=== PATIENT | female | born 1960 | race Caucasian/White ===

== ENCOUNTER → 2019-09-17 17:00 | Outpatient (CLI) | payer MEDICAID, SELFPAY ==
[2019-09-17 17:26] LABS: Basophils % 0.3 % (0.1-2.0); Eosinophils # 0.2 K/mm3 (0.0-0.4); Eosinophils % 1.5 % (0.1-12.0); Hematocrit 43.2 % (37.0-47.0); Lymphocytes # 2.9 K/mm3 (0.7-4.5); Lymphocytes % 27.5 % (10-50); Mean Corpuscular HGB Conc 32.5 g/dL (31.8-35.4); Mean Corpuscular Hemoglobin 29.2 pg (27.0-31.2); Mean Corpuscular Volume 89.9 fl (81-99); Mean Platelet Volume 8.4 fl (7.4-10.4); Monocytes # 0.5 K/mm3 (0.1-1.0); Monocytes % 5.1 % (1.7-9.3); Neutrophils # 6.9 K/mm3 (1.8-7.8); Neutrophils % 65.6 % (37.0-80.0); Platelet Count 310 K/mm3 (142-424); Red Blood Count 4.81 M/mm3 (4.20-5.40); Red Cell Distribution Width 14.9 % (11.5-17.5); White Blood Count 10.5 K/mm3 (4.8-10.8)
[2019-09-17 17:30] LABS: Chloride 104 mmol/L (98-107); Potassium 4.1 mmoL/L (3.5-5.1); Sodium 138 mmol/L (136-145)
[2019-09-17 17:33] LABS: Alanine Aminotransferase 20 U/L (12-78); Albumin Level 3.9 g/dl (3.5-5.0); Albumin/Globulin Ratio 1.6 (1.1-1.8); Alkaline Phosphatase 81 U/L (38-126); Anion Gap 8.1 mEq/L (5-15); Aspartate Amino Transferase 29 U/L (14-36); Bilirubin,Total 0.4 mg/dl (0.2-1.3); Blood Urea Nitrogen 15 mg/dl (7-17); Calcium 9.3 mg/dl (8.4-10.2); Carbon Dioxide 30 mmol/L (22.0-30.0); Estimated Glomerular Filt Rate 102 ml/min (>60); GFR (African American) 124 ML/MIN (>60); Globulin 2.5 g/dL (1.3-3.2); Glucose 109 mg/dl (74-100); Total Protein,Serum 6.4 g/dl (6.3-8.2)
[2019-09-17 17:51] LABS: T4 (Thyroxine) 8.9 ug/dl (5.53-11.0)
[2019-09-17 18:04] LABS: Thyroid Stimulating Hormone 1.07 uIU/mL (0.465-4.68)
== END ==
PROVIDERS: Visit Provider Family Medicine
DX: R53.83 Other fatigue (principal); E66.9 Obesity, unspecified
CPT/HCPCS: 80053; 84436; 84443; 85025

== ENCOUNTER 2023-05-30 21:14 | Outpatient (CLI) | payer MEDICAID, SELFPAY ==
[2023-05-30 19:25] LABS: Thyroid Stimulating Hormone 0.37 uIU/mL (0.465-4.68)
== END 2023-05-30 23:59 ==
LOC: LAB.DROPOF 21:14
PROVIDERS: PCP Family Medicine; Visit Provider Family Medicine
DX: E66.9 Obesity, unspecified (principal); H92.01 Otalgia, right ear; Z79.899 Other long term (current) drug therapy; Z68.41 Body mass index [BMI] 40.0-44.9, adult
CPT/HCPCS: 83036; 84443

== ENCOUNTER 2023-08-26 18:51 | Outpatient (CLI) | payer MEDICAID, SELFPAY ==
[2023-08-26 19:52] LABS: Basophils % 0.5 % (0.1-2.0); Eosinophils # 0.2 K/mm3 (0.0-0.4); Hematocrit 40.7 % (37.0-47.0); Hemoglobin 12.5 g/dL (12.2-16.2); Lymphocytes # 2.6 K/mm3 (0.7-4.5); Mean Corpuscular HGB Conc 30.7 g/dL (31.8-35.4); Mean Corpuscular Hemoglobin 28.8 pg (27.0-31.2); Mean Platelet Volume 9.6 fl (7.4-10.4); Monocytes # 0.6 K/mm3 (0.1-1.0); Neutrophils # 5.8 K/mm3 (1.8-7.8); Neutrophils % 63.5 % (37.0-80.0); Platelet Count 342 K/mm3 (142-424); Red Blood Count 4.33 M/mm3 (4.20-5.40); Red Cell Distribution Width 15.8 % (11.5-17.5); White Blood Count 9.2 K/mm3 (4.8-10.8)
[2023-08-26 20:14] LABS: Chloride 104 mmol/L (98-107); Potassium 4.1 mmoL/L (3.5-5.1); Sodium 138 mmol/L (136-145)
[2023-08-26 20:17] LABS: Alanine Aminotransferase 14 U/L (12-78); Albumin Level 3.5 g/dl (3.5-5.0); Alkaline Phosphatase 90 U/L (38-126); Anion Gap 10.1 mEq/L (5-15); Aspartate Amino Transferase 21 U/L (14-36); Bilirubin,Total 0.2 mg/dl (0.2-1.3); Blood Urea Nitrogen 17 mg/dl (7-17); Calcium 9.1 mg/dl (8.4-10.2); Carbon Dioxide 28 mmol/L (22.0-30.0); Estimated Glomerular Filt Rate 72 ml/min (>60); GFR (African American) 88 ML/MIN (>60); Glucose 100 mg/dl (74-100)
[2023-08-26 20:18] LABS: Albumin/Globulin Ratio 1.5 (1.1-1.8); Globulin 2.4 g/dL (1.3-3.2); Total Protein,Serum 5.9 g/dl (6.3-8.2)
[2023-08-26 20:49] LABS: Thyroid Stimulating Hormone 1.52 uIU/mL (0.465-4.68)
== END 2023-08-26 23:59 | disposition home or self-care (01) ==
LOC: LAB.DROPOF 18:54
PROVIDERS: PCP Family Medicine; Visit Provider Family Medicine
DX: E07.9 Disorder of thyroid, unspecified (principal); I10 Essential (primary) hypertension; F17.210 Nicotine dependence, cigarettes, uncomplicated
CPT/HCPCS: 80050; 80053; 84443; 85025

== ENCOUNTER 2023-10-16 11:36 | Outpatient (CLI) | payer MEDICAID, SELFPAY ==
[2023-10-16 12:33] LABS: Basophils # 0.1 K/mm3 (0-0.2); Basophils % 1.1 % (0.1-2.0); Eosinophils % 0.5 % (0.1-12.0); Hematocrit 42.7 % (37.0-47.0); Hemoglobin 13.4 g/dL (12.2-16.2); Lymphocytes # 3.8 K/mm3 (0.7-4.5); Lymphocytes % 47.5 % (10-50); Mean Corpuscular HGB Conc 31.3 g/dL (31.8-35.4); Mean Corpuscular Hemoglobin 29.1 pg (27.0-31.2); Mean Corpuscular Volume 92.9 fl (81-99); Mean Platelet Volume 8.4 fl (7.4-10.4); Monocytes # 0.5 K/mm3 (0.1-1.0); Monocytes % 6.3 % (1.7-9.3); Neutrophils # 3.6 K/mm3 (1.8-7.8); Neutrophils % 44.6 % (37.0-80.0); Platelet Count 305 K/mm3 (142-424); Red Cell Distribution Width 15.8 % (11.5-17.5); White Blood Count 8.1 K/mm3 (4.8-10.8)
[2023-10-16 13:15] LABS: Alanine Aminotransferase 18 U/L (12-78); Albumin Level 3.5 g/dl (3.5-5.0); Alkaline Phosphatase 93 U/L (38-126); Anion Gap 9.2 mEq/L (5-15); Aspartate Amino Transferase 21 U/L (14-36); Bilirubin,Indirect 0.3 mg/dL (0.0-0.9); Bilirubin,Total 0.3 mg/dl (0.2-1.3); Bilirubin,Unconjugated 0.4 mg/dL (0.0-1.1); Blood Urea Nitrogen 20 mg/dl (7-17); Carbon Dioxide 27 mmol/L (22.0-30.0); Chloride 107 mmol/L (98-107); Chol/HDL Ratio 3.5 (1-3.5); Cholesterol 164 mg/dl (140-200); Estimated Glomerular Filt Rate 63 ml/min (>60); GFR (African American) 77 ML/MIN (>60); Glucose 106 mg/dl (74-100); HDL Cholesterol 47 mg/dl (40-60); Potassium 4.2 mmoL/L (3.5-5.1); Sodium 139 mmol/L (136-145); Triglycerides 331 mg/dl (30-150); VLDL Cholesterol 66 mg/dL (0-40)
[2023-10-16 13:25] LABS: NT Pro Brain Natriuretic Pep. 516 pg/mL (0-125)
[2023-10-16 13:26] LABS: Direct LDL Cholesterol 57.83 mg/dL (100-129)
[2023-10-16 13:32] LABS: Free T4 (Free Thyroxine) 0.98 ng/dl (0.78-2.19)
[2023-10-16 13:46] LABS: Thyroid Stimulating Hormone 1.86 uIU/mL (0.465-4.68)
== END 2023-10-16 23:59 | disposition home or self-care (01) ==
LOC: LAB 11:38
PROVIDERS: PCP Family Medicine; Visit Provider Nurse Practitioner Family
DX: R07.89 Other chest pain (principal); R06.02 Shortness of breath; I48.0 Paroxysmal atrial fibrillation; R00.2 Palpitations
CPT/HCPCS: 36415; 80048; 80061; 80076; 83880; 84439; 84443; 85025

== ENCOUNTER 2023-11-21 10:17 | Outpatient (CLI) | payer MEDICAID, SELFPAY ==
[2023-11-21 12:01] LABS: Anion Gap 8.3 mEq/L (5-15); Blood Urea Nitrogen 12 mg/dl (7-17); Calcium 9.5 mg/dl (8.4-10.2); Carbon Dioxide 28 mmol/L (22.0-30.0); Chloride 110 mmol/L (98-107); Estimated Glomerular Filt Rate 85 ml/min (>60); GFR (African American) 102 ML/MIN (>60); Glucose 109 mg/dl (74-100); Potassium 4.3 mmoL/L (3.5-5.1); Sodium 142 mmol/L (136-145)
[2023-11-21 12:07] LABS: NT Pro Brain Natriuretic Pep. 557 pg/mL (0-125)
== END 2023-11-21 23:59 | disposition home or self-care (01) ==
PROVIDERS: PCP Family Medicine; Visit Provider Nurse Practitioner Family
DX: Z82.49 Family history of ischemic heart disease and other diseases of the circulatory system (principal); F17.200 Nicotine dependence, unspecified, uncomplicated; R00.2 Palpitations; R06.01 Orthopnea; R60.9 Edema, unspecified; R06.02 Shortness of breath; I48.0 Paroxysmal atrial fibrillation
CPT/HCPCS: 36415; 80048; 83880

== ENCOUNTER 2023-11-28 15:49 | Outpatient (CLI) | payer MEDICAID, SELFPAY | END 2023-11-28 23:59 | disposition home or self-care (01) | LOC: LAB.DROPOF 11-29 13:37 | PROVIDERS: PCP Obstetrics & Gynecology; Visit Provider Nurse Practitioner Family | DX: L72.9 Follicular cyst of the skin and subcutaneous tissue, unspecified (principal) | CPT/HCPCS: 87070; 87077; 87186; 87205 ==

== ENCOUNTER 2023-12-11 07:49 | Outpatient (CLI) | payer MEDICAID, SELFPAY ==
--- NOTE | 2023-12-11 | CA_ITS ---
APPROVED REPORT Exam: Pharmacologic Technologist: Kiki Gonzales Ht: 5 ft 8 in Wt: 302 lbs BSA: 2.44 m2 HR: 71 bpm BP: 135/70 mmHg Rhythm: NSR Indications: Shortness of Breath Medical History Medications: Lisinopril,,,,, Atorvastatin,,,,, Nitroglycerin,,,,, Trazodone,,,,, TorSEMIDE,,,,, Apixaban,,,,, Potassium,,,,, Hydrocodone-Acetaminophen,,,,, DilTiazem HCI ER,,,,, BuPROPION HCI XL,,,,, Stress Test Details Test: LEXISCAN HR Resting HR: 76 bpm Max Heart Rate (APMHR): 157 bpm Max HR Achieved: 97 bpm Target HR (85% APMHR): 133 bpm % of APMHR: 62 Recovery HR: 80 bpm BP Resting BP: 135.0/70.0 mmHg Max BP: 139.0/74.0 mmHg Recovery BP: 122.0/64.0 mmHg ECG Resting ECG: Normal sinus rhythm, low voltage QRS Stress ECG: No significant ST changes Arrhythmia: PACs Clinical Exercise duration: 04:00 min Highest Stage Achieved: Stress ECG Conclusion Symptoms: Shortness of air, mild head discomfort. No chest pain. Arrhythmias/Ectopy: Occasional PAC ST-T Changes: No significant ST changes. Conclusion: Unremarkable Lexiscan stress. Myoview images reported separately. Test Summary REST . . . . . . . Resting REST 03:23 . . 76 . 135/ 70 . . Stage 1 . . . . . . . Myoview Injected Stage 1 01:00 . . 84 . . . . Stage 2 01:00 . . 91 . . . . Stage 3 01:00 . . 85 . 135/ 71 . . Stage 4 01:00 . . 84 . 139/ 74 . Stop exercise at 04:00 RECOVERY 01:00 . . 90 . 134/ 70 . . RECOVERY 02:00 . . 78 . 134/ 70 . . RECOVERY 03:00 . . 79 . 122/ 64 . . RECOVERY 03:14 . . 76 . 122/ 64 . . Electronically signed by : Megan Bullock MD 12/11/2023 12:15:50
--- NOTE | 2023-12-11 08:25 | CA_ITS ---
APPROVED REPORT EXAM: Comprehensive 2D, Doppler, and color-flow Echocardiogram Silk Snapper: Chelsea Devries RVT Ht: 5 ft 8 in Wt: 306lbs BSA: 2.45 BP: 134/74 mmHg Indications: EDEMA,SMOKER,SOA 2D Dimensions IVSd 0.94 cm F: 0.6-1.0 LVEF (Visual) 63.10 % PWd 0.81 cm F: 0.6 - 1.0 LA Volume 78.00 mL LVDd 5.82 cm F: 3.9 - 5.3 LA Volume Index 31.84 mL/m2 (M/F) 16-34 LVDs 3.80 cm F: 2.2 - 3.5 M-Mode Dimensions LA Diam 5.37 cm (1.9-4.0) LV Diastology E Decel Time 177 (160-240 msec) E/A Ratio 1.4 Aortic Valve ANDREW Index 1.69 cm2/m2 AoV Peak Carlos. 148.0 (50-130 cm/s) AO Peak GR. 8.80 mmHg AO Mean GR. 4.60 (<5 mmHg) AO VTI 28.5 (18-25 cm) ANDREW (VTI) 4.24 (2.5-4.5 cm2) Mitral Valve MV E Max Carlos. 95.0 (40-130 cm/s) MV A Velocity 70.0 (40-130 cm/s) E/A Ratio 1.36 MV PHT 52.0 ms Pulmonary Valve PV Peak Velocity 87.0 (50-150 cm/s) Tricuspid Valve TR P. Velocity 192.00 cm/s RAP Estimate 10.00 mmHg RVSP 24.80 mmHg Left Ventricle The left ventricle is normal size. The left ventricular systolic function is normal. The left ventricular ejection fraction is within the normal range. There is normal left ventricular wall thickness. There is normal LV segmental wall motion. The left ventricular diastolic function is normal. LVEF is 65%. Right Ventricle The right ventricle is not very well-visualized, but grossly appears normal in size and function. Atria The left atrium size is normal. The right atrium size is normal. There is no Doppler evidence of interatrial shunt. Aortic Valve Aortic valve opens well. There is no aortic valvular stenosis. No aortic regurgitation is present. Mitral Valve The mitral valve is normal in structure. No evidence of mitral valve stenosis. Trace mitral regurgitation. Tricuspid Valve Tricuspid valve is grossly normal in structure and function. Trace tricuspid regurgitation. There is insufficient TR jet to estimate RVSP. Pulmonic Valve The pulmonary valve is normal in structure. Trace pulmonic regurgitation. Great Vessels The aortic root is normal in size. The ascending aorta is not well-visualized. IVC is normal in size and collapses >50% with inspiration. Pericardium There is no pericardial effusion. An epicardial fat pad is noted. Other Information Study Quality: Technically Difficult Conclusion Technically difficult study due to poor acoustic windows. Normal biventricular systolic function. No significant valvular stenosis or regurgitation. Electronically signed by : Megan Bullock MD 12/11/2023 12:01:21
--- NOTE | 2023-12-11 08:25 | NM_ITS ---
APPROVED REPORT Exam: Nuclear Stress Test Indication: Chest pain, SOB, Palpitations, Fatigue, HTN, Tobacco use, Family history Patient Location: Outpatient Stress Tech: Kiki Gonzales [place] Tech:Romi Mensah, ARRT, RT (R)(N) Ht: 5 ft 8 in Wt: 301 lbs Bra Size: 42DD HR: 76 bpm BP: 135/70 mmHg BSA: 2.43 m2 TID: 1.23 BMI: 45.7 History: Chest pain, SOB, Palpitations, Fatigue, HTN, Tobacco use, Family history Procedure: Patient received 0.4 mg of intravenous Lexiscan, resting heart rate 76 bpm, resting blood pressure 135/70 mmHg, with Lexiscan maximum heart rate achieved was 97 bpm which is % of the maximum predicted heart rate and blood pressure was 139/74 mmHg. With Lexiscan, patient denied any complaint of chest pain. Cardiac Stress and Resting SPECT Images: Cardiac Stress and Resting SPECT images were obtained using technetium 99m Myoview 32.2 mCi stress and 10.27 mCi at rest. Resting and stress imaging in supine and prone positions demonstrate no evidence of fixed or reversible perfusion defects. There is increase in transit ischemic dilatation (TID 1.23), suggestive of possible multivessel disease or balanced ischemia. Gated imaging demonstrates normal global and regional LV systolic function. LVEF is calculated at 61%. Conclusion: No evidence of fixed or reversible perfusion defects. There is increase in transit ischemic dilatation (TID 1.23), suggestive of possible multivessel disease or balanced ischemia. Gated imaging demonstrates normal global and regional LV systolic function. LVEF is calculated at 61%. In the setting of normal LV systolic function and presence of TID, further evaluation noninvasively with CCTA may be suggested prior to proceeding with invasive coronary angiography, if clinically feasible. Electronically signed by : Megan Bullock MD 12/11/2023 12:17:49
[2023-12-11] MEDS: REGADENOSON 0.4MG/5ML SYRINGE 0.4 MG IV (09:24)
[2023-12-11] MEDS: ISOTOPE MYOVIEW (PER STUDY) 1 DOSE IV (09:25)
[2023-12-11] MEDS: SODIUM CHLORIDE 0.9% 10ML SYR (RAD ONLY) 10 ML IV ×2 (09:25)
== END 2023-12-11 23:59 | disposition home or self-care (01) ==
LOC: RAD 07:50
PROVIDERS: PCP Family Medicine; Visit Provider Nurse Practitioner Family
DX: R07.89 Other chest pain (principal); R06.02 Shortness of breath; I48.0 Paroxysmal atrial fibrillation; R60.9 Edema, unspecified; R06.01 Orthopnea; R00.2 Palpitations; Z82.49 Family history of ischemic heart disease and other diseases of the circulatory system
CPT/HCPCS: 78452; 93017; 93018; 93306; A9502; J2785

== ENCOUNTER 2024-01-13 11:34 | Outpatient (CLI) | payer MEDICAID, SELFPAY ==
[2024-01-13] VITALS (7 sets, daily range): BP systolic 98–142; BP diastolic 40–79; PULSE 60–70; RESP 16–92; O2SAT 92–97; BMI 47.2
--- NOTE | 2024-01-13 11:34 | CT_ITS ---
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 A noncontrast coronary calcium scan was performed. A CT attenuation threshold of 130 Hounsfield units (HU) was used for the detection of calcium in contiguous voxels of 1 sq mm in area to be counted as individual lesions. Bolus tracking in the ascending aorta with a threshold of 180 HU was performed. Immediately afterwards, ECG synchronized cardiac CT was then performed from the cardiac base to apex using retrospective gating with ECG tube current modulation. A total of 85 mL of Isovue 370 mg/mL contrast medium was administered at 5 mL/sec followed by a saline flush using a biphasic injection protocol. A tube voltage of 120 KVp was used. The patient received the following medications prior to the cardiac CT. 15 mg of oral ivabradine 0.8 mg of sublingual nitroglycerin The average heart rate at the time of acquisition was 60 bpm and regular. Image Reconstruction Transaxial images were reconstructed at 0.67 mm slide thickness. Data was reviewed interactively on an advanced workstation capable of 2 and 3-dimensional displays in all conventional reconstruction formats, including multiplanar reformations, maximum intensity projections, curved multiplanar reformations, and volume rendered reconstructions. When applicable, selected routine images describing the relevant coronary anatomy and pathology were saved and sent to PACS. Complications None Technical Quality Overall image quality was suboptimal. Coronary artery opacification was suboptimal due to early image acquisition after IV contrast administration (low coronary vessel attenuation). Total DLP (Dose-Length Product) is 4606.8 mGy-cm. The reported value represents the total of one or more individual components during the CT acquisition of this date and at this time, and as such, the same value may appear in more than one CT report depending on the interpreting/reporting physicians. COMPARISON None FINDINGS CT Coronary Calcium Scoring LMA (Left Main Artery) = 176 LAD (Left Anterior Descending) = 161 LCX (Left Coronary Circumflex) = 268 RCA (Right Coronary Artery) = 272 Total Calcium Score = 877 using the AJ-130 method. The observed calcium score of 877 is at 99th percentile for subjects of the same age, sex, and race/ethnicity. The interpretation of the calcium heart score is based on the following continuum*: 0 = no calcified plaque detected (risk of coronary artery disease is very low ??? less than 5%) 1-10 = calcium detected in extremely minimal levels (risk of coronary diseases is still low ??? less than 10%) 11-100 = mild levels of plaque detected with certainty (mild or minimal narrowing of heart arteries is likely) 101-400 = definite,at least moderate levels of plaque detected (relatively high risk of a heart attack within 3-5 years) >401-999 = extensive levels of plaque detected (high risk of heart attack, high levels of vascular disease are present, high likelihood of at least one significant coronary narrowing) *The calcium heart score quantifies the burden of coronary calcification/plaque in the coronary arteries. The calcium heart score is not able to evaluate the presence or burden of non-calcified (i.e. soft) plaque. There is also calcification in the aortic valve present. Coronary CT Angiography The coronary arterial system is right dominant. Quantitative Stenosis Grading: Left Main (LM): The left main originates normally from the left sinus of Valsalva. The LM bifurcates into the left anterior descending artery and left circumflex artery. There is mixed calcified/non-calcified plaque in the ostial and proximal LM segments, with up to 30-50% luminal stenosis. Left Anterior Descending (LAD) and Diagonal Branches: The LAD gives off 2 diagonal branch(es). There is mixed calcified/non-calcified plaque in the proximal and mid LAD segments, with up to 30-50% luminal stenosis. There is no evidence of LAD-myocardial bridge. Left Circumflex (LCX) and Obtuse Marginals (OM): The LCX gives off 1 Obtuse Marginal (OM) branch(es). There is mixed calcified/non-calcified plaque in the proximal and mid LCX segment, with up to 30-50% luminal stenosis. Right Coronary Artery (RCA): The RCA originates normally from the right sinus of Valsalva. The RCA gives off a posterior descending artery (PDA) and posterolateral (PL) branches. There is mixed calcified/non-calcified plaque along the proximal and mid-RCA segments, with up to 30-50% luminal stenosis. Non-Coronary Cardiac Findings: Analysis of the left ventricular (LV) structure and function was performed after 3-D reconstruction of the LV from axial images, with user-corrected automatic contouring for assessment of LV volumes and user-defined reconstruction from oblique planes for measurement of 3-D cardiac structure and function. -The left ventricle systolic function is normal. -There is no left atrial appendage filling defect. Two right pulmonary veins and two left pulmonary veins drain normally into the left atrium. -No pericardial thickening or calcification. -Central and branch pulmonary arteries in the [id number] are unremarkable. -Thoracic aorta within the visualized thoracic aortic-branches in the [id number] is unremarkable. Extracardiac Structures No significant extra-cardiac findings. Note, however, that this study is focused on the cardiac findings. IMPRESSION -This is a suboptimal CCTA due to early image acquisition after IV contrast administration (low coronary vessel attenuation). -Presence of coronary calcification with an Agatston score = 877 using the AJ-130 method. -The observed calcium score of 877 is at 99th percentile for subjects of the same age, sex, and race/ethnicity. -Multivessel mild non-obstructive coronary atherosclerosis present, with no obvious evidence of significant flow-limiting atherosclerosis of the coronary arteries. Note, however, the severity of atherosclerosis may be underestimated in the setting of suboptimal study. -CAD-RADS 2. Management recommendations per ACC/AHA guidelines*, as clinically appropriate. In the setting of difficult study with suboptimal IV contrast opacification of the coronary arteries, further evaluation may be suggested, if clinically indicated and feasible. *Recommendations: CAD RADS 0: Reassurance. Consider non-atherosclerotic causes of chest pain. CAD RADS 1: Consider non-atherosclerotic causes of chest pain. Consider preventive therapy and risk factor modification. CAD RADS 2: Consider non-atherosclerotic causes of chest pain. Consider preventive therapy and risk factor modification, particularly for patients with nonobstructive plaque in multiple segments. CAD RADS 3: Consider further functional testing. Consider symptom-guided anti-ischemic and preventive pharmacotherapy as well as risk factor modification per published guideline statements. CAD RADS 4A: Consider further functional testing or invasive coronary angiography with revascularization per published guideline statements. Consider symptom-guided anti-ischemic and preventive pharmacotherapy as well as risk factor modification per published guideline statements. CAD RADS 4B: Invasive coronary angiography recommended with revascularization per published guideline statements. Consider symptom-guided anti-ischemic and preventive pharmacotherapy as well as risk factor modification per published guideline statements. CAD RADS 5: Consider invasive angiography and/or viability assessment with revascularization per published guideline statements. Consider symptom-guided anti-ischemic and preventive pharmacotherapy as well as risk factor modification per published guideline statements. CRITICAL RESULT None COMMUNICATION Per this written report The coronary and cardiac findings of this CCTA were reviewed, reported, and signed by Jesus Manuel Bullock MD (Reuse Technician) Conclusion Electronically signed by : Megan Bullock MD 01/14/2024 12:53:15
[2024-01-13] MEDS: IVABRADINE HCL 7.5MG TABLET PO (11:59)
[2024-01-13 12:20] LABS: Chloride 111 mmol/L (98-107); Potassium 3.8 mmoL/L (3.5-5.1); Sodium 143 mmol/L (136-145)
[2024-01-13 12:23] LABS: Anion Gap 10.8 mEq/L (5-15); Blood Urea Nitrogen 12 mg/dl (7-17); Calcium 8.3 mg/dl (8.4-10.2); Carbon Dioxide 25 mmol/L (22.0-30.0); Creatinine Clearance Estimated 58 mL/min (50-200); Estimated Glomerular Filt Rate 72 ml/min (>60); GFR (African American) 88 ML/MIN (>60); Glucose 149 mg/dl (74-100)
[2024-01-13] MEDS: NITROGLYCERIN 0.4MG SL TABLET SL (12:49)
[2024-01-13] MEDS: 0.9 % SODIUM CHLORIDE 50 ML VIAL IV (13:21)
[2024-01-13] MEDS: SODIUM CHLORIDE 0.9% 10ML SYR (RAD ONLY) 10 ML IV (13:22)
[2024-01-13] MEDS: IOPAMIDOL-370 (76%);100ML BOTTLE 85 ML IV ×2 (13:22)
== END 2024-01-13 13:15 | disposition home or self-care (01) ==
PROVIDERS: PCP Family Medicine; Visit Provider Physician Assistant
DX: R07.89 Other chest pain (principal); R94.39 Abnormal result of other cardiovascular function study; I48.0 Paroxysmal atrial fibrillation; E78.00 Pure hypercholesterolemia, unspecified
CPT/HCPCS: 75574; 80048; Q9967

== ENCOUNTER 2024-02-03 08:50 | Day surgery (SDC) | payer MEDICAID, SELFPAY ==
[2024-02-03] VITALS (9 sets, daily range): BP systolic 121–163; BP diastolic 61–82; PULSE 56–69; RESP 17–20; O2SAT 93–96; BMI 47.9
--- NOTE | 2024-02-03 07:04 | IR_ITS ---
APPROVED REPORT Patient Location: Outpatient PROCEDURES Selective coronary angiogram INDICATION Abnormal CCTA, Angina pectoris Informed consent was obtained prior to the procedure. COMPLICATIONS NONE Estimated Blood Loss: LESS THAN 10 ML TECHNIQUE One percent lidocaine used to anesthetize the right anterior aspect of the wrist. The right radial artery was accessed via the Seldinger technique. A 6 Serbian sheath was placed in the right radial artery. 2.5 mg of Verapamil, 800 mcg of nitroglycerin, 1mg Lidocaine and 5000 U Heparin were given through the arterial sheath. The 6 Serbian JL 3 guide catheter was used to perform selective coronary angiogram. At the end of the procedure the sheath was removed good hemostasis was achieved using Traclet band, patient was transferred to the postop holding area in stable condition. ANGIOGRAPHIC RESULTS The left main artery Has a smooth ostial 20% stenosis The left anterior descending artery Has proximal tendon 20% stenosis with a mid vessel concentric 30% stenosis there are diffuse distal 10% luminal regularities The circumflex artery Large and dominant and proximally normal. A medium sized first obtuse marginal artery has an ostial 40% stenosis the distal circumflex artery between the second and third obtuse marginal artery has a concentric 30% stenosis The right coronary artery Nondominant with proximal and mid vessel 20 to 30% stenosis The HANDLEY ventriculogram reveals Not performed The left ventricular end-diastolic pressure Not measured IMPRESSION Moderate coronary disease as described above Significant hypertension is appreciated during cardiac catheterization PLAN 1. Medical management for coronary artery disease 2. I suspect a lot of patient's angina pectoris stems from poorly controlled blood pressure. Will increase lisinopril from 20 mg daily to 40 mg daily 3. Consider up titration of beta-blockers 4. Aggressive risk factor modification Electronically signed by : Maninder Iqbal MD 02/03/2024 12:23:50
[2024-02-03 09:55] LABS: Basophils % 0.5 % (0.1-2.0); Eosinophils # 0.1 K/mm3 (0.0-0.4); Eosinophils % 1.1 % (0.1-12.0); Hematocrit 39.7 % (37.0-47.0); Hemoglobin 12.3 g/dL (12.2-16.2); Lymphocytes # 1.6 K/mm3 (0.7-4.5); Lymphocytes % 22.2 % (10-50); Mean Corpuscular Hemoglobin 26.6 pg (27.0-31.2); Mean Corpuscular Volume 85.7 fl (81-99); Mean Platelet Volume 8.7 fl (7.4-10.4); Monocytes # 0.3 K/mm3 (0.1-1.0); Monocytes % 4.7 % (1.7-9.3); Neutrophils # 5.1 K/mm3 (1.8-7.8); Neutrophils % 71.6 % (37.0-80.0); Platelet Count 261 K/mm3 (142-424); Red Blood Count 4.63 M/mm3 (4.20-5.40); Red Cell Distribution Width 16.6 % (11.5-17.5); White Blood Count 7.2 K/mm3 (4.8-10.8)
[2024-02-03 09:57] LABS: Chloride 108 mmol/L (98-107); Potassium 4.2 mmoL/L (3.5-5.1); Sodium 143 mmol/L (136-145)
[2024-02-03 10:00] LABS: Blood Urea Nitrogen 12 mg/dl (7-17); Creatinine Clearance Estimated 57 mL/min (50-200); Estimated Glomerular Filt Rate 84 ml/min (>60); GFR (African American) 102 ML/MIN (>60)
[2024-02-03 10:01] LABS: Anion Gap 10.2 mEq/L (5-15); Carbon Dioxide 29 mmol/L (22.0-30.0); Glucose 117 mg/dl (74-100)
[2024-02-03] MEDS: VERAPAMIL 2.5MG/ML 2ML VIAL 2.5 MG IV (11:49)
[2024-02-03] MEDS: diphenhydrAMINE 50MG/ML VIAL 50 MG IV (11:49)
[2024-02-03] MEDS: HEPARIN 1,000 UNITS/ML 10ML VIAL (CATH LAB) 10000 UNIT IV (11:50)
[2024-02-03] MEDS: 0.9 % SODIUM CHLORIDE 500 ML 25 ML IV (11:50)
[2024-02-03] MEDS: LIDOCAINE 1% 10ML MDV 20 ML IJ (11:50)
[2024-02-03] MEDS: FENTANYL 100MCG/2ML VIAL 50 MCG IV (11:50)
[2024-02-03] MEDS: MIDAZOLAM HCL 1MG/ML 5ML VIAL 1 MG IV (11:50)
[2024-02-03] MEDS: HEPARIN 1,000 UNITS/500ML NS (CATH LAB) 3000 UNIT IV (11:51)
[2024-02-03] MEDS: NITROGLYCERIN 800MCG/8ML SYR (CATH LAB) 800 MCG IA (11:51)
[2024-02-03] MEDS: IOPAMIDOL-370 (76%);100ML BOTTLE 80 ML IV (13:36)
== END 2024-02-03 14:39 | disposition home or self-care (01) ==
PROVIDERS: PCP Family Medicine; Visit Provider Internal Medicine
DX: I25.118 Atherosclerotic heart disease of native coronary artery with other forms of angina pectoris (principal); R94.39 Abnormal result of other cardiovascular function study; R93.1 Abnormal findings on diagnostic imaging of heart and coronary circulation; I10 Essential (primary) hypertension; I48.0 Paroxysmal atrial fibrillation; Z79.899 Other long term (current) drug therapy; F17.210 Nicotine dependence, cigarettes, uncomplicated; Z79.01 Long term (current) use of anticoagulants
CPT/HCPCS: 80048; 85025; 93458; 99152; C1725; C1769; J1200; J1644; J2250; J3010; Q9967

== ENCOUNTER → 2024-06-19 06:30 | Outpatient (CLI) | payer OTHER, SELFPAY | LOC: SL 06:30 | PROVIDERS: PCP Family Medicine; Visit Provider Family Medicine | DX: G47.33 Obstructive sleep apnea (adult) (pediatric) (principal); G47.36 Sleep related hypoventilation in conditions classified elsewhere | CPT/HCPCS: G0399 ==

== ENCOUNTER 2024-06-30 10:42 | Outpatient (CLI) | payer OTHER, SELFPAY ==
--- NOTE | 2024-06-30 11:00 | CT_ITS ---
FINAL REPORT TECHNIQUE: Thin section axial images were obtained through the lungs using a low-dose technique per lung cancer screening protocol. Reconstruction images were obtained using the axial data. This study was performed with techniques to keep radiation doses as low as reasonably achievable, (ALARA). Individualized dose reduction techniques using automated exposure control or adjustment of mA and/or kV according to the patient's size were employed. CLINICAL HISTORY: Lung cancer screening 2ppd x 50 years COMPARISON: None FINDINGS: CTDLvol: 2.90 DLP: 101.60 Lungs: There is emphysema and evidence of prior granulomatous disease. The lungs are otherwise clear. Lymph nodes: No thoracic lymphadenopathy. Mediastinum: There are prominent coronary artery calcifications. Pleura/pericardium: No pleural or pericardial effusion. Other: No acute abnormality in the upper abdomen. IMPRESSION: No suspicious pulmonary nodule or mass. Lung RADS: 1S Modifier S: Coronary artery calcifications Recommendation: 12-month follow-up LDCT. Reviewed, Interpreted and Dictated by Cecilia Stevens MD Transcribed by Tere Cool Authenticated and [facility]
== END 2024-06-30 23:59 | disposition home or self-care (01) ==
LOC: RAD 10:43
PROVIDERS: PCP Family Medicine; Visit Provider Family Medicine
DX: F17.210 Nicotine dependence, cigarettes, uncomplicated (principal)
CPT/HCPCS: 71271

== ENCOUNTER 2024-08-05 10:22 | Emergency (ER) | payer OTHER, SELFPAY ==
[2024-08-05] VITALS (11 sets, daily range): BP systolic 106–126; BP diastolic 61–79; PULSE 55–160; RESP 13–20; TEMP 36.5–36.8; O2SAT 91–99; BMI 47.0
--- NOTE | 2024-08-05 10:29 | ECG_ITS ---
APPROVED REPORT Exam: Resting ECG HR:161 bpm ECG Measurements Heart Rate 161 AXES QRSd 82 QRS 91 QT 218 T -45 QTc 307 Conclusion A-fib with RVR Rate related ST changes without reciprocal elevation Electronically signed by : STEFANI MENDIOLA, 08/06/2024 18:34:08
--- NOTE | 2024-08-05 10:35 | XR_ITS ---
FINAL REPORT CLINICAL HISTORY: Shortness of breath, A-fib COMPARISON: None FINDINGS: A single view of the chest was obtained. There is moderate cardiomegaly. The mediastinum is unremarkable. The lungs are clear. There is no pleural effusion. IMPRESSION: Cardiomegaly without pulmonary edema. Reviewed, Interpreted and Dictated by Danay López MD Transcribed by Tere Cool Authenticated and [facility]
--- NOTE | 2024-08-05 10:38 | HMH.EDGENADL ---
Discharge Plan Disposition Patient Disposition: Home, Self-Care Condition: Good Prescriptions Prescriptions: No Action oxycodone-acetaminophen [Percocet] 7.5-325 mg tablet 1 tab PO Q8H PRN (Reason: pain) Qty: 90 0RF furosemide 40 mg tablet 40 mg PO ONCE metoprolol succinate 50 mg tablet extended release 24 hr 50 mg PO BID Eliquis 5 mg tablet 5 mg PO BID Qty: 60 10RF atorvastatin [Lipitor] 40 mg tablet 40 mg PO DAILY Qty: 90 3RF diltiazem HCl 120 mg capsule,extended release 12 hr 120 mg PO BID Qty: 180 3RF nicotine 21 mg/24 hr patch 24 hour 1 patch transdermal DAILY Qty: 28 5RF cyclobenzaprine 10 mg tablet 10 mg PO HS PRN diclofenac sodium 3 % gel 1 applic topical BID lisinopril 10 mg tablet 10 mg PO DAILY clobetasol 0.05 % solution 1 applic topical BID lubiprostone 24 mcg capsule 24 mcg PO BID calcium carb,glucon-vitamin D2 500 mg-5 mcg (200 unit) tablet PO linaclotide 290 mcg capsule 290 mcg PO DAILY tiotropium bromide [Spiriva with HandiHaler] 18 mcg capsule, w/inhalation device 1 cap inhalation DAILY Rx Instructions: puncture 1 cap using device; one dose = 2 inhalations Referrals Follow up/Referrals: Yusuf Mack MD [Primary Care Provider] - See instructions Activity Restrictions/Add. Instructions Additional Instructions/Restrictions: Please increase your diltiazem (Cardizem), to 3 times daily, please follow-up in the cardiology office in the upcoming days. Please return to the emergency department any worsening signs or symptoms, continue take all your other medication as prescribed. Clinical Impressions Clinical Impression: Atrial fibrillation with RVR Instructions Patient Instructions: DI for Atrial Fibrillation Print Language Print Language: Slovenian Discharge ED Provider: Bill Mensah General Adult HPI <ROSANA Rodriguez - Last Filed: 08/05/24 15:11> General Chief complaint: Arrhythmia/Palpitations Stated complaint: Sent over by Dr. Zuleta for afib Time Seen by Provider: 08/05/24 10:29 Mode of Arrival: Ambulatory Source of Information: Patient Description of Symptoms (Recalled from ER Triage Doc. by RN): pt presents to ED from cardiology office for afib rvr. per report pt states she was discharged from [facility] on for Afib. pt states she has been taking her home medications which include Cardizem 120 mg q12 and Metoprolol 50 mg BID. History of Present Illness HPI narrative: 64-year-old female presents to the emergency department from her [employer] office this morning found to be in A-fib with RVR at the [employer] office, per patient and patient's family at the bedside, patient symptomatology started on Saturday, when she began feeling not feeling right , she describes it as being in a tunnel , endorses heart palpitations, shortness of breath, cough, denies any chest pain, denies any fever, chills, admits to chronic cough, productive in nature, patient does have history of COPD, denies any abdominal pain, admits to constipation, denies any diarrhea, denies urinary type symptomatology, denies any dizziness, does admit to lightheadedness at times, of note patient was recently seen in outside facility ([facility]) last for atrial fibrillation, she was placed on metoprolol 50 mg twice daily, as well as Cardizem 120 mg every 12, for uncontrolled atrial fibrillation with RVR, patient is on anticoagulation therapy with Eliquis, been taking all medication as prescribed. Other past medical history consistent with current everyday smoker, coronary artery disease, LISA, chronic pain syndrome, osteoarthritis, obesity, hyperlipidemia, hypertension. She denies any alcohol use, denies any drug use, initial triage vitals noted for tachycardia at 160 bpm, blood pressure within normal limits, no hypoxia no tachypnea afebrile. Related Data Home Medications ?Medication ?Instructions ?Recorded ?Confirmed calcium 500 mg (as tab PO 08/05/24 08/05/24 carbonate,gluconate)-vit D2 5 mcg (200 unit) tablet clobetasol 0.05 % scalp solution 1 applic topical BID 08/05/24 08/05/24 cyclobenzaprine 10 mg tablet 10 mg PO HS PRN 08/05/24 08/05/24 diclofenac sodium 3 % topical gel 1 applic topical BID 08/05/24 08/05/24 furosemide 40 mg tablet 40 mg PO ONCE 08/05/24 08/05/24 linaclotide 290 mcg capsule 290 mcg PO DAILY 08/05/24 08/05/24 lisinopril 10 mg tablet 10 mg PO DAILY 08/05/24 08/05/24 lubiprostone 24 mcg capsule 24 mcg PO BID 08/05/24 08/05/24 metoprolol succinate 50 mg 50 mg PO BID 08/05/24 08/05/24 tablet,extended release 24 hr tiotropium bromide 18 mcg capsule 1 cap inhalation DAILY 08/05/24 08/05/24 with inhalation device (Spiriva with HandiHaler) Previous Rx's ?Medication ?Instructions ?Recorded apixaban 5 mg tablet (Eliquis) 5 mg PO BID #60 tabs 04/20/24 atorvastatin 40 mg tablet (Lipitor) 40 mg PO DAILY #90 tabs 04/20/24 diltiazem HCl 120 mg 120 mg PO BID #180 caps 04/20/24 capsule,extended release 12 hr nicotine 21 mg/24 hr daily 1 patch transdermal DAILY #28 ea 06/15/24 transdermal patch oxycodone-acetaminophen 7.5 mg-325 1 tab PO Q8H PRN pain #90 tabs 07/15/24 mg tablet (Percocet) Allergies Allergy/AdvReac Type Severity Reaction Status Date / Time codeine AdvReac Severe Stomach Verified 08/05/24 09:42 Pain sulfamethoxazole (From AdvReac Unknown Vomiting Verified 08/05/24 09:42 Bactrim) trimethoprim (From Bactrim) AdvReac Unknown Vomiting Verified 08/05/24 09:42 PFS <ROSANA Rodriguez - Last Filed: 08/05/24 15:11> [facility] Disclaimer: The information contained in this section may have been updated after the patient was seen, as this information can be updated by other users. Medical History (Updated 08/05/24 @ 15:06 by ROSANA Rodriguez) Atrial fibrillation with RVR Edema of both lower extremities Coronary artery disease Family history of early CAD Smoker Palpitations Orthopnea Edema SOB (shortness of breath) on exertion Chest pain Paroxysmal atrial fibrillation Tobacco abuse Right cataract Hypercholesteremia Hypertension Chronic pain Erosive osteoarthritis of multiple sites Surgical History S/P cardiac cath Hx of appendectomy Hx of shoulder surgery Hx of hysterectomy Hx of cholecystectomy Family History Mother Cancer Breast cancer Heart attack Social History Smoking Status: Current every day smoker alcohol intake: never current occupational status: employed Travel in the last 8 weeks?: None Have you lived/traveled outside US in past 30 days?: No Contact w/someone who lives/traveled outside US past 30 days?: No Exposure to someone with infectious disease in past 14 days?: No Do you have a fever (greater than 100.4 F or 38 C)?: No Have you tested positive for COVID-19?: No Exposed to someone with COVID-19 in past 14 days?: No Do you have a sore throat?: No Do you have a cough?: No Do you have any weakness?: No Do you have any diarrhea?: No Are you experiencing any unusual bleeding?: No Do you have any muscle aches/pain?: No Do you have any abdominal pain?: No Are you experiencing loss of taste or smell?: No Other Medical History Have you received the Flu Vaccine for this season: No Have you received the Pneumonia Vaccine: Yes <ROSANA Rodriguez - Last Filed: 08/05/24 15:11> ROS Obtained: Yes All systems reviewed & no additional complaints except as documented Physical Exam <ROSANA Rodriguez - Last Filed: 08/05/24 15:11> General General appearance: alert and in no apparent distress Head Head exam: atraumatic and normocephalic Eye Eye exam: Present PERRL and EOMI ENT ENT exam: Present mucous membranes moist Neck Neck exam: Present normal inspection Chest Chest inspection: Present normal inspection and symmetric chest wall rise Respiratory Respiratory exam: Present wheezes and other (Mild wheezes throughout bilateral lung poretr); Absent normal lung sounds bilaterally or respiratory distress Cardiovascular Cardiovascular exam: Present tachycardia and irregular rhythm Abdominal Exam Abdominal exam: Present soft; Absent tenderness, guarding, rebound or rigidity Extremities Exam Extremities exam: Present normal inspection and other (There is 1+ pitting edema of the bilateral lower extremities, no erythema, otherwise neurovascular intact) Neurological Exam Neurological exam: Present alert and oriented X3 Psychiatric Psychiatric exam: Present normal affect Skin Skin exam: Present warm and dry Medical Decision Making <ROSANA Rodriguez - Last Filed: 08/05/24 15:11> Medical Records Medical records reviewed: Yes I reviewed the patient's medical records. Screening: Per USPSTF and CDC recommendations, given the prevalence of disease in our region, it is our hospital?s policy to screen for HIV and viral Hepatitis for all patients aged 18 and over and those with ongoing risk factors. Jose Inquiry Pt receiving controlled substance: No Jose was queried for this patient: No Vital Signs: 08/05/24 10:30 08/05/24 11:01 08/05/24 11:31 Temperature 97.7 F Temperature Source Oral Pulse Rate 83 57 L Pulse Rate [Right Radial] 160 H Respiratory Rate 20 18 15 Blood Pressure 113/61 115/63 Blood Pressure [Right Arm] 122/79 Blood Pressure Mean [Right Arm] 93 Blood Pressure Position [Right Arm] Supine 02 Sat by Pulse Oximetry 96 95 94 L Oxygen Delivery Method Room Air Room Air Room Air 08/05/24 12:01 08/05/24 13:01 08/05/24 13:30 Temperature Temperature Source Pulse Rate 80 91 H 68 Pulse Rate [Right Radial] Respiratory Rate 16 16 14 Blood Pressure 124/79 116/67 126/70 Blood Pressure [Right Arm] Blood Pressure Mean [Right Arm] Blood Pressure Position [Right Arm] 02 Sat by Pulse Oximetry 97 95 96 Oxygen Delivery Method Room Air Room Air Room Air 08/05/24 14:01 08/05/24 14:31 08/05/24 15:00 Temperature Temperature Source Pulse Rate 81 74 68 Pulse Rate [Right Radial] Respiratory Rate 14 16 Blood Pressure 110/68 106/70 L 116/66 Blood Pressure [Right Arm] Blood Pressure Mean [Right Arm] Blood Pressure Position [Right Arm] 02 Sat by Pulse Oximetry 93 L 95 91 L Oxygen Delivery Method Room Air Room Air Nasal Cannula Lab Data Lab results reviewed: Yes I reviewed the patient's lab results. Lab Results 08/05/24 10:35: WBC 13.1 H, RBC 4.53, Hgb 12.0 L, Hct 39.5, MCV 87.2, MCH 26.5 L, MCHC 30.4 L, RDW 19.2 H, Plt Count 257, MPV 11.1 H, Neut % (Auto) 65.5, Lymph % (Auto) 23.3, Parker % (Auto) 10.3 H, Eos % (Auto) 0.4, Baso % (Auto) 0.1, Neut # (Auto) 8.6 H, Lymph # (Auto) 3.0, Parker # (Auto) 1.4 H, Eos # (Auto) 0.1, Baso # (Auto) 0.0, PT 11.2, INR 1.01, Sodium 142, Potassium 3.8, Chloride 108 H, Carbon Dioxide 31 H, Anion Gap 6.8, BUN 20 H, Creatinine 0.70, Estimated Creat Clear 57, Estimated GFR 84, Est GFR ( Amer) 102, Glucose 130 H, Calcium 8.4, Magnesium 1.9, Total Bilirubin 0.6, AST 27, ALT 34, Alkaline Phosphatase 78, Troponin I < 0.01, NT-Pro-B Natriuret Pep 2430 H, Total Protein 5.9 L, Albumin 3.5, Globulin 2.4, Albumin/Globulin Ratio 1.5, TSH 0.73, Thyroxine (T4) 10.1, HCV Ab MEEK w/Rflx PCR Qn Negative, HIV Ag/Ab Combo Qual Negative 08/05/24 13:44: Troponin I < 0.01 08/05/24 : Urine Color Yellow, Urine Appearance Clear, Urine pH 6.0, Ur Specific [place] >= 1.030, Urine Protein 2+ A, Urine Glucose (UA) Negative, Urine Ketones Negative, Urine Blood Negative, Urine Nitrate Negative, Urine Bilirubin 1+ A, Urine Urobilinogen 4.0, Ur Leukocyte Esterase Negative, Urine RBC 5-10, Urine WBC 3-5, Ur Squamous Epith Cells 5-10, Urine Bacteria 1+, Urine Mucus 1+ 08/05/24 10:35 08/05/24 10:35 Orders (Tests/Meds): ED MEDICATIONS Discontinued Medications Generic Name Dose Route Start Last Admin Trade Name Torri PRN Reason Stop Dose Admin Acetaminophen 1,000 mg 08/05/24 11:51 08/05/24 12:04 Acetaminophen 500mg Tab PO 08/05/24 11:52 1,000 mg ONCE ONE Administration Diltiazem HCl 10 mg 08/05/24 10:41 08/05/24 10:49 Diltiazem 25mg/5ml Vial IV 08/05/24 10:42 10 mg ONCE ONE Administration ORDERS Category Date Time Status Consult to Cardiology [CONS] Routine Cons 08/05/24 13:13 Active XR chest portable Stat Exams 08/05/24 10:35 Completed Complete Blood Count Auto Diff Stat Lab 08/05/24 10:35 Completed Comprehensive Metabolic Panel Stat Lab 08/05/24 10:35 Completed HIV Combo Stat Lab 08/05/24 10:35 Completed Hepatitis C Ab Qual. W/ RFX Stat Lab 08/05/24 10:35 Completed Magnesium Stat Lab 08/05/24 10:35 Completed NT Pro Brain Natriuretic Pep. Stat Lab 08/05/24 10:35 Completed PT INR [Prothrombin Time INR] Stat Lab 08/05/24 10:35 Completed T4 (Thyroxine) Stat Lab 08/05/24 10:35 Completed TSH [Thyroid Stimulating Hormone] Stat Lab 08/05/24 10:35 Completed Troponin I Q3H Lab 08/05/24 13:44 Completed Troponin I Q3H Lab 08/05/24 16:45 Ordered Troponin I Stat Lab 08/05/24 10:35 Completed Urinalysis and Microscopic Stat Lab 08/05/24 Completed Medical Decision Narrative: 64-year-old female presents emergency department with heart palpitations, shortness of air, lightheadedness, and active A-fib with RVR, differential diagnosis, not limited to, cardiac arrhythmia, electrolyte disturbance, medication noncompliance, ACS, thyrotoxicosis, COPD exacerbation, new onset CHF, pleural effusions, among others. I discussed his case with temperature Dr. Mensah Will obtain basic laboratory studies, magnesium level proBNP PT/INR, T4, TSH troponin urinalysis, chest x-ray and EKG, will give 10 mg IV Cardizem for atrial fibrillation with RVR. I reviewed the patient's initial EKG, at 10:29 AM, patient is in atrial fibrillation with RVR at 161 bpm, QT intervals 218/307, there is no STEMI. CBC is notable for leukocytosis at 13.1, otherwise unremarkable CMP is notable for elevated BUN at 20, otherwise unremarkable. Coags negative After 10 mg IV diltiazem, patient's heart responded to around 90 to 100 bpm. Troponin is less than 0.01, proBNP is minimally elevated at 2430. T4 is within normal limits I reviewed the patient's chest x-ray along the corresponding radiologic report, cardiomegaly without pulmonary edema TSH within normal limits, will give 1000 g p.o. Tylenol for headache. I discussed patient case with attending hospitalist Dr. Blue at approximately 1:08 PM, he recommends consulting [employer] to see if patient can follow-up outpatient versus admission, as patient was seen today by [employer] office. Will call [employer] on-call, for potential consult here in the emergency department. Urinalysis is notable for 2+ proteinuria, negative nitrites, negative leukocyte esterase, 1+ bilirubin is noted. Of note I was notified by nursing staff at approximately 1:56 PM that cardiology was consulted, and anesthesia will be consulted, for sedation, and cardioversion in the emergency department via cardiology. Cardiology and anesthesia at the bedside, 1 shock/cardioversion was adequate for the patient to return to normal sinus rhythm, discussed case with [employer] midlevel at the bedside and cardiology attending will increase patient's diltiazem to 3 times daily, and patient will follow-up in the [employer] clinic. Discussed this with the patient and family at the bedside, patient is agreement with current discharge plan/treatment plan, she is GCS 15 awake alert oriented, mentating appropriately after procedure. Patient was given strict ED return precautions, will follow-up with PCP and cardiology in the upcoming days for atrial fibrillation, she will remain on all of her medications, increase her diltiazem to 3 times daily per [employer] recommendations. Patient voiced understanding and in agreement with current discharge plan/treatment plan.. <Bill Mensah MD - Last Filed: 08/05/24 15:14> Vital Signs: 08/05/24 10:30 08/05/24 11:01 08/05/24 11:31 Temperature 97.7 F Temperature Source Oral Pulse Rate 83 57 L Pulse Rate [Right Radial] 160 H Respiratory Rate 20 18 15 Blood Pressure 113/61 115/63 Blood Pressure [Right Arm] 122/79 Blood Pressure Mean [Right Arm] 93 Blood Pressure Position [Right Arm] Supine 02 Sat by Pulse Oximetry 96 95 94 L Oxygen Delivery Method Room Air Room Air Room Air 08/05/24 12:01 08/05/24 13:01 08/05/24 13:30 Temperature Temperature Source Pulse Rate 80 91 H 68 Pulse Rate [Right Radial] Respiratory Rate 16 16 14 Blood Pressure 124/79 116/67 126/70 Blood Pressure [Right Arm] Blood Pressure Mean [Right Arm] Blood Pressure Position [Right Arm] 02 Sat by Pulse Oximetry 97 95 96 Oxygen Delivery Method Room Air Room Air Room Air 08/05/24 14:01 08/05/24 14:31 08/05/24 15:00 Temperature Temperature Source Pulse Rate 81 74 68 Pulse Rate [Right Radial] Respiratory Rate 14 16 Blood Pressure 110/68 106/70 L 116/66 Blood Pressure [Right Arm] Blood Pressure Mean [Right Arm] Blood Pressure Position [Right Arm] 02 Sat by Pulse Oximetry 93 L 95 91 L Oxygen Delivery Method Room Air Room Air Nasal Cannula Lab Data Lab Results 08/05/24 10:35: WBC 13.1 H, RBC 4.53, Hgb 12.0 L, Hct 39.5, MCV 87.2, MCH 26.5 L, MCHC 30.4 L, RDW 19.2 H, Plt Count 257, MPV 11.1 H, Neut % (Auto) 65.5, Lymph % (Auto) 23.3, Parker % (Auto) 10.3 H, Eos % (Auto) 0.4, Baso % (Auto) 0.1, Neut # (Auto) 8.6 H, Lymph # (Auto) 3.0, Parker # (Auto) 1.4 H, Eos # (Auto) 0.1, Baso # (Auto) 0.0, PT 11.2, INR 1.01, Sodium 142, Potassium 3.8, Chloride 108 H, Carbon Dioxide 31 H, Anion Gap 6.8, BUN 20 H, Creatinine 0.70, Estimated Creat Clear 57, Estimated GFR 84, Est GFR ( Amer) 102, Glucose 130 H, Calcium 8.4, Magnesium 1.9, Total Bilirubin 0.6, AST 27, ALT 34, Alkaline Phosphatase 78, Troponin I < 0.01, NT-Pro-B Natriuret Pep 2430 H, Total Protein 5.9 L, Albumin 3.5, Globulin 2.4, Albumin/Globulin Ratio 1.5, TSH 0.73, Thyroxine (T4) 10.1, HCV Ab MEEK w/Rflx PCR Qn Negative, HIV Ag/Ab Combo Qual Negative 08/05/24 13:44: Troponin I < 0.01 08/05/24 : Urine Color Yellow, Urine Appearance Clear, Urine pH 6.0, Ur Specific [place] >= 1.030, Urine Protein 2+ A, Urine Glucose (UA) Negative, Urine Ketones Negative, Urine Blood Negative, Urine Nitrate Negative, Urine Bilirubin 1+ A, Urine Urobilinogen 4.0, Ur Leukocyte Esterase Negative, Urine RBC 5-10, Urine WBC 3-5, Ur Squamous Epith Cells 5-10, Urine Bacteria 1+, Urine Mucus 1+ Orders (Tests/Meds): ED MEDICATIONS Discontinued Medications Generic Name Dose Route Start Last Admin Trade Name Randyq PRN Reason Stop Dose Admin Acetaminophen 1,000 mg 08/05/24 11:51 08/05/24 12:04 Acetaminophen 500mg Tab PO 08/05/24 11:52 1,000 mg ONCE ONE Administration Diltiazem HCl 10 mg 08/05/24 10:41 08/05/24 10:49 Diltiazem 25mg/5ml Vial IV 08/05/24 10:42 10 mg ONCE ONE Administration ORDERS Category Date Time Status Consult to Cardiology [CONS] Routine Cons 08/05/24 13:13 Active XR chest portable Stat Exams 08/05/24 10:35 Completed Complete Blood Count Auto Diff Stat Lab 08/05/24 10:35 Completed Comprehensive Metabolic Panel Stat Lab 08/05/24 10:35 Completed HIV Combo Stat Lab 08/05/24 10:35 Completed Hepatitis C Ab Qual. W/ RFX Stat Lab 08/05/24 10:35 Completed Magnesium Stat Lab 08/05/24 10:35 Completed NT Pro Brain Natriuretic Pep. Stat Lab 08/05/24 10:35 Completed PT INR [Prothrombin Time INR] Stat Lab 08/05/24 10:35 Completed T4 (Thyroxine) Stat Lab 08/05/24 10:35 Completed TSH [Thyroid Stimulating Hormone] Stat Lab 08/05/24 10:35 Completed Troponin I Q3H Lab 08/05/24 13:44 Completed Troponin I Q3H Lab 08/05/24 16:45 Ordered Troponin I Stat Lab 08/05/24 10:35 Completed Urinalysis and Microscopic Stat Lab 08/05/24 Completed ECG Data Tracing #1: I reviewed this ECG and interpreted as documented below: (A-fib with RVR 161 bpm with QRS 82, QTc 307. ST depressions and T wave inversions with no reciprocal elevations, likely rate related change.) Tracing #2: I reviewed this ECG and interpreted as documented below: (Stay was post cardioversion 1504: Ventricular rate 66 bpm sinus rhythm MT interval 116, QRS 108, QTc 465 right axis deviation and no acute ischemic changes) Medical Decision Narrative: 64-year-old female presents emergency department with heart palpitations, shortness of air, lightheadedness, and active A-fib with RVR, differential diagnosis, not limited to, cardiac arrhythmia, electrolyte disturbance, medication noncompliance, ACS, thyrotoxicosis, COPD exacerbation, new onset CHF, pleural effusions, among others. I discussed his case with temperature Dr. Mensah Will obtain basic laboratory studies, magnesium level proBNP PT/INR, T4, TSH troponin urinalysis, chest x-ray and EKG, will give 10 mg IV Cardizem for atrial fibrillation with RVR. I reviewed the patient's initial EKG, at 10:29 AM, patient is in atrial fibrillation with RVR at 161 bpm, QT intervals 218/307, there is no STEMI. CBC is notable for leukocytosis at 13.1, otherwise unremarkable CMP is notable for elevated BUN at 20, otherwise unremarkable. Coags negative After 10 mg IV diltiazem, patient's heart responded to around 90 to 100 bpm. Troponin is less than 0.01, proBNP is minimally elevated at 2430. T4 is within normal limits I reviewed the patient's chest x-ray along the corresponding radiologic report, cardiomegaly without pulmonary edema TSH within normal limits, will give 1000 g p.o. Tylenol for headache. I discussed patient case with attending hospitalist Dr. Blue at approximately 1:08 PM, he recommends consulting [employer] to see if patient can follow-up outpatient versus admission, as patient was seen today by [employer] office. Will call [employer] on-call, for potential consult here in the emergency department. Urinalysis is notable for 2+ proteinuria, negative nitrites, negative leukocyte esterase, 1+ bilirubin is noted. Of note I was notified by nursing staff at approximately 1:56 PM that cardiology was consulted, and anesthesia will be consulted, for sedation, and cardioversion in the emergency department via cardiology. Cardiology and anesthesia at the bedside, 1 shock/cardioversion was adequate for the patient to return to normal sinus rhythm, discussed case with [employer] midlevel at the bedside and cardiology attending will increase patient's diltiazem to 3 times daily, and patient will follow-up in the [employer] clinic. Discussed this with the patient and family at the bedside, patient is agreement with current discharge plan/treatment plan, she is GCS 15 awake alert oriented, mentating appropriately after procedure. Patient was given strict ED return precautions, will follow-up with PCP and cardiology in the upcoming days for atrial fibrillation, she will remain on all of her medications, increase her diltiazem to 3 times daily per [employer] recommendations. Patient voiced understanding and in agreement with current discharge plan/treatment plan.. I was consulted by the GUSTAVO, and we discussed the complexity of the problems being addressed. I approved the treatment and management plan for this patient's care in the Emergency Department, thus performing a substantive portion of the medical decision making. Bill Mensah MD Critical Care <ROSANA Rodriguez - Last Filed: 08/05/24 15:11> Critical Care Time Critical Care Time: No
[2024-08-05 10:43] LABS: Basophils % 0.1 % (0.1-2.0); Eosinophils # 0.1 Kmm3 (0.0-0.4); Eosinophils % 0.4 % (0.1-12.0); Hematocrit 39.5 % (37.0-47.0); Immature Granulocytes # 0.05 10^3uL; Immature Granulocytes % 0.4 %; Lymphocytes % 23.3 % (10-50); Mean Corpuscular HGB Conc 30.4 g/dL (31.8-35.4); Mean Corpuscular Hemoglobin 26.5 pg (27.0-31.2); Mean Corpuscular Volume 87.2 fl (81-99); Mean Platelet Volume 11.1 fl (7.4-10.4); Monocytes # 1.4 K/mm3 (0.1-1.0); Monocytes % 10.3 % (1.7-9.3); Neutrophils # 8.6 K/mm3 (1.8-7.8); Neutrophils % 65.5 % (37.0-80.0); Nucleated Red Blood Cells # 0 10^3/uL; Nucleated Red Blood Cells % 0 %; Platelet Count 257 K/mm3 (142-424); Red Blood Count 4.53 M/mm3 (4.20-5.40); Red Cell Distribution Width 19.2 % (11.5-17.5); Red Cell Distribution Width-SD 58.4 fL; White Blood Count 13.1 K/mm3 (4.8-10.8)
--- NOTE | 2024-08-05 10:47 | PC.NURSE ---
XR AT BEDSIDE
[2024-08-05] MEDS: dilTIAZem 25MG/5ML VIAL 10 MG IV (10:49)
[2024-08-05 10:57] LABS: Alanine Aminotransferase 34 U/L (12-78); Albumin Level 3.5 g/dl (3.5-5.0); Albumin/Globulin Ratio 1.5 (1.1-1.8); Alkaline Phosphatase 78 U/L (38-126); Anion Gap 6.8 mEq/L (5-15); Aspartate Amino Transferase 27 U/L (14-36); Bilirubin,Total 0.6 mg/dl (0.2-1.3); Blood Urea Nitrogen 20 mg/dl (7-17); Calcium 8.4 mg/dl (8.4-10.2); Carbon Dioxide 31 mmol/L (22.0-30.0); Chloride 108 mmol/L (98-107); Creatinine Clearance Estimated 57 mL/min (50-200); Estimated Glomerular Filt Rate 84 ml/min (>60); GFR (African American) 102 ML/MIN (>60); Globulin 2.4 g/dL (1.3-3.2); Glucose 130 mg/dl (74-100); INR 1.01 (0.9-1.1); Magnesium 1.9 mg/dl (1.6-2.3); Potassium 3.8 mmoL/L (3.5-5.1); Prothrombin Time 11.2 seconds (10.1-12.5); Sodium 142 mmol/L (136-145); Total Protein,Serum 5.9 g/dl (6.3-8.2)
[2024-08-05 11:09] LABS: NT Pro Brain Natriuretic Pep. 2430 pg/mL (0-125)
[2024-08-05 11:10] LABS: Troponin I < 0.01 ng/ml (0.00-0.034)
[2024-08-05 11:14] LABS: T4 (Thyroxine) 10.1 ug/dl (5.53-11.0)
[2024-08-05 11:28] LABS: Thyroid Stimulating Hormone 0.73 uIU/mL (0.465-4.68)
[2024-08-05 11:55] LABS: HIV Combo NEGATIVE (Negative)
[2024-08-05 12:03] LABS: Hepatitis C Ab Qual. W/ RFX NEGATIVE (Negative)
[2024-08-05] MEDS: ACETAMINOPHEN 500MG TAB 1000 MG PO (12:04)
--- NOTE | 2024-08-05 12:19 | PC.NURSE ---
Dietary brought this room a food tray
[2024-08-05 13:00] LABS: Microscopic, Urine URINE MICROSCOPIC (MICROSCOPIC)
[2024-08-05 13:13] LABS: Appearance,Urine CLEAR (Clear); Blood, Urine Negative (Negative); Color,Urine YELLOW (Yellow); Glucose,Urine (UA) Negative (Negative); Ketones,Urine Negative (Negative); Leukocyte Esterase,Urine Negative (Negative); Nitrate,Urine Negative (Negative); Protein,Urine 2+ (Negative)
--- NOTE | 2024-08-05 13:17 | PC.NURSE ---
SPOKE WITH VONNIE MORALES PA-C WITH CARDIOLOGY, NOTIFIED OF CONSULT
[2024-08-05 13:25] LABS: Bilirubin,Urine 1+ (Negative)
[2024-08-05 13:27] LABS: Specific Gravity, Urine >= 1.030 (1.005-1.030)
[2024-08-05 13:40] LABS: Bacteria,Urine 1+ /lpf; Mucus,Urine 1+ /lpf
--- NOTE | 2024-08-05 13:57 | PC.NURSE ---
spoke with ROSANA Carvajal who states to call anesthesia and have them come sedate patient for cardioversion. Gilberto notified.
--- NOTE | 2024-08-05 13:59 | PC.NURSE ---
Galo Mock [employer]SEKEEPING RO[employer] INSPECTOR paged at this time and is on his way in for bedside cardioversion
[2024-08-05 14:30] LABS: Troponin I < 0.01 ng/ml (0.00-0.034)
--- NOTE | 2024-08-05 14:53 | PC.NURSE ---
ROSANA Carvajal at bedside.
--- NOTE | 2024-08-05 15:04 | ECG_ITS ---
APPROVED REPORT Exam: Resting ECG HR:66 bpm ECG Measurements Heart Rate 66 AXES MD 116 P 35 QRSd 108 QRS 97 QT 452 T 92 QTc 465 Conclusion Sinus rhythm Right axis deviation Electronically signed by : STEFANI MENDIOLA, 08/06/2024 18:45:21
--- NOTE | 2024-08-05 15:28 | P.PCN_ITS ---
[facility] Cardioversion Cardioversion Date: 08/05/24 Provider:: ROSANA Adams Procedure Performed:: Synchronized electrical cardioversion Diagnosis:: Recurrent atrial fibrillation, symptomatic Procedure Summary:: While in the ER, informed consent was obtained. Anesthesia provided sedation during which time a single synchronized 200 J shock was delivered converting the patient from atrial fibrillation to sinus rhythm. Patient tolerated the procedure without complications. Complications:: None Conculsion:: Successful electrical cardioversion to normal sinus rhythm
== END 2024-08-05 16:07 | disposition home or self-care (01) ==
PROVIDERS: Physician Assistant; Emergency Provider Emergency Medicine; PCP Family Medicine
DX: I48.91 Unspecified atrial fibrillation (principal); R06.2 Wheezing; F17.210 Nicotine dependence, cigarettes, uncomplicated; I10 Essential (primary) hypertension; Z11.59 Encounter for screening for other viral diseases; Z11.4 Encounter for screening for human immunodeficiency virus [HIV]
CPT/HCPCS: 71045; 80053; 81001; 83735; 83880; 84436; 84443; 84484; 85025; 85610; 86803; 87389; 93005; 96374; 99285

== ENCOUNTER 2024-10-28 11:19 | Outpatient (CLI) | payer OTHER, SELFPAY ==
--- OUTSIDE RECORDS SUMMARY | 2015-01-14 10:00 | XMS_ITS | Continuity of Care Document ---
Author Organization [facility] Address [address] [place] [address] Phone Care Team Providers Care Intake Nurse Name Role Phone Ti Rice DO Unavailable [...] MG - Active Procedures Procedure Date OFFICE VISIT/[facility] LEVEL III Advance Directives Directive Yes / No Effective Date File Name No Information Encounters Encounter Description Practice Location Reason(s) For Visit Diagnoses Date Provider Providers Copied on Encounter OFFICE VISIT/NEW LEVEL III [facility], [address], [place], [place], [id number], [place] tel:[phone] [facility] Est Care (chief complaint) Breast pain (chief complaint) musculoske letal pain (chief complaint) SmokerObesity (BMI 30-39.9)Musculosk eletal painCostochondrit is 0-201 5 Krystal Jack. [address] [place], [place], [id number] , [place]. tel:[phone] Family History Family Member Type Diagnosis Age At Onset Mother Problem (finding) diabetes mellitus type 2 Mother Problem (finding) Cardiovascular disease Payers Payer name Insurance type Covered constitution party ID Authoriza tion(s) HSO 75 Discount SFS [...] Lab Order Comp. Me tabolic Panel (14) ([id number]), Scheduled for: Ordered Future Order: Lab Order Lipid Pa florentino ([id number]), Scheduled for: Ordered Future Order: Lab Order TSH ([id number]), Merline eduled for: Ordered History Of Present Illness Encounter Date Complaint History Of Prese nt Illness Est Care pt is here to es t care has not seen someone in years..ce Patient is currently taking care of who is a vegetable . Breast pain (comments) Patient s tates when squeezes them she sees nothing but stars. Patient states as long as breasts are in bra she is fine. musculoskeletal pain (comments) Patient has been taking ibuprofen every 6 hours for a year. musculoskeletal pain Onset: 1 ye ar ago. [...] states ibuprofen and aspirin do not work. Breast pain There is no radi ation. [...] hang she feels like something is throbbing. Functional Status Date Functional Assessmen t No Information Instructions Date Instruction Additional Infor mation Patient started on n icotine 21mg/24hr patch once daily. Related to Smoker Patient will get lab s next week and will get called back in 3-5 days after blood draw. Related to Obesity (BMI 30-39.9) Patient started on g abapentin 100mg TID. Patient advised on rest and stretches daily. Patient will follow up in 1 month. Related to Musculoskeletal pain See above. Related to Costo chondritis Assessments Type Assessment Date assessment Smoker assessment Obesity (BMI 30-39.9) 5 assessment Musculoskeletal pain assessment Costochondritis Mental Status Date Cognitive Assessment Orientation - [place] ed to time, place, person, situation. Patient Care Teams Name Effective Dates (start - stop) Status Members No Information
--- OUTSIDE RECORDS SUMMARY | 2024-10-07 14:30 | XMS_ITS | Encounter Summary ---
Author Organization [place] [address] Care Team Providers Care Certified Nutritionist Name Role Phone MarsMargarito monacoika BELKYS Primary Care Provider [phone] Reason for Referral * Holter Monitor (Routine) - Authorized Specialty Diagnoses / Procedures Referred By Contac t Referred To Contact Radiology Diagnoses Atrial fibrillation, unspecified type (HCC) Procedures HM HOLTER MONITOR RECORDING AND ANALYSIS Shady Cole MD [address] [place] [address] [place] [address] Phone: tel: fax: Referral ID Status Reason Start Date Expiration Date V isits Requested Visits Authorized [id number] Authorized 10/07/2024 10/07/2026 1 1 Reason for Visit * Reason Comments New Patient Yard Clerk refered by Dr. Xiomara Bullock for AFMeds per pt report * Consultation (Routine) - Authorization Not Needed Specialty Diagnoses / Procedures Referred By Contact Referred To Contact Internal Medicine - Clinical Cardiac Electrophysiology / Electrophysiology Diagnoses Afib (HCC) Yard Clerk refered by Dr. Jesus Manuel Bullock for AF (records on 's desk) Procedures NEW PATIENT Darshana Crews APRN [place] [address] Phone: tel:[phone] fax:[phone] Shady Cole MD [address] [place] [address] [place] [address] Phone: tel:[phone] fax: Referral ID Status Reason Start Date Expiration Date Visits Requested Visits Authorized [id number] Authorization Not Needed 10/07/2024 10/07/2025 99 99 Encounter Details Date Type Department Care Team (Late st Contact Info) Description 10/07/2024 2:30 PM EDT Office Visit [facility]tr Edg [address] [facility] [place] [address] Shady Cole MD [address] [facility] [place] [address] Atrial fibrillation, unspecified type (HCC) (Primary Dx) Social History Tobacco Use Types Packs/Day Years Used Date Smoking Tobacco: Every Day Cigarettes 1 39.9 Started: 03/18/1979; Last attempted to quit: 02/11/2019 Smokeless Tobacco: Never Alcohol Use Standard Drinks/Week Comments No 0 (1 standard drink = 0.6 oz pur e alcohol) [facility] Utilities Answer Date Recorded In the past 12 months has [employer] electric, gas, oil, or water [employer] threatened to shut off services in your home? No 07/27/2024 Overall Financial Resource Strain (CARDIA) Answe r Date Recorded How hard is it for you to pa y for the very basics like food, housing, medical care, and heating? Somewhat hard 07/27/2024 PHQ-2 Answer Date Recorded PHQ-2 Total Score 0 07/27/2024 [facility] [place] of Occupat ional Health - Occupational Stress [...] things needed for daily living? No 04/26/2020 [facility] IP Transportation Answer D ate Recorded [...] Chief Complaint Patient presents with New Patient Yard Clerk refered by Dr. Jesus Manuel Bullock for AF Meds per pt report Symptomatic tachycardia Compliant with medications Know to have AF Rate controlled Establish Care Chronicity: Yard Clerk refered by Dr. Jesus Manuel Bullock for [...] taking: Reported on 10/07/2024) 180 Capsule 1 [facility] Device Pulse ox to check oxygen. [...] nerves are grossly intact. Speech is normal. [id number] Stroke Risk Points: 2 Values used to [...] documented as of this encounter Care Teams Certified Nutritionist Relationship Specialty Start Date End Date Darshana Crews APRN [address] [place], [place] [address] PCP - General Nurse Practitioner-Family 02/13/18 documented as of this encounter
--- OUTSIDE RECORDS SUMMARY | 2024-10-30 11:21 | XMS_ITS | Encounter Summary ---
Author Organization [place] [address] Care Team Providers Care Book Binder Name Role Phone Darshana Crews APRN Primary Care Provider [phone] Paula Ram RN Unavailable Unavaila Ketty Gutiérrez [employer] FI[employer] COACH Unavailable Unavail able Parul Arora RN Unavailable UnaMarianne Pereira Unavailable Unavailable Zunilda Morrell RN Unavailable Unavailable Reason for Visit * Reason Onset Date Comments Bone Health Program 02/05/2019 Encounter Details Date Type Department Care Team (Late st Contact Info) Description 02/05/2019 Patient Outreach [facility] [address] [place] [id number] Darshana Crews APRN [address] [place] [id number] Bone Health Program Social History Tobacco Use Types Packs/Day Years Used Date Smoking Tobacco: Every Day Cigarettes 1 45.6 Started: 03/18/1979 Smokeless Tobacco: Never Alcohol Use Standard Drinks/Week Comments No 0 (1 standard drink = 0.6 oz pur e alcohol) Overall Financial Resource Strain (CARDIA) Answe r Date Recorded Difficulty of Paying Living Expenses Somewhat garces rd 02/05/2019 PHQ-2 Answer Date Recorded PHQ-2 Score 0 08/06/2018 Hunger Vital Sign Answer Date Recorded Worried About Running Out of Food in the Last Ye ar Never true 02/05/2019 Ran Out of Food in the Last Year Never true 02/05/2019 PRAPARE - Transportation Answer Date Re corded Lack of Transportation (Medical) No 02/05/2019 Lack of Transportation (Non-Medical) No 02/05/2019 Sexually Active Control Partners Comments Yes Surgical Male Comments No Sex and Gender Information Value Date Recorded Sex Assigned at Not on file Legal Sex Female 11:31 PM EDT Gender Identity Not on file Sexual Orientation Not on file documented as of this encounter Functional Status * Is the person deaf or does he/she have serious difficulty hearing? Answer Date of Assessment Author No 05/14/2018 9:28 AM Terrie Bobo CCMA * Is the person blind or does he/she have serious difficulty seeing even when wearing glasses? Answer Date of Assessment Author No 05/14/2018 9:28 AM Terrie Bobo CCMA * Does this person have serious difficulty walking or climbing stairs? Answer Date of Assessment Author No 05/14/2018 9:28 AM Terrie Bobo CCMA * Does this person have difficulty dressing or bathing? Answer Date of Assessment Author No 05/14/2018 9:28 AM Terrie Bobo CCMA * Because of a physical, mental or emotional condition, does this person have difficulty doing errands alone such as visiting a doctor's office or shopping? Answer Date of Assessment Author No 05/14/2018 9:28 AM Terrie Bobo CCMA documented as of this encounter Mental Status * Because of a physical, mental or emotional condition, does this person have serious difficulty concentrating, remembering or making decisions? Answer Entry Date Author No 05/14/2018 9:28 AM Terrie Bobo CCMA documented in this encounter Miscellaneous Notes * Telephone Encounter - Christiane Jiang, Clerical Staff - 02/05/2019 12:53 PM EST We were unable to contact patient about scheduling a bone density study. documented in this encounter Plan of Treatment Not on file documented as of this encounter Goals Goal Patient Goal Type Associated Problems Recent Progress Patient-Stated? 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 02/17/2019 04/22/2020 7:34 AM EST R/O Influenza 02/17/2019 02/17/2019 02/17/2019 12: 32 PM EST R/O Influenza 02/17/2019 02/17/2019 02/17/2019 5:5 9 AM EST COVID-19 03/17/2021 03/17/2021 04/06/2021 10:1 3 PM EST R/O COVID-19 07/26/2024 07/26/2024 07/26/2024 8:41 PM EDT documented as of this encounter Care Teams Book Binder Relationship Specialty Start Date End Date Darshana Crews APRN [address] [place] [address] PCP - General Nurse Practitioner-Family 02/13/18 Paula Ram, RN [facility] Registered Nurse 02/23/19 03/24/19 Ketty Estes LCSW Combine Operator 10/29/19 07/28/20 Parul Arora, RN [facility] Registered Nurse 04/26/20 06/07/20 Marianne Jorge Respiratory Therapist Respiratory Therapist, Registered 07/28/24 08/02/24 Zunilda Morrell RN [facility] 07/31/24 08/02/24 documented as of this encounter
--- OUTSIDE RECORDS SUMMARY | 2024-10-30 11:22 | XMS_ITS | Clinical Summary ---
Author Organization [facility] Address [facility] [place] [address] Phone Care Team Providers Care Rocket Engine Tester Name Role Phone Elfego OWENS, [facility] [phone] Conditions or Problems No information available. Medications No information available. Medications Administered No information available. Allergies, Adverse Reactions, Alerts No information available. Results No information available. Plan of Care No information available. Procedures No information available. Vital Signs No information available. Immunizations No information available. Advance Directives No information available.
--- OUTSIDE RECORDS SUMMARY | 2024-10-30 11:22 | XMS_ITS | Encounter Summary ---
Author Organization [facility] [place] [address] Care Team Providers Care Cord Splicer Name Role Phone Darshana Crews APRN Primary Care Provider Reason for Visit * Reason Onset Date Comments Central Order Completion Outreach 09/24/2024 mammo Encounter Details Date Type Department Care Team (Late st Contact Info) Description 09/24/2024 Patient Outreach [facility] [address] [place] [address] Darshana Crews APRN [address] [place] [id number] Central Order Completion Outreach (mammo) Social History Tobacco Use Types Packs/Day Years Used Date Smoking Tobacco: Every Day Cigarettes 1 39.9 Started: 03/18/1979; Last attempted to quit: 02/11/2019 Smokeless Tobacco: Never Alcohol Use Standard Drinks/Week Comments No 0 (1 standard drink = 0.6 oz pur e alcohol) [facility] Utilities Answer Date Recorded In the past 12 months has e electric, gas, oil, or water company threatened to shut off services in your home? No 07/27/2024 Overall Financial Resource Strain (CARDIA) Answe r Date Recorded How hard is it for you to pa y for the very basics like food, housing, medical care, and heating? Somewhat hard 07/27/2024 PHQ-2 Answer Date Recorded PHQ-2 Total Score 0 07/27/2024 [facility] [place] [facility] - Occupational Stress [...] things needed for daily living? No 04/26/2020 [facility] IP Transportation Answer D ate Recorded [...] 07/04/2022 8:08 AM Peyton Roblero CCMA * Is the person blind or does he/she have serious difficulty seeing even when wearing glasses? Answer Date of Assessment Author No 07/04/2022 8:08 AM Peyton Roblero CCMA * Does this person have serious difficulty walking or climbing stairs? Answer Date of Assessment Author No 07/04/2022 8:08 AM Peyton Roblero, STEFANY * Does this person have difficulty dressing or bathing? Answer Date of Assessment Author No 07/04/2022 8:08 AM EDT Peyton Serrano STEFANY * Because of a physical, mental or emotional condition, does this person have difficulty doing errands alone such as visiting a doctor's office or shopping? Answer Date of Assessment Author No 07/04/2022 8:08 AM EDT Peyton Serrano STEFANY documented as of this encounter Mental Status * Because of a physical, mental or emotional condition, does this person have serious difficulty concentrating, remembering or making decisions? Answer Entry Date Author No 07/04/2022 8:08 AM EDT Peyton Serrano Lavern STEFANY documented in this encounter Progress Notes * Mary Gandhi RN - 09/30/2024 3:43 PM EDT SEP Order Completion Outcome Tracking Contact Attempt:: Final Mammogram Outcome:: Left Voicemail to Return Call at [phone] * Ericka Nance RN - 09/24/2024 3:26 PM EDT SEP Order Completion Outcome Tracking Contact Attempt:: First Mammogram Outcome:: Left Voicemail to Return Call at [phone], MyChart Message documented in this encounter Plan of Treatment [...] Diagnoses Not on filedocumented in this encounter Care Teams Cord Splicer Relationship Specialty Start Date End Date Darshana Crews APRN [address] [place] [address] PCP - General Nurse Practitioner-Family 02/13/18 documented as of this encounter
--- OUTSIDE RECORDS SUMMARY | 2024-10-30 11:22 | XMS_ITS | Clinical Summary ---
Author Organization [facility] Address [address] [place] [address] Phone Care Team Providers Care Bellperson Name Role Phone Darshana Crews APRN Primary Care Provider [phone] Allergies Active Allergy Reactions Criticality Noted Date Comments Codeine Hives,Itching 06/26/2012 Other reaction(s): GI Upset Abdominal pain Medications * This document contains information received from the source organization and may not represent a complete record from that organization. calcium carbonate-vitamin D (CALCIUM-VITAMIN D) 500 mg(1,250mg) -200 unit Oral TabletIndications :Screening for osteoporosis,S/P hysterectomy Take 1 Tab by mouth 2 times daily. 180 Tab 3 Active clobetasoL (TEMOVATE) 0.05 % sclp SolutionIndicatio ns:Seborrheic dermatitis of scalp Apply topically 2 times daily. 50 mL 2 021 Active Additional Information Patient not taking.Reported on 10/07/2024 [facility] DeviceIndications :COVID-19 virus infection Pulse ox to check oxygen. If stays below 93%, go to ER 1 Each 021 Active Additional Information Patient not taking.Reported on 10/07/2024 ergocalciferol (VITAMIN D) 1,250 mcg (50,000 unit) Oral CapsuleIndication s:Vitamin D deficiency Take 1 Capsule by mouth two times a week. 24 Capsule 2 022 Active linaCLOtide (LINZESS) 290 mcg Oral CapsuleIndication s:Constipation, chronic Take 1 Capsule by mouth daily. 30 Capsule 2 022 Active tiotropium (SPIRIVA WITH HANDIHALER) 18 mcg Inhl Capsule, w/Inhalation Device INHALE THE ENTIRE CONTENTS OF 1 CAPSULE ONCE A DAY USING HANDIHALER DEVICE 30 Capsule 1 022 Active lubiprostone (AMITIZA) 24 mcg Oral Capsule TAKE 1 CAPSULE BY MOUTH 2 TIMES DAILY (WITH MEALS). 180 Capsule 1 023 Active Additional Information Patient not taking.Reported on 10/07/2024 diclofenac (SOLARAZE) 3 % Top Gel Apply topically 2 times daily. 100 g 5 023 Active Additional Information Patient not taking.Reported on 10/07/2024 dilTIAZem (CARDIZEM SR) 120 mg Oral Capsule, Sust. Release 12 hrIndications:Par oxysmal atrial fibrillation (HCC) Take 1 Capsule by mouth every 12 hours. 180 Capsule 3 023 Active cyclobenzaprine (FLEXERIL) 10 mg Oral TabletIndications :Injury of neck, initial encounter,Tendini tis of right shoulder Take 1 Tablet by mouth daily as needed for Muscle spasms (Take 1 tablet before bed.). 30 Tablet 1 023 Active Additional Information Patient not taking.Reported on 10/07/2024 atorvastatin (LIPITOR) 40 mg Oral TabletIndications :Paroxysmal atrial fibrillation (HCC) Take 1 Tablet by mouth nightly. 90 Tablet 3 023 Active oxyCODONE (ROXICODONE) 5 mg Oral TabletIndications :Sacroiliitis,Sci atica of right side,Strain of lumbar region, initial encounter,Protrus ion of lumbar intervertebral disc Take 1 Tablet by mouth every 6 hours as needed for Chronic Pain (G89.29). 120 Tablet 023 Active traZODone (DESYREL) 50 mg Oral TabletIndications :Insomnia, unspecified type TAKE ONE TABLET BY MOUTH ONCE NIGHTLY 90 Tablet 3 023 Active lisinopriL (PRINIVIL;ZESTRIL ) 10 mg Oral TabletIndications :Essential hypertension TAKE 1 TABLET BY MOUTH DAILY 90 Tablet 1 024 Active ELIQUIS 5 mg Oral TabletIndications :Paroxysmal atrial fibrillation (HCC) TAKE 1 TABLET BY MOUTH TWICE DAILY 180 Tablet 2 024 Active fUROsemide (LASIX) 40 mg Oral Tablet Take 1 Tablet by mouth daily. 90 Tablet 3 025 Active nystatin (MYCOSTATIN) Top Cream APPLY TO THE AFFECTED AREA(S) 2 TIMES A DAY 30 g 2 025 Active metoprolol succinate (TOPROL-XL) 100 mg Oral Tablet Sustained Release 24 hr Take 1 Tablet by mouth 2 times daily. 025 Active nystatin (MYCOSTATIN) Top Cream Apply topically 2 times daily. 30 g 2 025 2024 Discontinued Active Problems Patient Care Coordination No te Formatting of this note migh t be different from the original. [facility] - Davide Fang MD Controlled Substance Protocol Completed: A. Informed Consent Statement signed (Yearly) ( 01/23/23 ) B. Controlled Substance Agreement signed (Yearly) ( 01/23/2023 ) C. Comprehensive Urine Drug Screen was performed (Minimum YEARLY ) ( 01/23/2023 ) D. Jose report completed (EVERY 3 MONTHS) ( 03/22/23 ) E. Screening tool for addiction (SOAPP) completed (YEARLY) F. Need for controlled substance is documented (EVERY VISIT) G. Pain Scale and or Functional capacity documented (EVERY VISIT) Pharmacy: [facility] [id number] [place] [address] - [address] [facility] - [phone] [facility] [place] additional info (Transportation, WC, Compound, No Show, PPW) Problem Noted Date Diagnosed Date Atrial fibrillation with RVR 07/28/2024 COPD exacerbation 07/27/2024 Assessment & Plan (07/27/2024 3:38 PM EDT): DuoNeb treatments QID and prn respiratory distress. IV Solu-Medrol 60 mg q 6hrs followed by p.o. prednisone upon discharge. Continue on doxycycline. Supplemental oxygen as needed to maintain oxygen saturations 88% to 92. Wean oxygen as tolerated. I-S and flutter valve. COPD coordinator consulted. Hypervolemia 07/27/2024 Atrial fibrillation with rapid ventricular respo nse 07/26/2024 Assessment & Plan (07/27/2024 3:38 PM EDT): EKG personally reviewed demonstrating atrial fibrillation with RVR. Optimize electrolytes. Continue on Cardizem drip. TTE pending. Monitor on telemetry continue CARDIOPULMONARY TECHNOLOGIST CHIEF Eliquis. Discussed with cardiology and appreciate their assistance. Atherosclerosis of abdominal aorta 08/05/2020 Overview (07/04/2022): On statin Adrenal hyperplasia 08/05/2020 Peripheral edema 07/13/2020 Overview (10/03/2022): Continue hctz with prn use of lasix Limit salt Wear compression stocking Stop smoking and get vascular studies completed. Assessment & Plan (07/13/2020 3:54 PM EDT): Dependent On eliquis for hx of afib Start hctz, limit salt, extremity elevation, compression stocking. Arthritis of right hip 07/13/2020 Overview (07/13/2020): Results for orders placed during the hospital encounter of 07/22/18 XR HIP RIGHT AP LATERAL W AP PELVIS Narrative XR HIP RIGHT AP LATERAL W AP PELVIS, 07/22/2018 3:00 PM CLINICAL HISTORY: N90-Aiaw, [id number]-CM T14.90XA-Injury, unspecified, initial [id number] COMPARISON: 10/22/2016. PROCEDURE COMMENTS: AP view of the pelvis with AP and frog-leg views of the hip. FINDINGS: There is joint space narrowing and osteophyte formation along the right femoral acetabular joint. There is normal alignment of the right hip. There is no acute fracture. The pelvic ring is intact. Sacroiliac joints are normal. Impression There is osteoarthritis of the right hip. - - Given steroid IM for acute inflammation Recommend follow-up with ortho for long-term management. Not candidate for NSAIDS d/t eliquis. Avoid opioids due to hx of dependency Paroxysmal atrial fibrillation 04/21/2020 Overview (05/05/2021): Rate control on metoprolol and cardizem On Eliquis Followed by cardiology Assessment & Plan (07/27/2024 3:38 PM EDT): EKG personally reviewed demonstrating atrial fibrillation with RVR. Optimize electrolytes. Continue on Cardizem drip. TTE pending. Monitor on telemetry continue CARDIOPULMONARY TECHNOLOGIST CHIEF Eliquis. Discussed with cardiology and appreciate their assistance. Assessment & Plan (07/04/2022 10:06 AM EDT): Cardizem refilled and referred back to cardiology for surveillance. Assessment & Plan (04/28/2020 1:38 PM EST): EKG in office sinusbrady rate 59 Opioid use disorder, severe, dependence 10/08/19 Overview (11/05/2019): 10/29/19 Substance use Hx: (type, quant, route): Opioid pills. DOC: Percocet/Vicodin, 5-10 mg tablets, max daily dose is 150 mg daily. Typically gets them illicitly but occasionally gets an rx. 1st use was age 21. Started recreationally. Frequency: daily How long: since age 21. Longest sobriety: 2 days. Last exposure: today (type, quant, route): Suboxone. Used illicitly a few months ago. 8/2 mg daily worked for her. Frequency: intermittently. How long: Longest sobriety: Progression: Last exposure: 10/26/19 (type, quant, route): Xanax Prescribed for a month for sleep. Did not like them. Last exposure: 2 years. Smokes 2 PPD. Has not drank alcohol in over 30 years. Denies other illicit drug use. History of substance use related seizures: no (Tolerance: A state of adaptation in which exposure to a drug induces changes that result in diminution of one or more of the drug's effects over time.) Evidence of tolerance to any substance: yes Substances: Opioids - pills (percocet and vicodin) (Dependence: A state of adaptation that is manifested by a drug class specific withdrawal syndrome that can be produced by abrupt cessation, rapid dose reduction, decreasing blood level of the drug, and / or administration of an antagonist.) Evidence of dependence to any substance: yes Substances: Opioids - pills (percocet and vicodin) (Substance abuse: A maladaptive pattern of substance use leading to clinically significant impairment or distress, as manifested by one or more of the following, occuring with in a 12-month period: 1. Recurrent substance use resulting in a failure to fulfill major role obligations at work, school, or home. 2. Recurrent substance use in situations in which it is physically hazardous. 3. Recurrent substance-related legal problems. 4. Continued substance use despite having persistent or recurrent social or interpersonal problems caused or exacerbated by the effects of the substance. Evidence of substance abuse: yes Substances: opiate pain medicine. Evidence of opioid use disorder: yes DSMV Opioid Use Disorder diagnostic criteria Opioid Use Disorder requires at least 2 criteria be met within a 12 month period 1. Opioids are often taken in larger amounts or over a longer period of time than intended. yes 2. There is a persistent desire or unsuccessful efforts to cut down or control opioid use. yes 3. A great deal of time is spent in activities necessary to obtain the opioid, use the opiod, or recover from its effects. yes 4. Craving, or a strong desire to use opioids. yes 5. Recurrent opioid use resulting in failure to fulfill major role obligations at work, school, or home. yes 6. Continued opioid use despite having persistent or recurrent social or interpersonal problems caused or exacerbated by the effects of opioids. yes 7. Important social, occupational or recreational activities are given up or reduced because of opioid use. yes 8. Recurrent opioid use in situations in which it is physically hazardous. yes 9. Continued use despite knowledge of having a persistent or recurrent physical or psychological problem that is likely to have been caused or exacerbated by opioids. yes 10. * Tolerance as defined by either of the following: A. A need for markedly increased amounts of opiods to achieve intoxication or desired effect. yes B. Markedly diminished effect with continued use of the same amount of an opioid. yes 11. * Withdrawal, as manifested by either of the following: A. The characteristic opioid withdrawal syndrome. yes B. The same (or a closely related) substance are taken to relieve or avoid withdrawal symptoms. yes * This criterion is not considered to be met for those individuals taking opioids solely under appropriate medical supervision. Severity: Mild: 2-3 symptoms, Moderate: 4-5 symptoms, Severe: 6 or more symptoms History of opioid withdrawal: yes DSM-5 Criteria for Opioid Withdrawal A. Either of the following 1. Cessation of (or reduction in) opioid use that has been heavy and prolonged (several weeks or longer). yes 2. Administration of an opioid antagonist after a period of opioid use. no B. Three (or more) of the following, developing within minutes to several days after Criterion A: 1. Dysphoric mood. yes 2. Nausea or vomiting. yes 3. Muscle aches. yes 4. Lacrimation or rhinorrhea. yes 5. Pupillary dilation, piloerection, or sweating. yes 6. Diarrhea. yes 7. Yawning. yes 8. Fever. no 9. Insomnia. yes C. The signs or symptoms in Criterion B cause clinically significant distress or impairment in social, occupational, or other improtant areas of functioning. D. The signs or symptoms are not due to another medical condition and are not better accounted for by another mental disorder, including intoxication or withdrawal from another substance. History of overdose: no Treatment history: (inpatient / outpatient, MAT, 12 steps, location, dates) None Consequences of drug use: Financial, family/social How is pt feeling? motivated Currently intoxicated? (if yes list symptomology): no Insight, motivation, readiness to change? yes Stage of change (precontemplative, contemplative, preparative, action, maintenance, relapse): contemplative Past psychiatric history: (Dx, duration, course, treatment): dx'd with depression in past. Not currently treated. Previous psych hospital admissions: no Physical abuse hx: no Sexual history: Sexually active: occasionally Length of time with current partner: 3 years Number of partners in lifetime: 2 Practices safe sex: yes High risk sexual behavior? no STD hx: no Any current STD symptoms: no Sexual abuse hx: no Social recovery environment: Living situation: Lives with boyfriend Family / social support: Support from sig other Relationships: (Single / / / ): Children: 2, son is 36, daughter 32 Problems at school or work? Occasionally at work Relational problems with spouse or children? Yes, relationship problems with daughter Involvement in violence? no Legal charges for public intox, altercations, possession or DUI? no Financial problems? yes Partner with substance use disorder? no School hx: High school Work hx: Currently employed at a [employer], [employer]. Assessment & Plan (10/08/2019 11:28 AM EDT): Just disclosed this today. Reports taking 10-15 tablets of percocet or vicodin daily. Onset of use was 27 years ago. Interested in MAT. Not interested in vivitrol. Has not been through detox. Given MAT intake packet. She will schedule followup with Dr. Mcginnis. To establish in counseling, 12 steps, NA/AA. Smokers' cough 10/08/2019 Overview (10/08/2019): Stop smoking Get updated lung ct Start incruse ellipta Hilar lymphadenopathy 10/08/2019 Overview (10/08/2019): Lung ct 02/2019 with bilateral pneumonia and lymphadenopathy. Continue to smoke. Will get follow-up imaging. Acute hypoxemic respiratory failure 02/17/2019 Assessment & Plan (07/27/2024 3:38 PM EDT): Requiring 2.5 L via nasal cannula. Room air at baseline secondary to COPD exacerbation. Wean oxygen as tolerated. Lumbar spondylosis 12/10/2018 Pain of right hip joint 12/10/2018 Prediabetes 05/18/2018 Overview (07/04/2022): Lab Results Component Value Date HGBA1C 5.5 05/05/2021 HGBA1C 6.0 (H) 04/22/2020 HGBA1C 6.0 (H) 10/08/2019 Diet control Restless legs syndrome (RLS) 02/26/2018 Overview (02/26/2018): Check labs. If okay, start requip S/P hysterectomy 02/26/2018 Overview (04/28/2020): ca/vitamin d Vaginal lesion 02/26/2018 Overview (02/26/2018): Very small, flush colored. Recommend close observation. Family history of cardiovascular disease 018 Overview (05/14/2018): Mom late 50's with bypass Insurance declined stress/echo. Has order for CT angio. Mood disorder 02/13/2018 Overview (10/08/2019): Stable off meds. Cigarette nicotine dependence without complicati on 02/13/2018 Overview (10/08/2019): 1ppd. Encouraged cessation Assessment & Plan (07/27/2024 3:38 PM EDT): Nicotine replacement therapy Assessment & Plan (05/05/2021 1:52 PM EST): Due for lung ct, ordered Obesity, Class III, BMI 40-49.9 (morbid obesity) 02/13/2018 Overview (07/04/2022): Diet/exercise. Need for calorie deficit. Assessment & Plan (07/27/2024 3:38 PM EDT): Counseled. Complicates management Seborrheic dermatitis of scalp 02/13/2018 Overview (04/28/2020): clobetasol Lumbar back pain with radicu lopathy affecting right lower extremity 12/23/2017 Overview (05/14/2018): Failed UDS at [facility]. Will not be getting Controlled substances with our office d/t risk. Recommend pain management. In the interm, recommend tylenol, NSAIDS, heat/ice. Given Elavil for radiculopathy symptoms. Still needs to get MRI Vitamin D deficiency 07/03/2017 Overview (04/28/2020): On replacement. Sciatica of right side 05/07/2017 DDD (degenerative disc disease), lumbosacral Overview (10/08/2019): Start nsaids Has underlying opioid dependency. Will be getting MAT Essential hypertension 12/21/2015 Overview (07/04/2022): BP Readings from Last 3 Encounters: 07/04/22 130/80 01/25/22 (!) 144/84 07/31/21 134/80 Out of cardizem - med refilled. Denies chest pain and SOB, dizziness or orthostatics. On Toprol, cardizem, hctz Stop smoking Weight loss. Assessment & Plan (07/27/2024 2:34 PM EDT): Will hold CARDIOPULMONARY TECHNOLOGIST CHIEF oral Cardizem and lisinopril as we diurese. Assessment & Plan (07/04/2022 10:05 AM EDT): Encouraged cardiology followup. Assessment & Plan (05/13/2020 11:02 AM EST): Manage stress Stop smoking Weight loss To start lisinopril Continue hctz/cardizem/metoprolol Keep cardiology appointment for next week. Resolved Problems Problem Noted Date Diagnosed Date Resolved Date Screening for colon cancer 08/09/2020 0 07/04/2022 Overview (08/09/2020): Added automatically from request for surgery [id number] Abnormal MRI of abdomen 08/09/202006/16 Overview (08/09/2020): Added automatically from request for surgery [id number] Swelling of left lower extremity 01/14/2020 07/13/2020 Overview (05/12/2020): Compression stocking Avoid salt HCTZ Multifocal pneumonia 02/17/2019 020 Overview (02/26/2019): Results for orders placed during the hospital encounter of 02/16/19 XR CHEST AP PORTABLE Narrative XR CHEST AP PORTABLE, 02/16/2019 3:33 PM CLINICAL HISTORY: -SHORTNESS OF BREATH COMPARISON: 09/15/2006. PROCEDURE COMMENTS: AP portable technique. FINDINGS: Heart size normal. There are multifocal patchy mixed alveolar/interstitial infiltrates present in both lungs, focally more prominent in peripheral left lower lung. Small left pleural effusion likely. Impression Multifocal bilateral lung infiltrates, focally more prominent in peripheral left lower lung, where a small left pleural effusion is suspected. Findings may be due to pneumonia or CHF. Course of vancomycin, levaquin and bactrim. Will get follow-up CXR in two weeks. Sepsis 02/17/2019 02/26/2019 Abnormal drug screen 02/13/2018 020 Overview (02/13/2018): nonprescribed medications present. Prescribed medications not present. Denies recreational use. Reports a one time use because she did not have prescribed medications with her. Aware that she will no longer be able to get controlled substance from family practice office d/t risk of misuse and abuse given history. History of hysterectomy for benign disease 12/21/2015 04/05/2017 Closed fracture of sacrum an d coccyx with routine healing 11/10/2015 04/05/2017 Encounters Date Type Department Care Team Description 10/07/2024 2:30 PM EDT Office Visit [facility] [address] [place] [address] Sahdy Cole MD Atrial fibrillation, unspecified type (HCC) (Primary Dx) 10/01/2024 Refill [facility] [address] [place] [address] Darshana Crews APRN Medication Refill 09/24/2024 Patient Outreach [facility] [address] [place] [address] Darshana Crews IMPOSER Central Order Completion Outreach (mammo) 09/16/2024 Telephone [facility] [address] [place] [address] Shady Cole MD Appointment Needed ([facility] appt ref by Dr. Jesus Manuel Bullock ) 08/03/2024 Patient Outreach [facility] [address] [place] [address] Marianne Jorge CM- Telephonic Outreach 07/31/2024 Patient Outreach [facility] [address] [place] [address] Tram Messer Referral 07/31/2024 Patient Outreach [facility] [address] [place] [address] Zunilda Morrell, RN Hospital Follow Up; CM - Medication Reconciliation; Care Transition; CM- Consultation 07/26/2024 7:44 PM EDT - 07/30/2024 1:37 PM EDT Hospital Encounter [facility] [address] [place] [address] Jorden Martínez MD Banks, David, MD Atrial fibrillation with rapid ventricular response (HCC) (Primary Dx); Acute exacerbation of chronic obstructive pulmonary disease (COPD) (HCC); Peripheral edema Discharge Disposition: Home or Self Care from Last 3 Months Immunizations Immunization Administration Dates Next Due Influenza Vaccine Quadrivalent PF 12/21/2015 Influenza Virus Vaccine Quadrivalant, Flublok Sherrill SARS-CoV-2 Vaccine 07/20/2020 Moderna SARS-CoV-2 Booster V accine 18+ Yrs (Light Blue Border) 05/05/2021 Pneumococcal Polysaccharide 23 Valent 02/17/2019 Tdap 12/25/2016,06/19/2013 Zoster Recombinant 03/17/2020 Surgical History Surgery Date Site/Laterality Comments CHOLECYSTECTOMY 03/18/1998 - 03/17/1999 HYSTERECTOMY, TOTAL 03/18/1997 - 03/17/1998 Menorrhagia APPENDECTOMY 1960 - 03/17/1961 SHOULDER SURGERY Left rotator cuff repair WRIST FRACTURE SURGERY 02/11/2019 Wrist/Left LEFT DISTAL THIRD RADIAL SHAFT OPEN REDUCTION INTERNAL FIXATION, LEFT CARPAL TUNNEL RELEASE; Surgeon: Davide Hall MD; Location: [facility]; Service: Orthopedics Medical devices from this surgery are in the Medical Devices section. CARPAL TUNNEL RELEASE 02/11/2019 Surgeon: Davide Hall MD; Location: [facility]; Service: Orthopedics Medical devices from this surgery are in the Medical Devices section. EYE SURGERY 03/08/2020 CATARACT EXTRACTION EXTRACAPSULAR W/ INTRAOCULAR LENS IMPLANTATION 09/05/[address] Peyton Raphael ERCP 05/25/2021 N/A Endoscopic Retrograde Cholangiopancreatography with sphincterotomy and stent placement and balloon sweep without removal of debri/calculi; Surgeon: Stanley Kirkpatrick MD; Location: [facility]; Service: Endoscopy Medical devices from this surgery are in the Medical Devices section. IR ARTHROCENTESIS ASPIRATION LARGE JOINT 02/19/2023 IR ARTHROCENTESIS ASPIRATION LARGE JOINT 02/19/2023 Davide Fang MD [facility] CATARACT EXTRACTION EXTRACAPSULAR W/ INTRAOCULAR LENS IMPLANTATION 08/27/[address] Shameka Bunch Medical History Medical History Date Comments Fracture, sacrum/coccyx (HCC) Chronic back pain Tobacco abuse Hypertension Patient off meds as of 01/03; says doc said BP is OK now Family History Medical History Relation Name Comments Heart Disease Brother 1 Philipi Hypertension Brother 1 Philipi Unknown Father Breast Cancer Mother Coronary Art Dis Mother Diabetes Mother Heart Surgery Mother Hypertension Mother hepatitis Sister 1 Hypertension Son Relation Name Status Comments Brother 1 Philipi Alive Brother 2 Alive Brother 3 Alive Father Maternal Grandfather Maternal Grandmother Mother Paternal Grandfather Paternal Grandmother Sister 1 Sister 2 Alive Son Social History Tobacco Use Types Packs/Day Years Used Date Smoking Tobacco: Every Day Cigarettes 1 39.9 Started: 03/18/1979; Last attempted to quit: 02/11/2019 Smokeless Tobacco: Never Alcohol Use Standard Drinks/Week Comments No 0 (1 standard drink = 0.6 oz pur e alcohol) [facility] Utilities Answer Date Recorded In the past [...] Date Recorded PHQ-2 Total Score 0 07/27/2024 [facility] [place] of Occupat ional Health - Occupational Stress [...] things needed for daily living? No 04/26/[address] [facility] IP Transportation Answer D ate Recorded In [...] on file Sexual Orientation Not on file Obstetrics History Para Term AB IAB SAB Ectopic Multiple Livin g Live Births 2 2 2 2 2 Date Outcome GA Total Labor Labor/2nd/3rd Weight Sex Type Anes PTL Huong A1 A5 Name Clin Term Vag-S pont Living Term Vag-S pont Living Last Filed Vital Signs Vital Sign Reading Time Taken Comments Blood Pressure 128/86 10/07/2024 2:29 PM EDT Pulse 100 10/07/2024 2:29 PM EDT Temperature 36.4 C (97.6 F) 07/30/2024 9:57 AM EDT Respiratory Rate 18 07/30/2024 9:57 AM EDT Oxygen Saturation 94% 10/07/2024 2:29 PM EDT Inhaled Oxygen Concentration - - Weight 145.2 kg (320 lb) 10/07/2024 2:29 PM EDT Height 172.7 cm (5' 8 ) 10/07/2024 2:29 PM EDT Body Mass Index 48.66 10/07/2024 2:29 PM EDT Plan of Treatment Health Maintenance Due Date Last Done Comments Diabetic Eye Exam 01/30/1978 Kidney Health: uACR 01/30/1978 Cologuard 01/30/2005 Colon Cancer Screening 01/30/2005 Colonoscopy 01/30/2005 FIT 01/30/2005 Sigmoidoscopy 01/30/2005 Virtual Colonography 01/30/2005 RSV or 60+ (1 - Risk 60-74 years 1-dose series) 2020 Pneumococcal Vaccine 50+ (2 of 2 - PCV) 02/18/2020 02/17/2019 Zoster (2 of 2) 05/12/2020 03/17/2020 Breast Cancer Screening 05/12/2022 05/12/2020, 07/31 Annual Wellness Exam 07/05/2023 07/04/2022 Lipids 07/05/2023 07/04/2022, 06/16, 05/05/2021, Additional history exists COVID-19 Vaccine (2 - season) 2023 05/05/2021 Influenza Vaccine (#1) 2024 , 02/20/2019, 02/06/2017, Additional history exists Hemoglobin A1c 01/29/2025 07/29/2024, 08/16, 08/29/2022, Additional history exists Low Dose Lung Cancer Screening 07/27/2025 07/27/2024, 02/16/2019 Kidney Health: eGFR 07/30/2025 07/30/2024, 07/29/2024, 07/27/2024, Additional history exists DTaP/TDaP/Td (3 - Td or Tdap) 12/25/2026 12/25/2016, 06/19/2013 Hepatitis C Screening Completed 07/02/2017 Hepatitis B Vaccine Aged Out No longe r eligible based on patient's age to complete this topic Meningococcal B Vaccine Aged Out No l onger eligible based on patient's age to complete this topic Goals Goal Patient Goal Type Associated Problems Recent Progress Patient-Stated? Author Blood Pressure < 140/90 Blood Pressure 128/86(2024 2:29 PM EDT) No Estella Kelly Maintain a healthy diet, exercise regularly and maintain an ideal body weight General No Amee Bailey MA Stay Tobacco Free Lifestyle No Amee Bailey MA Medical Devices Implanted Type Area Can Feeder Device Identifier Shelf Expiration Date Model / Serial / Lot Stent Panc [id number] Geenen 170/320cm Sprl Sh Tapr 0.018in Gw - [id number] Implanted:Qty: 1 on 05/25/2021 by Stanley Kirkpatrick MD at [facility] Stent COOK:ENDOSCOPY 07/23/2023 [id number] / / [id number] Peg Smooth Locking Radius 2.0mm X 19mm - [id number] Implanted:Qty: 2 on 02/11/2019 by Davide Hall MD at [facility] Left: Radius [employer] [id number] -TS / / Peg Smooth Locking Radius 2.0mm X 20mm - [id number] Implanted:Qty: 3 on 02/11/2019 by Davide Hall MD at [facility] Left: Radius [employer] [id number] -[id number] / / Peg Locking High Compression 2.7mm X 20mm - [id number] Implanted:Qty: 1 on 02/11/2019 by Davide Hall MD at [facility] Left: Radius SLEEPMATE [id number] -TS / / Screw Cortical Locking 3.5mm X 13mm - [id number] Implanted:Qty: 2 on 02/11/2019 by Davide Hall MD at [facility] Left: Radius [employer] [id number] -TS / / Screw Cortical Non-Locking 3.5mm X 13mm - [id number] Implanted:Qty: 2 on 02/11/2019 by Davide Hall MD at [facility] Left: Radius [employer] [id number] -TS / / Screw Cortical Non-Locking 3.5mm X 18mm - [id number] Implanted:Qty: 1 on 02/11/2019 by Davide Hall MD at [facility] Left: Radius [employer] [id number] -TS / / Plate Robin Ti 120mm Geminus Bn Rds Lt Volr Dist Ns - [id number] Implanted:Qty: 1 on 02/11/2019 by Davide Hall MD at [facility] Left: Radius [employer] [id number] / / Procedures Procedure Name Priority Date/Time Associated Diagnosis Comments POCT EKG Routine 10/07/2024 3:07 PM EDT Atrial fibrillation, unspecified type (HCC) ECG AND WAVEFORMS - TELEMETRY Routine 07/30/2024 7:00 AM EDT BASIC METABOLIC PANEL Early AM 07/30/2024 6:50 AM EDT CBC Early AM 07/30/2024 6:50 AM EDT HEMOGLOBIN A1C Routine 07/29/2024 6:[address] CHEST WO CONTRAST HANNAH 07/27/2024 3:50 PM EDT LIPID PANEL REFLEX Routine 07/04/2022 8: 30 AM EDT Atherosclerosis of abdominal aorta MM MAMMO DIGITAL LEIGH SCREEN BILAT Routine 05/12/2020 10:52 AM EST Encounter for screening mammogram for breast cancer HCV ANTIBODY SCREEN W/ REFLEX Routine 07/02/2017 3:03 PM EDT Preventative health care from Last 3 Months or Most Recently Relevant to Health Maintenance Results * POCT EKG (10/07/2024 3:07 PM EDT) 10/07/2024 3:07 PM EDT Impressions SEP OFFICE - 10/07/2024 3:07 PM EDT AF RVR 111 us Shady Cole MD POINT OF CARE CARDIOLOGY Final Result SEP OFFICE * (ABNORMAL) CBC (07/30/2024 6:50 AM EDT) WBC 10.9(H) 3.7 - 10.3 x10(3)/mcL 07/30/2024 7:22 AM EDT [facility] RBC 4.53 3.90 - 5.20 x10(6)/mcL 07/30/2024 7:22 AM EDT [facility] Hgb 11.7 11.2 - 15.7 g/dL 07/30/2024 7:22 AM EDT [facility] Hct 39.5 34.0 - 45.0 % 07/30/2024 7:22 AM EDT [facility] MCV 87.2 80.0 - 100.0 fL 07/30/2024 7:22 AM EDT [facility] MCH 25.8(L) 26.0 - 34.0 pg 07/30/2024 7:22 AM EDT [facility] MCHC 29.6(L) 30.7 - 35.5 g/dL 07/30/2024 7:22 AM EDT [facility] RDW 17.9(H) <=14.9 % 07/30/2024 7:22 AM EDT [facility] Platelet 303 155 - 369 x10(3)/[facility] 07/30/2024 7:22 AM EDT [facility] MPV 10.8 8.8 - 12.5 fL 07/30/2024 7:22 AM EDT [facility] NRBC Auto % 0.2(H) <=0.0 % 07/30/2024 7:22 AM EDT [facility] NRBC# 0.0 x10(3)/[facility] 07/30/2024 7:22 AM EDT [facility] Blood VENOUS BLOOD / Unknown Venipuncture / Unknown 07/30/2024 6:50 AM EDT 07/30/2024 7:16 AM EDT us S Isabela DO HEMATOLOGY ORDERABLES Final R esult [facility] [address] [place] [address] * (ABNORMAL) BASIC METABOLIC PANEL (07/30/2024 6:50 AM EDT) Sodium 138 136 - 145 mmol/L 07/30/2024 7:39 AM EDT [facility] Potassium 4.6 3.5 - 5.0 mmol/L 07/30/2024 7:39 AM EDT [facility] Chloride 104 98 - 107 mmol/L 07/30/2024 7:39 AM EDT [facility] Total CO2 25 22 - 29 mmol/L 07/30/2024 7:39 AM EDT [facility] Anion Gap 9 7 - 16 mmol/L 07/30/2024 7:39 AM EDT [facility] Calcium 8.6(L) 8.8 - 10.4 mg/dL 07/30/2024 7:39 AM EDT [facility] Glucose Lvl 228(H) 70 - 99 mg/dL 07/30/2024 7:39 AM EDT [facility] BUN 45(H) 8 - 23 mg/dL 07/30/2024 7:39 AM EDT [facility] Creatinine 0.85 0.51 - 1.30 mg/dL 07/30/2024 7:39 AM EDT [facility] eGFR (CKD-EPIcr 2020) 76 >=60 mL/min/1.7 3 m2 07/30/2024 7:39 AM EDT [facility] Comment:Estimated GFR was ca lculated using the CKD-EPIcr (2020) equation refit without race. The equation is recommended by the National Kidney Foundation - [place] [employer] of Nephrology Task Force. Blood VENOUS BLOOD / Unknown Venipuncture / Unknown 07/30/2024 6:50 AM EDT 07/30/2024 7:16 AM EDT us Adarsh Mar DO CHEMISTRY ORDERABLES Final Re sult [facility] [address] [place] [address] * (ABNORMAL) HEMOGLOBIN A1C (07/29/2024 6:51 AM EDT) Hgb A1C 6.7(H) 4.2 - 5.6 % 07/29/2024 7:11 PM EDT [facility] [employer] [facility] Avg Glucose 146 mg/dL 07/29/2024 7:11 PM EDT [facility] [employer] Blood VENOUS BLOOD / Unknown Venipuncture / Unknown 07/29/2024 6:51 AM EDT 07/29/2024 7:14 AM EDT Narrative [facility] [employer] [facility] - 07/29/2024 7:11 PM EDT REFERENCE RANGE: Normal: 4.0-5.6% Pre-diabetes: 5.7-6.4% Provisional diagnosis of diabetes: >6.4% Hgb F>10% and anything which shortens red cell survival, such as hemolytic anemia, or unstable hemoglobin variants such as HbSS, HbSC, or HbCC, will lower the HbA1c value associated with a given level of glycemic control. Brigid Win IMPOSER CHEMISTRY ORDERABLES Fi nal Result [facility] [employer] [facility] [address] , [place] [address] * CT CHEST WO CONTRAST (07/27/2024 3:50 PM EDT) Anatomical Region Laterality Modality Chest Computed Tomogra phy 07/27/2024 3:50 PM EDT Impressions 07/27/2024 5:20 PM EDT Mild patchy groundglass opacities and central pulmonary vascular prominence raises suspicion of mild CHF. Clearing of the previous consolidative opacities on the 2019 scan Emphysema and chronic bronchitis Moderate ruby coronary artery calcification Borderline mediastinal adenopathy likely reactive but not completely specific. - Note: Radiology results need to be interpreted within a comprehensive clinical context. If you have questions about the radiology report, please contact the office of the ordering clinician. Narrative 07/27/2024 5:[address] CHEST WITHOUT CONTRAST, 07/27/2024 3:50 PM CLINICAL HISTORY: -hypoxia. COMPARISON: 02/16/[address] Chest x-ray yesterday PROCEDURE COMMENTS: Multi-detector CT of the chest with multiplanar reconstructions per protocol. No contrast given. Dose 1 : CT DLP Total : 670.85 mGycm DLP Spiral Max : 667.3 mGycm Maximum CTDI Vol : 19.65 mGy FINDINGS: There is upper lobe predominant emphysema. There are some scattered patchy areas of groundglass opacity throughout both lungs and some mild linear and nodular opacity in the medial LEFT lower lobe. There are mildly prominent central pulmonary vessels. The groundglass opacities could be edema or pneumonia The previously seen extensive confluent areas of consolidation on the 2019 scan have largely cleared There is lower lobe predominant bronchial wall thickening likely chronic bronchitis. There are borderline sized mediastinal lymph nodes with a RIGHT paratracheal node with short axis measuring 14 mm and several approximately 1 cm nodes in the precarinal and prevascular space Borderline cardiac enlargement. No pleural or pericardial effusion Evidence of prior cholecystectomy. Coronary artery calcification: Moderate. Procedure Note Colton Kirby MD - 07/27/2024 CT CHEST WITHOUT CONTRAST, 07/27/2024 3:50 PM CLINICAL HISTORY: -hypoxia. COMPARISON: 02/16/[address] Chest x-ray yesterday PROCEDURE COMMENTS: Multi-detector CT of the chest with multiplanar reconstructions per protocol. No contrast given. Dose 1 : CT DLP Total : 670.85 mGycm DLP Spiral Max : 667.3 mGycm Maximum CTDI Vol : 19.65 mGy FINDINGS: There is upper lobe predominant emphysema. There are somescattered patchy areas of groundglass opacity throughout both lungs and some mildlinear and nodular opacity in the medial LEFT lower lobe. There are mildlyprominent central pulmonary vessels. The groundglass opacities could be edema orpneumonia The previously seen extensive confluent areas of consolidation on the 2019scan have largely cleared There is lower lobe predominant bronchial wall thickening likely chronic bronchitis. There are borderline sized mediastinal lymph nodes with a RIGHTparatracheal node with short axis measuring 14 mm and several approximately 1 cm nodesin the precarinal and prevascular space Borderline cardiac enlargement. No pleural or pericardial effusion Evidence of prior cholecystectomy. Coronary artery calcification: Moderate. IMPRESSION: Mild patchy groundglass opacities and central pulmonary vascular prominence raises suspicion of mild CHF. Clearing of the previousconsolidative opacities on the 2019 scan Emphysema and chronic bronchitis Moderate ruby coronary artery calcification Borderline mediastinal adenopathy likely reactive but not completelyspecific. - Note: Radiology results need to be interpreted within a comprehensiveclinical context. If you have questions about the radiology report, please contactthe office of the ordering clinician. Bryan Rodriguez MD IMG CT ORDERABLES Final Result * (ABNORMAL) LIPID PANEL REFLEX (07/04/2022 8:30 AM EDT) Cholesterol 203(H) <200 mg/dL 07/04/2022 6:21 PM EDT [facility] [employer] Comment: < 200 Desirable 200 - 239 Borderline High >= 240 High Triglyceride 200(H) <150 mg/dL 07/04/2022 6:21 PM EDT [employer] [employer] Comment: < 150 Normal 150 - 199 Borderline High 200 - 499 High >= 500 Very High HDL 61 >=40 mg/dL 07/04/2022 6:21 PM EDT [employer] [employer] Comment: > 60 Optimal 40 - 60 Acceptable < 40 Low LDL Calculated 108(H) <100 mg/dL 07/04/2022 6:21 PM EDT PREFERRED [employer], [employer] Non-HDL-C Calculated 142(H) <=129 mg/dL 07/04/2022 6:21 PM EDT [employer] [employer] Comment: <130 Desirable 130-159 Above Desirable 160-189 Borderline High 190-219 High >= 220 Very High Fasting Specimen? No None 023 6:21 PM EDT [facility] Blood VENOUS BLOOD / Unknown Venipuncture / Unknown 07/04/2022 8:30 AM EDT 07/04/2022 8:30 AM EDT Darshana Crews APRN CHEMISTRY ORDERABLES Final Result [facility] [address] , [place] [address] [facility] [address] [place] [address] * MM MAMMO DIGITAL LEIGH SCREEN BILAT (05/12/2020 10:52 AM EST) Anatomical Region Laterality Modality Breast Bilateral Mammography 05/13/2020 9:41 AM EST Impressions 05/13/2020 9:41 AM EST Negative ([id number]-3) ~ RECOMMENDATION: Routine screening mammogram in 1 year. ~ DISCLAIMER * Any patient with a palpable abnormality, unexplained by breast imaging, should be managed on clinical basis by the attending physician. * Breast imaging has a false negative rate of 15%. * The patient was notified by mail of the results of this examination. *The patient's information was entered into a reminder system with a target due date for the next mammogram, in accordance with the [place] [employer] and the Society of Breast Imaging recommendations. Narrative 05/13/2020 9:41 AM EST Procedure:MM MAMMO DIGITAL LEIGH SCREEN BILAT ~ Reason for exam: screening, asymptomatic. Z12.31-Encounter for screening mammogram for malignant neoplasm of [id number] ~ MM MAMMO DIGITAL LEIGH SCREEN BILAT Bilateral CC and MLO view(s) were taken. There are scattered fibroglandular densities. Prior study comparison: Outside films from [facility] dated 05/18/2015. No mammographic evidence of malignancy. ~ Procedure Note Lorri Tovar MD - 05/13/2020 Procedure:MM MAMMO DIGITAL LEIGH SCREEN BILAT ~ Reason for exam: screening, asymptomatic. Z12.31-Encounter for screening mammogram for malignant neoplasm of [id number] ~ MM MAMMO DIGITAL LEIGH SCREEN BILAT Bilateral CC and MLO view(s) were taken. There are scattered fibroglandular densities. Prior study comparison: Outside films from [facility] dated 05/18/2015. No mammographic evidence of malignancy. ~ IMPRESSION: Negative ([id number]-Febrryul-6) ~ RECOMMENDATION: Routine screening mammogram in 1 year. ~ DISCLAIMER * Any patient with a palpable abnormality, unexplained by breast imaging, should be managed on clinical basis by the attending physician. * Breast imaging has a false negative rate of 15%. * The patient was notified by mail of the results of this examination. *The patient's information was entered into a reminder system with atarget due date for the next mammogram, in accordance with the [place] [employer] and the Society of Breast Imaging recommendations. Darshana Crews [employer] IMG MAMMOGRAPHY ORDERABLES Final Result * HEPATITIS C ANTIBODY - SCREENING (07/02/2017 3:03 PM EDT) Hep C Ab Negative Negative 07/03/2017 9:30 AM EDT [facility] Blood VENOUS BLOOD / Unknown Venipuncture / Unknown 07/02/2017 3:03 PM EDT 07/02/2017 3:03 PM EDT Michael Moon MD HEMATOLOGY ORDERABLES Final Re sult [facility] [address] [place] [id number] from Last 3 Months or Most Recently Relevant to Health Maintenance Insurance [facility] [employer] [facility] [employer] [facility] Advance Directives For more information, please contact: [phone] * Full Code (Latest Code Status on File) Date Activated Date Inactivated Comments 07/26/2024 11:10 PM 07/30/2024 5:42 PM * Full Code Date Activated Date Inactivated Comments 04/21/2020 9:49 PM 04/25/2020 6:03 PM * Full Code Date Activated Date Inactivated Comments 02/17/2019 12:15 AM 02/22/2019 7:32 PM Care Teams Bellperson Relationship Specialty Start Date End Date Darshana Crews APRN [address] [place] [address] PCP - General Nurse Practitioner-Family 02/13/18
--- OUTSIDE RECORDS SUMMARY | 2024-10-30 11:22 | XMS_ITS | Encounter Summary ---
Author Organization [place] [address] Care Team Providers Care Night Baker Name Role Phone Darshana Crews APRN Primary Care Provider Reason for Visit * Reason Comments Medication Refill Encounter Details Date Type Department Care Team (Late st Contact Info) Description 10/01/2024 Refill SEP Care Managment [facility] Mary Miguel Jian. [address] [place] [address] Darshana Crews APRN [address] [place] [address] Medication Refill Social History Tobacco Use Types Packs/Day Years Used Date Smoking Tobacco: Every Day Cigarettes 1 39.9 Started: 03/18/1979; Last attempted to quit: 02/11/2019 Smokeless Tobacco: Never Alcohol Use Standard Drinks/Week Comments No 0 (1 standard drink = 0.6 oz pur e alcohol) [facility] Utilities Answer Date Recorded In the [...] Date Recorded PHQ-2 Total Score 0 07/27/2024 [facility] [place] of Occupat ional Health - Occupational Stress [...] things needed for daily living? No 04/26/2020 [facility] IP Transportation Answer D ate Recorded In [...] Roblero CCMA * Does this person have difficulty dressing or bathing? Answer Date of Assessment Author No 07/04/2022 8:08 AM EDT Peyton Serrano CCMA * Because of a physical, mental or emotional condition, does this person have difficulty doing errands alone such as visiting a doctor's office or shopping? Answer Date of Assessment Author No 07/04/2022 8:08 AM EDT Peyton Serrano CCMA documented as of this encounter Mental Status * Because of a physical, mental or emotional condition, does this person have serious difficulty concentrating, remembering or making decisions? Answer Entry Date Author No 07/04/2022 8:08 AM EDT Peyton Serrano CCMA documented in this encounter Ordered Prescriptions Prescription Sig Dispense Quantity Refills Last Filled Start Date End Date nystatin (MYCOSTATIN) Top Cream APPLY TO THE AFFECTED AREA(S) 2 TIMES A DAY 30 g 2 10/01/2024 documented in this encounter Plan of Treatment [...] Diagnoses Not on filedocumented in this encounter Discontinued Medications Medication Sig Discontinue Reason Start Date End Da te nystatin (MYCOSTATIN) Top Cream Apply topically 2 times daily. 07/31/2024 10/01/2024 documented as of this encounter Care Teams Night Baker Relationship Specialty Start Date End Date Darshana Crews APRN [address] [place], [place] [address] PCP - General Nurse Practitioner-Family 02/13/18 documented as of this encounter
--- OUTSIDE RECORDS SUMMARY | 2024-10-30 11:22 | XMS_ITS | Encounter Summary ---
Author Organization [place] [address] Care Team Providers Care Rn Pain Management Name Role Phone Darshana Crews APRN Primary Care Provider [phone] Reason for Visit * Reason Onset Date Comments Appointment Needed 09/16/2024 [facility] ASSISTANT appt ref b y Dr. Jesus Manuel Bullock Encounter Details Date Type Department Care Team (Late st Contact Info) Description 09/16/2024 Telephone SEP [facility] [address] [place] [address] Shady Cole MD [address] [place] [address] Appointment Needed (SURVEYOR'S ASSISTANT appt ref by Dr. Jesus Manuel Bullock ) Social History Tobacco Use Types Packs/Day Years Used Date Smoking Tobacco: Every Day Cigarettes 1 39.9 Started: 03/18/1979; Last attempted to quit: 02/11/2019 Smokeless Tobacco: Never Alcohol Use Standard Drinks/Week Comments No 0 (1 standard drink = 0.6 oz pur e alcohol) [facility] Utilities Answer Date Recorded In the past [...] Date Recorded PHQ-2 Total Score 0 07/27/2024 [facility] - Occupational Stress Questionnaire Answer Date Recorded [...] things needed for daily living? No 04/26/2020 [facility] IP Transportation Answer D ate Recorded [...] of Assessment Author No 07/04/2022 8:08 AM Dolores Roblero CCMA * Is the person blind or does he/she have serious difficulty seeing even when wearing glasses? Answer Date of Assessment Author No 07/04/2022 8:08 AM Dolores Roblero CCMA * Does this person have serious difficulty walking or climbing stairs? Answer Date of Assessment Author No 07/04/2022 8:08 AM EDT ZachDoloresdolores Puckett CCMDolores * Does this person have difficulty dressing or bathing? Answer Date of Assessment Author No 07/04/2022 8:08 AM EDT Dolores Serranodolores Puckett STEFANY * Because of a physical, mental or emotional condition, does this person have difficulty doing errands alone such as visiting a doctor's office or shopping? Answer Date of Assessment Author No 07/04/2022 8:08 AM EDT Dolores Serranodolores Puckett STEFANY documented as of this encounter Mental Status * Because of a physical, mental or emotional condition, does this person have serious difficulty concentrating, remembering or making decisions? Answer Entry Date Author No 07/04/2022 8:08 AM EDT Zach Dolores kalani Puckett CCMDolores documented in this encounter Miscellaneous Notes * Telephone Encounter - Nelida Ramírez MA - 09/17/2024 2:07 PM EDT Called placed to Pt, contact was made and appointment was scheduled * Telephone Encounter - Shae Curry, Clerical Staff - 09/17/2024 9:24 AM EDT Tried to call patient to make an appointment Her cell is not taking calls at this time Will try again later * Telephone Encounter - Viviana Beckman, Carlosrical Staff - 09/16/2024 10:23 AM EDT Patient is being referred to Dr. Cole by Dr. Jesus Manuel Bullock at [facility] for AF. MR/REF scanned into media. Please contact patient at [phone] Thank you documented in this encounter Plan of Treatment Not on file documented as of this encounter Goals Goal Patient Goal Type Associated Problems Recent Progress Patient-Stated? Author Blood Pressure < 140/90 Blood Pressure 128/86(2024 2:29 PM EDT) Estella Ames Maintain a healthy diet, exercise regularly and maintain an ideal body weight General No Amee Bailey MA Stay Tobacco Free Lifestyle No Amee Bailey MA documented as of this encounter Visit Diagnoses Not on filedocumented in this encounter Care Teams Rn Pain Management Relationship Specialty Start Date End Date Darshana Crews APRN [address] [place], [place] [address] PCP - General Nurse Practitioner-Family 02/13/18 documented as of this encounter
== END 2024-10-28 23:59 | disposition home or self-care (01) ==
LOC: LAB.DROPOF 10-30 11:20
PROVIDERS: PCP Family Medicine; Visit Provider Family Medicine
DX: R60.0 Localized edema (principal)
CPT/HCPCS: 87070; 87077; 87186; 87205

== ENCOUNTER 2024-11-02 11:20 | Outpatient (CLI) | payer OTHER, SELFPAY ==
--- OUTSIDE RECORDS SUMMARY | 2015-01-14 10:00 | XMS_ITS | Continuity of Care Document ---
Author Organization [facility] Address [address] [place] [address] Phone Care Team Providers Care Maternity Nurse Name Role Phone Ti Rice DO [...] MG - Active Procedures Procedure Date OFFICE VISIT/[facility] LEVEL III Advance Directives Directive Yes / No Effective Date File Name No Information Encounters Encounter Description Practice Location Reason(s) For Visit Diagnoses Date Provider Providers Copied on Encounter OFFICE VISIT/NEW LEVEL III [facility], [address], [place], [place], [id number], [place] tel:[phone] [facility] Est Care (chief complaint) Breast pain (chief complaint) musculoske letal pain (chief complaint) SmokerObesity (BMI 30-39.9)Musculosk eletal painCostochondrit is 0-201 5 Krystal Jack. [address] [place], [place], [id number] , [place]. tel:[phone] Family History Family Member Type Diagnosis Age At Onset Mother Problem (finding) Cardiovascular disease Mother Problem (finding) diabetes mellitus type 2 Payers Payer name Insurance type Covered constitution [...] Lab Order Comp. Me tabolic Panel (14) ([id number]), Scheduled for: Ordered Future Order: Lab Order Lipid Pa florentino ([id number]), Scheduled for: Ordered Future Order: Lab Order TSH ([id number]), Merline eduled for: Ordered History Of Present [...] Mental Status Date Cognitive Assessment Orientation - [place] ed to time, place, person, situation. Patient Care Teams Name Effective Dates (start - stop) Status Members No Information
--- OUTSIDE RECORDS SUMMARY | 2024-10-07 14:30 | XMS_ITS | Encounter Summary ---
Author Organization [place] [address] Care Team Providers Care Anesthesiologist Assistant Name Role Phone Mars, Darshana BELKYS Primary Care Provider [phone] Reason for Referral * Holter Monitor (Routine) - Authorized Specialty Diagnoses / Procedures Referred By Contac t Referred To Contact Radiology Diagnoses Atrial fibrillation, unspecified type (HCC) Procedures HM HOLTER MONITOR RECORDING AND ANALYSIS Shady Cole MD [address] [place] [address] [place] [address] Phone: tel: fax: Referral ID Status Reason Start Date Expiration Date V isits Requested Visits Authorized [id number] Authorized 10/07/2024 10/07/2026 1 1 Reason for Visit * Reason Comments New Patient Inspector Aluminum Boat refered by Dr. Xiomara Bullock for AFMeds per pt report * Consultation (Routine) - Authorization Not Needed Specialty Diagnoses / Procedures Referred By Contact Referred To Contact Internal Medicine - Clinical Cardiac Electrophysiology / Electrophysiology Diagnoses Afib (HCC) Inspector Aluminum Boat refered by Dr. Jesus Manuel Bullock for AF (records on 's desk) Procedures NEW PATIENT Darshana Crews APRN [place] [address] Phone: tel:[phone] fax:[phone] Shady Cole MD [address] [place] [address] [place] [address] Phone: tel:[phone] fax:[phone] Referral ID Status Reason Start Date Expiration Date Visits Requested Visits Authorized [id number] Authorization Not Needed 10/07/2024 10/07/2025 99 99 Encounter Details Date Type Department Care Team (Late st Contact Info) Description 10/07/2024 2:30 PM EDT Office Visit [facility] [address] [facility] [place] [address] Shady Cole MD [address] [facility] [place] [address] Atrial fibrillation, unspecified type (HCC) (Primary Dx) Social History Tobacco Use Types Packs/Day Years Used Date Smoking Tobacco: Every Day Cigarettes 1 39.9 Started: 03/18/1979; Last attempted to quit: 02/11/2019 Smokeless Tobacco: Never Alcohol Use Standard Drinks/Week Comments No 0 (1 standard drink = 0.6 oz pur e alcohol) [facility] Utilities Answer Date Recorded In the past 12 months has [employer] electric, gas, oil, or water [employer] threatened to shut off services in your home? No 07/27/2024 Overall Financial Resource Strain (CARDIA) Answe r Date Recorded How hard is it for you to pa y for the very basics like food, housing, medical care, and heating? Somewhat hard 07/27/2024 PHQ-2 Answer Date Recorded PHQ-2 Total Score 0 07/27/2024 [facility] [place] of Occupat ional Health - Occupational Stress Questionnaire Answer Date Recorded Do you feel stress - tense, restless, nervous, or anxious, or unable to sleep at night because your mind is troubled all the time - these days? To some extent 07/27/2024 Exercise Vital Sign Answer Date Recorde d On average, how many days pe r week do you engage in moderate to strenuous exercise (like a brisk walk)? 0 days 07/27/2024 On average, how many minutes do you engage in exercise at this level? 0 min 07/27/2024 Hunger Vital Sign Answer Date Recorded Within the past 12 months, y ou worried that your food would run out before you got the money to buy more. Never true 07/28/19 25 Within the past 12 months, t he food you bought just didn't last and you didn't have money to get more. Never true 07/27/2024 PRAPARE - Transportation Answer Date Re corded In the past 12 months, has l ack of transportation kept you from medical appointments or from getting medications? No 11/2020 In the past 12 months, has l ack of transportation kept you from meetings, work, or from getting things needed for daily living? No 04/26/2020 [facility] IP Transportation Answer D ate Recorded In the past 12 months, has l ack of reliable transportation kept you from medical appointments, meetings, work or from getting things needed for daily living? No 07/27/2024 Sexually Active Control Partners Comments Not Currently Surgical Male spouse d Comments No Sex and Gender Information Value Date Recorded Sex Assigned at Not on file Legal Sex Female 11:31 PM EDT Gender Identity Not on file Sexual Orientation Not on file documented as of this encounter Last Filed Vital Signs Vital Sign Reading Time Taken Comments Blood Pressure 128/86 10/07/2024 2:29 PM EDT Pulse 100 10/07/2024 2:29 PM EDT Temperature - - Respiratory Rate - - Oxygen Saturation 94% 10/07/2024 2:29 PM EDT Inhaled Oxygen Concentration - - Weight 145.2 kg (320 lb) 10/07/2024 2:29 PM EDT Height 172.7 cm (5' 8 ) 10/07/2024 2:29 PM EDT Body Mass Index 48.66 10/07/2024 2:29 PM EDT documented in this encounter Functional Status * Is the person deaf or does he/she have serious difficulty hearing? Answer Date of Assessment Author No 07/04/2022 8:08 AM EDT Peyton Serrano CCMA * Is the person blind or does he/she have serious difficulty seeing even when wearing glasses? Answer Date of Assessment Author No 07/04/2022 8:08 AM EDT Peyton Serrano CCMA * Does this person have serious difficulty walking or climbing stairs? Answer Date of Assessment Author No 07/04/2022 8:08 AM EDT Peyton Serrano CCMA * Does this person have difficulty dressing or bathing? Answer Date of Assessment Author No 07/04/2022 8:08 AM Peyton Roblero CCMA * Because of a physical, mental or emotional condition, does this person have difficulty doing errands alone such as visiting a doctor's office or shopping? Answer Date of Assessment Author No 07/04/2022 8:08 AM Peyton Roblero CCMA documented as of this encounter Mental Status * Because of a physical, mental or emotional condition, does this person have serious difficulty concentrating, remembering or making decisions? Answer Entry Date Author No 07/04/2022 8:08 AM Peyton Roblero CCMA documented in this encounter Ordered Prescriptions Prescription Sig Dispense Quantity Refills Last Filled Start Date End Date metoprolol succinate (TOPROL-XL) 100 mg Oral Tablet Sustained Release 24 hr Take 1 Tablet by mouth 2 times daily. 10/07/2024 documented in this encounter Progress Notes * Shady Cole MD - 10/07/2024 2:30 PM EDT Cardiac Electrophysiology Progress Note Patient ID: Kaylee Fuller is a 64 y.o. female. Chief Complaint Patient presents with New Patient Inspector Aluminum Boat refered by Dr. Jesus Manuel Bullock for AF Meds per pt report Symptomatic tachycardia Compliant with medications Know to have AF Rate controlled Establish Care Chronicity: Inspector Aluminum Boat refered by Dr. Jesus Manuel Bullock for AF. The current episode started more than 1 month ago. Associated symptoms include fatigue. Pertinent negatives include no arthralgias, coughing, diaphoresis, headaches, myalgias, rash, urinary symptoms, vertigo or weakness. Their chronic cardiac conditions are: Problem List Cardiology Problems Essential hypertension Family history of cardiovascular disease Paroxysmal atrial fibrillation (HCC) Atherosclerosis of abdominal aorta Atrial fibrillation with rapid ventricular response (HCC) Atrial fibrillation with RVR (HCC) Social History Tobacco Use Smoking Status Every Day Current packs/day: 0.00 Average packs/day: 1 pack/day for 39.9 years (39.9 ttl pk-yrs) Types: Cigarettes Start date: 03/18/1979 Last attempt to quit: 02/11/2019 Years since quittin.6 Smokeless Tobacco Never Current Outpatient Medications Medication Sig Dispense Refill atorvastatin (LIPITOR) 40 mg Oral Tablet Take 1 Tablet by mouth nightly. 90 Tablet 3 calcium carbonate-vitamin D (CALCIUM-VITAMIN D) 500 mg(1,250mg) -200 unit Oral Tablet Take 1 Tab bymouth 2 times daily. 180 Tab 3 dilTIAZem (CARDIZEM SR) 120 mg Oral Capsule, Sust. Release 12 hr Take 1 Capsule by mouth every 12 hours. 180 Capsule 3 ELIQUIS 5 mg Oral Tablet TAKE 1 TABLET BY MOUTH TWICE DAILY 180 Tablet 2 ergocalciferol (VITAMIN D) 1,250 mcg (50,000 unit) Oral Capsule Take 1 Capsule by mouth two times aweek. 24 Capsule 2 fUROsemide (LASIX) 40 mg Oral Tablet Take 1 Tablet by mouth daily. 90 Tablet 3 linaCLOtide (LINZESS) 290 mcg Oral Capsule Take 1 Capsule by mouth daily. 30 Capsule 2 lisinopriL (PRINIVIL;ZESTRIL) 10 mg Oral Tablet TAKE 1 TABLET BY MOUTH DAILY 90 Tablet 1 metoprolol succinate (TOPROL-XL) 50 mg Oral Tablet Sustained Release 24 hr Take 1 Tablet by mouth 2times daily. 40 Tablet 0 nystatin (MYCOSTATIN) Top Cream APPLY TO THE AFFECTED AREA(S) 2 TIMES A DAY 30 g 2 oxyCODONE (ROXICODONE) 5 mg Oral Tablet Take 1 Tablet by mouth every 6 hours as needed for Chronic Pain (G89.29). 120 Tablet 0 tiotropium (SPIRIVA WITH HANDIHALER) 18 mcg Inhl Capsule, w/Inhalation Device INHALE THE ENTIRE CONTENTS OF 1 CAPSULE ONCE A DAY USING HANDIHALER DEVICE 30 Capsule 1 traZODone (DESYREL) 50 mg Oral Tablet TAKE ONE TABLET BY MOUTH ONCE NIGHTLY 90 Tablet 3 clobetasoL (TEMOVATE) 0.05 % sclp Solution Apply topically 2 times daily. (Patient not taking: Reported on 10/07/2024) 50 mL 2 cyclobenzaprine (FLEXERIL) 10 mg Oral Tablet Take 1 Tablet by mouth daily as needed for Muscle spasms (Take 1 tablet before bed.). (Patient not taking: Reported on 10/07/2024) 30 Tablet 1 diclofenac (SOLARAZE) 3 % Top Gel Apply topically 2 times daily. (Patient not taking: Reported on 10/07/2024) 100 g 5 lubiprostone (AMITIZA) 24 mcg Oral Capsule TAKE 1 CAPSULE BY MOUTH 2 TIMES DAILY (WITH MEALS). (Patient not taking: Reported on 10/07/2024) 180 Capsule 1 [facility] Device Pulse ox to check oxygen. If stays below 93%, go to ER (Patient not taking: Reported on 10/07/2024) 1 Each 0 No current facility-administered medications for this visit. Patients past medical, family and social histories were reviewed and updated. There were no changesexcept as noted Review of Systems Constitutional: Positive for fatigue. Negative for diaphoresis, malaise/fatigue, weight gain and weight loss. HENT: Negative for nosebleeds. Cardiovascular: Positive for dyspnea on exertion. Negative for leg swelling, palpitations and syncope. Feels Fluttering in chest Respiratory: Positive for shortness of breath. Negative for cough. Skin: Negative for flushing and rash. Musculoskeletal: Negative for arthralgias, falls and myalgias. Gastrointestinal: Negative for heartburn and melena. Neurological: Positive for dizziness and light-headedness. Negative for headaches, vertigo and weakness. Psychiatric/Behavioral: Negative for depression. The patient does not have insomnia. Allergic/Immunologic: Negative for hives and persistent infections. Objective: Patient Vitals for the past 24 hrs: Pulse BP 10/07/24 1429 100 128/86 Body mass index is 48.66 kg/m??. General: No apparent distress. Alert and oriented. Neck:Trachea is midline. Neck veins are flat. Respiratory: Clear to auscultation bilaterally Cardiovascular: Rhythm is regular. S1 and S2 normal. Abdomen: Abdomen is soft and non tender. Extremeties: No Edema. Clubbing is absent. Cyanosis is absent. Skin: Warm and dry. Neurological: Cranial nerves are grossly intact. Speech is normal. [id number] Stroke Risk Points: 2 Values used to calculate this score: Points Metrics 0 Has Congestive Heart Failure: No 1 Has Hypertension: Yes 0 Age: 64 0 Has Diabetes: No 0 Had Stroke: No Had TIA: No Had Thromboembolism: No 0 Has Vascular Disease: No 1 Clinically Relevant Sex: Female Assessment and Plan: Longstanding AF Rate control Escalate Increase to 100mg BID 48 hour HM to assess for control Continue anticoagulation documented in this encounter Miscellaneous Notes * Patient Instructions - Katia Salgado MA - 10/07/2024 2:30 PM EDT You may be contacted by mail or e-mail to participate in a patient satisfaction survey regarding your office visit today. We value your opinion and depend on your feedback to make improvements and provide you with the best possible experience while receiving high quality medical treatment. Your time in completing this survey is greatly appreciated. documented in this encounter Plan of Treatment Scheduled Orders Name Type Priority Associated Diagnoses Orde r Schedule HM HOLTER MONITOR RECORDING AND ANALYSIS Imaging Cardiology Routine Atrial fibrillation, unspecified type (HCC) 1 Occurrences starting 10/07/2024 until 10/07/2026 documented as of this encounter Goals Goal Patient Goal Type Associated Problems Recent Progress Patient-Stated? Author Blood Pressure < 140/90 Blood Pressure 128/86(2024 2:29 PM EDT) No Estella Kelly Maintain a healthy diet, exercise regularly and maintain an ideal body weight General No Amee Bailey MA Stay Tobacco Free Lifestyle No Amee Bailey MA documented as of this encounter Procedures Procedure Name Priority Date/Time Associated Diagnosis Comments POCT EKG Routine 10/07/2024 3:07 PM EDT Atrial fibrillation, unspecified type (HCC) documented in this encounter Results * POCT EKG (10/07/2024 3:07 PM EDT) 10/07/2024 3:07 PM EDT Impressions [facility] OFFICE - 10/07/2024 3:07 PM EDT AF RVR 111 us Shady Cole MD POINT OF CARE CARDIOLOGY Final Result [facility] OFFICE documented in this encounter Visit Diagnoses Diagnosis Atrial fibrillation, unspecified type (HCC)- Primary documented in this encounter Discontinued Medications Medication Sig Discontinue Reason Start Date End Da te metoprolol succinate (TOPROL-XL) 50 mg Oral Tablet Sustained Release 24 hr Take 1 Tablet by mouth 2 times daily. Reorder 07/30/2024 10/07/2024 documented as of this encounter Care Teams Anesthesiologist Assistant Relationship Specialty Start Date End Date Darshana Crews APRN [address] [place], [place] [address] PCP - General Nurse Practitioner-Family 02/13/18 documented as of this encounter
[2024-11-02 15:37] LABS: Hematocrit 41.1 % (37.0-47.0); Hemoglobin 12.3 g/dL (12.2-16.2); Immature Granulocytes % 0.4 %; Mean Corpuscular HGB Conc 29.9 g/dL (31.8-35.4); Mean Corpuscular Hemoglobin 24.3 pg (27.0-31.2); Mean Corpuscular Volume 81.1 fl (81-99); Nucleated Red Blood Cells % 0 %; Platelet Count 373 K/mm3 (142-424); Red Blood Count 5.07 M/mm3 (4.20-5.40); Red Cell Distribution Width-SD 54.6 fL; White Blood Count 10.7 K/mm3 (4.8-10.8)
[2024-11-02 16:02] LABS: Hemoglobin A1C 6.2 % (4.0-6.0)
[2024-11-02 16:48] LABS: Albumin Level 3.8 g/dl (3.5-5.0); Chloride 101 mmol/L (98-107); Potassium 4.1 mmoL/L (3.5-5.1)
[2024-11-02 16:50] LABS: Alanine Aminotransferase 16 U/L (12-78); Alkaline Phosphatase 149 U/L (38-126); Aspartate Amino Transferase 24 U/L (14-36); Bilirubin,Total 0.8 mg/dl (0.2-1.3); Blood Urea Nitrogen 11 mg/dl (7-17); Carbon Dioxide 29 mmol/L (22.0-30.0); Creatinine,Serum 0.70 mg/dl (0.52-1.04); Estimated Glomerular Filt Rate 84 ml/min (>60); GFR (African American) 102 ML/MIN (>60); Total Protein,Serum 6.4 g/dl (6.3-8.2)
[2024-11-02 16:51] LABS: Albumin/Globulin Ratio 1.5 (1.1-1.8); Calcium 9.0 mg/dl (8.4-10.2); Globulin 2.6 g/dL (1.3-3.2); Glucose 122 mg/dl (74-100)
[2024-11-02 17:03] LABS: Anion Gap 11.1 mEq/L (5-15); Sodium 137 mmol/L (136-145)
--- OUTSIDE RECORDS SUMMARY | 2024-11-04 10:46 | XMS_ITS | Encounter Summary ---
Author Organization [facility] [address] Care Team Providers Care Coordinator Skill Training Program Name Role Phone Darshana Crews APRN Primary Care Provider Reason for Visit * Reason Comments Medication Refill Encounter Details Date Type Department Care Team (Late st Contact Info) Description 10/01/2024 Refill SEP Care Managment [facility] Mary Miguel [address]. [address] [place] [address] Darshana Crews APRN [address] [place] [id number] Medication Refill Social History Tobacco Use Types Packs/Day Years Used Date Smoking Tobacco: Every Day Cigarettes 1 39.9 Started: 03/18/1979; Last attempted to quit: 02/11/2019 Smokeless Tobacco: Never Alcohol Use Standard Drinks/Week Comments No 0 (1 standard drink = 0.6 oz pur e alcohol) [facility] Utilities Answer Date Recorded In the past [...] Date Recorded PHQ-2 Total Score 0 07/27/2024 [facility] Occup[facility] - Occupational Stress [...] things needed for daily living? No 04/26/2020 [facility] IP Transportation Answer D ate Recorded In [...] documented as of this encounter Care Teams Coordinator Skill Training Program Relationship Specialty Start Date End Date Darshana Crews APRN [address] [place] [place] [address] PCP - General Nurse Practitioner-Family 02/13/18 documented as of this encounter
--- OUTSIDE RECORDS SUMMARY | 2024-11-04 10:46 | XMS_ITS | Encounter Summary ---
Author Organization [place] [address] Care Team Providers Care Intermediate Card Tender Name Role Phone Darshana Crews APRN Primary Care Provider [phone] Paula Ram RN Unavailable Unavaila Ketty Gutiérrez ULTRASOUND APPLICATIONS SPECIALIST Unavailable Unavail able Parul Arora RN Unavailable UnaMarianne Pereira Unavailable Unavailable Zunilda Morrell RN Unavailable Unavailable Reason for Visit * Reason Onset Date Comments Bone Health Program 02/05/2019 Encounter Details Date Type Department Care Team (Late st Contact Info) Description 02/05/2019 Patient Outreach [facility] [address] [place] [id number] Darshana Crews APRN [address] [place] [id number] [facility] Program Social History Tobacco Use [...] documented as of this encounter Care Teams Intermediate Card Tender Relationship Specialty Start Date End Date Darshana Crews APRN [address] [place] [address] PCP - General Nurse Practitioner-Family 02/13/18 Paula Ram, RN Repairer Finished Metal Registered Nurse 02/23/19 03/24/19 Ketty Estes LCSW Project Management It Specialist 10/29/19 07/28/20 Parul Arora, RN Repairer Finished [employer] Registered Nurse 04/26/20 06/07/20 Marianne Jorge Respiratory Therapist Respiratory Therapist, Registered 07/28/24 08/02/24 Zunilda Morrell RN Repairer Finished Metal 07/31/24 08/02/24 documented as of this encounter
--- OUTSIDE RECORDS SUMMARY | 2024-11-04 10:46 | XMS_ITS | Encounter Summary ---
Author Organization [facility] [place] [address] Care Team Providers Care Kettle Loader Name Role Phone Darshana Crews APRN Primary Care Provider Reason for Visit * Reason Onset Date Comments Appointment Needed 09/16/2024 PIPE INSTALLER appt ref b y Dr. Jesus Manuel Bullock Encounter Details Date Type Department Care Team (Late st Contact Info) Description 09/16/2024 Telephone [facility] [address] [facility] [address] [place] [address] Shady Cole MD [address] [place] [address] Appointment Needed (PIPE INSTALLER appt ref by Dr. Jesus Manuel Bullock ) Social History Tobacco Use Types Packs/Day Years Used Date Smoking Tobacco: Every Day Cigarettes 1 39.9 Started: 03/18/1979; Last attempted to quit: 02/11/2019 Smokeless Tobacco: Never Alcohol Use Standard Drinks/Week Comments No 0 (1 standard drink = 0.6 oz pur e alcohol) [facility] Utilities Answer Date Recorded In the [...] Date Recorded PHQ-2 Total Score 0 07/27/2024 [facility] - Occupational Stress Questionnaire Answer Date Recorded [...] things needed for daily living? No [facility]/26/2020 [facility] IP Transportation Answer D ate Recorded In [...] Cole by Dr. Jesus Manuel Bullock at [facility] for AF. MR/REF scanned into media. Please contact patient at [phone] Thank you documented in this encounter Plan [...] on filedocumented in this encounter Care Teams Kettle Loader Relationship Specialty Start Date End Date Darshana Crews APRN [address] [place] [address] PCP - General Nurse Practitioner-Family 02/13/18 documented as of this encounter
--- OUTSIDE RECORDS SUMMARY | 2024-11-04 10:46 | XMS_ITS | Clinical Summary ---
Author Organization [facility] Address [facility] [place] [address] Phone Care Team Providers Care Jetting Machine Operator Name Role Phone Elfego OWENS, [place] [facility] [phone] Conditions or Problems No information available. Medications No information available. Medications Administered No information available. Allergies, Adverse Reactions, Alerts No information available. Results No information available. Plan of Care No information available. Procedures No information available. Vital Signs No information available. Immunizations No information available. Advance Directives No information available.
--- OUTSIDE RECORDS SUMMARY | 2024-11-04 10:46 | XMS_ITS | Clinical Summary ---
Author Organization [facility] Address [address] [place] [address] Phone Care Team Providers Care Electrical Engineering Manager Name Role Phone Darshana Crews APRN Primary Care Provider [phone]- [phone] Allergies Active Allergy Reactions Criticality Noted Date [...] Additional Information Patient not taking.Reported on 10/07/2024 [facility] DeviceIndications: COVID-19 virus infection Pulse ox to [...] migh t be different from the original. [facility] - Davide Fang MD Controlled Substance Protocol [...] or Functional capacity documented (EVERY VISIT) Pharmacy: [facility] [id number] [place] [address] [address] [facility] [phone] [facility] additional info (Transportation, WC, Compound, No Show, [...] drip. TTE pending. Monitor on telemetry continue EXCHANGE TELLER Eliquis. Discussed with cardiology and appreciate their [...] AP PELVIS, 07/22/2018 3:00 PM CLINICAL HISTORY: [id number], eozcyartwkp-RSQ-20-CM T14.90XA-Injury, unspecified, initial jewymdstv-FFH-13-CM COMPARISON: 10/22/2016. PROCEDURE COMMENTS: AP view of [...] drip. TTE pending. Monitor on telemetry continue EXCHANGE TELLER Eliquis. Discussed with cardiology and appreciate their [...] school Work hx: Currently employed at a [employer]. Assessment & Plan (10/08/2019 11:28 AM EDT): [...] 12/23/2017 Overview (05/14/2018): Failed UDS at [facility] [place]. Will not be getting Controlled substances with [...] Plan (07/27/2024 2:34 PM EDT): Will hold EXCHANGE TELLER oral Cardizem and lisinopril as we diurese. [...] (08/09/2020): Added automatically from request for surgery [id number] Abnormal MRI of abdomen 08/09/202006/16 Overview (08/09/2020): Added automatically from request for surgery [id number] Swelling of left lower extremity 01/14/2020 07/13/2020 [...] Office Visit [facility] [address] [place] [address] Shady Cole MD Atrial fibrillation, unspecified type (HCC) (Primary Dx) 10/01/2024 Refill [facility] [address] [place] [address] Darshana Crews APRN Medication Refill 09/24/2024 Patient Outreach [facility] [address] [place] [address] Darshana Crews APRN Central Order Completion Outreach (mammo) 09/16/2024 Telephone [facility] [address] [place] [address] Shady Cole MD Appointment Needed ([employer] INST[employer]ER appt ref by Dr. Jesus Manuel Bullock ) from Last 3 Months Immunizations Immunization Administration [...] TUNNEL RELEASE; Surgeon: Davide Hall MD; Location: [facility] MAIN OR; Service: Orthopedics Medical devices from this surgery are in the Medical Devices section. CARPAL TUNNEL RELEASE 02/11/2019 Surgeon: Davide Hall MD; Location: [facility] MAIN OR; Service: Orthopedics Medical devices from this surgery are in the Medical Devices section. EYE SURGERY 03/08/2020 CATARACT EXTRACTION EXTRACAPSULAR W/ INTRAOCULAR LENS IMPLANTATION 09/05/[address] Peyton Raphael ERCP 05/25/2021 N/A Endoscopic Retrograde Cholangiopancreatography with sphincterotomy and stent placement and balloon sweep without removal of debri/calculi; Surgeon: Stanley Kirkpatrick MD; Location: [facility] ENDOSCOPY; Service: Endoscopy Medical devices from this [...] drink = 0.6 oz pur e alcohol) [facility] Utilities Answer Date Recorded In the [...] Date Recorded PHQ-2 Total Score 0 07/27/2024 [facility] - Occupational Stress Questionnaire Answer [...] things needed for daily living? No 04/26/2020 [facility] IP Transportation Answer D ate Recorded [...] Bailey MA Medical Devices Implanted Type Area Electronic Device Monitor Device Identifier Shelf Expiration Date Model / Serial / Lot Stent Panc [id number] Geenen 170/320cm Sprl Sh Tapr 0.018in Gw - [id number] Implanted:Qty: 1 on 05/25/2021 by Stanley Kirkpatrick MD at [facility] Stent COOK:ENDOSCOPY 07/23/2023 [id number] / / [id number] Peg Smooth Locking Radius 2.0mm X 19mm - [id number] Implanted:Qty: 2 on 02/11/2019 by Davide Hall MD at [facility] Left: Radius SKELETAL DYNAMICS SPLS- -TS / / Peg Smooth Locking Radius 2.0mm X 20mm - [id number] Implanted:Qty: 3 on 02/11/2019 by Davide Hall MD at [facility] Left: Radius SKELETAL DYNAMICS SPLS- -TS / / Peg Locking High Compression 2.7mm X 20mm - [id number] Implanted:Qty: 1 on 02/11/2019 by Davide Hall MD at [facility] Left: Radius SLEEPMATE [id number] -TS / / Screw Cortical Locking 3.5mm X 13mm - [id number] Implanted:Qty: 2 on 02/11/2019 by Davide Hall MD at [facility] Left: Radius SKELETAL DYNAMICS [id number] -TS / / Screw Cortical Non-Locking 3.5mm X 13mm - [id number] Implanted:Qty: 2 on 02/11/2019 by Davide Hall MD at [facility] Left: Radius SKELETAL DYNAMICS PANL-[id number] -TS / / Screw Cortical Non-Locking 3.5mm X 18mm - [id number] Implanted:Qty: 1 on 02/11/2019 by Davide Hall MD at [facility] Left: Radius SKELETAL DYNAMICS PANL-[id number] -TS / / Plate Robin Ti 120mm Geminus Bn Rds Lt Volr Dist Ns - [id number] Implanted:Qty: 1 on 02/11/2019 by Davide Hall [...] 10/07/2024 3:07 PM EDT AF RVR 111 Shady Cole MD POINT OF CARE CARDIOLOGY Final Result [facility] OFFICE * (ABNORMAL) BASIC METABOLIC PANEL (07/30/2024 6:50 AM EDT) Sodium 138 136 - 145 mmol/L 07/30/2024 7:39 AM EDT [facility] Potassium 4.6 3.5 - 5.0 mmol/L 07/30/2024 7:39 AM EDT [facility] Chloride 104 98 - 107 mmol/L 07/30/2024 7:39 AM EDT [facility] Total CO2 25 22 - 29 mmol/L 07/30/2024 7:39 AM EDT [facility] Anion Gap 9 7 - 16 mmol/L 07/30/2024 7:39 AM EDT [facility] Calcium 8.6(L) 8.8 - 10.4 mg/dL 07/30/2024 7:39 AM EDT [facility] Glucose Lvl 228(H) 70 - 99 mg/dL 07/30/2024 7:39 AM EDT [facility] BUN 45(H) 8 - 23 mg/dL 07/30/2024 7:39 AM EDT [facility] Creatinine 0.85 0.51 - 1.30 mg/dL 07/30/2024 7:39 AM EDT [facility] eGFR (CKD-EPIcr 2020) 76 >=60 mL/min/1.7 3 m2 07/30/2024 7:39 AM EDT [facility] Comment:Estimated GFR was ca lculated using the CKD-EPIcr (2020) equation refit without race. The equation is recommended by the National Kidney Foundation - [place] [employer] of Nephrology Task Force. Blood VENOUS BLOOD / Unknown Venipuncture / Unknown 07/30/2024 6:50 AM EDT 07/30/2024 7:16 AM EDT Zi Mar DO CHEMISTRY ORDERABLES Final Re sult Performing Organization Address City/[facility]/ZIP Co de Phone Number [facility] [address] [place] [address] * (ABNORMAL) HEMOGLOBIN A1C (07/29/2024 6:51 AM EDT) Hgb A1C 6.7(H) 4.2 - 5.6 % 07/29/2024 7:11 PM EDT [facility] Est. Avg Glucose 146 mg/dL 07/29/2024 7:11 PM EDT [facility] Blood VENOUS BLOOD / Unknown Venipuncture / Unknown 07/29/2024 6:51 AM EDT 07/29/2024 7:14 AM EDT Narrative PREFERRED [facility] - 07/29/2024 7:11 PM EDT REFERENCE RANGE: Normal: 4.0-5.6% Pre-diabetes: 5.7-6.4% Provisional diagnosis of diabetes: >6.4% Hgb F>10% and anything which shortens red cell survival, such as hemolytic anemia, or unstable hemoglobin variants such as HbSS, HbSC, or HbCC, will lower the HbA1c value associated with a given level of glycemic control. Brigid Win APRN CHEMISTRY ORDERABLES Fi nal Result Performing Organization Address City/[facility]/ZIP Co de Phone Number [facility] [address] [facility] , [place] [address] * CT CHEST WO CONTRAST (07/27/2024 3:50 PM EDT) Anatomical Region Laterality Modality Chest Computed Tomogra phy 07/27/2024 3:50 PM EDT Impressions 07/27/2024 5:20 PM EDT Mild patchy groundglass opacities and central pulmonary vascular prominence raises suspicion of mild CHF. Clearing of the previous consolidative opacities on the 2019 scan Emphysema and chronic bronchitis Moderate [place] coronary artery calcification Borderline mediastinal adenopathy likely [...] 2019 scan Emphysema and chronic bronchitis Moderate [place] coronary artery calcification Borderline mediastinal adenopathy likely reactive but not completelyspecific. - Note: Radiology results need to be interpreted within a comprehensiveclinical context. If you have questions about the radiology report, please contactthe office of the ordering clinician. us Bryan Rodriguez MD IM CT ORDERABLES Final Result * (ABNORMAL) LIPID PANEL REFLEX (07/04/2022 8:30 AM EDT) Cholesterol 203(H) <200 mg/dL 07/04/2022 6:21 PM EDT PREFERRED [facility] [place] Comment: < 200 Desirable 200 - 239 Borderline High >= 240 High Triglyceride 200(H) <150 mg/dL 07/04/2022 6:21 PM EDT [facility] [place] Comment: < 150 Normal 150 - 199 Borderline High 200 - 499 High >= 500 Very High HDL 61 >=40 mg/dL 07/04/2022 6:21 PM EDT [facility] [place] Comment: > 60 Optimal 40 - 60 Acceptable < 40 Low LDL Calculated 108(H) <100 mg/dL 07/04/2022 6:21 PM EDT [facility] [place] Non-HDL-C Calculated 142(H) <=129 mg/dL 07/04/2022 6:21 PM EDT [facility] [place] Comment: <130 Desirable 130-159 Above Desirable 160-189 Borderline High 190-219 High >= 220 Very High Fasting Specimen? No None 023 6:[address] [facility] Blood VENOUS BLOOD / Unknown Venipuncture / Unknown 07/04/2022 8:30 AM EDT 07/04/2022 8:30 AM EDT Darshana Crews THEATRICAL AGENT CHEMISTRY ORDERABLES Final Result PREFERRED [facility] [address] [facility], [place] [address] [facility] [address] [place] [address] [place] [address] * MM MAMMO DIGITAL LEIGH SCREEN BILAT (05/12/2020 10:52 AM EST) Anatomical Region Laterality Modality Breast Bilateral Mammography 05/13/2020 9:41 AM EST Impressions 05/13/2020 9:41 AM EST Negative ([id number]-Nnlkfjbh-6) ~ RECOMMENDATION: Routine screening mammogram in 1 [...] the next mammogram, in accordance with the [place] [employer] and the Society of Breast Imaging recommendations. Narrative 05/13/2020 9:41 AM EST Procedure:MM MAMMO DIGITAL LEIGH SCREEN BILAT ~ Reason for exam: screening, asymptomatic. Z12.31-Encounter for screening mammogram for malignant neoplasm of mexlio-HQR-17-CM ~ MM MAMMO DIGITAL LIEGH SCREEN BILAT Bilateral CC and MLO view(s) were taken. There are scattered fibroglandular densities. Prior study comparison: Outside films from [facility] dated 05/18/2015. No mammographic evidence of malignancy. ~ Procedure Note Lorri Tovar MD - 05/13/2020 Procedure:MM MAMMO DIGITAL LEIGH SCREEN BILAT ~ Reason for exam: screening, asymptomatic. Z12.31-Encounter for screening mammogram for malignant neoplasm of vksksf-JHR-87-CM ~ MM MAMMO DIGITAL LEIGH SCREEN BILAT Bilateral CC and MLO view(s) were taken. There are scattered fibroglandular densities. Prior study comparison: Outside films from [facility] dated 05/18/2015. No mammographic evidence of malignancy. ~ IMPRESSION: Negative (WVC-Epzhhehv-2) ~ RECOMMENDATION: Routine screening mammogram in 1 [...] the next mammogram, in accordance with the [place] [employer] and the Society of Breast Imaging recommendations. Darshana Crews APRN IMG MAMMOGRAPHY ORDERABLES Final Result * HEPATITIS C ANTIBODY - SCREENING (07/02/2017 3:03 PM EDT) Hep C Ab Negative Negative 07/03/2017 9:30 AM EDT [facility] Blood VENOUS BLOOD / Unknown Venipuncture / Unknown 07/02/2017 3:03 PM EDT 07/02/2017 3:03 PM EDT Michael Moon MD HEMATOLOGY ORDERABLES Final Re sult [facility] [address] [place] [phone] from Last 3 Months or Most Recently Relevant to Health Maintenance Insurance [facility] Advance Directives For more information, please contact: [phone] * Full Code (Latest Code Status on File) Date Activated Date Inactivated Comments 07/26/2024 11:10 PM 07/30/2024 5:42 PM * Full Code Date Activated Date Inactivated Comments 04/21/2020 9:49 PM 04/25/2020 6:03 PM * Full Code Date Activated Date Inactivated Comments 02/17/2019 12:15 AM 02/22/2019 7:32 PM Care Teams Electrical Engineering Manager Relationship Specialty Start Date End Date Darshana Crews APRN [address] [place] [id number] PCP - General Nurse Practitioner-Family 02/13/18
--- OUTSIDE RECORDS SUMMARY | 2024-11-04 10:46 | XMS_ITS | Encounter Summary ---
Author Organization [place] [address] Care Team Providers Care Vulcanizer Operator Name Role Phone Darshana Crews APRN Primary Care Provider Reason for Visit * Reason Onset Date Comments Central Order Completion Outreach 09/24/2024 mammo Encounter Details Date Type Department Care Team (Late st Contact Info) Description 09/24/2024 Patient Outreach [facility] [address] [place] [address] Darshana Crews APRN [address] [place] [address] Central Order Completion Outreach (mammo) Social History Tobacco Use Types Packs/Day Years Used Date Smoking Tobacco: Every Day Cigarettes 1 39.9 Started: 03/18/1979; Last attempted to quit: 02/11/2019 Smokeless Tobacco: Never Alcohol Use Standard Drinks/Week Comments No 0 (1 standard drink = 0.6 oz pur e alcohol) [facility] Utilities Answer Date Recorded In [...] Date Recorded PHQ-2 Total Score 0 07/27/2024 [facility] [place] of Occupat ional Health - Occupational [...] things needed for daily living? No 04/26/2020 [facility] IP Transportation Answer [...] Outcome:: Left Voicemail to Return Call at [phone] * Ericka Nance RN - 09/24/2024 3:26 PM EDT [facility] Order Completion Outcome Tracking Contact Attempt:: First Mammogram Outcome:: Left Voicemail to Return Call at [phone], MyChart Message documented in this encounter Plan of Treatment Not on file documented as of this encounter Goals Goal Patient Goal Type Associated Problems Recent Progress Patient-Stated? Author Blood Pressure < 140/90 Blood Pressure 128/86(2024 2:29 PM EDT) No Estella Kelly Maintain a healthy diet, exercise regularly and maintain an ideal body weight General No Amee Bailey MA Stay Tobacco Free Lifestyle No mAee Bailey MA documented as of this encounter Visit Diagnoses Not on filedocumented in this encounter Care Teams Vulcanizer Operator Relationship Specialty Start Date End Date Darshana Crews APRN [address] [place] [address] PCP - General Nurse Practitioner-Family 02/13/18 documented as of this encounter
== END 2024-11-02 23:59 | disposition home or self-care (01) ==
LOC: LAB.DROPOF 11-04 10:27
PROVIDERS: PCP Nurse Practitioner; Visit Provider Nurse Practitioner
DX: L03.90 Cellulitis, unspecified (principal); R73.01 Impaired fasting glucose
CPT/HCPCS: 80053; 83036; 85025

== ENCOUNTER 2024-11-02 14:53 | Emergency (ER) | payer OTHER, SELFPAY ==
--- OUTSIDE RECORDS SUMMARY | 2015-01-14 10:00 | XMS_ITS | Continuity of Care Document ---
Author Organization [facility] Address [address] [place] [address] Phone Care Team Providers Care Laborer Shipyard Name Role Phone Ti Rice DO Unavailable [...] MG - Active Procedures Procedure Date OFFICE VISIT/[facility] LEVEL III Advance Directives Directive Yes / No Effective Date File Name No Information Encounters Encounter Description Practice Location Reason(s) For Visit Diagnoses Date Provider Providers Copied on Encounter OFFICE VISIT/NEW LEVEL III [facility], [address], [place], [place], [id number], [place] tel:[phone] [facility] Est Care (chief complaint) Breast pain (chief complaint) musculoske letal pain (chief complaint) SmokerObesity (BMI 30-39.9)Musculosk eletal painCostochondrit is 0-201 5 Krystal Jack. [address] [place], [place], [id number] , [place]. tel:[phone] Family History Family Member Type Diagnosis Age At Onset Mother Problem (finding) diabetes mellitus type 2 Mother Problem (finding) Cardiovascular disease Payers Payer name Insurance type Covered democrat ID Authoriza tion(s) HSO 75 Discount SFS [...] Lab Order Comp. Me tabolic Panel (14) ([id number]), Scheduled for: Ordered Future Order: Lab Order Lipid Pa florentino ([id number]), Scheduled for: Ordered Future Order: Lab Order TSH ([id number]), Merline eduled for: Ordered History Of Present [...] Mental Status Date Cognitive Assessment Orientation - [place] ed to time, place, person, situation. Patient Care Teams Name Effective Dates (start - stop) Status Members No Information
--- OUTSIDE RECORDS SUMMARY | 2024-10-07 14:30 | XMS_ITS | Encounter Summary ---
Author Organization [place] [address] Care Team Providers Care Manufactured Buildings Repairer Name Role Phone MarsMargarito monacoika BELKYS Primary Care Provider [phone] Reason for Referral * Holter Monitor (Routine) - Authorized Specialty Diagnoses / Procedures Referred By Contac t Referred To Contact Radiology Diagnoses Atrial fibrillation, unspecified type (HCC) Procedures HM HOLTER MONITOR RECORDING AND ANALYSIS Shady Cole MD [address] [place] [address] [place] [address] Phone: tel: fax: Referral ID Status Reason Start Date Expiration Date V isits Requested Visits Authorized [id number] Authorized 10/07/2024 10/07/2026 1 1 Reason for Visit * Reason Comments New Patient Wedding Consultant refered by Dr. Xiomara Bullock for AFMeds per pt report * Consultation (Routine) - Authorization Not Needed Specialty Diagnoses / Procedures Referred By Contact Referred To Contact Internal Medicine - Clinical Cardiac Electrophysiology / Electrophysiology Diagnoses Afib (HCC) Wedding Consultant refered by Dr. Jesus Manuel Bullock for AF (records on 's desk) Procedures NEW PATIENT Darshana Crews APRN [facility] [address] Phone: tel:[phone] fax:[phone] Shady Cole MD [address] [place] [address] [place] [address] Phone: tel:[phone] fax:[phone] Referral ID Status Reason Start Date Expiration Date Visits Requested Visits Authorized [id number] Authorization Not Needed 10/07/2024 10/07/2025 99 99 Encounter Details Date Type Department Care Team (Late st Contact Info) Description 10/07/2024 2:30 PM EDT Office Visit [facility]g [address] [place] [address] Shady Cole MD [address] [facility] [place] [address] Atrial fibrillation, unspecified type (HCC) (Primary Dx) Social History Tobacco Use Types Packs/Day Years Used Date Smoking Tobacco: Every Day Cigarettes 1 39.9 Started: 03/18/1979; Last attempted to quit: 02/11/2019 Smokeless Tobacco: Never Alcohol Use Standard Drinks/Week Comments No 0 (1 standard drink = 0.6 oz pur e alcohol) [facility] Utilities Answer Date Recorded In the past 12 months has [employer] electric, gas, oil, or water [employer] threatened to shut off services in your home? No 07/27/2024 Overall Financial Resource Strain (CARDIA) Answe r Date Recorded How hard is it for you to pa y for the very basics like food, housing, medical care, and heating? Somewhat hard 07/27/2024 PHQ-2 Answer Date Recorded PHQ-2 Total Score 0 07/27/2024 [facility] [place] of Occupat ional Health - Occupational Stress [...] things needed for daily living? No 04/26/2020 [facility] IP Transportation Answer D ate Recorded [...] Chief Complaint Patient presents with New Patient Wedding Consultant refered by Dr. Jesus Manuel Bullock for AF Meds per pt report Symptomatic tachycardia Compliant with medications Know to have AF Rate controlled Establish Care Chronicity: Wedding Consultant refered by Dr. Jesus Manuel Bullock for [...] taking: Reported on 10/07/2024) 180 Capsule 1 [facility] Device Pulse ox to check oxygen. [...] nerves are grossly intact. Speech is normal. [id number] Stroke Risk Points: 2 Values used to [...] documented as of this encounter Care Teams Manufactured Buildings Repairer Relationship Specialty Start Date End Date Darshana Crews APRN [address] [place], [place] [address] PCP - General Nurse Practitioner-Family 02/13/18 documented as of this encounter
--- OUTSIDE RECORDS SUMMARY | 2024-11-02 16:27 | XMS_ITS | Clinical Summary ---
Author Organization [facility] Address [facility] [place] [address] Phone Care Team Providers Care Wood Cabinetmaker Name Role Phone Elfego OWENS, [facility] [phone] Conditions or Problems No information available. Medications No information available. Medications Administered No information available. Allergies, Adverse Reactions, Alerts No information available. Results No information available. Plan of Care No information available. Procedures No information available. Vital Signs No information available. Immunizations No information available. Advance Directives No information available.
--- OUTSIDE RECORDS SUMMARY | 2024-11-02 16:27 | XMS_ITS | Encounter Summary ---
Author Organization [facility] [address] Care Team Providers Care Manager Marketing Sales Name Role Phone Darshana Crews APRN Primary Care Provider Reason for Visit * Reason Comments Medication Refill Encounter Details Date Type Department Care Team (Late st Contact Info) Description 10/01/2024 Refill [facility] [address] [place] [address] Darshana Crews APRN [address] [place] [address] Medication Refill Social History Tobacco Use Types Packs/Day Years Used Date Smoking Tobacco: Every Day Cigarettes 1 39.9 Started: 03/18/1979; Last attempted to quit: 02/11/2019 Smokeless Tobacco: Never Alcohol Use Standard Drinks/Week Comments No 0 (1 standard drink = 0.6 oz pur e alcohol) [facility] Utilities Answer Date Recorded In the [...] Date Recorded PHQ-2 Total Score 0 07/27/2024 [facility] [place] of Occupat ional Health - Occupational Stress [...] things needed for daily living? No 04/26/2020 [facility] IP Transportation Answer D ate Recorded [...] documented as of this encounter Care Teams Manager Marketing Sales Relationship Specialty Start Date End Date Darshana Crews APRN [address] [place], [place] [address] PCP - General Nurse Practitioner-Family 02/13/18 documented as of this encounter
--- OUTSIDE RECORDS SUMMARY | 2024-11-02 16:27 | XMS_ITS | Encounter Summary ---
Author Organization [place] [address] Care Team Providers Care Excelsior Machine Feeder Name Role Phone Darshana Cerws APRN Primary Care Provider [phone]- [phone] Paula Ram RN Unavailable Unavaila Ketty Gutiérrez BAG SHAKER Unavailable Unavail able Parul Arora RN Unavailable UnaMarianne Pereira Unavailable Unavailable Zunilda Morrell RN Unavailable Unavailable Reason for Visit * Reason Onset Date Comments Bone Health Program 02/05/2019 Encounter Details Date Type Department Care Team (Late st Contact Info) Description 02/05/2019 Patient Outreach [facility] [address] [place] [id number] Darshana Crews APRN [address] [place] [id number] Bone Health Program Social History Tobacco Use [...] documented as of this encounter Care Teams Excelsior Machine Feeder Relationship Specialty Start Date End Date Darshana Crews APRN [address] [place], [place] [address] PCP - General Nurse Practitioner-Family 02/13/18 Paula Ram, RN Rig Site Engineer Registered Nurse 02/23/19 03/24/19 Ketty Estes LCSW Television Installer 10/29/19 07/28/20 Parul Arora, RN Rig Site Engineer Registered Nurse 04/26/20 06/07/20 Marianne Jorge Respiratory Therapist Respiratory Therapist, Registered 07/28/24 08/02/24 Zunilda Morrell RN Rig Site Engineer 07/31/24 08/02/24 documented as of this encounter
--- OUTSIDE RECORDS SUMMARY | 2024-11-02 16:27 | XMS_ITS | Encounter Summary ---
Author Organization [place] [address] Care Team Providers Care Film Developing Machine Operator Name Role Phone Darshana Crews APRN Primary Care Provider Reason for Visit * Reason Onset Date Comments Appointment Needed 09/16/2024 AD SETTER appt ref b y Dr. Jesus Manuel Bullock Encounter Details Date Type Department Care Team (Late st Contact Info) Description 09/16/2024 Telephone [facility] [address] [facility] [address] [place] [address] Shady Cole MD [address] [place] [address] Appointment Needed (AD SETTER appt ref by Dr. Jesus Manuel Bullock ) Social History Tobacco Use Types Packs/Day Years Used Date Smoking Tobacco: Every Day Cigarettes 1 39.9 Started: 03/18/1979; Last attempted to quit: 02/11/2019 Smokeless Tobacco: Never Alcohol Use Standard Drinks/Week Comments No 0 (1 standard drink = 0.6 oz pur e alcohol) [facility] Utilities Answer Date Recorded In the past [...] Date Recorded PHQ-2 Total Score 0 07/27/2024 [facility] - Occupational Stress Questionnaire Answer Date Recorded [...] things needed for daily living? No 04/26/2020 [facility] IP Transportation Answer D ate Recorded [...] Cole by Dr. Jesus Manuel Bullock at [facility] for AF. MR/REF scanned into media. Please contact patient at [phone] Thank you documented in this encounter Plan [...] on filedocumented in this encounter Care Teams Film Developing Machine Operator Relationship Specialty Start Date End Date Darshana Crews APRN [address] [place], [place] [address] PCP - General Nurse Practitioner-Family 02/13/18 documented as of this encounter
--- OUTSIDE RECORDS SUMMARY | 2024-11-02 16:27 | XMS_ITS | Encounter Summary ---
Author Organization [place] [address] Care Team Providers Care Collet Making Machine Operator Name Role Phone Darshana Crews APRN Primary Care Provider Reason for Visit * Reason Onset Date Comments Central Order Completion Outreach 09/24/2024 mammo Encounter Details Date Type Department Care Team (Late st Contact Info) Description 09/24/2024 Patient Outreach [facility] [address] [place] [address] Darshana Crews APRN [address] [place] [address] Central Order Completion Outreach (mammo) Social History Tobacco Use Types Packs/Day Years Used Date Smoking Tobacco: Every Day Cigarettes 1 39.9 Started: 03/18/1979; Last attempted to quit: 02/11/2019 Smokeless Tobacco: Never Alcohol Use Standard Drinks/Week Comments No 0 (1 standard drink = 0.6 oz pur e alcohol) [facility] Utilities Answer Date Recorded In the past [...] Date Recorded PHQ-2 Total Score 0 07/27/2024 [facility] of Occupat ional Health - Occupational Stress [...] things needed for daily living? No 04/26/2020 [facility] IP Transportation Answer D ate Recorded In [...] Outcome:: Left Voicemail to Return Call at [phone] * Ericka Nance RN - 09/24/2024 3:26 PM EDT SEP Order Completion Outcome Tracking Contact Attempt:: First Mammogram Outcome:: Left Voicemail to Return Call at [phone], MyChart Message documented in this encounter Plan [...] on filedocumented in this encounter Care Teams Collet Making Machine Operator Relationship Specialty Start Date End Date Darshana Crews APRN [address] [place] [address] PCP - General Nurse Practitioner-Family 02/13/18 documented as of this encounter
--- OUTSIDE RECORDS SUMMARY | 2024-11-02 16:27 | XMS_ITS | Clinical Summary ---
Author Organization [facility] Address One [facility] [place] [address] Phone Care Team Providers Care Rn Surgery Name Role Phone Darshana Crews APRN Primary Care Provider [phone]- [phone] Allergies Active Allergy Reactions Criticality Noted Date Comments Codeine Hives,Itching 06/26/2012 Other reaction(s): GI Upset Abdominal pain Medications * This document contains information received from the source organization and may not represent a complete record from that organization. calcium carbonate-vitamin D (CALCIUM-VITAMIN D) 500 mg(1,250mg) -200 unit Oral TabletIndications: Screening for osteoporosis,S/P hysterectomy Take 1 Tab by mouth 2 times daily. 180 Tab 3 04/28/19 21 Active clobetasoL (TEMOVATE) 0.05 % sclp SolutionIndication s:Seborrheic dermatitis of scalp Apply topically 2 times daily. 50 mL 2 01/17/20 21 Active Additional Information Patient not taking.Reported on 10/07/2024 [facility] DeviceIndications: COVID-19 virus infection Pulse ox to check oxygen. If stays below 93%, go to ER 1 Each 03/17/20 21 Active Additional Information Patient not taking.Reported on 10/07/2024 ergocalciferol (VITAMIN D) 1,250 mcg (50,000 unit) Oral CapsuleIndications :Vitamin D deficiency Take 1 Capsule by mouth two times a week. 24 Capsule 2 05/08/19 22 Active linaCLOtide (LINZESS) 290 mcg Oral CapsuleIndications :Constipation, chronic Take 1 Capsule by mouth daily. 30 Capsule 2 08/19/19 22 Active tiotropium (SPIRIVA WITH HANDIHALER) 18 mcg Inhl Capsule, w/Inhalation Device INHALE THE ENTIRE CONTENTS OF 1 CAPSULE ONCE A DAY USING HANDIHALER DEVICE 30 Capsule 1 08/19/19 22 Active lubiprostone (AMITIZA) 24 mcg Oral Capsule TAKE 1 CAPSULE BY MOUTH 2 TIMES DAILY (WITH MEALS). 180 Capsule 1 05/14/19 23 Active Additional Information Patient not taking.Reported on 10/07/2024 diclofenac (SOLARAZE) 3 % Top Gel Apply topically 2 times daily. 100 g 5 07/03/19 23 Active Additional Information Patient not taking.Reported on 10/07/2024 dilTIAZem (CARDIZEM SR) 120 mg Oral Capsule, Sust. Release 12 hrIndications:Paro xysmal atrial fibrillation (HCC) Take 1 Capsule by mouth every 12 hours. 180 Capsule 3 07/05/19 23 Active cyclobenzaprine (FLEXERIL) 10 mg Oral TabletIndications: Injury of neck, initial encounter,Tendinit is of right shoulder Take 1 Tablet by mouth daily as needed for Muscle spasms (Take 1 tablet before bed.). 30 Tablet 1 07/12/19 23 Active Additional Information Patient not taking.Reported on 10/07/2024 atorvastatin (LIPITOR) 40 mg Oral TabletIndications: Paroxysmal atrial fibrillation (HCC) Take 1 Tablet by mouth nightly. 90 Tablet 3 08/08/19 23 Active oxyCODONE (ROXICODONE) 5 mg Oral TabletIndications: Sacroiliitis,Sciat ica of right side,Strain of lumbar region, initial encounter,Protrusi on of lumbar intervertebral disc Take 1 Tablet by mouth every 6 hours as needed for Chronic Pain (G89.29). 120 Tablet 10/06/19 23 Active traZODone (DESYREL) 50 mg Oral TabletIndications: Insomnia, unspecified type TAKE ONE TABLET BY MOUTH ONCE NIGHTLY 90 Tablet 3 11/13/19 23 Active lisinopriL (PRINIVIL;ZESTRIL) 10 mg Oral TabletIndications: Essential hypertension TAKE 1 TABLET BY MOUTH DAILY 90 Tablet 1 09/06/19 24 Active ELIQUIS 5 mg Oral TabletIndications: Paroxysmal atrial fibrillation (HCC) TAKE 1 TABLET BY MOUTH TWICE DAILY 180 Tablet 2 09/18/19 24 Active fUROsemide (LASIX) 40 mg Oral Tablet Take 1 Tablet by mouth daily. 90 Tablet 3 07/31/19 25 Active nystatin (MYCOSTATIN) Top Cream APPLY TO THE AFFECTED AREA(S) 2 TIMES A DAY 30 g 2 10/02/19 25 Active metoprolol succinate (TOPROL-XL) 100 mg Oral Tablet Sustained Release 24 hr Take 1 Tablet by mouth 2 times daily. 10/08/19 25 Active Active Problems Patient Care Coordination No te Formatting of this note migh t be different from the original. [facility] - Davide Fang MD Controlled Substance [...] or Functional capacity documented (EVERY VISIT) Pharmacy: [facility] [id number] [place] [address] [address] [facility] [phone] [facility] additional info (Transportation, WC, Compound, No Show, [...] drip. TTE pending. Monitor on telemetry continue YARD PERSON Eliquis. Discussed with cardiology and appreciate their [...] AP PELVIS, 07/22/2018 3:00 PM CLINICAL HISTORY: R06-Mutn, [id number]-68-CM T14.90XA-Injury, unspecified, initial [id number]-55-CM COMPARISON: 10/22/2016. PROCEDURE COMMENTS: AP view of [...] drip. TTE pending. Monitor on telemetry continue YARD PERSON Eliquis. Discussed with cardiology and appreciate their [...] school Work hx: Currently employed at a [employer]. Assessment & Plan (10/08/2019 11:28 AM EDT): [...] extremity 12/23/2017 Overview (05/14/2018): Failed UDS at [facility] [place]. Will not be getting Controlled substances with [...] Plan (07/27/2024 2:34 PM EDT): Will hold YARD PERSON oral Cardizem and lisinopril as we diurese. [...] (08/09/2020): Added automatically from request for surgery [id number] Abnormal MRI of abdomen 08/09/202006/16 Overview (08/09/2020): Added automatically from request for surgery [id number] Swelling of left lower extremity 01/14/2020 07/13/2020 [...] Office Visit [facility] [address] [facility] [address] [facility] [address] [place] [address] Gregg Cole MD Atrial fibrillation, unspecified type (HCC) (Primary Dx) 10/01/2024 Refill [facility] [address] Appoint[address] Location [address] [place], [place] [id number] Darshana Crews APRN Medication Refill 09/24/2024 Patient Outreach [facility] [address] [place], [place] [id number] Darshana Crews APRN Central Order Completion Outreach (mammo) 09/16/2024 Telephone [facility] [address] [facility] [address] [facility] [address] [place] [address] Gregg Cole MD Appointment Needed (FOOD SERVICE EMPLOYEE appt ref by Dr. Jesus Manuel Bullock ) 08/03/2024 Patient Outreach [facility] [address] [place] [address] Marianne Jorge CM- Telephonic Outreach from Last 3 Months Immunizations Immunization Administration [...] TUNNEL RELEASE; Surgeon: Davide Hall MD; Location: [facility] MAIN OR; Service: Orthopedics Medical devices from this surgery are in the Medical Devices section. CARPAL TUNNEL RELEASE 02/11/2019 Surgeon: Davide Hall MD; Location: [facility] MAIN OR; Service: Orthopedics Medical devices from this surgery are in the Medical Devices section. EYE SURGERY 03/08/2020 CATARACT EXTRACTION EXTRACAPSULAR W/ INTRAOCULAR LENS IMPLANTATION 09/05/[address] Peyton Raphael ERCP 05/25/2021 N/A Endoscopic Retrograde Cholangiopancreatography with sphincterotomy and stent placement and balloon sweep without removal of debri/calculi; Surgeon: Stanley Kirkpatrick MD; Location: [facility] ENDOSCOPY; Service: Endoscopy Medical devices from this [...] drink = 0.6 oz pur e alcohol) [facility] Utilities Answer Date Recorded In the past 12 months has th e electric, gas, oil, or water company threatened to shut off services in your home? No 07/27/2024 Overall Financial Resource Strain (CARDIA) Answe r Date Recorded How hard is it for you to pa y for the very basics like food, housing, medical care, and heating? Somewhat hard 07/27/2024 PHQ-2 Answer Date Recorded PHQ-2 Total Score 0 07/27/2024 [facility] of Occupat ional Health - Occupational Stress [...] things needed for daily living? No 04/26/2020 [facility] IP Transportation Answer D ate Recorded [...] Bailey MA Medical Devices Implanted Type Area Process Environmental Technician Device Identifier Shelf Expiration Date Model / Serial / Lot Stent Panc [id number] Sylvie 170/320cm Sprl Sh Tapr 0.018in Gw - [id number] Implanted:Qty: 1 on 05/25/2021 by Stanley Kirkpatrick MD at [facility] Stent COOK:ENDOSCOPY 07/23/2023 [id number] / / [id number] Peg Smooth Locking Radius 2.0mm X 19mm - [id number] Implanted:Qty: 2 on 02/11/2019 by Davide Hall MD at [facility] Left: Radius SKELETAL DYNAMICS [id number] -TS / / Peg Smooth Locking Radius 2.0mm X 20mm - [id number] Implanted:Qty: 3 on 02/11/2019 by Davide Hall MD at [facility] Left: Radius SKELETAL DYNAMICS [id number]-[id number] -TS / / Peg Locking High Compression 2.7mm X 20mm - [id number] Implanted:Qty: 1 on 02/11/2019 by Davide Hall MD at [facility] Left: Radius SLEEPMATE [id number] -TS / / Screw Cortical Locking 3.5mm X 13mm - [id number] Implanted:Qty: 2 on 02/11/2019 by Davide Hall MD at [facility] Left: Radius SKELETAL DYNAMICS [id number] -TS / / Screw Cortical Non-Locking 3.5mm X 13mm - [id number] Implanted:Qty: 2 on 02/11/2019 by Davide Hall MD at [facility] Left: Radius SKELETAL DYNAMICS [id number] -TS / / Screw Cortical Non-Locking 3.5mm X 18mm - [id number] Implanted:Qty: 1 on 02/11/2019 by Davide Hall MD at [facility] Left: Radius SKELETAL DYNAMICS [id number] -TS / / Plate Robin Ti 120mm Geminus Bn Rds Lt Volr Dist Ns - [id number] Implanted:Qty: 1 on 02/11/2019 by Davide Hall MD at [facility] Left: Radius SKELETAL DYNAMICS [id number] / / Procedures Procedure Name Priority Date/Time Associated Diagnosis Comments POCT EKG Routine 10/07/2024 3:07 PM EDT Atrial fibrillation, unspecified type (HCC) BASIC METABOLIC PANEL Early AM 07/30/2024 6:50 AM EDT HEMOGLOBIN [...] 10/07/2024 3:07 PM EDT AF RVR 111 Gregg Cole MD POINT OF CARE CARDIOLOGY Final Result [facility] OFFICE * (ABNORMAL) BASIC METABOLIC PANEL (07/30/2024 6:50 AM EDT) Sodium 138 136 - 145 mmol/L 07/30/2024 7:39 AM EDT [facility] Potassium 4.6 3.5 - 5.0 mmol/L 07/30/2024 7:39 AM EDT [facility] Chloride 104 98 - 107 mmol/L 07/30/2024 7:39 AM EDT [facility] Total CO2 25 22 - 29 mmol/L 07/30/2024 7:39 AM EDT [facility] Anion Gap 9 7 - 16 mmol/L 07/30/2024 7:39 AM EDT [facility] Calcium 8.6(L) 8.8 - 10.4 mg/dL 07/30/2024 7:39 AM EDT [facility] Glucose Lvl 228(H) 70 - 99 mg/dL 07/30/2024 7:39 AM EDT [facility] BUN 45(H) 8 - 23 mg/dL 07/30/2024 7:39 AM EDT [facility] Creatinine 0.85 0.51 - 1.30 mg/dL 07/30/2024 7:39 AM EDT [facility] eGFR (CKD-EPIcr 2020) 76 >=60 mL/min/1.7 3 m2 07/30/2024 7:39 AM EDT [facility] Comment:Estimated GFR was ca lculated using the CKD-EPIcr (2020) equation refit without race. The equation is recommended by the National Kidney Foundation - [place] Society of Nephrology Task Force. Blood VENOUS BLOOD / Unknown Venipuncture / Unknown 07/30/2024 6:50 AM EDT 07/30/2024 7:16 AM EDT jwa DO CHEMISTRY ORDERABLES Final Re sult Performing Organization Address [facility] Co de Phone Number [facility] [address] [place] [address] * (ABNORMAL) HEMOGLOBIN A1C (07/29/2024 6:51 AM EDT) Hgb A1C 6.7(H) 4.2 - 5.6 % 07/29/2024 7:11 PM EDT [facility] Est. Avg Glucose 146 mg/dL 07/29/2024 7:11 PM EDT [facility] Blood VENOUS BLOOD / Unknown Venipuncture / Unknown 07/29/2024 6:51 AM EDT 07/29/2024 7:14 AM EDT Narrative [facility] - 07/29/2024 7:11 PM EDT REFERENCE RANGE: Normal: 4.0-5.6% Pre-diabetes: 5.7-6.4% Provisional diagnosis of diabetes: >6.4% Hgb F>10% and anything which shortens red cell survival, such as hemolytic anemia, or unstable hemoglobin variants such as HbSS, HbSC, or HbCC, will lower the HbA1c value associated with a given level of glycemic control. Brigid Win QUARTER SEAMER CHEMISTRY ORDERABLES Fi nal Result Performing Organization Address [facility] Co de Phone Number [facility] [address] [place] [address] , [place] [address] * CT CHEST WO CONTRAST (07/27/2024 3:50 PM EDT) Anatomical Region Laterality Modality Chest Computed Tomogra phy 07/27/2024 3:50 PM EDT Impressions 07/27/2024 5:20 PM EDT Mild patchy groundglass opacities and central pulmonary vascular prominence raises suspicion of mild CHF. Clearing of the previous consolidative opacities on the 2019 scan Emphysema and chronic bronchitis Moderate [place] coronary artery calcification Borderline mediastinal adenopathy likely [...] 2019 scan Emphysema and chronic bronchitis Moderate [place] coronary artery calcification Borderline mediastinal adenopathy likely reactive but not completelyspecific. - Note: Radiology results need to be interpreted within a comprehensiveclinical context. If you have questions about the radiology report, please contactthe office of the ordering clinician. Bryan Rodriguez MD IM CT ORDERABLES Final Result * (ABNORMAL) LIPID PANEL REFLEX (07/04/2022 8:30 AM EDT) Cholesterol 203(H) <200 mg/dL 07/04/2022 6:21 PM EDT [facility] [employer] [employer] Comment: < 200 Desirable 200 - 239 Borderline High >= 240 High Triglyceride 200(H) <150 mg/dL 07/04/2022 6:21 PM EDT [facility] [employer] Comment: < 150 Normal 150 - 199 Borderline High 200 - 499 High >= 500 Very High HDL 61 >=40 mg/dL 07/04/2022 6:21 PM EDT [facility] [employer] Comment: > 60 Optimal 40 - 60 Acceptable < 40 Low LDL Calculated 108(H) <100 mg/dL 07/04/2022 6:21 PM EDT [facility] [employer] Non-HDL-C Calculated 142(H) <=129 mg/dL 07/04/2022 6:21 PM EDT [facility] [employer] Comment: <130 Desirable 130-159 Above Desirable 160-189 Borderline High 190-219 High >= 220 Very High Fasting Specimen? No None 023 6:21 PM EDT [facility] Blood VENOUS BLOOD / Unknown Venipuncture / Unknown 07/04/2022 8:30 AM EDT 07/04/2022 8:30 AM EDT Darshana Crews QUARTER SEAMER CHEMISTRY ORDERABLES Final Result [facility] [address] [place] [address] [facility] [address] [place] [address] * MM MAMMO DIGITAL LEIGH SCREEN BILAT (05/12/2020 10:52 AM EST) Anatomical Region Laterality Modality Breast Bilateral Mammography 05/13/2020 9:41 AM EST Impressions 05/13/2020 9:41 AM EST Negative (LLE-[id number]-2) ~ RECOMMENDATION: Routine screening mammogram in 1 [...] the next mammogram, in accordance with the [place] [employer] and the Society of Breast Imaging recommendations. Narrative 05/13/2020 9:41 AM EST Procedure:MM MAMMO DIGITAL LEIGH SCREEN BILAT ~ Reason for exam: screening, asymptomatic. Z12.31-Encounter for screening mammogram for malignant neoplasm of jdaoob-ITH-12-CM ~ MM MAMMO DIGITAL LEIGH SCREEN BILAT Bilateral CC and MLO view(s) were taken. There are scattered fibroglandular densities. Prior study comparison: Outside films from [facility] dated 05/18/2015. No mammographic evidence of malignancy. ~ Procedure Note Lorri Tovar MD - 05/13/2020 Procedure:MM MAMMO DIGITAL LEIGH SCREEN BILAT ~ Reason for exam: screening, asymptomatic. Z12.31-Encounter for screening mammogram for malignant neoplasm of xmnail-CON-91-CM ~ MM MAMMO DIGITAL LEIGH SCREEN BILAT Bilateral CC and MLO view(s) were taken. There are scattered fibroglandular densities. Prior study comparison: Outside films from [facility] dated 05/18/2015. No mammographic evidence of malignancy. ~ IMPRESSION: Negative ([id number]-1) ~ RECOMMENDATION: Routine screening mammogram in 1 [...] the next mammogram, in accordance with the [place] [employer] and the Society of Breast Imaging recommendations. Darshana Crews APRN IMG MAMMOGRAPHY ORDERABLES Final Result * HEPATITIS C ANTIBODY - SCREENING (07/02/2017 3:03 PM EDT) Hep C Ab Negative Negative 07/03/2017 9:30 AM EDT [facility] Blood VENOUS BLOOD / Unknown Venipuncture / Unknown 07/02/2017 3:03 PM EDT 07/02/2017 3:03 PM EDT Michael Moon MD HEMATOLOGY ORDERABLES Final Re sult [facility] [address] [place] [address] from Last 3 Months or Most Recently Relevant to Health Maintenance Insurance [facility] Advance Directives For more information, please contact: [phone] * Full Code (Latest Code Status on File) Date Activated Date Inactivated Comments 07/26/2024 11:10 PM 07/30/2024 5:42 PM * Full Code Date Activated Date Inactivated Comments 04/21/2020 9:49 PM 04/25/2020 6:03 PM * Full Code Date Activated Date Inactivated Comments 02/17/2019 12:15 AM 02/22/2019 7:32 PM Care Teams Rn Surgery Relationship Specialty Start Date End Date Darshana Crews APRN [address] [place] [address] PCP - General Nurse Practitioner-Family 02/13/18
[2024-11-02 16:29] VITALS: BP 137/100; PULSE 117; RESP 20; TEMP 36.9; O2SAT 94; BMI 45.6
[2024-11-02 16:31] VITALS: BP 145/86; PULSE 127; O2SAT 94
--- NOTE | 2024-11-02 16:34 | ED_ITS ---
<Statement entered by Timmy Shane MD - 11/03/24 14:42> I was consulted by the GUSTAVO, and we discussed the complexity of the problems being addressed. I approve the treatment and management plan for this patient's care in the emergency department, thus performing a substantive portion of the medical decision making. Timmy Shane MD Discharge Plan Disposition Patient Disposition: Home, Self-Care Condition: Good Prescriptions Prescriptions: No Action cyclobenzaprine 10 mg tablet 10 mg PO HS PRN (Reason: muscle spasm) Qty: 30 5RF torsemide 20 mg tablet 20 mg PO DAILY Qty: 30 2RF linaclotide 290 mcg capsule 290 mcg PO DAILY Qty: 30 3RF lisinopril 10 mg tablet 10 mg PO DAILY Qty: 90 3RF Spiriva Respimat 2.5 mcg/actuation mist 2 puff inhalation DAILY Qty: 4 3RF cephalexin 500 mg capsule 500 mg PO QID 10 Days Qty: 40 0RF oxycodone-acetaminophen [Percocet] 7.5-325 mg tablet 1 tab PO Q8H PRN (Reason: pain) Qty: 90 0RF nystatin 100,000 unit/gram cream 1 applic topical QID Qty: 30 5RF Eliquis 5 mg tablet 5 mg PO BID Qty: 60 10RF atorvastatin [Lipitor] 40 mg tablet 40 mg PO DAILY Qty: 90 3RF nicotine 21 mg/24 hr patch 24 hour 1 patch transdermal DAILY Qty: 28 5RF tiotropium bromide [Spiriva with HandiHaler] 18 mcg capsule, w/inhalation device 1 cap inhalation DAILY Rx Instructions: puncture 1 cap using device; one dose = 2 inhalations metoprolol succinate 100 mg tablet extended release 24 hr 100 mg PO BID Qty: 180 3RF albuterol sulfate 90 mcg/actuation HFA aerosol inhaler 2 puff inhalation QID PRN (Reason: shortness of breath or wheezing) Qty: 8.5 12RF diltiazem HCl [Cardizem CD] 240 mg capsule,extended release 24hr 240 mg PO BID Qty: 60 3RF ciprofloxacin HCl [Cipro] 500 mg tablet 500 mg PO BID Qty: 20 0RF Referrals Follow up/Referrals: Yusuf Mack MD [Primary Care Provider, Family Practice] - See instructions Activity Restrictions/Add. Instructions Additional Instructions/Restrictions: Please monitor for any worsening pain swelling redness around your leg, any drainage that is yellow or green in color, please take all your medications as prescribed, please follow-up with your family physician and wound care doctor in the upcoming days. Clinical Impressions Clinical Impression: Cellulitis, Lymphedema Instructions Patient Instructions: DI for Cellulitis -- Adult, Lymphedema Print Language Print Language: Hebrew Discharge ED Provider: Timmy Shane General Adult HPI General Chief complaint: Extremity Injury, Lower Stated complaint: wound cultures, IV antibiotics Time Seen by Provider: 11/02/24 16:20 Mode of Arrival: Ambulatory Source of Information: Patient Limitations: No Limitations History of Present Illness HPI narrative: 64-year-old female presents the emergency department with left lower extremity pain and swelling, for the last week, she was seen by her family physician today as well as October 28, 2024, has been on a round of Cipro and Keflex, since Saturday, October 30, 2024, been taken the medication as prescribed, did have what appears to be a wound culture, from a ulceration/area of serous drainage on her posterior aspect of her left lower extremity, along with the redness and swelling, that yielded skin olegario Pathogens to include (serratia marcescens, Staphylococcus lentus, strep agalaciae), with culture susceptibility performed, patient admits to subjective chills, denies fever denies chest pain denies shortness of breath denies nausea vomiting constipation diarrhea no abdominal pain, no urinary type symptomatology, she is current everyday smoker, history of LISA, CAD, atrial fibrillation on Eliquis, hypertension, chronic pain syndrome, COPD, triage vitals noted for tachycardia otherwise unremarkable. Denies any illicit drug use, denies any alcohol use. Sent to the emergency department today at the request of her PCP, due to concern of worsening infection/failure of outpatient therapy. Please note that above description of symptoms, in this electronic medical record under categorization of recalled from ER triage doctor by RN are reflective of an initial nursing assessment, however, is not reflective of my full history and physical exam that was personally taken and clarified. Consequentially, this preceding description of symptoms, which may include the patient's categorized chief complaint in the EMR, do not reflect my personal clinical impression, and the ultimate description of history of present illness and patient stated complaints should be deferred to this section of the note. Unless stated otherwise or congruent with this section of the note, additional signs, symptoms, or incongruence should be interpreted as inaccurate with my clinical impression. Onset (ago): week(s) Related Data Home Medications ?Medication ?Instructions ?Recorded ?Confirmed tiotropium bromide 18 mcg capsule 1 cap inhalation BROOKE LY 08/05/24 11/02/24 with inhalation device (Spiriva with HandiHaler) Previous Rx's ?Medication ?Instructions ?Recorded apixaban 5 mg tablet (Eliquis) 5 mg PO BID #60 tabs atorvastatin 40 mg tablet (Lipitor) 40 mg PO DAILY #90 tabs 04/20/24 nicotine 21 mg/24 hr daily 1 patch transdermal DAILY # 28 ea 06/15/24 transdermal patch albuterol sulfate 90 mcg/actuation 2 puff inhalation Q ID PRN 09/14/24 aerosol inhaler shortness of breath or wheez ing #8.5 grams metoprolol succinate 100 mg 100 mg PO BID #180 tabs tablet,extended release 24 hr diltiazem HCl 240 mg 240 mg PO BID #60 caps 09/15 capsule,extended release 24 hr (Cardizem CD) cyclobenzaprine 10 mg tablet 10 mg PO HS PRN muscle sp asm #30 10/14/24 tabs linaclotide 290 mcg capsule 290 mcg PO DAILY #30 caps 10/14/24 lisinopril 10 mg tablet 10 mg PO DAILY #90 tabs 09/17 tiotropium bromide 2.5 2 puff inhalation DAILY #4 g anibal 10/14/24 mcg/actuation mist for inhalation (Spiriva Respimat) torsemide 20 mg tablet 20 mg PO DAILY #30 tabs 09/17 cephalexin 500 mg capsule 500 mg PO QID 10 days #40 ca ps 10/28/24 nystatin 100,000 unit/gram topical 1 applic topical QI D #30 grams 10/28/24 cream oxycodone-acetaminophen 7.5 mg-325 1 tab PO Q8H PRN pa in #90 tabs 10/28/24 mg tablet (Percocet) ciprofloxacin HCl 500 mg tablet 500 mg PO BID #20 tabs 10/30/24 (Cipro) Allergies Allergy/AdvReac Type Severity Reaction Status Date / Time codeine AdvReac Severe Stomach Verified 11/02/24 11:17 Pain sulfamethoxazole (From AdvReac Unknown Vomiting Verified 11/02/24 11:17 Bactrim) trimethoprim (From Bactrim) AdvReac Unknown Vomiting Verified 11/02/24 11:17 [facility] Disclaimer: The information contained in this section may have been updated after the patient was seen, as this information can be updated by other users. Medical History (Updated 11/02/24 @ 18:09 by ROSANA Rodriguez) Cellulitis of left lower extremity IFG (impaired fasting glucose) Atrial fibrillation with RVR Edema of both lower extremities Coronary artery disease Family history of early CAD Smoker Palpitations Orthopnea Edema SOB (shortness of breath) on exertion Chest pain Paroxysmal atrial fibrillation Tobacco abuse Right cataract Hypercholesteremia Hypertension Chronic pain Erosive osteoarthritis of multiple sites Surgical History S/P cardiac cath Hx of appendectomy Hx of shoulder surgery Hx of hysterectomy Hx of cholecystectomy Family History Mother Cancer Breast cancer Heart attack Social History Smoking Status: Current every day smoker alcohol intake: never current occupational status: employed Travel in the last 8 weeks?: None Have you lived/traveled outside US in past 30 days?: No Contact w/someone who lives/traveled outside US past 30 days?: No Exposure to someone with infectious disease in past 14 days?: No Do you have a fever (greater than 100.4 F or 38 C)?: No Have you tested positive for COVID-19?: No Exposed to someone with COVID-19 in past 14 days?: No Do you have a sore throat?: No Do you have a cough?: No Do you have any weakness?: No Do you have any diarrhea?: No Are you experiencing any unusual bleeding?: No Do you have any muscle aches/pain?: No Do you have any abdominal pain?: No Are you experiencing loss of taste or smell?: No Other Medical History Have you received the Flu Vaccine for this season: No Have you received the Pneumonia Vaccine: Yes ROS Obtained: Yes All systems reviewed & no additional complaints except as documented Physical Exam General General appearance: alert and in no apparent distress Head Head exam: atraumatic and normocephalic Eye Eye exam: Present PERRL and EOMI ENT ENT exam: Present mucous membranes moist Neck Neck exam: Present normal inspection Chest Chest inspection: Present normal inspection and symmetric chest wall rise Respiratory Respiratory exam: Present normal lung sounds bilaterally; Absent respiratory distress Cardiovascular Cardiovascular exam: Present regular rate, normal rhythm and tachycardia Abdominal Exam Abdominal exam: Present soft; Absent tenderness, guarding, rebound or rigidity Extremities Exam Extremities exam: Present normal inspection, edema and other Neurological Exam Neurological exam: Present alert and oriented X3 Psychiatric Psychiatric exam: Present normal affect Skin Skin exam: Present warm, dry, erythema and other (+4 pitting edema of the left lower extremity, with some serous drainage from a posterior wound, mild erythema that is noted around the pretibial region, otherwise neurovascular intact.) Medical Decision Making Medical Records Medical records reviewed: Yes I reviewed the patient's medical records. Screening: Per USPSTF and CDC recommendations, given the prevalence of disease in our region, it is our hospital?s policy to screen for HIV and viral Hepatitis for all patients aged 18 and over and those with ongoing risk factors. Jose Inquiry Pt receiving controlled substance: No Jose was queried for this patient: No Vital Signs: 11/02/24 16:29 11/02/24 16:31 11/02/24 16:37 Temperature 98.4 F Temperature Source Oral Pulse Rate 127 H 99 H Pulse Rate [Apical] 117 H Respiratory Rate 20 18 Blood Pressure 145/86 H 128/81 Blood Pressure [Right Arm] 137/100 H Blood Pressure Mean 102 Blood Pressure Mean [Right Arm] 112 Blood Pressure Source [Right Arm] Automatic Cuff Blood Pressure Position [Right Arm] Sitting 02 Sat by Pulse Oximetry 94 L 94 L 95 Oxygen Delivery Method Room Air Room Air 11/02/24 17:01 11/02/24 17:31 Temperature Temperature Source Pulse Rate 127 H 127 H Pulse Rate [Apical] Respiratory Rate Blood Pressure 128/81 135/74 Blood Pressure [Right Arm] Blood Pressure Mean 104 114 Blood Pressure Mean [Right Arm] Blood Pressure Source [Right Arm] Blood Pressure Position [Right Arm] 02 Sat by Pulse Oximetry 95 95 Oxygen Delivery Method Lab Data Lab results reviewed: Yes I reviewed the patient's lab results. Lab Results 11/02/24 16:40: WBC 10.6, RBC 5.08, Hgb 12.0 L, Hct 40.8, MCV 80.3 L, MCH 23.6 L , MCHC 29.4 L, RDW 19.0 H, Plt Count 351, MPV 11.0 H, Neut % (Auto) 66.9, Lymph % (Auto) 23.8, [place] % (Auto) 7.6, Eos % (Auto) 0.9, Baso % (Auto) 0.3, Neut # (Auto) 7.1, Lymph # (Auto) 2.5, [place] # (Auto) 0.8, Eos # (Auto) 0.1, Baso # (Auto) 0.0, ESR 22, Sodium 137, Potassium 4.0, Chloride 102, Carbon Dioxide 28, Anion Gap 11.0, BUN 11, Creatinine 0.70, Estimated Creat Clear 57, Estimated GFR 84, Est GFR ( Amer) 102, Glucose 94 D, Calcium 9.0, Total Bilirubin 1.1, AST 37 H D, ALT 19, Alkaline Phosphatase 135 H, C-Reactive Protein 59.0 H, N T-Pro-B Natriuret Pep 1020 H, Total Protein 7.3, Albumin 4.1, Globulin 3.2, Albumin/Globulin Ratio 1.3 11/02/24 16:55: Lactate 1.5 11/02/24 16:40 11/02/24 16:40 Orders (Tests/Meds): ORDERS Category Date Time Status CRP [C-Reactive Protein] Stat Lab 11/02/24 16:40 Completed Complete Blood Count Auto Diff Stat Lab 11/02/24 16:40 Completed Comprehensive Metabolic Panel Stat Lab 11/02/24 16:40 Completed ESR [Erythrocyte Sedimentation Rate] Stat Lab 11/02/24 16:40 Completed Lactic Acid Stat Lab 11/02/24 16:55 Completed NT Pro Brain Natriuretic Pep. Stat Lab 11/02/24 16:40 Completed Blood Culture Stat Micro 11/02/24 17:53 Received Medical Decision Narrative: 64-year-old female presents the emergency department with 1 week history of left lower extremity pain and swelling and redness, differential diagnose include but not limited to, peripheral artery disease, chronic venous insufficiency, cellulitis, acute/new onset CHF exacerbation, lymphedema, dependent edema, vascular ulcer among others. I discussed this patient's case with the attending physician saw and examined the patient as well Will obtain basic laboratory studies, ESR CRP lactic acid level proBNP, blood cultures. CBC is notable for MCV of 80.3, no leukocytosis CMP unremarkable CRP is mildly elevated at 59 proBNP is mildly elevated at 1020 ESR within normal limits. I discussed his results with the patient family the bedside, patient is not wanting to be admitted overnight in the hospital, would like to be discharged home to self-care, I think this is appropriate as patient is not currently flagging any sepsis criteria, normal white count, does have mildly elevated CRP, however this can be seen in the acute phase reactant., Patient is already on p.o. antibiotics to include Keflex and ciprofloxacin, she has only been on 3 to 4 days of this p.o. antibiotic therapy I advised her to take these medication as prescribed as well as all of her other medications, patient's wound culture performed in PCPs office, was shown to have susceptibility to ciprofloxacin, I do believe that she does not have an abscess, low concern for osteomyelitis his ESR is within normal limits, as well as no leukocytosis, tachycardia can be explained by patient's history of paroxysmal atrial fibrillation, not taken her rate control medication here today, is on Eliquis, would recommend follow-up with wound care as well as PCP. Patient was given very strict ED return precautions, patient voiced understanding and agreement with current treatment plan/discharge plan. Critical Care Critical Care Time Critical Care Time: No
[2024-11-02 16:37] VITALS: BP 128/81; PULSE 99; RESP 18; O2SAT 95
[2024-11-02 16:49] LABS: Hematocrit 40.8 % (37.0-47.0); Hemoglobin 12.0 g/dL (12.2-16.2); Immature Granulocytes % 0.5 %; Mean Corpuscular HGB Conc 29.4 g/dL (31.8-35.4); Mean Corpuscular Hemoglobin 23.6 pg (27.0-31.2); Mean Corpuscular Volume 80.3 fl (81-99); Nucleated Red Blood Cells % 0 %; Platelet Count 351 K/mm3 (142-424); Red Blood Count 5.08 M/mm3 (4.20-5.40); Red Cell Distribution Width-SD 54.5 fL; White Blood Count 10.6 K/mm3 (4.8-10.8)
[2024-11-02 17:01] VITALS: BP 128/81; PULSE 127; O2SAT 95
[2024-11-02 17:10] LABS: Albumin Level 4.1 g/dl (3.5-5.0); Chloride 102 mmol/L (98-107); Potassium 4.0 mmoL/L (3.5-5.1); Sodium 137 mmol/L (136-145)
[2024-11-02 17:13] LABS: Alanine Aminotransferase 19 U/L (12-78); Albumin/Globulin Ratio 1.3 (1.1-1.8); Alkaline Phosphatase 135 U/L (38-126); Anion Gap 11.0 mEq/L (5-15); Aspartate Amino Transferase 37 U/L (14-36); Bilirubin,Total 1.1 mg/dl (0.2-1.3); Blood Urea Nitrogen 11 mg/dl (7-17); Calcium 9.0 mg/dl (8.4-10.2); Carbon Dioxide 28 mmol/L (22.0-30.0); Creatinine Clearance Estimated 57 mL/min (50-200); Creatinine,Serum 0.70 mg/dl (0.52-1.04); Estimated Glomerular Filt Rate 84 ml/min (>60); GFR (African American) 102 ML/MIN (>60); Globulin 3.2 g/dL (1.3-3.2); Glucose 94 mg/dl (74-100); Total Protein,Serum 7.3 g/dl (6.3-8.2)
[2024-11-02 17:18] LABS: C-Reactive Protein 59.0 mg/L (0-4)
[2024-11-02 17:22] LABS: NT Pro Brain Natriuretic Pep. 1020 pg/mL (0-125)
[2024-11-02 17:31] VITALS: BP 135/74; PULSE 127; O2SAT 95
--- NOTE | 2024-11-02 17:52 | PC.NURSE ---
straight stuck patient at this time. unsuccessful x2.
[2024-11-02 18:14] VITALS: BP 148/79; PULSE 80; RESP 20; TEMP 37; O2SAT 98
== END 2024-11-02 18:16 | disposition home or self-care (01) ==
PROVIDERS: Physician Assistant; Emergency Provider Student in an Organized Health Care Education/Training Program; PCP Family Medicine
DX: L03.116 Cellulitis of left lower limb (principal); I89.0 Lymphedema, not elsewhere classified; R00.0 Tachycardia, unspecified; M79.662 Pain in left lower leg; F17.210 Nicotine dependence, cigarettes, uncomplicated; I48.0 Paroxysmal atrial fibrillation; I10 Essential (primary) hypertension; Z79.01 Long term (current) use of anticoagulants
CPT/HCPCS: 80053; 83605; 83880; 85025; 85651; 86140; 87040; 99283

== ENCOUNTER 2024-12-31 09:59 | Outpatient (RCR) | payer OTHER, SELFPAY ==
--- NOTE | 2024-12-31 11:47 | HMH.OPLYMPH ---
Rehab Lymphedema Evaluation Rehab Lymphedema Evaluation Start: 12/31/24 11:37 Freq: Status: Active Protocol: Document 12/31/24 11:37 PETER (Rec: 12/31/24 11:47 PHORAYALA [id number]) E-signed By Joselo Power, PT Subjective/History History History This is the initial PT lymphedema eval for Kaylee Fuller, 64 yowf who presents with c/o B LE increased edema x ~6 mos with insidious onset of symptoms. She reports increased drainage and open sores that appeared after the edema began as well. She reports pain is intermittent, but sharp and shooting in nature. She has PMH of new onset a-fib, obesity, COCO, CCY, Appy, CAD, current smoker. Subjective Subjective Pt reports pain currently is 2/10, at worst is 9/10 in B LE. 2+ pitting edema noted to B lower legs with MILD erythema and MILD hyperkeratosis. LLIS score: 77. TTP 2 /4 to B lower legs in the gaiter area. New diagnosis of No cancer in past 12 months? Lymphedema Eval Classification of Lymphedema Secondary Lymphedema Yes: likely CVI Stemmer's sign Stemmer's Sign yes Stage of Lymphedema Lymphedema stages Stage I (Pitting edema, reduces w/ elevation, no fibrosis) Skin Changes Dry Skin Yes Hyperkeratosis Yes Redness Yes Discoloration of Yes Skin Other Changes Yes Pain Scale Pain Scale (0-10) 9 Affected Extremities Areas Affected by Right Lower Extremity,Left Lower Extremity Lymphedema/Edema Lower Extremity Measurements Right MTP Measurement (cm) 26.3 Heel Measurement (cm 37.5 ) 10 cm Proximal to 27.2 Lateral Malleoli Measurement (cm) 20 cm Proximal to 40.2 Lateral Malleoli Measurement (cm) 30 cm Proximal to 44.4 Lateral Malleoli Measurement (cm) 40 cm Proximal to 0 Lateral Malleoli Measurement (cm) 50 cm Proximal to 0 Lateral Malleoli Measurement (cm) 60 cm Proximal to 0 Lateral Malleoli Measurement (cm) Lower Extremity 175.6 Measurement Total ( cm) Left MTP Measurement (cm) 26.6 Heel Measurement (cm 38.7 ) 10 cm Proximal to 29.5 Lateral Malleoli Measurement (cm) 20 cm Proximal to 42.3 Lateral Malleoli Measurement (cm) 30 cm Proximal to 47.7 Lateral Malleoli Measurement (cm) 40 cm Proximal to 0 Lateral Malleoli Measurement (cm) 50 cm Proximal to 0 Lateral Malleoli Measurement (cm) 60 cm Proximal to 0 Lateral Malleoli Measurement (cm) Lower Extremity 184.8 Measurement Total ( cm) Manual Lymphatic Drainage Treatment Area MLD Treatment Area Right Lower Extremity,Left Lower Extremity Wound Problems/Impairments Impairments Problems/ Palpation Tenderness,Impaired Endurance,Impaired Impairmments Walking,Impaired Standing,Impaired Sitting,Impaired Dressing,Impaired Household Care,Impaired Recreational Activities,Lymphedema Present,Wound Care Needs, Subjective C/O Pain,Impaired Self Care/Self Management Prognosis Rehab Potential Good Comment Skilled therapy is indicated to aid reduction of overall lymphedema in order to assist pt return to improved QOL. Clinical Impression Consistent with Yes Diagnosis Lymphedema Patient Goals Lymphedema Patient Goals Lymphedema Short In 2 wks pt will: Term Patient Goals 1) Decrease B LE total circumferential measurements by 5 cm ea. 2) Decrease pain in B LE to 7/10 at worst. 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 2) Decrease pain in B LE to 5/10 at worst. 3) Decrease TTP in B lower legs to 0/4 4) Decrease pitting edema to none in B lower legs 5) Be independent with donning/doffing of compression garments to maintain reduction of edema. Outpatient Therapy Plan of Care Treatment Plan May Include Therapeutic Exercise Yes Including Home Exercise Program Manual Therapy Yes Techniques Neuromuscular Re- Yes education Therapeutic Yes Activities to Return to Previous Functional/Work Level ADL/Self Care Yes Education Manual Lymphatic Yes Drainage Eval/Re-Eval Yes Frequency Times per week 2 Duration Number of Weeks 4 Addendums This patient is a No candidate for social or vocational rehab ? Patient/Guardian Yes verbally acknowledges understanding of treatment program and consents to further treatment? Patient/Guardian Yes verbally acknowledges understanding of diagnosis, prognosis and goals for treatment? Eval Complexity PT Charges 18593 - High Complexity PHYSICIAN CERTIFICATION: I certify the specified therapy services for Kaylee Hartness are required, authorized, and reviewed every 30 days.
== END 2024-12-31 23:59 | disposition home or self-care (01) ==
LOC: PT 09:59
PROVIDERS: PCP Family Medicine; Visit Provider Nurse Practitioner Family
DX: G20.A2 Parkinson's disease without dyskinesia, with fluctuations (principal)
CPT/HCPCS: 97163

== ENCOUNTER 2025-01-06 09:14 | Outpatient (CLI) | payer OTHER, SELFPAY ==
[2025-01-06 15:43] LABS: Chloride 102 mmol/L (98-107); Potassium 4.0 mmoL/L (3.5-5.1); Sodium 140 mmol/L (136-145)
[2025-01-06 15:46] LABS: Anion Gap 12.0 mEq/L (5-15); Blood Urea Nitrogen 20 mg/dl (7-17); Calcium 9.0 mg/dl (8.4-10.2); Carbon Dioxide 30 mmol/L (22.0-30.0); Creatinine,Serum 0.90 mg/dl (0.52-1.04); Estimated Glomerular Filt Rate 63 ml/min (>60); GFR (African American) 76 ML/MIN (>60); Glucose 117 mg/dl (74-100)
[2025-01-06 15:56] LABS: NT Pro Brain Natriuretic Pep. 1100 pg/mL (0-125)
--- OUTSIDE RECORDS SUMMARY | 2025-01-07 12:39 | XMS_ITS | Clinical Summary ---
Author Organization [facility] Address [facility] [place] [address] Phone Care Team Providers Care News Content Specialist Name Role Phone Sabine Telles MD [facility] [phone] Conditions or Problems No information available. Medications No information available. Medications Administered No information available. Allergies, Adverse Reactions, Alerts No information available. Results No information available. Plan of Care No information available. Procedures No information available. Vital Signs No information available. Immunizations No information available. Advance Directives No information available.
--- OUTSIDE RECORDS SUMMARY | 2025-01-07 12:39 | XMS_ITS | Encounter Summary ---
Author Organization [place] [address] Care Team Providers Care Program Project Analyst Name Role Phone Darshana Crews APRN Primary Care Provider [phone] Paula Ram RN Unavailable Unavaila Ketty Gutiérrez RN CHILD Unavailable Unavail able Parul Arora RN Unavailable UnaMarianne Pereira Unavailable Unavailable Zunilda Morrell RN Unavailable Unavailable Reason for Visit * Reason Onset Date Comments Bone Health Program 02/05/2019 Encounter Details Date Type Department Care Team (Late st Contact Info) Description 02/05/2019 Patient Outreach [facility] [address] [place] [id number] Darshana Crews APRN [address] [place] [id number] Bone Health Program Social History Tobacco Use Types Packs/Day Years Used Date Smoking Tobacco: Every Day Cigarettes 1 45.8 Started: 03/18/1979 Smokeless Tobacco: Never Alcohol Use [...] documented as of this encounter Care Teams Program Project Analyst Relationship Specialty Start Date End Date Darshana Crews APRN [address] [place], [place] [address] PCP - General Nurse Practitioner-Family 02/13/18 Paula Ram, RN Oil Program Compliance Specialist Registered Nurse 02/23/19 03/24/19 Ketty Estes LCSW Terminologist 10/29/19 07/28/20 Parul Arora, RN Oil Program Compliance Specialist Registered Nurse 04/26/20 06/07/20 Marianne Jorge Respiratory Therapist Respiratory Therapist, Registered 07/28/24 08/02/24 Zunilda Morrell RN Oil Program Compliance Specialist 07/31/24 08/02/24 documented as of this encounter
--- OUTSIDE RECORDS SUMMARY | 2025-01-07 12:39 | XMS_ITS | Clinical Summary ---
Author Organization [facility] Address [address] [place] [address] Phone Care Team Providers Care Signal Technician Name Role Phone Darshana Crews APRN Primary Care Provider [phone] Allergies Active Allergy Reactions Criticality Noted Date [...] Additional Information Patient not taking.Reported on 10/07/2024 [facility] DeviceIndications: COVID-19 virus infection Pulse ox to [...] migh t be different from the original. [facility] - Davide Fang MD Controlled Substance Protocol [...] capacity documented (EVERY VISIT) Pharmacy: [facility] [id number] [place] [address] [phone] [phone] [facility] [[email or web address] additional info (Transportation, WC, Compound, No Show, [...] drip. TTE pending. Monitor on telemetry continue E [employer] Eliquis. Discussed with cardiology and appreciate their [...] AP PELVIS, 07/22/2018 3:00 PM CLINICAL HISTORY: X15-Iaga, [id number]-78-CM T14.90XA-Injury, unspecified, initial [id number]-CM COMPARISON: 10/22/2016. PROCEDURE COMMENTS: AP view of [...] drip. TTE pending. Monitor on telemetry continue E [employer] Eliquis. Discussed with cardiology and appreciate their [...] school Work hx: Currently employed at a [employer]. Assessment & Plan (10/08/2019 11:28 AM EDT): [...] 12/23/2017 Overview (05/14/2018): Failed UDS at [facility] [place]. Will not be getting Controlled substances with [...] Plan (07/27/2024 2:34 PM EDT): Will hold E [employer] oral Cardizem and lisinopril as we diurese. [...] (08/09/2020): Added automatically from request for surgery [id number] Abnormal MRI of abdomen 08/09/202006/16 Overview (08/09/2020): Added automatically from request for surgery [id number] Swelling of left lower extremity 01/14/2020 07/13/2020 [...] Office Visit [facility] [address] [facility] [address] [place] [id number] Gregg Cole MD Atrial fibrillation, unspecified type (HCC) (Primary Dx) from Last 3 Months Immunizations Immunization Administration [...] TUNNEL RELEASE; Surgeon: Davide Hall MD; Location: [facility] MAIN OR; Service: Orthopedics Medical devices from this surgery are in the Medical Devices section. CARPAL TUNNEL RELEASE 02/11/2019 Surgeon: Davide Hall MD; Location: [facility] MAIN OR; Service: Orthopedics Medical devices from this surgery are in the Medical Devices section. EYE SURGERY 03/08/2020 CATARACT EXTRACTION EXTRACAPSULAR W/ INTRAOCULAR LENS IMPLANTATION 09/05/[address] Peyton Raphael ERCP 05/25/2021 N/A Endoscopic Retrograde Cholangiopancreatography with sphincterotomy and stent placement and balloon sweep without removal of debri/calculi; Surgeon: Stanley Kirkpatrick MD; Location: [facility] ENDOSCOPY; Service: Endoscopy Medical devices from [...] drink = 0.6 oz pur e alcohol) [facility] Utilities Answer Date Recorded In the past 12 months has e [employer], gas, oil, or water [employer] threatened to shut off services in your home? No 07/27/2024 Overall Financial Resource Strain (CARDIA) Answe r Date Recorded How hard is it for you to pa y for the very basics like food, housing, medical care, and heating? Somewhat hard 07/27/2024 PHQ-2 Answer Date Recorded PHQ-2 Total Score 0 07/27/2024 [facility] of Occupat ional Health - Occupational Stress [...] things needed for daily living? No 04/26/2020 [facility] IP Transportation Answer D ate Recorded In [...] Additional history exists COVID-19 Vaccine (2 - 2024- season) 2024 05/05/2021 Influenza Vaccine (#1) 2024 , 02/20/2019, [...] Author Blood Pressure < 140/90 Blood Pressure 128/86(07/23/ 2025 2:29 PM EDT) No Robin, Estella A. Maintain a healthy diet, exercise regularly and maintain an ideal body weight General No Amee Bailey MA Stay Tobacco Free Lifestyle No Amee Bailey MA Medical Devices Implanted Type Area French Polisher Device Identifier Shelf Expiration Date Model / Serial / Lot Stent Panc [id number] Geenen 170/320cm Sprl Sh Tapr 0.018in Gw - [id number] Implanted:Qty: 1 on 05/25/2021 by Stanley Kirkpatrick MD at [facility] Stent COOK:ENDOSCOPY 07/23/2023 [id number] / / [id number] Peg Smooth Locking Radius 2.0mm X 19mm - [id number] Implanted:Qty: 2 on 02/11/2019 by Davide Hall MD at [facility] Left: Radius [employer] [id number] -TS / / Peg Smooth Locking Radius 2.0mm X 20mm - [id number] Implanted:Qty: 3 on 02/11/2019 by Davide Hall MD at [facility] Left: Radius [employer] [id number]-[id number] -TS / / Peg Locking High Compression 2.7mm X 20mm - [id number] Implanted:Qty: 1 on 02/11/2019 by Davide Hall MD at [facility] Left: Radius SLEEPMATE [id number] -TS / / Screw Cortical Locking 3.5mm X 13mm - [id number] Implanted:Qty: 2 on 02/11/2019 by Davide Hall MD at [facility] Left: Radius [employer] [id number] -TS / / Screw Cortical Non-Locking 3.5mm X 13mm - [id number] Implanted:Qty: 2 on 02/11/2019 by Davide Hall MD at [facility] Left: Radius [employer] [id number]-[id number] -TS / / Screw Cortical Non-Locking 3.5mm X 18mm - [id number] Implanted:Qty: 1 on 02/11/2019 by Davide Hlal MD at [facility] Left: Radius [employer] [id number] -TS / / Plate Robin Ti 120mm Geminus Bn Rds Lt Volr Dist Ns - [id number] Implanted:Qty: 1 on 02/11/2019 by Davide Hall MD at [facility] Left: Radius [employer] [id number] / [...] 3:07 PM EDT AF RVR 111 us Gregg Cole MD POINT OF CARE CARDIOLOGY Final Result [facility] * (ABNORMAL) BASIC METABOLIC PANEL (07/30/2024 6:50 AM EDT) Sodium 138 136 - 145 mmol/L 07/30/2024 7:39 AM EDT [facility] Potassium 4.6 3.5 - 5.0 mmol/L 07/30/2024 7:39 AM EDT [facility] Chloride 104 98 - 107 mmol/L 07/30/2024 7:39 AM EDT [facility] Total CO2 25 22 - 29 mmol/L 07/30/2024 7:39 AM EDT [facility] Anion Gap 9 7 - 16 mmol/L 07/30/2024 7:39 AM EDT [facility] Calcium 8.6(L) 8.8 - 10.4 mg/dL 07/30/2024 7:39 AM EDT [facility] Glucose Lvl 228(H) 70 - 99 mg/dL 07/30/2024 7:39 AM EDT [facility] BUN 45(H) 8 - 23 mg/dL 07/30/2024 7:39 AM EDT [facility] Creatinine 0.85 0.51 - 1.30 mg/dL 07/30/2024 7:39 AM EDT [facility] eGFR (CKD-EPIcr 2020) 76 >=60 mL/min/1.7 3 m2 07/30/2024 7:39 AM EDT [facility] Comment:Estimated GFR was ca lculated using the CKD-EPIcr (2020) equation refit without race. The equation is recommended by the National Kidney Foundation - [place] [employer] of Nephrology Task Force. Blood VENOUS BLOOD / Unknown Venipuncture / Unknown 07/30/2024 6:50 AM EDT 07/30/2024 7:16 AM EDT Isabela DO CHEMISTRY ORDERABLES Final Re sult [facility] [address] [place] [address] * (ABNORMAL) HEMOGLOBIN A1C (07/29/2024 6:51 AM EDT) Hgb A1C 6.7(H) 4.2 - 5.6 % 07/29/2024 7:11 PM EDT [facility] Est. Avg Glucose 146 mg/dL 07/29/2024 7:11 PM EDT [facility] Blood VENOUS BLOOD / Unknown Venipuncture / Unknown 07/29/2024 6:51 AM EDT 07/29/2024 7:14 AM EDT Narrative [facility] - 07/29/2024 7:11 PM EDT REFERENCE RANGE: Normal: 4.0-5.6% Pre-diabetes: 5.7-6.4% Provisional diagnosis of diabetes: >6.4% Hgb F>10% and anything which shortens red cell survival, such as hemolytic anemia, or unstable hemoglobin variants such as HbSS, HbSC, or HbCC, will lower the HbA1c value associated with a given level of glycemic control. us Brigid Win CONSTRUCTION RIGGER CHEMISTRY ORDERABLES Fi nal Result [facility] [address] [facility] , [place] [address] * CT CHEST WO CONTRAST (07/27/2024 3:50 PM EDT) Anatomical Region Laterality Modality Chest Computed Tomogra phy 07/27/2024 3:50 PM EDT Impressions 07/27/2024 5:20 PM EDT Mild patchy groundglass opacities and central pulmonary vascular prominence raises suspicion of mild CHF. Clearing of the previous consolidative opacities on the 2019 scan Emphysema and chronic bronchitis Moderate elim ira coronary artery calcification Borderline mediastinal adenopathy likely [...] 2019 scan Emphysema and chronic bronchitis Moderate elim ira coronary artery calcification Borderline mediastinal adenopathy likely reactive but not completelyspecific. - Note: Radiology results need to be interpreted within a comprehensiveclinical context. If you have questions about the radiology report, please contactthe office of the ordering clinician. us Bryan Rodriguez MD IMG CT ORDERABLES Final Result * (ABNORMAL) LIPID PANEL REFLEX (07/04/2022 8:30 AM EDT) Cholesterol 203(H) <200 mg/dL 07/04/2022 6:21 PM EDT [facility] Comment: < 200 Desirable 200 - 239 Borderline High >= 240 High Triglyceride 200(H) <150 mg/dL 07/04/2022 6:21 PM EDT [facility] Comment: < 150 Normal 150 - 199 Borderline High 200 - 499 High >= 500 Very High HDL 61 >=40 mg/dL 07/04/2022 6:21 PM EDT [facility] Comment: > 60 Optimal 40 - 60 Acceptable < 40 Low LDL Calculated 108(H) <100 mg/dL 07/04/2022 6:21 PM EDT [facility] Non-HDL-C Calculated 142(H) <=129 mg/dL 07/04/2022 6:21 PM EDT [facility] Comment: <130 Desirable 130-159 Above Desirable 160-189 Borderline High 190-219 High >= 220 Very High Fasting Specimen? No None 023 6:21 PM EDT [facility] Blood VENOUS BLOOD / Unknown Venipuncture / Unknown 07/04/2022 8:30 AM EDT 07/04/2022 8:30 AM EDT Darshana Crews APRN CHEMISTRY ORDERABLES Final Result [facility] [employer] [address] [facility] , [address] [place] [address] [facility] [address] [place] [address] * MM MAMMO DIGITAL LEIGH SCREEN BILAT (05/12/2020 10:52 AM EST) Anatomical Region Laterality Modality Breast Bilateral Mammography 05/13/2020 9:41 AM EST Impressions 05/13/2020 9:41 AM EST Negative ([id number]) ~ RECOMMENDATION: Routine screening mammogram in 1 [...] the next mammogram, in accordance with the [place] [employer] and the Society of Breast Imaging recommendations. Narrative 05/13/2020 9:41 AM EST Procedure:MM MAMMO DIGITAL LEIGH SCREEN BILAT ~ Reason for exam: screening, asymptomatic. Z12.31-Encounter for screening mammogram for malignant neoplasm of [id number]-[id number]-CM ~ MM MAMMO DIGITAL LEIGH SCREEN BILAT Bilateral CC and MLO view(s) were taken. There are scattered fibroglandular densities. Prior study comparison: Outside films from [facility] dated 05/18/2015. No mammographic evidence of malignancy. ~ Procedure Note Lorri Tovar MD - 05/13/2020 Procedure:MM MAMMO DIGITAL LEIGH SCREEN BILAT ~ Reason for exam: screening, asymptomatic. Z12.31-Encounter for screening mammogram for malignant neoplasm of [id number]-[id number]-CM ~ MM MAMMO DIGITAL LEIGH SCREEN BILAT Bilateral CC and MLO view(s) were taken. There are scattered fibroglandular densities. Prior study comparison: Outside films from [facility] dated 05/18/2015. No mammographic evidence of malignancy. ~ IMPRESSION: Negative ([id number]) ~ RECOMMENDATION: Routine screening mammogram in 1 [...] the next mammogram, in accordance with the [place] [employer] and the Society of Breast Imaging recommendations. Darshana Crews APRN [facility] MAMMOGRAPHY ORDERABLES Final Result * HEPATITIS C ANTIBODY - SCREENING (07/02/2017 3:03 PM EDT) Hep C Ab Negative Negative 07/03/2017 9:30 AM EDT [facility] Blood VENOUS BLOOD / Unknown Venipuncture / Unknown 07/02/2017 3:03 PM EDT 07/02/2017 3:03 PM EDT us Michael Moon MD HEMATOLOGY ORDERABLES Final Re sult [facility] [address] [place] [phone] from Last 3 Months or Most Recently Relevant to Health Maintenance Insurance [facility] Advance Directives For more information, please contact: [phone] * Full Code (Latest Code Status on File) Date Activated Date Inactivated Comments 07/26/2024 11:10 PM 07/30/2024 5:42 PM * Full Code Date Activated Date Inactivated Comments 04/21/2020 9:49 PM 04/25/2020 6:03 PM * Full Code Date Activated Date Inactivated Comments 02/17/2019 12:15 AM 02/22/2019 7:32 PM Care Teams Signal Technician Relationship Specialty Start Date End Date Darshana Crews APRN [address] [place] [id number] PCP - General Nurse Practitioner-Family 02/13/18
== END 2025-01-06 23:59 | disposition home or self-care (01) ==
LOC: LAB.DROPOF 01-07 12:37
PROVIDERS: PCP Physician Assistant; Visit Provider Physician Assistant
DX: I48.0 Paroxysmal atrial fibrillation (principal); E87.70 Fluid overload, unspecified; Z79.899 Other long term (current) drug therapy; R06.02 Shortness of breath
CPT/HCPCS: 80048; 83880

== ENCOUNTER 2025-01-29 19:20 | Outpatient (CLI) | payer OTHER, SELFPAY ==
--- OUTSIDE RECORDS SUMMARY | 2025-01-29 19:24 | XMS_ITS | Data Portability ---
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 Negat giovani-U nexpe cted Not Available [facility] - [address], [address], 12/14/2018 21:23:23 12/12/1912/11/2018 6-Mon oacet ylmor phine (6-MA M), QN, urine creatinine 143.91 mg/L normal In Range Not Available [facility] - [address], [address], 12/14/2018 21:23:23 12/12/1912/11/2018 6-Mon oacet ylmor phine (6-MA M), QN, urine oxidant Out Of Range ug/mL abnormal Out Of Range Not Available [facility] - [address], [address], 12/14/2018 21:23:23 12/12/1912/11/2018 6-Mon oacet ylmor phine (6-MA M), QN, urine pH Out of Range none abnormal Out of Range Not Available [facility] - [address], [address], 12/14/2018 21:23:23 12/12/1912/11/2018 6-Mon oacet ylmor phine (6-MA M), QN, urine specific gravity 1.026 none normal In Range Not Available [facility] - [address], [address], 12/14/2018 21:23:23 12/12/19 19 12/11/2018 6-Mon oacet ylmor phine (6-MA M), QN, urine synthetic cannabinoids Negati ve NG/mL 20 normal Negat giovani-E xpect ed Not Available [facility] [address] [place], [address], 12/14/2018 21:23:23 12/12/19 19 12/11/2018 6-Mon oacet ylmor phine (6-MA M), QN, urine methamphetam ine Negati ve NG/mL 50 normal Negat giovani-E xpect ed Not Available [facility] [address], [address], 12/14/2018 21:23:23 12/12/19 19 12/11/2018 6-Mon oacet ylmor phine (6-MA M), QN, urine dextrorphan Negati ve NG/mL 5 normal Negat giovani-E xpect ed Not Available [facility] [address], [place], [address], 12/14/2018 21:23:23 12/12/19 19 12/11/2018 6-Mon oacet ylmor phine (6-MA M), QN, urine dextromethor ballard Negati ve NG/mL 5 normal Negat giovani-E xpect ed Not Available [facility] [address] [place], [address], 12/14/2018 21:23:23 12/12/1912/11/2018 6-Mon oacet ylmor phine (6-MA M), QN, urine acetylfentan yl Negati ve NG/mL 2 normal Negat giovani-E xpect ed Not Available [facility] [address], [address], 12/14/2018 21:23:23 12/12/19 19 12/11/2018 6-Mon oacet ylmor phine (6-MA M), QN, urine acetylnorfen tanyl Negati ve NG/mL 5 normal Negat giovani-E xpect ed Not Available [facility] [address], [address], 12/14/2018 21:23:23 12/12/19 19 12/11/2018 6-Mon oacet ylmor phine (6-MA M), QN, urine acrylfentany l Negati ve NG/mL 2 normal Negat giovani-E xpect ed Not Available [facility] [address], [address], 12/14/2018 21:23:23 12/12/19 19 12/11/2018 6-Mon oacet ylmor phine (6-MA M), QN, urine butyrylfenta nyl Negati ve NG/mL 10 normal Negat giovani-E xpect ed Not Available [facility] [address], [address], 12/14/2018 21:23:23 12/12/19 19 12/11/2018 6-Mon oacet ylmor phine (6-MA M), QN, urine butyrylnorfe ntanyl Negati ve NG/mL 10 normal Negat giovani-E xpect ed Not Available [facility] [address], [address], 12/14/2018 21:23:23 12/12/1912/11/2018 6-Mon oacet ylmor phine (6-MA M), QN, urine carboxyzolpi dem Negati ve NG/mL 10 normal Negat giovani-E xpect ed Not Available [facility] [address], [address], 12/14/2018 21:23:23 12/12/19 19 12/11/2018 6-Mon oacet ylmor phine (6-MA M), QN, urine carfentanil Negati ve NG/mL 5 normal Negat giovani-E xpect ed Not Available [facility] [address], [address], 12/14/2018 21:23:23 12/12/19 19 12/11/2018 6-Mon oacet ylmor phine (6-MA M), QN, urine zsn-8-qomgyf fentanyl Negati ve NG/mL 10 normal Negat giovani-E xpect ed Not Available [facility] [address], [address], 12/14/2018 21:23:23 12/12/19 19 12/11/2018 6-Mon oacet ylmor phine (6-MA M), QN, urine hxa-0-bdvxyy norfentanyl Negati ve NG/mL 10 normal Negat giovani-E xpect ed Not Available [address], [address], 12/14/2018 21:23:23 12/12/19 19 12/11/2018 6-Mon oacet ylmor phine (6-MA M), QN, urine diazepam Negati ve NG/mL 5 normal Negat giovani-E xpect ed Not Available [address], [address], 12/14/2018 21:23:23 12/12/1912/11/2018 6-Mon oacet ylmor phine (6-MA M), QN, urine furanylfenta nyl Negati ve NG/mL 2 normal Negat giovani-E xpect ed Not Available [facility] [address], [address], 12/14/2018 21:23:23 12/12/19 19 12/11/2018 6-Mon oacet ylmor phine (6-MA M), QN, urine N-desmethylc italopram Negati ve NG/mL 10 normal Negat giovani-E xpect ed Not Available [facility] [address], [address], 12/14/2018 21:23:23 12/12/19 19 12/11/2018 6-Mon oacet ylmor phine (6-MA M), QN, urine N-desmethyl- [id number] Negati ve NG/mL 5 normal Negat giovani-E xpect ed Not Available [facility] [address], [address], 12/14/2018 21:23:23 12/12/19 19 12/11/2018 6-Mon oacet ylmor phine (6-MA M), QN, urine norcarfentan il Negati ve NG/mL 5 normal Negat giovani-E xpect ed Not Available [facility] [address], [address], 12/14/2018 21:23:23 12/12/1912/11/2018 6-Mon oacet ylmor phine (6-MA M), QN, urine O-desmethylt ramadol Negati ve NG/mL 100 normal Negat giovani-E xpect ed Not Available [facility] [address], [address], 12/14/2018 21:23:23 12/12/1912/11/2018 6-Mon oacet ylmor phine (6-MA M), QN, urine [id number] Negati ve NG/mL 5 normal Negat giovani-E xpect ed Not Available [facility] [address], [address], 12/14/2018 21:23:23 04/02/19 20 04/02/2019 drug scree n, urine THC: negati ve Not Available [facility] [address], [place], [address], 04/02/2019 08:36:26 04/02/19 20 04/02/2019 drug scree n, urine Buprenorphin e: negati ve Not Available [facility] [address], [place], [address], 04/02/2019 08:36:26 04/02/19 20 04/02/2019 drug scree n, urine TCA: negati ve Not Available [facility] [address], [place], [address], 04/02/2019 08:36:26 04/02/19 20 04/02/2019 drug scree n, urine Barbiturates : negati ve Not Available [facility] [address], [place], [address], 04/02/2019 08:36:26 04/02/19 20 04/02/2019 drug scree n, urine Benzodiazepi mariia: negati ve Not Available [facility] [address], [place], [address], 04/02/2019 08:36:26 04/02/19 20 04/02/2019 drug scree n, urine Methadone: negati ve Not Available [facility] [address], [place], [address], 04/02/2019 08:36:26 04/02/19 20 04/02/2019 drug scree n, urine Amphetamines : negati ve Not Available [facility] [address], [place], [address], 04/02/2019 08:36:26 04/02/19 20 04/02/2019 drug scree n, urine Morphine/Opi ates: negati ve Not Available [place] [address], [place], [address], 04/02/2019 08:36:26 04/02/19 20 04/02/2019 drug scree n, urine Oxycodone: positi ve Not Available [facility] [address], [place], [address], 04/02/2019 08:36:26 04/02/19 20 04/02/2019 drug scree n, urine MDMA: negati ve Not Available [facility] [address], [place], [address], 04/02/2019 08:36:26 04/02/19 20 04/02/2019 drug scree n, urine Cocaine: negati ve Not Available [facility] [address], [place], [address], 04/02/2019 08:36:26 04/02/19 20 04/02/2019 drug scree n, urine Methamphetam ine: negati ve Not Available [facility] [address], [place], [address], 04/02/2019 08:36:26 12/02/19 19 07/22/2018 XR, hip + pelvi s, unila teral , 2 or 3 view No observ ation record ed. BARCODE Not Available 2018 07:52:45 12/02/1907/22/2018 XR, knee, 4 or more view No observ ation record ed. BARCODE Not Available 2018 07:56:02 Result Notes None recorded. Problems Name Problem SNOMED Code Status Onset Date Resolution Date Notes Provider Name and Address Organization Details Recorded Time Pain of right hip joint 5928413377839 02 [facility] 9 14:16:54 Long-term drug therapy Active 2018 Jorden Hill MD [address] [place], [address] , [facility] 9 17:12:26 Lumbar spondylosi s 369203359 Active 2018 Jorden Hill MD [address] [place], [address] , [facility] 9 17:12:35 Overweight 860197161 Active 2023 Arianne Barrera [facility] 4 07:55:59 Problem Notes None recorded. Procedures Surgical History Date Name Laterality Status Provider Name and Address Organization Details Recorded Time 9 Orthopedic Surgery completed Terrie Encarnacion [facility] 03/03/2019 08:51:30 9 Hip Joint Injection Fluoro completed Linda Aguilar [facility] 12/31/2018 10:33:11 Shoulder Surgery completed Terrie Encarnacion [facility] 03/03/2019 08:41:09 Imaging Results None recorded. Procedure Notes None recorded. Medical Equipment None Reported. Allergies Allergen ID Allergen Name Allergen Category Reaction Reaction Severity Criticality Documentation Date Start Date Code Code System Note Provider Name and Address Organization Details Recorded Time 491795 tramadol medicatio n rash Not available Not available 12/10/2018 38899 RxNorm Jina bourgeois [facility] 9 14:14:05 560040 codeine medicatio n itching rash Not available Not available Not available 12/10/2018 2670 RxNorm Jina bourgeois [facility] 9 14:14:05 816036 ibuprofen medicatio n other Not available Not available 12/10/2018 5640 RxNorm Jina bourgeois [facility] 9 14:14:05 116361 Non-stero idal anti-infl ammatory agent (substanc e) medicatio n other Not available Not available 12/10/2018 47569 5008 SNOMED Jina Alfredo bourgeois [facility] 9 14:14:05 Medications Name Sig Start Date Stop Date Status Note LastModified by Organization Details LastModified Time furosemide 40 mg tablet TAKE 1 TABLET BY MOUTH DAILY active Not Available Not Available No t Available atorvastati n 40 mg tablet TAKE 1 TABLET BY MOUTH DAILY active Not Available Not Available No t Available bupropion HCl SR 150 mg tablet,12 hr sustained-r elease 12/10 completed Not Available Not Available Not Available ketoconazol e 2 % shampoo 12/10 completed Not Available Not Available Not Available trazodone 50 mg tablet TAKE 1 TABLET BY MOUTH DAILY active Not Available Not Available No t Available fluconazole 150 mg tablet 12/10 completed Not Available Not Available Not Available meloxicam 15 mg tablet TAKE 1 TABLET BY MOUTH EVERY DAY active Not Available Not Available No t Available prednisone 20 mg tablet 12/10 completed Not Available Not Available Not Available metronidazo le 500 mg tablet 12/10 completed Not Available Not Available Not Available sulfamethox azole 800 mg-trimetho prim 160 mg tablet 12/10 completed Not Available Not Available Not Available hydrocodone 10 mg-acetamin ophen 325 mg tablet 12/10 completed Not Available Not Available Not Available alprazolam 0.5 mg tablet 12/10 completed Not Available Not Available Not Available amitriptyli ne 25 mg tablet 12/10 completed Not Available Not Available Not Available Betasept Surgical Scrub 4 % topical liquid 12/10 completed Not Available Not Available Not Available buspirone 30 mg tablet 12/10 completed Not Available Not Available Not Available nicotine 21 mg/24 hr daily transdermal patch 12/10 completed Not Available Not Available Not Available gabapentin 300 mg capsule 12/10 completed Not Available Not Available Not Available lisinopril 5 mg tablet TAKE 1 TABLET BY MOUTH DAILY active Not Available Not Available No t Available hydrochloro thiazide 25 mg tablet TAKE 1 TABLET BY MOUTH DAILY active Not Available Not Available No t Available Vitamin D2 1,250 mcg (50,000 unit) capsule 12/10 completed Not Available Not Available Not Available Percocet 5 mg-325 mg tablet Take 1 tablet twice a day by oral route as directed for 30 days. 2019 active Not Available Not Available Not Avai lable buspirone 15 mg tablet 12/10 completed Not Available Not Available Not Available escitalopra m 10 mg tablet 12/10 completed Not Available Not Available Not Available bupropion HCl XL 150 mg 24 hr tablet, extended release 12/10 completed Not Available Not Available Not Available amlodipine 10 mg-benazepr il 40 mg capsule active Not Available Not Available Not Available Eliquis 5 mg tablet active Not Available Not Available No t Available Flucelvax Quad 3815-1839 (PF) 60 mcg (15 mcg x 4)/0.5 mL IM syringe 12/10 completed Not Available Not Available Not Available Vitals Date Recorded Body height Body mass index (BMI) Body weight Pain severity - 0-10 verbal numeric rating [Score] - Reported Heart rate Oxygen saturation Oxygen saturation in Arterial blood by Pulse oximetry Systolic And Diastolic Provider Name and Address Organization Details Last Updated DateTime 0 172.72 cm 42.3 kg/m2 331515. 68 g 8 75 /min 94 % 94 % 150/90 mm[Hg] Miracle Marcum [facility] 0 08:41:10 Date Recorded Body height Body mass index (BMI) Body weight Pain severity - 0-10 verbal numeric rating [Score] - Reported Heart rate Oxygen saturation Oxygen saturation in Arterial blood by Pulse oximetry Systolic And Diastolic Provider Name and Address Organization Details Last Updated DateTime 0 172.72 cm 42.3 kg/m2 588231. 68 g 9 64 /min 98 % 98 % 140/82 mm[Hg] Miracle Marcum [facility] 0 11:45:49 Date Recorded Body height Body mass index (BMI) Body weight Heart rate Oxygen saturation Oxygen saturation in Arterial blood by Pulse oximetry Pain severity - 0-10 verbal numeric rating [Score] - Reported Systolic And Diastolic Provider Name and Address Organization Details Last Updated DateTime 9 172.72 cm 35 kg/m2 614215. 25 g 92 /min 98 % 98 % 8 138/78 mm[Hg] Jina Fuentes [facility] 9 15:04:48 Date Recorded Body height Body mass index (BMI) Body weight Pain severity - 0-10 verbal numeric rating [Score] - Reported Oxygen saturation Oxygen saturation in Arterial blood by Pulse oximetry Heart rate Systolic And Diastolic Provider Name and Address Organization Details Last Updated DateTime 9 172.72 cm 42.3 kg/m2 303419. 68 g 8 97 % 97 % 90 /min 134/76 mm[Hg] Terrie Encarnacion [facility] 9 08:39:54 Social History Question Answer Notes LastModified by Organizat ion Details LastModified Time Tobacco Smoking Status Current Every Day Smoker Jina bourgeois [facility] 12/10/2018 14:14:16 What Is Your Level Of Caffeine Consumption? Occasional Information not available 12/10/2018 Are You Deaf Or Do You Have Serious Difficulty Hearing? No Information not available 12/10/2018 Which Illicit Or Recreational Drugs Have You Used? Denies Information not available 12/10/2018 Education 11 Information n ot available 12/10/2018 Hard Of Hearing Or Deaf In One Or Both Ears? No Information not available 12/10/2018 Prescription Drug Abuse No Information not available 12/10/2018 Disability No Information n ot available 12/10/2018 History Of Sexual Abuse No Information not available 12/10/2018 Marital Status Informati on not available 12/10/2018 What Was The Date Of Your Most Recent Tobacco Screening? 05/27/2019 [email or web address] Information not available 05/27/2019 At What Age Did You Start Smoking Tobacco? 14 Information not available 12/10/2018 How Much Tobacco Do You Smoke? 0.5 PPD Information not available 12/10/2018 General Stress Level Medium Information not available 12/10/2018 On What Date Was Tobacco Cessation Counseling Provided? 05/27/2019 Information not available 05/27/2019 How Many Years Have You Smoked Tobacco? 48 Information not available 12/10/2018 Do You Have Difficulty Walking Or Climbing Stairs? Yes Information not available 12/10/2018 Sex: Unknown Functional Status Question Answer Note LastModified by Organizat ion Details LastModified Time What is your level of alcohol consumption? None Information not available 12/10/2018 Do you or have you ever used smokeless tobacco? Never used smokeless tobacco Information not available 12/10/2018 Do you have difficulty doing errands alone? No Information not available 12/10/2018 What is your occupation? [employer] Information not available 12/10/2018 Do you have difficulty dressing, bathing, grooming, or toileting? No Information not available 12/10/2018 Do you or have you ever used e-cigarettes or vape? Never used electronic cigarettes Information not available 12/10/2018 What is your exercise level? Occasional Information not available 12/10/2018 Mental Status Question Answer Note LastModified by Organization D etails LastModified Time Do you have difficulty concentrating, remembering or making decisions? No Information no t available 12/10/2018 Family History Nothing Reported. Medical History Condition Response Bipolar Disease N Coronary Artery Disease N Gout N Seizure Disorder N Thyroid Disease N Atrial Fibrillation N Hernia N Head Trauma/Injury N COPD N Depression N Anxiety Disorder N Acid Reflux (GERD) N Cancer N Skin Disorder N Stroke N High Cholesterol N Liver Disease N Rheumatoid Arthritis N Fibromyalgia N Headaches N Autoimmune Disease N Kidney Disease N Osteoarthritis Y Neurosurgery N DVT N Peptic Ulcer Disease N Anemia N Heart Attack ([place]) N Diabetes N Cardiomyopathy N Bleeding Disorder N CHF N AIDS/HIV N Inflammatory Bowel Disease N Dementia N Asthma N Substance Abuse N Sleep Apnea N Hepatitis N Heart Disease N Pulmonary Embolism N Chronic Low Back Pain Y Hypertension N Osteoporosis N Gynecological HistoryNo gynecological history recorded. Obstetrics History GPAL:G 0 P 0 0 0 0 Past Encounters Encounter ID Performer Location Encounter Start Date Encounter Closed Date Diagnosis/Indication Diagnosis SNOMED-CT Code Diagnosis ICD10 Code Diagnosis IMO Codes Diagnosis Note [id number] Jorden Hill MD [address] [place] [address] 12/10/2018 14:04:05 12/10/2018 14:30:04 Long-term drug therapy 455349401 Z79.899 Up to date Informed Consent and Opioid Agreement have been signed and incorporat ed into the chart. Patient has been provided written educationa l materials regarding potential adverse effects of watermaster opioid therapy MEDICAL INDICATION S: Pain has been refractory to repeated attempts at conservati ve management , is of a moderate to severe degree and an organic source is suspected. The medication prescribed will be used in conjuction with a comprehens gi[facility]ani pain program to meet the establishe d goals. Urine drug screening is regularly performed to monitor compliance during active treatment for medication misuse or diversion. CAROLEE/OAR S has been reviewed and documented to assure compliance with dosing scheduling , pain agreement MY OVERALL IMPRESSION IS THAT THIS PATIENT IS BENEFITING FROM OPIOID THERAPY. Pain of ri ght hip joint 3417558132 91024 M25.551 Lumbar spondylosis 35944 0009 M47.816 Medication monitoring 39 6967393 Z79.899 The urine sample is being sent for quantitati ve LCMS analysis of illicit drugs (Cocaine, Methamphet amine, Heroin, Fentanyl, THC, Synthetic Cannabinoi ds, Kratom, MDMA, PCP, and Synthetic Stimulants ), Opiates (Codeine, Hydrocodon e, Hydromorph one, and Morphine), Oxycodone, Oxymorphon e, Methadone, Synthetic Opioids (Fentanyl, Methadone, Tramadol, Tapentadol , and Buprenorph ine), Benzodiaze pines (Alprazola m, Clonazepam , Diazepam, Nordazepam , Oxazepam, and Temazepam) and Amphetamin e, as this patient is being prescribed opioid medication s for the first time at this practice. The purpose of this analysis is to confirm the patients stated medication usage and to establish baseline medication and metabolite quantities . [id number] MD Maria Elena Pickett [address] [place] [address] 12/31/2018 08:12:02 12/31/2018 08:41:16 Pain of right hip joint 1749200101 06672 M25.551 [id number] MD Maria Elena Pickett [address] [place] [address] 01/06/2019 14:38:24 01/06/2019 15:13:08 Long-term drug therapy 112134773 Z79.899 Up to date Informed Consent and Opioid Agreement have been signed and incorporat ed into the chart. Patient has been provided written educationa l materials regarding potential adverse effects of watermaster opioid therapy MEDICAL INDICATION S: Pain has been refractory to repeated attempts at conservati ve management , is of a moderate to severe degree and an organic source is suspected. The medication prescribed will be used in conjuction with a comprehens gi[facility]ani pain program to meet the establishe d goals. Urine drug screening is regularly performed to monitor compliance during active treatment for medication misuse or diversion. CAROLEE/OAR S has been reviewed and documented to assure compliance with dosing scheduling , pain agreement MY OVERALL IMPRESSION IS THAT THIS PATIENT IS BENEFITING FROM OPIOID THERAPY. Pain of ri ght hip joint [id number] 93774 M25.551 [id number] MD Maria Elena Pickett [place] [address] [place] [address] 03/03/2019 08:12:59 03/03/2019 08:52:28 Long-term drug therapy [id number] Z79.899 Up to date Informed Consent and Opioid Agreement have been signed and incorporat ed into the chart. Patient has been provided written educationa l materials regarding potential adverse effects of usp opioid therapy MEDICAL INDICATION S: Pain has been refractory to repeated attempts at conservati ve management , is of a moderate to severe degree and an organic source is suspected. The medication prescribed will be used in conjuction with a comprehens gi[facility]ani pain program to meet the establishe d goals. Urine drug screening is regularly performed to monitor compliance during active treatment for medication misuse or diversion. CAROLEE/OAR S has been reviewed and documented to assure compliance with dosing scheduling , pain agreement MY OVERALL IMPRESSION IS THAT THIS PATIENT IS BENEFITING FROM OPIOID THERAPY. Lumbar spondylosis 42609 0009 M47.816 Pain of ri ght hip joint [id number] M25.551 [id number] MD Maria Elena Pickett [address] [place] [address] 04/02/2019 08:33:26 04/02/2019 09:03:08 Long-term drug therapy [id number] Z79.899 Pain of ri ght hip joint [id number] 30085 M25.551 History and exam are consistent with pain from osteoarthr itis of the right hip. Symptoms have not responded to >3 months conservati ve therapy. Last injection in Oct offering >80% relief for about one month. Will submit for therapeuti c right hip injection. [id number] Jorden Hill MD [place] [address] [place] [address] 05/27/2019 10:47:16 05/27/2019 12:03:07 Long-term drug therapy [id number] Z79.899 The preliminar y [place] urine drug screen is appropriat e for the class of medication (s) that the patient is being prescribed and based on their risk stratifica tion I will not send this sample for further quantitati ve LCMS testing. Pain of ri ght hip joint [id number] 56322 M25.551 Health Concerns Section Related Observation LastModified by Organization Detai ls LastModified Time None Recorded Concern Status LastModified by Organization Details LastModified Time None Recorded Advance Directives Directive None Recorded Payers Insurance Date Sequence Insurance Name Policy Number Policy Gamez Covered Member ID Gamez Member ID Guarantor Name 04/17/2023 1 [place] BCBS OF [facility] MEDICAID (HMO) [id number] Kaylee L Hartness [id number] Kaylee Hartness 04/17/2023 1 [employer] [place] Kaylee Hartness [id number] Kaylee Hartness 04/19/2023 1 [email or web address] (MEDICAID REPLACEMENT - HMO) Kaylee L Hartness [id number] Kaylee Hartness 04/17/2023 1 [employer] [place] Kaylee Hartness [id number] Kaylee Hartness Notes Date Note Type Note Provider Name and Address Organization Details Recorded Time 12/31/2018 text/html Injection: Right hip Injection Jorden Hill MD [address] [place] [address], [phone], [facility] 12/31/2018 10:36:15 01/06/2019 text/html Follow-up (meds & injections)Reported by PatientHPIFor improvement, patient reportspain is the same as compared to last visit.. For pain scores, patient reportsaverage pain- 4/10,current pain- 8/10, andworst pain- 10/10. For recent injections, patient reportssi joint injection-andjoint injection: hip-(pt states she got about 85% relief for x 1 week). For current analgesics, patient reportsopioids- oxycodone,other adjunct medications- __, andreported pain relief- 50% for 4 hours(taking 1.5 instead of 1). For adverse reactions, patient reportsno nausea.,no vomiting.,no constipation.,no itching.,no sedation.,no respiratory depression., andno sexual dysfunction.. 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 For physical therapy, patient reportscompleted course in the pastandresponse to therapy- temporary pain improvement. HipReported by PatientHPIFor location, patient reportsright. For quality, patient reportsaching,throbbi ng,deep, andconstant. For severity, patient reportsmoderate,pain level 8/10, andworst pain 10/10. For duration, patient reports6 monthsand___ years. For timing, patient reportschronicanddayt katherine. For context, patient reportscannot identify. For alleviating factors, patient reportsnothing helps. For aggravating factors, patient reportsstanding,walki ng,lifting,carrying,t wisting,pushing/pulli ng,daytime, andnighttime. For associated symptoms, patient reportsno weakness,no numbness,no tingling,no swelling,no redness,no warmth,no ecchymosis,no catching/locking,no popping/clicking,no buckling,no grinding,no instability,no radiation down leg,no drainage,no fever, andno weight loss. For previous surgery, patient reportsnone. For prior imaging, patient reportsmri. For previous injections, patient reportsnone. For previous pt, patient reportsnone. For work related, patient reportsno. For working, patient reportsno. Jorden Hill MD [address] [place] [address], [phone], [facility] 01/06/2019 16:36:45 03/03/2019 text/html Follow-up (meds & injections)Reported by PatientHPIFor improvement, patient reportspain is the same as compared to last visit.. For pain scores, patient reportsaverage pain- 6/10,current pain- 8/10, andworst pain- 10/10. For recent injections, patient reportssi joint injection-andjoint injection: hip-(pt states she got about 85% relief for x 1 week). For current analgesics, patient reportsopioids- oxycodone,other adjunct medications- __, andreported pain relief- 50% for 3 hours(03/03/19: oxycodone last taken 5 hour ago). For adverse reactions, patient reportsno nausea.,no vomiting.,no constipation.,no itching.,no sedation.,no respiratory depression., andno sexual dysfunction.. 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 For physical therapy, patient reportscompleted course in the pastandresponse to therapy- temporary pain improvement. HipReported by PatientHPIFor associated symptoms, patient reportsswelling (bilateral ankles)but reportsno weakness,no numbness,no tingling,no redness,no warmth,no ecchymosis,no catching/locking,no popping/clicking,no buckling,no grinding,no instability,no radiation down leg,no drainage,no fever, andno weight loss. For location, patient reportsright. For quality, patient reportsaching,throbbi ng,deep, andconstant. For severity, patient reportsmoderate,pain level 8/10, andworst pain 10/10. For duration, patient reports6 monthsand___ years. For timing, patient reportschronicanddayt katherine. For context, patient reportscannot identify. For alleviating factors, patient reportspain medication. For aggravating factors, patient reportsstanding,walki ng,lifting,carrying,t wisting,pushing/pulli ng,daytime, andnighttime. For previous surgery, patient reportsnone. For prior imaging, patient reportsmri. For previous injections, patient reportsnone. For previous pt, patient reportsnone. For work related, patient reportsno. For working, patient reportsno. Jorden Hill MD [address] [place] [address], [phone], [facility] 03/03/2019 09:02:14 04/02/2019 text/html Follow-up (meds & injections)Reported by PatientHPIFor improvement, patient reportspain is the same as compared to last visit.. For pain scores, patient reportsaverage pain- 6/10,current pain- 8/10, andworst pain- 10/10. For recent injections, patient reportssi joint injection-andjoint injection: hip-(pt states she got about 85% relief for x 1 week). For current analgesics, patient reportsopioids- oxycodone,other adjunct medications- __, andreported pain relief- 50% for 3 hours(last taken this morning). For adverse reactions, patient reportsno nausea.,no vomiting.,no constipation.,no itching.,no sedation.,no respiratory depression., andno sexual dysfunction.. 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 For physical therapy, patient reportscompleted course in the pastandresponse to therapy- temporary pain improvement. HipReported by PatientHPIFor associated symptoms, patient reportsswelling (bilateral ankles)but reportsno weakness,no numbness,no tingling,no redness,no warmth,no ecchymosis,no catching/locking,no popping/clicking,no buckling,no grinding,no instability,no radiation down leg,no drainage,no fever, andno weight loss. For location, patient reportsright. For quality, patient reportsaching,throbbi ng,deep, andconstant. For severity, patient reportsmoderate,pain level 8/10, andworst pain 10/10. For duration, patient reports6 monthsand___ years. For timing, patient reportschronicanddayt katherine. For context, patient reportscannot identify. For alleviating factors, patient reportspain medication. For aggravating factors, patient reportsstanding,walki ng,lifting,carrying,t wisting,pushing/pulli ng,daytime, andnighttime. For previous surgery, patient reportsnone. For prior imaging, patient reportsmri. For previous injections, patient reportsnone. For previous pt, patient reportsnone. For work related, patient reportsno. For working, patient reportsno. DONAVON Otto - [facility] 04/02/2019 22:13:41 05/27/2019 text/html Follow-up (meds & injections)Reported by PatientHPIFor improvement, patient reportspain is the same as compared to last visit.. For pain scores, patient reportsaverage pain- 6/10,current pain- 9/10, andworst pain- 10/10. For recent injections, patient reportssi joint injection-andjoint injection: hip-(pt states she got about 85% relief for x 1 week). For current analgesics, patient reportsopioids- oxycodone,other adjunct medications- __, andreported pain relief- 50% for 3 hours(oxycodone taken yesterday). For adverse reactions, patient reportsno nausea.,no vomiting.,no constipation.,no itching.,no sedation.,no respiratory depression., andno sexual dysfunction.. 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 For physical therapy, patient reportscompleted course in the pastandresponse to therapy- temporary pain improvement. HipReported by PatientHPIFor associated symptoms, patient reportsswelling (bilateral ankles)but reportsno weakness,no numbness,no tingling,no redness,no warmth,no ecchymosis,no catching/locking,no popping/clicking,no buckling,no grinding,no instability,no radiation down leg,no drainage,no fever, andno weight loss. For location, patient reportsright. For quality, patient reportsaching,throbbi ng,deep, andconstant. For severity, patient reportsmoderate,pain level 9/10, andworst pain 10/10. For duration, patient reports6 monthsand___ years. For timing, patient reportschronicanddayt katherine. For context, patient reportscannot identify. For alleviating factors, patient reportspain medication. For aggravating factors, patient reportsstanding,walki ng,lifting,carrying,t wisting,pushing/pulli ng,daytime, andnighttime. For previous surgery, patient reportsnone. For prior imaging, patient reportsmri. For previous injections, patient reportsnone. For previous pt, patient reportsnone. For work related, patient reportsno. For working, patient reportsno. DONAVON Otto - [facility] 05/27/2019 18:08:19 OBGyn Episode No OBEpisode recorded.
[2025-01-29 20:32] LABS: Anion Gap 11.2 mEq/L (5-15); Blood Urea Nitrogen 27 mg/dl (7-17); Calcium 9.3 mg/dl (8.4-10.2); Carbon Dioxide 26 mmol/L (22.0-30.0); Chloride 104 mmol/L (98-107); Creatinine,Serum 1.20 mg/dl (0.52-1.04); Estimated Glomerular Filt Rate 45 ml/min (>60); GFR (African American) 55 ML/MIN (>60); Glucose 72 mg/dl (74-100); Potassium 3.2 mmoL/L (3.5-5.1); Sodium 138 mmol/L (136-145)
[2025-01-29 20:41] LABS: NT Pro Brain Natriuretic Pep. 2430 pg/mL (0-125)
== END 2025-01-29 23:59 | disposition home or self-care (01) ==
LOC: LAB 19:22
PROVIDERS: PCP Family Medicine; Visit Provider Physician Assistant
DX: I48.0 Paroxysmal atrial fibrillation (principal); E87.79 Other fluid overload; Z79.899 Other long term (current) drug therapy; R06.02 Shortness of breath
CPT/HCPCS: 80048; 83880

== ENCOUNTER 2025-02-24 11:13 | Observation (INO) | payer MEDICARE, SELFPAY ==
[2025-02-24] VITALS (8 sets, daily range): BP systolic 113–142; BP diastolic 66–89; PULSE 71–120; RESP 18–27; TEMP 36.5–36.8; O2SAT 90–99; BMI 44.5; BMI 42.5
--- NOTE | 2025-02-24 11:30 | CT_ITS ---
FINAL REPORT TECHNIQUE: Postcontrast axial images of the chest were performed in a CTA protocol. This study was performed with techniques to keep radiation doses as low as reasonably achievable, (ALARA). Individualized dose reduction technique using automated exposure control or adjustment of mA and/or kV according to the patient's size were employed. CLINICAL HISTORY: shortness of breath COMPARISON: 06/30/2024 FINDINGS: The heart is normal in size. There are a few, small scattered mediastinal lymph nodes, particularly in the prevascular and paratracheal regions. No pleural or pericardial effusion is identified. The thoracic aorta is normal in caliber with no focal aneurysm or dissection identified. There is no filling defect to suggest pulmonary embolism. No lung infiltrate or mass is identified. There are moderate changes of centrilobular emphysema. The images of the upper abdomen are unremarkable. IMPRESSION: No evidence for PE on this exam. Reviewed, Interpreted and Dictated by Tavares Abad MD Transcribed by Yaritza Milian Authenticated and [facility]
[2025-02-24 11:38] LABS: Hematocrit 41.9 % (37.0-47.0); Hemoglobin 13.2 g/dL (12.2-16.2); Immature Granulocytes % 0.5 %; Mean Corpuscular HGB Conc 31.5 g/dL (31.8-35.4); Mean Corpuscular Hemoglobin 27.3 pg (27.0-31.2); Mean Corpuscular Volume 86.7 fl (81-99); Nucleated Red Blood Cells % 0 %; Platelet Count 317 K/mm3 (142-424); Red Blood Count 4.83 M/mm3 (4.20-5.40); Red Cell Distribution Width-SD 59.7 fL; White Blood Count 8.4 K/mm3 (4.8-10.8)
[2025-02-24 11:38] LABS: Coronavirus 19, PCR Not Detected (NotDetected); Influenza A, PCR Not Detected (NotDetected); Influenza B, PCR Not Detected (NotDetected)
[2025-02-24 11:40] LABS: VBG HCO3 24.3 mmol/L (23-30); VBG PCO2 42.7 mmol/L (35-51); VBG PH 7.37 mmol/L (7.31-7.41); VBG PO2 40.8 mmol/L (28-40)
[2025-02-24 11:43] LABS: Lactate Venous 2.4 mmol/L (0.4-2.0)
--- NOTE | 2025-02-24 11:48 | ECG_ITS ---
APPROVED REPORT Exam: Resting ECG HR:93 bpm ECG Measurements Heart Rate 93 AXES QRSd 91 QRS 81 QT 368 T 2 QTc 419 Conclusion ATRIAL FIBRILLATION WITH ABERRANT CONDUCTION OR VENTRICULAR PREMATURE COMPLEXES LOW QRS VOLTAGE IN PRECORDIAL LEADS [QRS DEFLECTION < 1.0 mV IN CHEST LEADS] No STEMI Electronically signed by : MARCIE SHANKAR, 02/26/2025 06:55:04
[2025-02-24 11:50] LABS: Activated Partial Thrombo Time 30.2 seconds (22.8-30.6)
[2025-02-24] MEDS: IPRATROPIUM/ALBUTEROL 3 ML NEB 9 ML IH (11:50)
[2025-02-24] MEDS: DEXAMETHASONE 4MG/ML 1ML VIAL 10 MG IV (11:51)
[2025-02-24] MEDS: ASPIRIN 325MG TABLET 325 MG PO (11:51)
[2025-02-24] MEDS: MAGNESIUM SULFATE IN WATER 2 GM/50 ML PIGGYBACK IV (11:51)
[2025-02-24 11:56] LABS: Alanine Aminotransferase 23 U/L (12-78); Albumin Level 4.2 g/dl (3.5-5.0); Albumin/Globulin Ratio 1.3 (1.1-1.8); Alkaline Phosphatase 130 U/L (38-126); Anion Gap 13.2 mEq/L (5-15); Aspartate Amino Transferase 31 U/L (14-36); Bilirubin,Total 0.6 mg/dl (0.2-1.3); Blood Urea Nitrogen 14 mg/dl (7-17); Calcium 9.4 mg/dl (8.4-10.2); Carbon Dioxide 26 mmol/L (22.0-30.0); Chloride 105 mmol/L (98-107); Creatinine Clearance Estimated 57 mL/min (50-200); Creatinine,Serum 0.80 mg/dl (0.52-1.04); Estimated Glomerular Filt Rate 72 ml/min (>60); GFR (African American) 87 ML/MIN (>60); Globulin 3.2 g/dL (1.3-3.2); Glucose 141 mg/dl (74-100); Lipase 11 U/L (23-300); Magnesium 1.9 mg/dl (1.6-2.3); Potassium 3.2 mmoL/L (3.5-5.1); Sodium 141 mmol/L (136-145); Total Protein,Serum 7.4 g/dl (6.3-8.2)
[2025-02-24 11:57] LABS: INR 1.10 (0.9-1.1); Prothrombin Time 12.1 seconds (10.1-12.5)
--- NOTE | 2025-02-24 12:02 | ED_ITS ---
Discharge Plan Disposition Patient Disposition: Admitted Clinical Impressions Clinical Impression: Cardiac volume overload, Chest pain, A-fib Discharge ED Provider: Tommy Sinha HPI <Mei Weeks (ED), CLINICAL QUALITY MANAGER - Last Filed: 02/24/25 15:22> General Chief Complaint: Chest Pain Stated Complaint: Geronimo heart failure, soa Time Seen by Provider: 02/24/25 11:21 Mode of Arrival: Ambulatory Source of Information: Patient Description of Symptoms (Recalled from ER Triage Doc. by RN): patient states she has had shortness of breath substernal chest pain that began 30 mins ago. history of afib and chf. chest pain is stabbing and intermittent. 08/25 pain. has hx of BLE swelling History of Present Illness HPI narrative: 65-year-old female presents at her she visited Dr. Fulton's office and cardiology. He sent her over here ultimately to be admitted for diuresing. Patient does have visible shortness of breath. She started having chest pain about 30 minutes ago as well. She does have a history of A-fib and CHF. She has stabbing and intermittent chest pain as well as increasing bilateral extremity swelling. Related Data Home Medications ?Medication ?Instructions ?Recorded ?Confirmed tiotropium bromide 18 mcg capsule 1 cap inhalation BROOKE LY 08/05/24 02/24/25 with inhalation device (Spiriva with HandiHaler) albuterol sulfate 90 mcg/actuation 2 puff inhalation Q IDP PRN 02/24/25 02/24/25 aerosol inhaler shortness of breath or wheez ing cyclobenzaprine 10 mg tablet 10 mg PO HSP PRN muscle s pasm 02/24/25 02/24/25 oxycodone-acetaminophen 7.5 mg-325 1 tab PO Q8HP PRN M oderate Pain 02/24/25 02/24/25 mg tablet (Percocet) (Scale Score 5-6) Previous Rx's ?Medication ?Instructions ?Recorded metoprolol succinate 100 mg 100 mg PO BID #180 tabs tablet,extended release 24 hr diltiazem HCl 240 mg 240 mg PO BID #60 caps 09/15 capsule,extended release 24 hr (Cardizem CD) lisinopril 10 mg tablet 10 mg PO DAILY #90 tabs 09/17 apixaban 5 mg tablet (Eliquis) 5 mg PO BID #60 tabs linaclotide 290 mcg capsule 290 mcg PO DAILY #30 caps 12/07/24 furosemide 40 mg tablet (Lasix) 40 mg PO DAILY #60 tab s 02/02/25 spironolactone 25 mg tablet 25 mg PO DAILY #30 tabs tirzepatide (weight loss) 5 mg/0.5 5 mg (0.5 mL) SQ WE EKLY #2 mL 02/08/25 mL subcutaneous pen injector (Zepbound) Allergies Allergy/AdvReac Type Severity Reaction Status Date / Time codeine AdvReac Severe Stomach Verified 02/24/25 08:51 Pain sulfamethoxazole (From AdvReac Unknown Vomiting Verified 02/24/25 08:51 Bactrim) trimethoprim (From Bactrim) AdvReac Unknown Vomiting Verified 02/24/25 08:51 PFSH <Mei Weeks (ED), CLINICAL QUALITY MANAGER - Last Filed: 02/24/25 15:22> FORMERLY [facility] Disclaimer: The information contained in this section may have been updated after the patient was seen, as this information can be updated by other users. Medical History Atrial fibrillation with RVR Cellulitis of left lower extremity IFG (impaired fasting glucose) Atrial fibrillation with RVR Edema of both lower extremities Coronary artery disease Family history of early CAD Smoker Palpitations Orthopnea Edema SOB (shortness of breath) on exertion Chest pain Paroxysmal atrial fibrillation Tobacco abuse Right cataract Hypercholesteremia Hypertension Chronic pain Erosive osteoarthritis of multiple sites Surgical History S/P cardiac cath Hx of appendectomy Hx of shoulder surgery Hx of hysterectomy Hx of cholecystectomy Family History Mother Cancer Breast cancer Heart attack Social History (Updated 02/24/25 @ 15:33 by Raine Elias RN) Smoking Status: Current every day smoker alcohol intake: never current occupational status: employed Travel in the last 8 weeks?: None Have you lived/traveled outside US in past 30 days?: No Contact w/someone who lives/traveled outside US past 30 days?: No Exposure to someone with infectious disease in past 14 days?: No Do you have a fever (greater than 100.4 F or 38 C)?: No Have you tested positive for COVID-19?: No Exposed to someone with COVID-19 in past 14 days?: No Do you have a sore throat?: No Do you have a cough?: No Do you have any weakness?: No Are you experiencing any nausea/vomitting?: No Do you have any diarrhea?: No Are you experiencing any unusual bleeding?: No Do you have any muscle aches/pain?: No Do you have any abdominal pain?: No Are you experiencing loss of taste or smell?: No Other Medical History Have you received the Flu Vaccine for this season: No Have you received the Pneumonia Vaccine: Yes <Mei Weeks (ED), CLINICAL QUALITY MANAGER - Last Filed: 02/24/25 15:22> ROS Obtained: Yes Systems reviewed as appropriate & no additional complaints except as documented Constitutional Constitutional: Reports as per HPI Physical Exam <Mei Weeks (ED), CLINICAL QUALITY MANAGER - Last Filed: 02/24/25 15:22> General General appearance: alert and in distress Head Head exam: normocephalic Eye Eye exam: Present PERRL ENT ENT exam: Present mucous membranes moist Neck Neck exam: Present trachea midline Chest Chest inspection: Present symmetric chest wall rise Respiratory Respiratory exam: Present respiratory distress and wheezes Cardiovascular Cardiovascular exam: Present normal rhythm, tachycardia, normal heart sounds, +S1 and +S2 Abdominal Exam Abdominal exam: Present soft and normal bowel sounds Extremities Exam Extremities exam: Present normal inspection and full ROM Back Exam Back exam: Present normal inspection and full ROM Neurological Exam Neurological exam: Present alert and oriented X3 Psychiatric Psychiatric exam: Present normal mood Skin Skin exam: Present warm and dry HEART Score <Mei Weeks (ED), CLINICAL QUALITY MANAGER - Last Filed: 02/24/25 15:22> HEART Score HEART Score assessment performed?: Yes History (anamnesis): Moderately suspicious ECG: Non-specific disturbance Age: 45-65 years Risk factors: 3 or more risk factors Troponin: </= normal limit HEART Score: 5 <Tommy Sinha MD - Last Filed: 02/24/25 15:35> HEART Score HEART Score: 5 Critical Care <Mei Weeks (ED), CLINICAL QUALITY MANAGER - Last Filed: 02/24/25 15:22> Critical Care Time Critical Care Time: No Medical Decision Making <Mei Weeks (ED), CLINICAL QUALITY MANAGER - Last Filed: 02/24/25 15:22> Jose Inquiry Pt receiving controlled substance: No Jose was queried for this patient: No Vital Signs Vital Signs: 02/24/25 11:35 02/24/25 11:40 02/24/25 12:00 Temperature 97.7 F Temperature Source Oral Pulse Rate 84 89 Pulse Rate [Right Radial] 113 H Respiratory Rate 22 22 27 H Blood Pressure 127/89 124/83 Blood Pressure [Right Arm] 127/89 Blood Pressure Mean [Right Arm] 101 Blood Pressure Source [Right Arm] Automatic Cuff Blood Pressure Position [Right Arm] Sitting 02 Sat by Pulse Oximetry 94 L 95 99 Oxygen Delivery Method Room Air Room Air Room Air 02/24/25 12:21 02/24/25 15:25 Temperature 97.7 F Temperature Source Oral Pulse Rate 71 Pulse Rate [Right Radial] 115 H Respiratory Rate 22 18 Blood Pressure 114/72 Blood Pressure [Right Arm] 142/77 H Blood Pressure Mean [Right Arm] 98 Blood Pressure Source [Right Arm] Automatic Cuff Blood Pressure Position [Right Arm] Supine 02 Sat by Pulse Oximetry 96 95 Oxygen Delivery Method Room Air Lab Data Labs: Lab Results 02/24/25 11:31: WBC 8.4, RBC 4.83, Hgb 13.2, Hct 41.9, MCV 86.7, MCH 27.3, MCHC 31.5 L, RDW 19.1 H, Plt Count 317, MPV 10.8 H, Neut % (Auto) 75.0, Lymph % (Auto) 18.4, [place] % (Auto) 5.0, Eos % (Auto) 0.6, Baso % (Auto) 0.5, Neut # (Auto) 6.3, Lymph # (Auto) 1.6, [place] # (Auto) 0.4, Eos # (Auto) 0.1, Baso # (Auto) 0.0, ESR 20, PT 12.1, INR 1.10, APTT 30.2, VBG pH 7.37, VBG pCO2 42.7, V BG pO2 40.8 H, VBG HCO3 24.3, VBG Total CO2 25.6, VBG O2 Saturation 75.3 H, VBG Base Excess -0.9, VBG Lactic Acid 2.4 H, Sodium 141, Potassium 3.2 L, Chloride 105, Carbon Dioxide 26, Anion Gap 13.2, BUN 14, Creatinine 0.80, Estimated Creat Clear 57, Estimated GFR 72, Est GFR ( Amer) 87, Glucose 141 H, Calcium 9.4, Magnesium 1.9, Total Bilirubin 0.6, AST 31, ALT 23, Alkaline Phosphatase 130 H, Total Creatine Kinase 53, Troponin I < 0.01, C-Reactive Protein 19.4 H, N T-Pro-B Natriuret Pep 1360 H, Total Protein 7.4, Albumin 4.2, Globulin 3.2, Albumin/Globulin Ratio 1.3, Lipase 11 L 02/24/25 11:35: Chlamy pneumoniae PCR Not detected, Adenovirus (PCR) Not detected, B. pertussis DNA (PCR) Not detected, Coronavirus OC43 (PCR) Not detected, Coronavirus HKU1 (PCR) Not detected, Coronavirus 229E (PCR) Not detected, SARS-CoV-2 (PCR) Not detected 02/24/25 11:35: SARS-CoV-2 (PCR) Not detected, Coronavirus NL63 (PCR) Not detected, Human Metapneumovir PCR Not detected, Influenza A (H1) PCR Not detected, Influ A (H1N1/09) PCR Not detected, Influenza A (H3) PCR Not detected, Influenza Type A (PCR) Not detected, Influenza A Untype (PCR) Not detected, Influenza Type B (PCR) Not detected 02/24/25 11:35: Influenza Type B (PCR) Not detected, M. pneumoniae (PCR) Not detected, Parainfluenza 1 (PCR) Not detected, Parainfluenza 2 (PCR) Not detected, Parainfluenza 3 (PCR) Not detected, Parainfluenza 4 (PCR) Not detected, RSV (PCR) Not detected, Entero/Rhino (PCR) Not detected 02/24/25 12:31: Urine Color Yellow, Urine Appearance Clear, Urine pH 7.0, Ur Specific [place] 1.010, Urine Protein Negative, Urine Glucose (UA) Negative, Urine Ketones Negative, Urine Blood Trace-i, Urine Nitrate Negative, Urine Bilirubin Negative, Urine Urobilinogen 0.2, Ur Leukocyte Esterase Negative, Urine RBC None, Urine WBC Occasional, Ur Squamous Epith Cells Occasional, Urine Bacteria Trace 02/24/25 11:31 02/24/25 11:31 Response Orders (Tests/Meds): ED MEDICATIONS Generic Name Dose Route Start Last Admin Trade Name Freq PRN Reason Stop Dose Admin Acetaminophen 650 mg 02/24/25 14:09 Acetaminophen 325mg Tab PO 03/26/25 14:08 Q4HP PRN Fever or Mild Pain (1-3) Apixaban 5 mg 02/24/25 21:00 Apixaban 5mg Tablet PO 03/26/25 20:59 BID JUAN M Cyclobenzaprine HCl 10 mg 02/24/25 14:14 Cyclobenzaprine 10mg Tablet PO 03/26/25 14:13 HSP PRN Muscle Spasm Diltiazem HCl 240 mg 02/24/25 21:00 Diltiazem Er 240mg Capsule PO 03/26/25 20:59 BID JUAN M Lisinopril 10 mg 02/25/25 09:00 Lisinopril 10mg Tablet PO 03/27/25 08:59 DAILY JUAN M Metoprolol Succinate 100 mg 02/24/25 21:00 Metoprolol Succinate Xl 100mg Tablet PO 03/26/25 20:59 BID JUAN M Nicotine 21 mg 02/24/25 14:09 Nicotine 21mg/24hr Patch TD 03/26/25 14:08 DAILYP PRN Nicotine Cravings Non-Formulary Medication 290 mcg 02/25/25 09:00 Linaclotide PO 03/27/25 08:59 DAILY JUA NM Ondansetron HCl 4 mg 02/24/25 14:09 Ondansetron 4mg/2ml Vial IV 03/26/25 14:08 Q8HP PRN Nausea Oxycodone/Acetaminophen 1 each 02/24/25 14:14 Oxycodone 7.5mg W/Apap 325mg Tablet PO 03/26/25 14:13 Q8HP PRN Moderate Pain (Scale Score 5-6) Sodium Chloride 3 ml 02/24/25 11:58 Sodium Chloride 3% 15ml Neb IH 03/26/25 11:57 ONCE PRN INDUCE SPUTUM COLLECTION Spironolactone 25 mg 02/25/25 09:00 Spironolactone 25mg Tablet PO 03/27/25 08:59 DAILY JUAN M Tiotropium [place] 1 cap 02/25/25 09:00 Tiotropium 18mcg/Puff Inhaler IH 03/27/25 08:59 DAILY JUAN M Discontinued Medications Generic Name Dose Route Start Last Admin Trade Name Torri PRN Reason Stop Dose Admin Albuterol/Ipratropium 9 ml 02/24/25 11:30 02/24/25 11:50 Ipratropium/Albuterol 3 Ml Neb IH 02/24/25 11:31 9 ml ONCE ONE Administration Aspirin 325 mg 02/24/25 11:30 02/24/25 11:51 Aspirin 325mg Tablet PO 02/24/25 11:31 325 mg ONCE ONE Administration Dexamethasone Sodium Phosphate 10 mg 02/24/25 11:30 02/24/25 11:51 Dexamethasone 4mg/Ml 1ml Vial IV 02/24/25 11:31 10 mg ONCE ONE Administration Furosemide 100 mg 02/24/25 11:56 02/24/25 12:16 Furosemide 100mg/10ml Vial IV 02/24/25 11:57 100 mg ONCE ONE Administration Magnesium Sulfate 2 gm in 50 mls @ 50 mls/hr 02/24/25 11:30 02/24/25 13:20 Magnesium Sulfate 2gm/50ml Premix IV 02/24/25 12:29 Infused ONCE ONE Infusion Iopamidol 70 ml 02/24/25 12:43 02/24/25 12:44 Iopamidol-370 (76%);100ml Bottle IV 02/24/25 12:44 70 ml ONCE ONE Administration Oxycodone/Acetaminophen 1 each 02/24/25 12:04 02/24/25 12:18 Oxycodone 7.5mg W/Apap 325mg Tablet PO 02/24/25 12:05 1 each ONCE ONE Administration Potassium Chloride 60 meq 02/24/25 12:53 02/24/25 13:32 Potassium Chloride 20meq Tab PO 02/24/25 12:54 60 meq ONCE ONE Administration Sodium Chloride 50 ml 02/24/25 12:43 02/24/25 12:43 0.9 % Sodium Chloride 50 Ml Vial IV 02/24/25 12:44 50 ml ONCE ONE Administration Sodium Chloride 10 ml 02/24/25 12:43 02/24/25 12:43 Sodium Chloride 0.9% 10ml Syr (Rad Only) IV 02/24/25 12:44 10 ml ONCE ONE Administration ORDERS Category Date Time Status CTA Chest [CT angio chest PE protocol] Stat Cat Scan 02/24/25 11:30 Completed Cardiology Consult [Consult to Cardiology] [CONS] Cons 02/24/25 14:09 Active Routine BNP [NT Pro Brain Natriuretic Pep.] Stat Lab 02/24/25 11:31 Completed Basic Metabolic Panel AMLAB Lab 02/25/25 06:00 Ordered Basic Metabolic Panel AMLAB Lab 02/26/25 06:00 Ordered Basic Metabolic Panel AMLAB Lab 02/27/25 06:00 Ordered C-Reactive Protein Stat Lab 02/24/25 11:31 Completed CBC [Complete Blood Count Auto Diff] Stat Lab 02/24/25 11:31 Completed Complete Blood Count Auto Diff AMLAB Lab 02/25/25 06:00 Ordered Complete Blood Count Auto Diff AMLAB Lab 02/26/25 06:00 Ordered Complete Blood Count Auto Diff AMLAB Lab 02/27/25 06:00 Ordered Comprehensive Metabolic Panel Stat Lab 02/24/25 11:31 Completed Creatine Kinase Stat Lab 02/24/25 11:31 Completed Erythrocyte Sedimentation Rate Stat Lab 02/24/25 11:31 Completed Full Resp Panel w/COVID ([facility]) Routine Lab 02/24/25 11:35 Completed Hemoglobin A1C Routine Lab 02/24/25 11:31 Received Lactate Venous Stat Lab 02/24/25 11:30 Ordered Lipase Stat Lab 02/24/25 11:31 Completed Lipid Panel AMLAB Lab 02/25/25 06:00 Ordered Magnesium AMLAB Lab 02/25/25 06:00 Ordered Magnesium AMLAB Lab 02/26/25 06:00 Ordered Magnesium AMLAB Lab 02/27/25 06:00 Ordered Magnesium Stat Lab 02/24/25 11:31 Completed PT INR [Prothrombin Time INR] Stat Lab 02/24/25 11:31 Completed PTT [Activated Partial Thrombo Time] Stat Lab 02/24/25 11:31 Completed Rapid PCR Covid and Flu A/B Stat Lab 02/24/25 11:35 Completed TSH [Thyroid Stimulating Hormone] Routine Lab 02/24/25 11:31 Received Trop I [Troponin I] Stat Lab 02/24/25 11:31 Completed Troponin I Q3H Lab 02/24/25 14:42 Received Troponin I Q3H Lab 02/24/25 17:45 Ordered Urinalysis and Microscopic Stat Lab 02/24/25 12:31 Completed Blood Culture Stat Micro 02/24/25 12:14 Received Sputum Culture & Gram Stain Stat Micro 02/24/25 11:59 Ordered Urine Culture Stat Micro 02/24/25 12:36 Received Venous Blood Gas Stat RT 02/24/25 11:31 Completed CA echo doppler complete Routine Y 02/24/25 14:09 Completed MDM Narrative Medical Decision Narrative: patient is a 65-year-old female presenting to the emergency department for evaluation of shortness of breath, bilateral lower extremity edema. Patient is hemodynamically stable and nontoxic-appearing upon arrival, afebrile. Differential diagnosis includes CHF exacerbation, CAD, ACS, [place], etc. Workup will be conducted with hematologic labs, specific imaging, provocative tests. Initial inventions include crystalloid bolus, analgesics, antibiotics. Initial workup reviewed by vt hematologic labs are remarkable for patient is alert to person place and timeNormal white count at 8.4, lactic acid is 2.4, potassium is 3.2 which have replaced here in the ED, urine is normal. CTA showed no evidence of a PE. I discussed this patient with Jessica and Timmy Galicia. Patient will come in for diuresis and heart rate control. <Tommy Sinha MD - Last Filed: 02/24/25 15:35> Vital Signs Vital Signs: 02/24/25 11:35 02/24/25 11:40 02/24/25 12:00 Temperature 97.7 F Temperature Source Oral Pulse Rate 84 89 Pulse Rate [Right Radial] 113 H Respiratory Rate 22 22 27 H Blood Pressure 127/89 124/83 Blood Pressure [Right Arm] 127/89 Blood Pressure Mean [Right Arm] 101 Blood Pressure Source [Right Arm] Automatic Cuff Blood Pressure Position [Right Arm] Sitting 02 Sat by Pulse Oximetry 94 L 95 99 Oxygen Delivery Method Room Air Room Air Room Air 02/24/25 12:21 02/24/25 15:25 Temperature 97.7 F Temperature Source Oral Pulse Rate 71 Pulse Rate [Right Radial] 115 H Respiratory Rate 22 18 Blood Pressure 114/72 Blood Pressure [Right Arm] 142/77 H Blood Pressure Mean [Right Arm] 98 Blood Pressure Source [Right Arm] Automatic Cuff Blood Pressure Position [Right Arm] Supine 02 Sat by Pulse Oximetry 96 95 Oxygen Delivery Method Room Air Lab Data Labs: Lab Results 02/24/25 11:31: WBC 8.4, RBC 4.83, Hgb 13.2, Hct 41.9, MCV 86.7, MCH 27.3, MCHC 31.5 L, RDW 19.1 H, Plt Count 317, MPV 10.8 H, Neut % (Auto) 75.0, Lymph % (Auto) 18.4, [place] % (Auto) 5.0, Eos % (Auto) 0.6, Baso % (Auto) 0.5, Neut # (Auto) 6.3, Lymph # (Auto) 1.6, [place] # (Auto) 0.4, Eos # (Auto) 0.1, Baso # (Auto) 0.0, ESR 20, PT 12.1, INR 1.10, APTT 30.2, VBG pH 7.37, VBG pCO2 42.7, V BG pO2 40.8 H, VBG HCO3 24.3, VBG Total CO2 25.6, VBG O2 Saturation 75.3 H, VBG Base Excess -0.9, VBG Lactic Acid 2.4 H, Sodium 141, Potassium 3.2 L, Chloride 105, Carbon Dioxide 26, Anion Gap 13.2, BUN 14, Creatinine 0.80, Estimated Creat Clear 57, Estimated GFR 72, Est GFR ( Amer) 87, Glucose 141 H, Calcium 9.4, Magnesium 1.9, Total Bilirubin 0.6, AST 31, ALT 23, Alkaline Phosphatase 130 H, Total Creatine Kinase 53, Troponin I < 0.01, C-Reactive Protein 19.4 H, N T-Pro-B Natriuret Pep 1360 H, Total Protein 7.4, Albumin 4.2, Globulin 3.2, Albumin/Globulin Ratio 1.3, Lipase 11 L 02/24/25 11:35: Chlamy pneumoniae PCR Not detected, Adenovirus (PCR) Not detected, B. pertussis DNA (PCR) Not detected, Coronavirus OC43 (PCR) Not detected, Coronavirus HKU1 (PCR) Not detected, Coronavirus 229E (PCR) Not detected, SARS-CoV-2 (PCR) Not detected 02/24/25 11:35: SARS-CoV-2 (PCR) Not detected, Coronavirus NL63 (PCR) Not detected, Human Metapneumovir PCR Not detected, Influenza A (H1) PCR Not detected, Influ A (H1N1/09) PCR Not detected, Influenza A (H3) PCR Not detected, Influenza Type A (PCR) Not detected, Influenza A Untype (PCR) Not detected, Influenza Type B (PCR) Not detected 02/24/25 11:35: Influenza Type B (PCR) Not detected, M. pneumoniae (PCR) Not detected, Parainfluenza 1 (PCR) Not detected, Parainfluenza 2 (PCR) Not detected, Parainfluenza 3 (PCR) Not detected, Parainfluenza 4 (PCR) Not detected, RSV (PCR) Not detected, Entero/Rhino (PCR) Not detected 02/24/25 12:31: Urine Color Yellow, Urine Appearance Clear, Urine pH 7.0, Ur Specific [place] 1.010, Urine Protein Negative, Urine Glucose (UA) Negative, Urine Ketones Negative, Urine Blood Trace-i, Urine Nitrate Negative, Urine Bilirubin Negative, Urine Urobilinogen 0.2, Ur Leukocyte Esterase Negative, Urine RBC None, Urine WBC Occasional, Ur Squamous Epith Cells Occasional, Urine Bacteria Trace Response Orders (Tests/Meds): ED MEDICATIONS Generic Name Dose Route Start Last Admin Trade Name Freq PRN Reason Stop Dose Admin Acetaminophen 650 mg 02/24/25 14:09 Acetaminophen 325mg Tab PO 03/26/25 14:08 Q4HP PRN Fever or Mild Pain (1-3) Apixaban 5 mg 02/24/25 21:00 Apixaban 5mg Tablet PO 03/26/25 20:59 BID JUAN M Cyclobenzaprine HCl 10 mg 02/24/25 14:14 Cyclobenzaprine 10mg Tablet PO 03/26/25 14:13 HSP PRN Muscle Spasm Diltiazem HCl 240 mg 02/24/25 21:00 Diltiazem Er 240mg Capsule PO 03/26/25 20:59 BID JUAN M Lisinopril 10 mg 02/25/25 09:00 Lisinopril 10mg Tablet PO 03/27/25 08:59 DAILY JUAN M Metoprolol Succinate 100 mg 02/24/25 21:00 Metoprolol Succinate Xl 100mg Tablet PO 03/26/25 20:59 BID JUAN M Nicotine 21 mg 02/24/25 14:09 Nicotine 21mg/24hr Patch TD 03/26/25 14:08 DAILYP PRN Nicotine Cravings Non-Formulary Medication 290 mcg 02/25/25 09:00 Linaclotide PO 03/27/25 08:59 DAILY [facility] Ondansetron HCl 4 mg 02/24/25 14:09 Ondansetron 4mg/2ml Vial IV 03/26/25 14:08 Q8HP PRN Nausea Oxycodone/Acetaminophen 1 each 02/24/25 14:14 Oxycodone 7.5mg W/Apap 325mg Tablet PO 03/26/25 14:13 Q8HP PRN Moderate Pain (Scale Score 5-6) Sodium Chloride 3 ml 02/24/25 11:58 Sodium Chloride 3% 15ml [facility] 03/26/25 11:57 ONCE PRN INDUCE SPUTUM COLLECTION Spironolactone 25 mg 02/25/25 09:00 Spironolactone 25mg Tablet PO 03/27/25 08:59 DAILY [facility] Tiotropium [place] 1 cap 02/25/25 09:00 Tiotropium 18mcg/Puff Inhaler 03/27/25 08:59 DAILY [facility] Discontinued Medications Generic Name Dose Route Start Last Admin Trade Name Freq PRN Reason Stop Dose Admin Albuterol/Ipratropium 9 ml 02/24/25 11:30 02/24/25 11:50 Ipratropium/Albuterol 3 Ml [facility] 02/24/25 11:31 9 ml ONCE ONE Administration Aspirin 325 mg 02/24/25 11:30 02/24/25 11:51 Aspirin 325mg Tablet PO 02/24/25 11:31 325 mg ONCE ONE Administration Dexamethasone Sodium Phosphate 10 mg 02/24/25 11:30 02/24/25 11:51 Dexamethasone 4mg/Ml 1ml Vial IV 02/24/25 11:31 10 mg ONCE ONE Administration Furosemide 100 mg 02/24/25 11:56 02/24/25 12:16 Furosemide 100mg/10ml Vial IV 02/24/25 11:57 100 mg ONCE ONE Administration Magnesium Sulfate 2 gm in 50 mls @ 50 mls/hr 02/24/25 11:30 02/24/25 13:20 Magnesium Sulfate 2gm/50ml Premix IV 02/24/25 12:29 Infused ONCE ONE Infusion Iopamidol 70 ml 02/24/25 12:43 02/24/25 12:44 Iopamidol-370 (76%);100ml Bottle IV 02/24/25 12:44 70 ml ONCE ONE Administration Oxycodone/Acetaminophen 1 each 02/24/25 12:04 02/24/25 12:18 Oxycodone 7.5mg W/Apap 325mg Tablet PO 02/24/25 12:05 1 each ONCE ONE Administration Potassium Chloride 60 meq 02/24/25 12:53 02/24/25 13:32 Potassium Chloride 20meq Tab PO 02/24/25 12:54 60 meq ONCE ONE Administration Sodium Chloride 50 ml 02/24/25 12:43 02/24/25 12:43 0.9 % Sodium Chloride 50 Ml Vial IV 02/24/25 12:44 50 ml ONCE ONE Administration Sodium Chloride 10 ml 02/24/25 12:43 02/24/25 12:43 Sodium Chloride 0.9% 10ml Syr (Rad Only) IV 02/24/25 12:44 10 ml ONCE ONE Administration ORDERS Category Date Time Status CTA Chest [CT angio chest PE protocol] Stat Cat Scan 02/24/25 11:30 Completed Cardiology Consult [Consult to Cardiology] [CONS] Cons 02/24/25 14:09 Active Routine BNP [NT Pro Brain Natriuretic Pep.] Stat Lab 02/24/25 11:31 Completed Basic Metabolic Panel AMLAB Lab 02/25/25 06:00 Ordered Basic Metabolic Panel AMLAB Lab 02/26/25 06:00 Ordered Basic Metabolic Panel AMLAB Lab 02/27/25 06:00 Ordered C-Reactive Protein Stat Lab 02/24/25 11:31 Completed CBC [Complete Blood Count Auto Diff] Stat Lab 02/24/25 11:31 Completed Complete Blood Count Auto Diff AMLAB Lab 02/25/25 06:00 Ordered Complete Blood Count Auto Diff AMLAB Lab 02/26/25 06:00 Ordered Complete Blood Count Auto Diff AMLAB Lab 02/27/25 06:00 Ordered Comprehensive Metabolic Panel Stat Lab 02/24/25 11:31 Completed Creatine Kinase Stat Lab 02/24/25 11:31 Completed Erythrocyte Sedimentation Rate Stat Lab 02/24/25 11:31 Completed Full Resp Panel w/COVID ([facility]) Routine Lab 02/24/25 11:35 Completed Hemoglobin A1C Routine Lab 02/24/25 11:31 Received Lactate Venous Stat Lab 02/24/25 11:30 Ordered Lipase Stat Lab 02/24/25 11:31 Completed Lipid Panel AMLAB Lab 02/25/25 06:00 Ordered Magnesium AMLAB Lab 02/25/25 06:00 Ordered Magnesium AMLAB Lab 02/26/25 06:00 Ordered Magnesium AMLAB Lab 02/27/25 06:00 Ordered Magnesium Stat Lab 02/24/25 11:31 Completed PT INR [Prothrombin Time INR] Stat Lab 02/24/25 11:31 Completed PTT [Activated Partial Thrombo Time] Stat Lab 02/24/25 11:31 Completed Rapid PCR Covid and Flu A/B Stat Lab 02/24/25 11:35 Completed TSH [Thyroid Stimulating Hormone] Routine Lab 02/24/25 11:31 Received Trop I [Troponin I] Stat Lab 02/24/25 11:31 Completed Troponin I Q3H Lab 02/24/25 14:42 Received Troponin I Q3H Lab 02/24/25 17:45 Ordered Urinalysis and Microscopic Stat Lab 02/24/25 12:31 Completed Blood Culture Stat Micro 02/24/25 12:14 Received Sputum Culture & Gram Stain Stat Micro 02/24/25 11:59 Ordered Urine Culture Stat Micro 02/24/25 12:36 Received Venous Blood Gas Stat RT 02/24/25 11:31 Completed CA echo doppler complete Routine Y 02/24/25 14:09 Completed ECG Data Tracing #1: ECG Narrative: Independently interpreted by me rate is 91, rhythm is irregular, axis is normal, no ST elevation in anatomical contiguous leads, atrial fibrillation. QTc 409. MDM Narrative Medical Decision Narrative: patient is a 65-year-old female presenting to the emergency department for evaluation of shortness of breath, bilateral lower extremity edema. Patient is hemodynamically stable and nontoxic-appearing upon arrival, afebrile. Differential diagnosis includes CHF exacerbation, CAD, ACS, OK, etc. Workup will be conducted with hematologic labs, specific imaging, provocative tests. Initial inventions include crystalloid bolus, analgesics, antibiotics. Initial workup reviewed by me hematologic labs are remarkable for patient is alert to person place and timeNormal white count at 8.4, lactic acid is 2.4, potassium is 3.2 which have replaced here in the ED, urine is normal. CTA showed no evidence of a PE. I discussed this patient with Durga Galicia. Patient will come in for diuresis and heart rate control. Tommy Sinha MD: I was consulted by the GUSTAVO, and we discussed the complexity of the problems being addressed. I approved the treatment and management plan for this patient's care in the emergency department, thus performing a substantive portion of the medical decision making.
[2025-02-24 12:08] LABS: Adenovirus,PCR Not Detected (NotDetected); Chlamydophila Pneumoniae, PCR Not Detected (NotDetected); Coronavirus 19, PCR Not Detected (NotDetected); Coronovirus HKU1,PCR Not Detected (NotDetected); Influenza A, PCR Not Detected (NotDetected); Influenza AH1, 2009 Not Detected (NotDetected); Influenza AH1, PCR Not Detected (NotDetected); Influenza AH3,PCR Not Detected (NotDetected); Influenza B, PCR Not Detected (NotDetected); Mycoplasma Pneumoniae, PCR Not Detected (NotDetected); Parainfluenza 1, PCR Not Detected (NotDetected); Parainfluenza 2, PCR Not Detected (NotDetected); Parainfluenza 3, PCR Not Detected (NotDetected); Parainfluenza 4, PCR Not Detected (NotDetected)
[2025-02-24 12:11] LABS: Troponin I < 0.01 ng/ml (0.00-0.034)
[2025-02-24] MEDS: FUROSEMIDE 100MG/10ML VIAL 100 MG IV (12:16)
[2025-02-24] MEDS: OXYCODONE 7.5MG W/APAP 325MG TABLET 1 EACH PO ×2 (12:18→19:58)
[2025-02-24 12:29] LABS: Creatine Kinase 53 U/L (30-135)
--- NOTE | 2025-02-24 12:29 | HMH.PHAINT1 ---
Pharmacy Intervention Comments: MEDICATION RECONCILIATION COMPLETED ON PATIENT USING EXTERNAL FILL HSITORY FROM PHARMACY AND LIST FROM CARDIOLOGY OFFICE. -[place], [place]
[2025-02-24 12:38] LABS: Microscopic, Urine URINE MICROSCOPIC (MICROSCOPIC)
[2025-02-24 12:42] LABS: C-Reactive Protein 19.4 mg/L (0-4)
[2025-02-24] MEDS: SODIUM CHLORIDE 0.9% 10ML SYR (RAD ONLY) 10 ML IV (12:43)
[2025-02-24] MEDS: 0.9 % SODIUM CHLORIDE 50 ML VIAL IV (12:43)
[2025-02-24] MEDS: IOPAMIDOL-370 (76%);100ML BOTTLE 70 ML IV (12:44)
[2025-02-24 13:08] LABS: Bilirubin,Urine Negative (Negative); Color,Urine YELLOW (Yellow); Glucose,Urine (UA) Negative (Negative); Ketones,Urine Negative (Negative); Leukocyte Esterase,Urine Negative (Negative); PH,Urine 7.0 (5.0-8.5); Protein,Urine Negative (Negative); Specific Gravity, Urine 1.010 (1.005-1.030); Urobilinogen,Urine 0.2 EU/dl (0.2)
[2025-02-24] MEDS: POTASSIUM CHLORIDE 20MEQ TAB 60 MEQ PO (13:32)
--- NOTE | 2025-02-24 14:09 | CA_ITS ---
APPROVED REPORT EXAM: Comprehensive 2D, Doppler, and color-flow Echocardiogram Box Car Loader: MELECIO Thacker, RVS Ht: 5 ft 6 in Wt: 293lbs BSA: 2.35 HR: 117 bpm BP: 132/76 mmHg Rhythm: Atrial Fibrillation Indications: CHF, Smoker, Afib-RVR, Volume overload, SOB 2D Dimensions IVSd 0.98 cm F: 0.6-1.0 LVEF (Visual) 66.60 % PWd 0.98 cm F: 0.6 - 1.0 LA Volume 115.50 mL LVDd 4.75 cm F: 3.9 - 5.3 LA Volume Index [id number] mL/m2 (M/F) 16-34 LVDs 3.00 cm F: 2.2 - 3.5 Left Atrium 4.30 cm F: 2.7 - 3.8 M-Mode Dimensions RVDd 3.33 cm (0.9-2.6) LA Diam 5.58 cm (1.9-4.0) LVDd 4.98 cm (3.5-5.7) LVDs 3.90 cm (3.5-5.7) IVSd 1.17 cm (0.6-1.1) PWd 1.17 cm (0.6-1.1) EF (Teich) 43.70% EPSs 0.52 cm FS 21.70% EDV (Teich) 117.10 mL TAPSE 1.04 (<1.7) ESV (Teich) 65.90 mL LV Diastology E Decel Time 150 (160-240 msec) MED A' 13.40 cm/s LAT A' 13.20 cm/s Aortic Valve ANDREW Index 1.13 cm2/m2 AoV Peak Carlos. 110.0 (50-130 cm/s) AO Peak GR. 4.80 mmHg AO Mean GR. 2.40 (<5 mmHg) AO VTI 17.7 (18-25 cm) ANDREW (VTI) 2.72 (2.5-4.5 cm2) Mitral Valve MV E Max Carlos. 86.0 (40-130 cm/s) MV PHT 44.0 ms Pulmonary Valve PV Peak Velocity 70.0 (50-150 cm/s) Tricuspid Valve TR P. Velocity 253.00 cm/s RAP Estimate 10.00 mmHg RVSP 35.50 mmHg Left Ventricle The left ventricle is normal size. Left ventricular systolic function is normal. The left ventricular ejection fraction is within the normal range. There is increased left ventricular wall thickness. There is normal LV segmental wall motion. The left ventricular diastolic function is indeterminate. LVEF is 55% Right Ventricle The right ventricle is mildly dilated. The right ventricular systolic function is normal. Atria Left atrium is moderately dilated. Right atrium is moderately dilated. There is no color Doppler evidence of interatrial shunt. Aortic Valve The aortic valve is mildly thickened. There is no hemodynamically significant aortic valvular stenosis. Trace aortic regurgitation is present. Mitral Valve The mitral valve is mildly thickened. No evidence of mitral valve stenosis. Trace mitral regurgitation is present. Tricuspid Valve The tricuspid valve leaflets are thin and pliable. Mild tricuspid regurgitation. RVSP is 30-35 mmHg. Pulmonic Valve The pulmonary valve is grossly normal in structure. Trace pulmonic valve regurgitation is present. Great Vessels The aortic root is normal in size. IVC is normal in size and collapses >50% with inspiration. Pericardium There is no pericardial effusion. Other Information Study Quality: Technically Difficult Conclusion Normal biventricular systolic function. Mild RV dilation. Biatrial dilation. Mild TR. Electronically signed by : Megan Bullock MD 02/26/2025 16:41:05
--- NOTE | 2025-02-24 14:17 | P.HP_ITS ---
<Statement entered by Colton Samaniego MD - 02/24/25 17:27> Rounded on patient after nurse practitioner. Personally examined and interviewed patient. Agree with exam findings and care plan as documented. History of Present Illness *Admission Date: 02/24/25 *Reason for visit:: shortness of breath, leg swelling *History of present illness: Ms. Fuller is a 65-year-old female who was sent to the emergency department from her cardiology office for increased heart rate (A-fib RVR), dyspnea, and bilateral lower extremity edema. She has a primary medical history of atrial fibrillation, LISA, COPD, tobacco use disorder, CAD, HFpEF, HTN, HDL, morbid obesity. Per my review of cardiology's office note patient heart rate was elevated in the 120s, EKG obtained showed A-fib with RVR. Additionally patient was increasingly shortness of breath worse with exertion despite home diuretic use. Patient had echo 2023 which showed an EF of 65%. Patient complains of bilateral calf and ankle edema, 1?2+ pitting. She states she also has intermittent angina/chest pressure which she correlates with her A-fib. Patient currently is on a regimen of Lasix 40 mg daily and spironolactone 25 mg daily for her CHF. She states she is compliant with her diuretics. Additionally she takes metoprolol 100 mg twice daily, lisinopril 10 mg daily, diltiazem 240 mg twice daily, and Eliquis 5 mg twice daily for her persistent A- fib. Workup in the emergency department was significant for elevated BNP of 1360, potassium 3.2, serial troponins negative, no leukocytosis, no anemia. Per my review chest x-ray shows no evidence of consolidations or pneumonia. Chest CTA per PE protocol shows negative for filling defect or signs of PE. Patient continued to be dyspneic in the ER but stable on room air, intermittently tachycardic with A-fib, normotensive. [facility] Disclaimer: The information contained in this section may have been updated after the patient was seen, as this information can be updated by other users. Medical History (Updated 02/24/25 @ 16:19 by Miryam Galicia APRN) Atrial fibrillation with RVR Cellulitis of left lower extremity IFG (impaired fasting glucose) Atrial fibrillation with RVR Edema of both lower extremities Coronary artery disease Family history of early CAD Smoker Palpitations Orthopnea Edema SOB (shortness of breath) on exertion Chest pain Paroxysmal atrial fibrillation Tobacco abuse Right cataract Hypercholesteremia Hypertension Chronic pain Erosive osteoarthritis of multiple sites Surgical History S/P cardiac cath Hx of appendectomy Hx of shoulder surgery Hx of hysterectomy Hx of cholecystectomy Family History Mother Cancer Breast cancer Heart attack Social History Smoking Status: Current every day smoker alcohol intake: never current occupational status: employed Travel in the last 8 weeks?: None Other Medical History Have you received the Flu Vaccine for this season: No Have you received the Pneumonia Vaccine: Yes Review of Systems Constitutional Constitutional: Denies chills and Denies fever(s) Eyes Eyes: Denies blind spots and Denies blurry vision ENT Ears, Nose, Mouth, and Throat: Denies dizziness, Denies nasal congestion and Denies nasal discharge *Cardiovascular Cardiovascular: Reports chest pain, Reports dyspnea, Reports dyspnea on exertion, Reports leg edema, Denies lightheadedness, Reports orthopnea, Reports palpitations, Reports pedal edema and Reports rapid heart rate *Respiratory Respiratory: Reports cough, Reports dyspnea, Reports dyspnea on exertion, Denies stridor and Denies wheezing *Gastrointestinal Gastrointestinal: Denies abdominal pain, Denies diarrhea, Denies heartburn, Denies nausea and Denies vomiting *Genitourinary Genitourinary: Denies difficulty voiding and Denies dysuria *Musculoskeletal Musculoskeletal: Denies muscle weakness *Neurologic Neurologic: Denies dizziness and Denies localized weakness Endocrine Endocrine: Reports palpitations Allergic/Immunologic Allergic/Immunologic: Denies wheezing Meds Home Medications and Allergies Home Medications ?Medication ?Instructions ?Recorded ?Confirmed ?Type tiotropium bromide 18 mcg capsule 1 cap inhalation BROOKE LY 08/05/24 02/24/25 History with inhalation device (Spiriva with HandiHaler) metoprolol succinate 100 mg 100 mg PO BID #180 tabs 02/24/25 Rx tablet,extended release 24 hr diltiazem HCl 240 mg 240 mg PO BID #60 caps 09/1502/24/25 Rx capsule,extended release 24 hr (Cardizem CD) lisinopril 10 mg tablet 10 mg PO DAILY #90 tabs 07/3 02/24/25 Rx apixaban 5 mg tablet (Eliquis) 5 mg PO BID #60 tabs 02/24/25 Rx linaclotide 290 mcg capsule 290 mcg PO DAILY #30 caps 12/07/24 02/24/25 Rx furosemide 40 mg tablet (Lasix) 40 mg PO DAILY #60 tab s 02/02/25 02/24/25 Rx spironolactone 25 mg tablet 25 mg PO DAILY #30 tabs 02/24/25 Rx tirzepatide (weight loss) 5 mg/0.5 5 mg (0.5 mL) SQ WE EKLY #2 mL 02/08/25 02/24/25 Rx mL subcutaneous pen injector (Zepbound) albuterol sulfate 90 mcg/actuation 2 puff inhalation Q IDP PRN 02/24/25 02/24/25 History aerosol inhaler shortness of breath or wheez ing oxycodone-acetaminophen 7.5 mg-325 1 tab PO Q8HP PRN M oderate Pain 02/24/25 02/24/25 History mg tablet (Percocet) (Scale Score 5-6) New Prescriptions to Start Prescriptions: Allergies Allergy/AdvReac Type Severity Reaction Status Date / Time codeine AdvReac Severe Stomach Verified 02/24/25 08:51 Pain sulfamethoxazole (From AdvReac Unknown Vomiting Verified 02/24/25 08:51 Bactrim) trimethoprim (From Bactrim) AdvReac Unknown Vomiting Verified 02/24/25 08:51 Exam Data for Last 24 hours Vital signs and Labs for Last 24 Hours: Temp Pulse Resp BP Pulse Ox O2 Del Method 97.7 F 71 22 114/72 96 Room Air 02/24/25 11:35 02/24/25 12:21 02/24/25 12:21 02/24/25 12:21 02/24/25 12:21 02/24/25 12:00 Laboratory Results - last 24 hr 02/24/25 11:31: WBC 8.4, RBC 4.83, Hgb 13.2, Hct 41.9, MCV 86.7, MCH 27.3, MCHC 31.5 L, RDW 19.1 H, Plt Count 317, MPV 10.8 H, Neut % (Auto) 75.0, Lymph % (Auto) 18.4, [place] % (Auto) 5.0, Eos % (Auto) 0.6, Baso % (Auto) 0.5, Neut # (Auto) 6.3, Lymph # (Auto) 1.6, [place] # (Auto) 0.4, Eos # (Auto) 0.1, Baso # (Auto) 0.0, ESR 20, PT 12.1, INR 1.10, APTT 30.2, VBG pH 7.37, VBG pCO2 42.7, VBG pO2 40.8 H, VBG HCO3 24.3, VBG Total CO2 25.6, VBG O2 Saturation 75.3 H, VBG Base Excess -0.9, VBG Lactic Acid 2.4 H, Sodium 141, Potassium 3.2 L, Chloride 105, Carbon Dioxide 26, Anion Gap 13.2, BUN 14, Creatinine 0.80, Estimated Creat Clear 57, Estimated GFR 72, Est GFR ( Amer) 87, Glucose 141 H, Calcium 9.4, Magnesium 1.9, Total Bilirubin 0.6, AST 31, ALT 23, Alkaline Phosphatase 130 H, Total Creatine Kinase 53, Troponin I < 0.01, C-Reactive Protein 19.4 H, Total Protein 7.4, Albumin 4.2, Globulin 3.2, Albumin/Globulin Ratio 1.3, Lipase 11 L 02/24/25 11:35: Chlamy pneumoniae PCR Not detected, Adenovirus (PCR) Not detected, B. pertussis DNA (PCR) Not detected, Coronavirus OC43 (PCR) Not detected, Coronavirus HKU1 (PCR) Not detected, Coronavirus 229E (PCR) Not detected, SARS-CoV-2 (PCR) Not detected 02/24/25 11:35: SARS-CoV-2 (PCR) Not detected, Coronavirus NL63 (PCR) Not detected, Human Metapneumovir PCR Not detected, Influenza A (H1) PCR Not detected, Influ A (H1N1/09) PCR Not detected, Influenza A (H3) PCR Not detected, Influenza Type A (PCR) Not detected, Influenza A Untype (PCR) Not detected, Influenza Type B (PCR) Not detected 02/24/25 11:35: Influenza Type B (PCR) Not detected, M. pneumoniae (PCR) Not detected, Parainfluenza 1 (PCR) Not detected, Parainfluenza 2 (PCR) Not detected, Parainfluenza 3 (PCR) Not detected, Parainfluenza 4 (PCR) Not detected, RSV (PCR) Not detected, Entero/Rhino (PCR) Not detected 02/24/25 12:31: Urine Color Yellow, Urine Appearance Clear, Urine pH 7.0, Ur Specific [place] 1.010, Urine Protein Negative, Urine Glucose (UA) Negative, Urine Ketones Negative, Urine Blood Trace-i, Urine Nitrate Negative, Urine Bilirubin Negative, Urine Urobilinogen 0.2, Ur Leukocyte Esterase Negative I & O for Last 24 hours: Intake & Output 02/21/25 02/22/25 02/23/25 02/24/25 23:59 23:59 23:59 23:59 Intake Total 50 / 50 Balance 50 / 50 Weight 132.903 kg Constitutional Constitutional: no acute distress, morbidly obese, chronically ill appearing and cooperative *Routine HEENT Exam Head: Present normocephalic Eye: Present EOMI ENT: Present mucous membranes moist *Routine Neck Exam Neck: Present supple and full ROM; Absent lymphadenopathy *Routine Respiratory Exam Respiratory: Present CTA bilaterally and normal respiratory effort; Absent wheezes or crackles *Routine Cardiovascular Exam Cardiovascular: Present irregularly irregular; Absent murmur *Routine Abdominal Exam Abdominal: Present soft, normoactive bowel sounds and obese; Absent tenderness or distended *Routine Rectal Exam Rectal:: deferred *Routine Genitalia Exam Genitalia:: deferred *Routine Extremities Exam Extremities: Present edema (1-2+ bilateral lower extremity below-knee); Absent cyanosis, clubbing or calf tenderness *Routine Skin Exam Skin: Present intact, dry, warm and ecchymosis (Bilateral lower extremity); Absent rash *Routine Neurological Exam Neurological: Present alert, oriented X3, vision grossly intact, hearing grossly intact and normal speech Assessment and Plan *Assessment and plan (1) Atrial fibrillation with RVR: Status: Acute Category: Medical Code(s): I48.91 - Unspecified atrial fibrillation (2) (HFpEF) heart failure with preserved ejection fraction: Status: Acute Category: Medical Code(s): I50.30 - Unspecified diastolic (congestive) heart failure (3) Dyspnea: Status: Acute Category: Medical Code(s): R06.00 - Dyspnea, unspecified (4) Edema of both lower extremities: Status: Acute Category: Medical Code(s): R60.0 - Localized edema (5) Hypertension: Status: Chronic Qualifiers: Hypertension type: primary hypertension Qualified Code(s): I10 - Essential (primary) hypertension Category: Medical Code(s): I10 - Essential (primary) hypertension (6) COPD (chronic obstructive pulmonary disease): Status: Acute Category: Medical Code(s): J44.9 - Chronic obstructive pulmonary disease, unspecified (7) Tobacco use disorder: Status: Acute Category: Medical Code(s): F17.200 - Nicotine dependence, unspecified, uncomplicated (8) Obesity: Status: Chronic Qualifiers: Obesity type: due to excess calories Obesity classification: adult class 3 (BMI >= 40) Serious obesity comorbidity presence: with serious comorbidity Body mass index: BMI 45.0-49.9 Qualified Code(s): E66.813 - Obesity, class 3; E66.01 - Morbid (severe) obesity due to excess calories; Z68.42 - Body mass index [BMI] 45.0-49.9, adult Category: Medical Code(s): E66.9 - Obesity, unspecified (9) Chronic pain: Status: Acute Qualifiers: Chronic pain type: chronic pain syndrome Qualified Code(s): G89.4 - Chronic pain syndrome Category: Medical Code(s): G89.29 - Other chronic pain Plan Ms. Fuller is a 65-year-old female admitted to the medical surgical floor for A-fib RVR, dyspnea, HFpEF exacerbation. Hospital medicine was consulted for admission, I agreed to admit the patient. Plan of care as follows: #A-fib RVR #HFpEF exacerbation #Dyspnea ?Patient admitted to the medical surgical floor for continuous cardiac telemetry and pulse oximetry, cardiology consulted for further recommendations for patient's continued persistent atrial fibrillation with intermittent rapid ventricular rate. Possible plans for cardioversion tomorrow, n.p.o. after midnight. Patient endorses dyspnea intermittently. Stable on room air. ?Patient had echo 11/2023 which showed a EF of 65%, repeat echo pending. Patient had heart cath 01/2024 which recommended medical management for CAD. ?Patient given 100 mg Lasix IV in the ED, patient currently prescribed Lasix 40 mg daily and spironolactone 25 mg daily, states she adheres to medication regimen as prescribed. Will continue Lasix 40 mg twice daily along with spironolactone 25 mg orally daily. ?Patient currently in A-fib, rate below 100. Patient takes diltiazem 240 mg twice daily and metoprolol succinate 100 mg twice daily, will continue both for her A-fib rate control. Additionally will continue lisinopril 10 mg daily and Eliquis 5 mg twice daily for anticoagulation. ?BMP, CBC, magnesium, lipid panel ordered for the a.m. A1c pending. #COPD #Tobacco use disorder ? Patient states she has decreased her smoking from 4 PPD to half PPD. Nicotine patches ordered as needed, smoking cessation discussed. DuoNebs ordered every 6 hours as needed for shortness of breath, continue Spiriva daily. Lungs CTA on exam. #IBS: Patient endorses having IBS, takes Linzess daily. Continue Linzess 290 mcg daily. #Chronic pain: Patient states she has chronic hip pain, plans for hip replacement when her A-fib is better controlled. Percocet 1 tab every 8 hours as needed for moderate to severe pain. #Morbid obesity: Patient BMI 42, discussed left modifications. Complicates all aspects of care. Full code VTE?Eliquis 5 mg twice daily Cardiac diet Ambulate as tolerated
[2025-02-24 14:18] LABS: Bacteria,Urine Trace /lpf; Squamous Epithelial Cell,Urine Occasional #/hpf (0-5); WBC,Urine Occasional #/hpf (0-3)
--- NOTE | 2025-02-24 14:22 | PC.NURSE ---
house called for admission
[2025-02-24 14:57] LABS: NT Pro Brain Natriuretic Pep. 1360 pg/mL (0-125)
[2025-02-24 15:21] LABS: Thyroid Stimulating Hormone 0.38 uIU/mL (0.465-4.68)
[2025-02-24 15:42] LABS: Troponin I < 0.01 ng/ml (0.00-0.034)
[2025-02-24 15:43] LABS: Reflex Lactic Add Lactic Reflex
[2025-02-24 16:52] LABS: Lactic Acid Follow Up (RFLX 1) 1.6 mmol/L (0.7-2.1)
[2025-02-24 18:15] LABS: Hemoglobin A1C 5.9 % (4.0-6.0)
[2025-02-24 18:31] LABS: Troponin I < 0.01 ng/ml (0.00-0.034)
[2025-02-24] MEDS: APIXABAN 5MG TABLET 5 MG PO (19:59)
[2025-02-24] MEDS: dilTIAZem ER 240MG CAPSULE 240 MG PO (19:59)
[2025-02-24] MEDS: METOPROLOL SUCCINATE XL 100MG TABLET 100 MG PO (19:59)
[2025-02-24] MEDS: NICOTINE 21MG/24HR PATCH 21 MG TD (19:59)
[2025-02-24 23:39] LABS: Hepatitis C Ab Qual. W/ RFX NEGATIVE (Negative)
[2025-02-25] VITALS: BP 118/80; PULSE 73; PULSE 90; RESP 18; TEMP 36.7; O2SAT 93
[2025-02-25 03:41] VITALS: BP 136/72; PULSE 105; RESP 18; TEMP 36.7; O2SAT 94; BMI 42.3
[2025-02-25 04:00] VITALS: PULSE 83
[2025-02-25] MEDS: TIOTROPIUM 18MCG/PUFF INHALER 1 CAP IH (06:38)
[2025-02-25] MEDS: OXYCODONE 7.5MG W/APAP 325MG TABLET 1 EACH PO (06:40)
[2025-02-25 06:47] LABS: Hematocrit 39.9 % (37.0-47.0); Hemoglobin 12.5 g/dL (12.2-16.2); Immature Granulocytes % 0.7 %; Mean Corpuscular HGB Conc 31.3 g/dL (31.8-35.4); Mean Corpuscular Hemoglobin 26.7 pg (27.0-31.2); Mean Corpuscular Volume 85.1 fl (81-99); Nucleated Red Blood Cells % 0 %; Platelet Count 320 K/mm3 (142-424); Red Blood Count 4.69 M/mm3 (4.20-5.40); Red Cell Distribution Width-SD 57.9 fL; White Blood Count 10.1 K/mm3 (4.8-10.8)
[2025-02-25 07:06] LABS: Chloride 104 mmol/L (98-107); Sodium 141 mmol/L (136-145)
[2025-02-25 07:07] LABS: Potassium 3.9 mmoL/L (3.5-5.1)
[2025-02-25 07:09] LABS: Anion Gap 13.9 mEq/L (5-15); Blood Urea Nitrogen 14 mg/dl (7-17); Carbon Dioxide 27 mmol/L (22.0-30.0); Creatinine Clearance Estimated 57 mL/min (50-200); Creatinine,Serum 0.70 mg/dl (0.52-1.04); Estimated Glomerular Filt Rate 84 ml/min (>60); GFR (African American) 102 ML/MIN (>60)
[2025-02-25 07:10] LABS: Calcium 9.1 mg/dl (8.4-10.2); Cholesterol 156 mg/dl (140-200); Glucose 136 mg/dl (74-100); HDL Cholesterol 46 mg/dl (40-60); Magnesium 2.2 mg/dl (1.6-2.3); Triglycerides 88 mg/dl (30-150)
[2025-02-25 08:00] VITALS: BP 124/71; PULSE 100; PULSE 85; RESP 17; TEMP 36.8; O2SAT 100
[2025-02-25] MEDS: METOPROLOL SUCCINATE XL 100MG TABLET 100 MG PO (08:08)
[2025-02-25] MEDS: APIXABAN 5MG TABLET 5 MG PO (08:08)
[2025-02-25] MEDS: FUROSEMIDE 40MG/4ML VIAL 40 MG IV (08:08)
[2025-02-25] MEDS: dilTIAZem ER 240MG CAPSULE 240 MG PO (08:08)
[2025-02-25] MEDS: SPIRONOLACTONE 25MG TABLET 25 MG PO (08:08)
[2025-02-25] MEDS: LISINOPRIL 10MG TABLET 10 MG PO (08:08)
--- NOTE | 2025-02-25 09:04 | EXP.DC.SUM ---
General Admission date:: 02/24/25 Discharge date: 02/25/25 HPI HPI HPI: Ms. Fuller is a 65-year-old female who was sent to the emergency department from her cardiology office for increased heart rate (A-fib RVR), dyspnea, and bilateral lower extremity edema. She has a primary medical history of atrial fibrillation, LISA, COPD, tobacco use disorder, CAD, HFpEF, HTN, HDL, morbid obesity. Per my review of cardiology's office note patient heart rate was elevated in the 120s, EKG obtained showed A-fib with RVR. Additionally patient was increasingly shortness of breath worse with exertion despite home diuretic use. Patient had echo 2023 which showed an EF of 65%. Patient complains of bilateral calf and ankle edema, 1?2+ pitting. She states she also has intermittent angina/chest pressure which she correlates with her A-fib. Patient currently is on a regimen of Lasix 40 mg daily and spironolactone 25 mg daily for her CHF. She states she is compliant with her diuretics. Additionally she takes metoprolol 100 mg twice daily, lisinopril 10 mg daily, diltiazem 240 mg twice daily, and Eliquis 5 mg twice daily for her persistent A-fib. Workup in the emergency department was significant for elevated BNP of 1360, potassium 3.2, serial troponins negative, no leukocytosis, no anemia. Per my review chest x-ray shows no evidence of consolidations or pneumonia. Chest CTA per PE protocol shows negative for filling defect or signs of PE. Patient continued to be dyspneic in the ER but stable on room air, intermittently tachycardic with A-fib, normotensive. Hospital Course Hospital Course Hospital Course: Ms. Fuller is a 65-year-old female admitted to the medical surgical floor for A-fib RVR, dyspnea, HFpEF exacerbation. Hospital medicine was consulted for admission, I agreed to admit the patient. Respond well to diuresis. Reevaluated by cardiology. Deemed appropriate to discharge home to continue treatment for A-fib and HFpEF. Problems addressed as follows: #A-fib RVR #HFpEF exacerbation #Dyspnea ?Patient admitted to the medical surgical floor for continuous cardiac telemetry and pulse oximetry, cardiology consulted for further recommendations for patient's continued persistent atrial fibrillation with intermittent rapid ventricular rate. Initially plan for possible cardioversion. Stable on room air during admission. Reevaluated in the morning, rate better controlled with adjustments to rate controlling medication. No need for cardioversion during admission. Patient had echo 11/2023 which showed a EF of 65%, repeat echo pending. Patient had heart cath 01/2024 which recommended medical management for CAD. Patient given 100 mg Lasix IV in the ED, patient currently prescribed Lasix 40 mg daily and spironolactone 25 mg daily, states she adheres to medication regimen as prescribed. Continued Lasix 40 mg IV twice daily along with spironolactone 25 mg daily. Had good response. Feeling better by morning with improved swelling in legs. Remained in A-fib but rate below 100 Patient has done well overnight, responded to diuresis. Continue medications as follows: Eliquis 5 mg twice daily Diltiazem ER 240 mg twice daily Toprol XL 100 mg twice daily Spironolactone 50 mg daily Lasix 80 mg daily Atorvastatin 20 mg p.o. nightly Lisinopril 10 mg daily #COPD #Tobacco use disorder ? Patient states she has decreased her smoking from 4 PPD to half PPD. Nicotine patches ordered as needed, smoking cessation discussed. DuoNebs ordered every 6 hours as needed for shortness of breath, continue Spiriva daily. Lungs CTA on exam. #IBS: Patient endorses having IBS, takes Linzess daily. Continue Linzess 290 mcg daily. #Chronic pain: Patient states she has chronic hip pain, plans for hip replacement when her A-fib is better controlled. Percocet 1 tab every 8 hours as needed for moderate to severe pain. #Morbid obesity: Patient BMI 42, discussed left modifications. Complicates all aspects of care. Total time spent on discharge 32 minutes in counseling, documentation, chart review, and direct care with patient. Exam Data for Last 24 hours Vital signs and Labs for Last 24 Hours: Temp Pulse Resp BP Pulse Ox O2 Del Method 98.3 F 85 17 124/71 100 Room Air 02/25/25 08:00 02/25/25 08:00 02/25/25 08:00 02/25/25 08:00 02/25/25 08:00 02/25/25 08:23 Laboratory Results - last 24 hr 02/24/25 11:31: WBC 8.4, RBC 4.83, Hgb 13.2, Hct 41.9, MCV 86.7, MCH 27.3, MCHC 31.5 L, RDW 19.1 H, Plt Count 317, MPV 10.8 H, Neut % (Auto) 75.0, Lymph % (Auto) 18.4, [place] % (Auto) 5.0, Eos % (Auto) 0.6, Baso % (Auto) 0.5, Neut # (Auto) 6.3, Lymph # (Auto) 1.6, [place] # (Auto) 0.4, Eos # (Auto) 0.1, Baso # (Auto) 0.0, ESR 20, PT 12.1, INR 1.10, APTT 30.2, VBG pH 7.37, VBG pCO2 42.7, VBG pO2 40.8 H, VBG HCO3 24.3, VBG Total CO2 25.6, VBG O2 Saturation 75.3 H, VBG Base Excess -0.9, VBG Lactic Acid 2.4 H, Sodium 141, Potassium 3.2 L, Chloride 105, Carbon Dioxide 26, Anion Gap 13.2, BUN 14, Creatinine 0.80, Estimated Creat Clear 57, Estimated GFR 72, Est GFR ( Amer) 87, Glucose 141 H, Hemoglobin A1c 5.9, Calcium 9.4, Magnesium 1.9, Total Bilirubin 0.6, AST 31, ALT 23, Alkaline Phosphatase 130 H, Total Creatine Kinase 53, Troponin I < 0.01, C-Reactive Protein 19.4 H, NT-Pro-B Natriuret Pep 1360 H, Total Protein 7.4, Albumin 4.2, Globulin 3.2, Albumin/Globulin Ratio 1.3, Lipase 11 L, TSH 0.38 L, HCV Ab MEEK w/Rflx PCR Qn Negative, HIV Ag/Ab Combo Qual Negative 02/24/25 11:35: Chlamy pneumoniae PCR Not detected, Adenovirus (PCR) Not detected, B. pertussis DNA (PCR) Not detected, Coronavirus OC43 (PCR) Not detected, Coronavirus HKU1 (PCR) Not detected, Coronavirus 229E (PCR) Not detected, SARS-CoV-2 (PCR) Not detected 02/24/25 11:35: SARS-CoV-2 (PCR) Not detected, Coronavirus NL63 (PCR) Not detected, Human Metapneumovir PCR Not detected, Influenza A (H1) PCR Not detected, Influ A (H1N1/09) PCR Not detected, Influenza A (H3) PCR Not detected, Influenza Type A (PCR) Not detected, Influenza A Untype (PCR) Not detected, Influenza Type B (PCR) Not detected 02/24/25 11:35: Influenza Type B (PCR) Not detected, M. pneumoniae (PCR) Not detected, Parainfluenza 1 (PCR) Not detected, Parainfluenza 2 (PCR) Not detected, Parainfluenza 3 (PCR) Not detected, Parainfluenza 4 (PCR) Not detected, RSV (PCR) Not detected, Entero/Rhino (PCR) Not detected 02/24/25 12:31: Urine Color Yellow, Urine Appearance Clear, Urine pH 7.0, Ur Specific [place] 1.010, Urine Protein Negative, Urine Glucose (UA) Negative, Urine Ketones Negative, Urine Blood Trace-i, Urine Nitrate Negative, Urine Bilirubin Negative, Urine Urobilinogen 0.2, Ur Leukocyte Esterase Negative, Urine RBC None, Urine WBC Occasional, Ur Squamous Epith Cells Occasional, Urine Bacteria Trace 02/24/25 14:42: Troponin I < 0.01 02/24/25 16:23: Lactate 1.6 02/24/25 17:55: Troponin I < 0.01 02/25/25 05:56: WBC 10.1, RBC 4.69, Hgb 12.5, Hct 39.9, MCV 85.1, MCH 26.7 L, MCHC 31.3 L, RDW 19.2 H, Plt Count 320, MPV 11.3 H, Neut % (Auto) 82.2 H, Lymph % (Auto) 12.4, [place] % (Auto) 4.6, Eos % (Auto) 0.0 L, Baso % (Auto) 0.1, Neut # (Auto) 8.3 H, Lymph # (Auto) 1.3, [place] # (Auto) 0.5, Eos # (Auto) 0.0, Baso # (Auto) 0.0, Sodium 141, Potassium 3.9 D, Chloride 104, Carbon Dioxide 27, Anion Gap 13.9, BUN 14, Creatinine 0.70, Estimated Creat Clear 57, Estimated GFR 84, Est GFR ( Amer) 102, Glucose 136 H, Calcium 9.1, Magnesium 2.2 D, Triglycerides 88, Cholesterol 156, LDL Cholesterol Direct 94.69 L, VLDL Cholesterol 18, HDL Cholesterol 46, Cholesterol/HDL Ratio 3.4 I & O for Last 24 hours: Intake & Output 02/22/25 02/23/25 02/24/25 02/25/25 23:59 23:59 23:59 23:59 Intake Total 170 / 410 240 / 240 Output Total 0 / 0 300 / 300 Balance 170 / 410 -60 / -60 Weight 126.779 kg 126.643 kg Constitutional Constitutional: no acute distress, morbidly obese, chronically ill appearing and cooperative *Routine HEENT Exam Head: Present normocephalic Eye: Present EOMI and PERRL ENT: Present mucous membranes moist *Routine Neck Exam Neck: Present supple; Absent lymphadenopathy *Routine Respiratory Exam Respiratory: Present CTA bilaterally, rhonchi and wheezes; Absent crackles *Routine Cardiovascular Exam Cardiovascular: Present irregularly irregular *Routine Abdominal Exam Abdominal: Present soft and normoactive bowel sounds; Absent tenderness *Routine Rectal Exam Patient deferred: visual exam *Routine Exam Patient deferred: external exam *Routine Extremities Exam Extremities: Absent cyanosis, clubbing or edema *Routine Skin Exam Skin: Present intact and warm; Absent rash *Routine Neurological Exam Neurological: Present alert, oriented X3 and moving all extremities; Absent altered mental status Results Data Completed and Pending Labs on day of discharge: Labs from last 24 hours 02/25/25 02/24/25 02/24/25 05:56 17:55 16:23 WBC 10.1 RBC 4.69 Hgb 12.5 Hct 39.9 MCV 85.1 MCH 26.7 L MCHC 31.3 L RDW 19.2 H Plt Count 320 MPV 11.3 H Neut % (Auto) 82.2 H Lymph % (Auto) 12.4 [place] % (Auto) 4.6 Eos % (Auto) 0.0 L Baso % (Auto) 0.1 Neut # (Auto) 8.3 H Lymph # (Auto) 1.3 [place] # (Auto) 0.5 Eos # (Auto) 0.0 Baso # (Auto) 0.0 ESR PT INR APTT VBG pH VBG pCO2 VBG pO2 VBG HCO3 VBG Total CO2 VBG O2 Saturation VBG Base Excess VBG Lactic Acid Sodium 141 Potassium 3.9 D Chloride 104 Carbon Dioxide 27 Anion Gap 13.9 BUN 14 Creatinine 0.70 Estimated Creat Clear 57 Estimated GFR 84 Est GFR ( Amer) 102 Glucose 136 H Hemoglobin A1c Lactate 1.6 Calcium 9.1 Magnesium 2.2 D Total Bilirubin AST ALT Alkaline Phosphatase Total Creatine Kinase Troponin I < 0.01 C-Reactive Protein NT-Pro-B Natriuret Pep Total Protein Albumin Globulin Albumin/Globulin Ratio Triglycerides 88 Cholesterol 156 LDL Cholesterol Direct 94.69 L VLDL Cholesterol 18 HDL Cholesterol 46 Cholesterol/HDL Ratio 3.4 Lipase TSH Urine Color Urine Appearance Urine pH Ur Specific [place] Urine Protein Urine Glucose (UA) Urine Ketones Urine Blood Urine Nitrate Urine Bilirubin Urine Urobilinogen Ur Leukocyte Esterase Urine RBC Urine WBC Ur Squamous Epith Cells Urine Bacteria Chlamy pneumoniae PCR Adenovirus (PCR) B. pertussis DNA (PCR) Coronavirus OC43 (PCR) Coronavirus HKU1 (PCR) Coronavirus 229E (PCR) SARS-CoV-2 (PCR) Coronavirus NL63 (PCR) HCV Ab MEEK w/Rflx PCR Qn HIV Ag/Ab Combo Qual Human Metapneumovir PCR Influenza A (H1) PCR Influ A (H1N1/09) PCR Influenza A (H3) PCR Influenza Type A (PCR) Influenza A Untype (PCR) Influenza Type B (PCR) M. pneumoniae (PCR) Parainfluenza 1 (PCR) Parainfluenza 2 (PCR) Parainfluenza 3 (PCR) Parainfluenza 4 (PCR) RSV (PCR) Entero/Rhino (PCR) 02/24/25 02/24/25 02/24/25 14:42 12:31 11:35 WBC RBC Hgb Hct MCV MCH MCHC RDW Plt Count MPV Neut % (Auto) Lymph % (Auto) [place] % (Auto) Eos % (Auto) Baso % (Auto) Neut # (Auto) Lymph # (Auto) [place] # (Auto) Eos # (Auto) Baso # (Auto) ESR PT INR APTT VBG pH VBG pCO2 VBG pO2 VBG HCO3 VBG Total CO2 VBG O2 Saturation VBG Base Excess VBG Lactic Acid Sodium Potassium Chloride Carbon Dioxide Anion Gap BUN Creatinine Estimated Creat Clear Estimated GFR Est GFR ( Amer) Glucose Hemoglobin A1c Lactate Calcium Magnesium Total Bilirubin AST ALT Alkaline Phosphatase Total Creatine Kinase Troponin I < 0.01 C-Reactive Protein NT-Pro-B Natriuret Pep Total Protein Albumin Globulin Albumin/Globulin Ratio Triglycerides Cholesterol LDL Cholesterol Direct VLDL Cholesterol HDL Cholesterol Cholesterol/HDL Ratio Lipase TSH Urine Color Yellow Urine Appearance Clear Urine pH 7.0 Ur Specific [place] 1.010 Urine Protein Negative Urine Glucose (UA) Negative Urine Ketones Negative Urine Blood Trace-i Urine Nitrate Negative Urine Bilirubin Negative Urine Urobilinogen 0.2 Ur Leukocyte Esterase Negative Urine RBC None Urine WBC Occasional Ur Squamous Epith Cells Occasional Urine Bacteria Trace Chlamy pneumoniae PCR Adenovirus (PCR) B. pertussis DNA (PCR) Coronavirus OC43 (PCR) Coronavirus HKU1 (PCR) Coronavirus 229E (PCR) SARS-CoV-2 (PCR) Coronavirus NL63 (PCR) HCV Ab MEEK w/Rflx PCR Qn HIV Ag/Ab Combo Qual Human Metapneumovir PCR Influenza A (H1) PCR Influ A (H1N1) PCR Influenza A (H3) PCR Influenza Type A (PCR) Influenza A Untype (PCR) Influenza Type B (PCR) Not detected M. pneumoniae (PCR) Not detected Parainfluenza 1 (PCR) Not detected Parainfluenza 2 (PCR) Not detected Parainfluenza 3 (PCR) Not detected Parainfluenza 4 (PCR) Not detected RSV (PCR) Not detected Entero/Rhino (PCR) Not detected 02/24/25 02/24/25 02/24/25 11:35 11:35 11:31 WBC 8.4 RBC 4.83 Hgb 13.2 Hct 41.9 MCV 86.7 MCH 27.3 MCHC 31.5 L RDW 19.1 H Plt Count 317 MPV 10.8 H Neut % (Auto) 75.0 Lymph % (Auto) 18.4 [place] % (Auto) 5.0 Eos % (Auto) 0.6 Baso % (Auto) 0.5 Neut # (Auto) 6.3 Lymph # (Auto) 1.6 [place] # (Auto) 0.4 Eos # (Auto) 0.1 Baso # (Auto) 0.0 ESR 20 PT 12.1 INR 1.10 APTT 30.2 VBG pH 7.37 VBG pCO2 42.7 VBG pO2 40.8 H VBG HCO3 24.3 VBG Total CO2 25.6 VBG O2 Saturation 75.3 H VBG Base Excess -0.9 VBG Lactic Acid 2.4 H Sodium 141 Potassium 3.2 L Chloride 105 Carbon Dioxide 26 Anion Gap 13.2 BUN 14 Creatinine 0.80 Estimated Creat Clear 57 Estimated GFR 72 Est GFR ( Amer) 87 Glucose 141 H Hemoglobin A1c 5.9 Lactate Calcium 9.4 Magnesium 1.9 Total Bilirubin 0.6 AST 31 ALT 23 Alkaline Phosphatase 130 H Total Creatine Kinase 53 Troponin I < 0.01 C-Reactive Protein 19.4 H NT-Pro-B Natriuret Pep 1360 H Total Protein 7.4 Albumin 4.2 Globulin 3.2 Albumin/Globulin Ratio 1.3 Triglycerides Cholesterol LDL Cholesterol Direct VLDL Cholesterol HDL Cholesterol Cholesterol/HDL Ratio Lipase 11 L TSH 0.38 L Urine Color Urine Appearance Urine pH Ur Specific [place] Urine Protein Urine Glucose (UA) Urine Ketones Urine Blood Urine Nitrate Urine Bilirubin Urine Urobilinogen Ur Leukocyte Esterase Urine RBC Urine WBC Ur Squamous Epith Cells Urine Bacteria Chlamy pneumoniae PCR Not detected Adenovirus (PCR) Not detected B. pertussis DNA (PCR) Not detected Coronavirus OC43 (PCR) Not detected Coronavirus HKU1 (PCR) Not detected Coronavirus 229E (PCR) Not detected SARS-CoV-2 (PCR) Not detected Not detected Coronavirus NL63 (PCR) Not detected HCV Ab MEEK w/Rflx PCR Qn Negative HIV Ag/Ab Combo Qual Negative Human Metapneumovir PCR Not detected Influenza A (H1) PCR Not detected Influ A (H1N1/09) PCR Not detected Influenza A (H3) PCR Not detected Influenza Type A (PCR) Not detected Influenza A Untype (PCR) Not detected Influenza Type B (PCR) Not detected M. pneumoniae (PCR) Parainfluenza 1 (PCR) Parainfluenza 2 (PCR) Parainfluenza 3 (PCR) Parainfluenza 4 (PCR) RSV (PCR) Entero/Rhino (PCR) DS: Diagnosis Discharge Diagnosis (1) Atrial fibrillation with RVR: Status: Acute Code(s): I48.91 - Unspecified atrial fibrillation (2) (HFpEF) heart failure with preserved ejection fraction: Status: Acute Code(s): I50.30 - Unspecified diastolic (congestive) heart failure (3) Dyspnea: Status: Acute Code(s): R06.00 - Dyspnea, unspecified (4) Edema of both lower extremities: Status: Acute Code(s): R60.0 - Localized edema (5) Hypertension: Status: Chronic Code(s): I10 - Essential (primary) hypertension Qualifiers: Hypertension type: primary hypertension Qualified Code(s): I10 - Essential (primary) hypertension (6) COPD (chronic obstructive pulmonary disease): Status: Acute Code(s): J44.9 - Chronic obstructive pulmonary disease, unspecified (7) Tobacco use disorder: Status: Acute Code(s): F17.200 - Nicotine dependence, unspecified, uncomplicated (8) Obesity: Status: Chronic Code(s): E66.9 - Obesity, unspecified Qualifiers: Body mass index: BMI 45.0-49.9 Obesity classification: adult class 3 (BMI >= 40) Obesity type: due to excess calories Serious obesity comorbidity presence: with serious comorbidity Qualified Code(s): E66.813 - Obesity, class 3; E66.01 - Morbid (severe) obesity due to excess calories; Z68.42 - Body mass index [BMI] 45.0-49.9, adult (9) Chronic pain: Status: Acute Code(s): G89.29 - Other chronic pain Qualifiers: Chronic pain type: chronic pain syndrome Qualified Code(s): G89.4 - Chronic pain syndrome Meds Home Medications and Allergies Home Medications ?Medication ?Instructions ?Recorded ?Confirmed ?Type tiotropium bromide 18 mcg capsule 1 cap inhalation DAILY 08/05/24 02/24/25 History with inhalation device (Spiriva with HandiHaler) metoprolol succinate 100 mg 100 mg PO BID #180 tabs 09/14/24 02/24/25 Rx tablet,extended release 24 hr diltiazem HCl 240 mg 240 mg PO BID #60 caps 09/15/24 02/24/25 Rx capsule,extended release 24 hr (Cardizem CD) lisinopril 10 mg tablet 10 mg PO DAILY #90 tabs 10/14/24 02/24/25 Rx apixaban 5 mg tablet (Eliquis) 5 mg PO BID #60 tabs 12/07/24 02/24/25 Rx linaclotide 290 mcg capsule 290 mcg PO DAILY #30 caps 12/07/24 02/24/25 Rx spironolactone 25 mg tablet 25 mg PO DAILY #30 tabs 02/02/25 02/24/25 Rx tirzepatide (weight loss) 5 mg/0.5 5 mg (0.5 mL) SQ WEEKLY #2 mL 02/08/25 02/24/25 Rx mL subcutaneous pen injector (Zepbound) albuterol sulfate 90 mcg/actuation 2 puff inhalation QIDP PRN 02/24/25 02/24/25 History aerosol inhaler shortness of breath or wheezing oxycodone-acetaminophen 7.5 mg-325 1 tab PO Q8HP PRN Moderate Pain 02/24/25 02/24/25 History mg tablet (Percocet) (Scale Score 5-6) atorvastatin 20 mg tablet (Lipitor) 20 mg PO HS #30 tabs 02/25/25 Rx furosemide 80 mg tablet 80 mg PO DAILY 30 days #30 tabs 02/25/25 Rx New Prescriptions to Start Prescriptions: atorvastatin [Lipitor] Colton Samaniego furosemide Colton Samaniego Allergies Allergy/AdvReac Type Severity Reaction Status Date / Time codeine AdvReac Severe Stomach Verified 02/24/25 08:51 Pain sulfamethoxazole (From AdvReac Unknown Vomiting Verified 02/24/25 08:51 Bactrim) trimethoprim (From Bactrim) AdvReac Unknown Vomiting Verified 02/24/25 08:51 Discharge Plan Disposition Patient Disposition: Home, Self-Care Follow up Plan Follow up with: Timmy Galicia PA [Physician Offc Spec, Cardiology] - 03/17/25 10:45 am Yusuf Mack MD [Primary Care Provider, Family Practice] - 03/03/25 9:00 am Prescriptions/Medication Reconciliation: New furosemide 80 mg Tablet 80 mg PO DAILY 30 Days Qty: 30 0RF atorvastatin [Lipitor] 20 mg tablet 20 mg PO HS Qty: 30 0RF Continued lisinopril 10 mg tablet 10 mg PO DAILY Qty: 90 3RF Eliquis 5 mg tablet 5 mg PO BID Qty: 60 10RF linaclotide 290 mcg capsule 290 mcg PO DAILY Qty: 30 3RF tiotropium bromide [Spiriva with HandiHaler] 18 mcg capsule, w/inhalation device 1 cap inhalation DAILY Rx Instructions: puncture 1 cap using device; one dose = 2 inhalations metoprolol succinate 100 mg tablet extended release 24 hr 100 mg PO BID Qty: 180 3RF Zepbound 5 mg/0.5 mL pen injector 5 mg SQ WEEKLY Qty: 2 0RF diltiazem HCl [Cardizem CD] 240 mg capsule,extended release 24hr 240 mg PO BID Qty: 60 3RF spironolactone 25 mg tablet 25 mg PO DAILY Qty: 30 2RF oxycodone-acetaminophen [Percocet] 7.5-325 mg tablet 1 tab PO Q8HP PRN (Reason: Moderate Pain (Scale Score 5-6)) albuterol sulfate 90 mcg/actuation HFA aerosol inhaler 2 puff inhalation QIDP PRN (Reason: shortness of breath or wheezing) Discontinued furosemide [Lasix] 40 mg tablet 40 mg PO DAILY Qty: 60 2RF Problem Reconciliation Problems Reviewed?: Yes Patient Discharge Instructions ACTIVITY: Continue current activity DIET: continue same diet Patient Instructions: Heart Failure, DI for Atrial Fibrillation Print Language: Monegasque Providers Primary Care Provider: Yusuf Mack Admit Provider: Miryam Galicia Attending Provider: Colton Samaniego
--- NOTE | 2025-02-25 10:49 | P.CONCA_ITS ---
History of Present Illness History of Present Illness Consult date: 02/25/25 Requesting physician: Colton Samaniego Consult reason: shortness of breath Chief complaint: Shortness of breath and edema History of present illness: This is a 65-year-old white female who presented to the emergency department with complaints of shortness of breath, bilateral lower extremity edema and increased heart rate. She was seen in cardiology clinic yesterday and found to be in A-fib with RVR and having acute on chronic exacerbation of her HFpEF. The patient was directed to go to the emergency department for further evaluation. She was treated with IV Lasix and states she feels so much better today. When she got to the emergency department here she was still in A-fib but was rate controlled. She was just restarted on her medications for atrial fibrillation and has remained rate controlled. She states that she feels so much better since getting IV diuretics overnight. This morning she denies any chest pain or pressure. She states she is feeling much better and is ready to go home. [facility] Disclaimer: The information contained in this section may have been updated after the patient was seen, as this information can be updated by other users. Medical History (Updated 02/25/25 @ 10:55 by Ainsley Zuleta APRN) Acute on chronic heart failure with preserved ejection fraction (HFpEF) Atrial fibrillation with RVR Cellulitis of left lower extremity IFG (impaired fasting glucose) Atrial fibrillation with RVR Edema of both lower extremities Coronary artery disease Family history of early CAD Smoker Palpitations Orthopnea Edema SOB (shortness of breath) on exertion Chest pain Paroxysmal atrial fibrillation Tobacco abuse Right cataract Hypercholesteremia Hypertension Chronic pain Erosive osteoarthritis of multiple sites Surgical History S/P cardiac cath Hx of appendectomy Hx of shoulder surgery Hx of hysterectomy Hx of cholecystectomy Family History Mother Cancer Breast cancer Heart attack Social History (Updated 02/24/25 @ 15:33 by Raine Elias RN) Smoking Status: Current every day smoker alcohol intake: never current occupational status: employed Travel in the last 8 weeks?: None Have you lived/traveled outside US in past 30 days?: No Contact w/someone who lives/traveled outside US past 30 days?: No Exposure to someone with infectious disease in past 14 days?: No Do you have a fever (greater than 100.4 F or 38 C)?: No Have you tested positive for COVID-19?: No Exposed to someone with COVID-19 in past 14 days?: No Do you have a sore throat?: No Do you have a cough?: No Do you have any weakness?: No Are you experiencing any nausea/vomitting?: No Do you have any diarrhea?: No Are you experiencing any unusual bleeding?: No Do you have any muscle aches/pain?: No Do you have any abdominal pain?: No Are you experiencing loss of taste or smell?: No Review of Systems Review of Systems Review of systems:: pertinent systems reviewed and negative unless documented below Constitutional Constitutional: Reports system reviewed and no additional complaints, except as documented Eyes Eyes: Reports system reviewed and no additional complaints, except as documented ENT Ears, Nose, Mouth, and Throat: Denies dizziness *Cardiovascular Cardiovascular: Reports system reviewed and no additional complaints, except as documented, Reports dyspnea on exertion and Reports palpitations *Respiratory Respiratory: Reports system reviewed and no additional complaints, except as documented and Reports dyspnea on exertion *Gastrointestinal Gastrointestinal: Reports system reviewed and no additional complaints, except as documented *Genitourinary Genitourinary: Reports system reviewed and no additional complaints, except as documented *Musculoskeletal Musculoskeletal: Reports system reviewed and no additional complaints, except as documented Integumentary/Breasts Skin/Breast: Reports system reviewed and no additional complaints, except as documented *Neurologic Neurologic: Denies dizziness and Denies localized weakness Psychiatric Psychiatric: Reports system reviewed and no additional complaints, except as documented Endocrine Endocrine: Reports system reviewed and no additional complaints, except as documented and Reports palpitations Hematologic/Lymphatic Hematologic/Lymphatic: Reports system reviewed and no additional complaints, except as documented Allergic/Immunologic Allergic/Immunologic: Reports system reviewed and no additional complaints, except as documented Exam Data for Last 24 hours Vital signs and Labs for Last 24 Hours: Temp Pulse Resp BP Pulse Ox O2 Del Method 98.3 F 85 17 124/71 100 Room Air 02/25/25 08:00 02/25/25 08:00 02/25/25 08:00 02/25/25 08:00 02/25/25 08:00 02/25/25 09:53 Laboratory Results - last 24 hr 02/24/25 11:31: WBC 8.4, RBC 4.83, Hgb 13.2, Hct 41.9, MCV 86.7, MCH 27.3, MCHC 31.5 L, RDW 19.1 H, Plt Count 317, MPV 10.8 H, Neut % (Auto) 75.0, Lymph % (Aut o) 18.4, Falls % (Auto) 5.0, Eos % (Auto) 0.6, Baso % (Auto) 0.5, Neut # (Auto) 6.3, Lymph # (Auto) 1.6, Falls # (Auto) 0.4, Eos # (Auto) 0.1, Baso # (Auto) 0.0, ESR 20, PT 12.1, INR 1.10, APTT 30.2, VBG pH 7.37, VBG pCO2 42.7, VBG pO2 40.8 H , VBG HCO3 24.3, VBG Total CO2 25.6, VBG O2 Saturation 75.3 H, VBG Base Excess - 0.9, VBG Lactic Acid 2.4 H, Sodium 141, Potassium 3.2 L, Chloride 105, Carbon Dioxide 26, Anion Gap 13.2, BUN 14, Creatinine 0.80, Estimated Creat Clear 57, Estimated GFR 72, Est GFR ( Amer) 87, Glucose 141 H, Hemoglobin A1c 5.9, Calcium 9.4, Magnesium 1.9, Total Bilirubin 0.6, AST 31, ALT 23, Alkaline Phosphatase 130 H, Total Creatine Kinase 53, Troponin I < 0.01, C-Reactive Protein 19.4 H, NT-Pro-B Natriuret Pep 1360 H, Total Protein 7.4, Albumin 4.2, Globulin 3.2, Albumin/Globulin Ratio 1.3, Lipase 11 L, TSH 0.38 L, HCV Ab MEEK w/Rflx PCR Qn Negative, HIV Ag/Ab Combo Qual Negative 02/24/25 11:35: Chlamy pneumoniae PCR Not detected, Adenovirus (PCR) Not detected, B. pertussis DNA (PCR) Not detected, Coronavirus OC43 (PCR) Not detected, Coronavirus HKU1 (PCR) Not detected, Coronavirus 229E (PCR) Not detected, SARS-CoV-2 (PCR) Not detected 02/24/25 11:35: SARS-CoV-2 (PCR) Not detected, Coronavirus NL63 (PCR) Not detected, Human Metapneumovir PCR Not detected, Influenza A (H1) PCR Not detected, Influ A (H1N1/09) PCR Not detected, Influenza A (H3) PCR Not detected, Influenza Type A (PCR) Not detected, Influenza A Untype (PCR) Not detected, Influenza Type B (PCR) Not detected 02/24/25 11:35: Influenza Type B (PCR) Not detected, M. pneumoniae (PCR) Not detected, Parainfluenza 1 (PCR) Not detected, Parainfluenza 2 (PCR) Not detected, Parainfluenza 3 (PCR) Not detected, Parainfluenza 4 (PCR) Not detected, RSV (PCR) Not detected, Entero/Rhino (PCR) Not detected 02/24/25 12:31: Urine Color Yellow, Urine Appearance Clear, Urine pH 7.0, Ur Specific [place] 1.010, Urine Protein Negative, Urine Glucose (UA) Negative, Urine Ketones Negative, Urine Blood Trace-i, Urine Nitrate Negative, Urine Bilirubin Negative, Urine Urobilinogen 0.2, Ur Leukocyte Esterase Negative, Urine RBC None, Urine WBC Occasional, Ur Squamous Epith Cells Occasional, Urine Bacteria Trace 02/24/25 14:42: Troponin I < 0.01 02/24/25 16:23: Lactate 1.6 02/24/25 17:55: Troponin I < 0.01 02/25/25 05:56: WBC 10.1, RBC 4.69, Hgb 12.5, Hct 39.9, MCV 85.1, MCH 26.7 L, MCHC 31.3 L, RDW 19.2 H, Plt Count 320, MPV 11.3 H, Neut % (Auto) 82.2 H, Lymph % (Auto) 12.4, Falls % (Auto) 4.6, Eos % (Auto) 0.0 L, Baso % (Auto) 0.1, Neut # (Auto) 8.3 H, Lymph # (Auto) 1.3, Falls # (Auto) 0.5, Eos # (Auto) 0.0, Baso # (Auto) 0.0, Sodium 141, Potassium 3.9 D, Chloride 104, Carbon Dioxide 27, Anion Gap 13.9, BUN 14, Creatinine 0.70, Estimated Creat Clear 57, Estimated GFR 84, Est GFR ( Amer) 102, Glucose 136 H, Calcium 9.1, Magnesium 2.2 D, Triglycerides 88, Cholesterol 156, LDL Cholesterol Direct 94.69 L, VLDL Cholesterol 18, HDL Cholesterol 46, Cholesterol/HDL Ratio 3.4 I & O for Last 24 hours: Intake & Output 02/22/25 02/23/25 02/24/25 02/25/25 23:59 23:59 23:59 23:59 Intake Total 170 / 410 240 / 240 Output Total 0 / 0 800 / 800 Balance 170 / 410 -560 / -560 Weight 279 lb 8 oz 279 lb 3.2 oz Constitutional Constitutional: no acute distress and average body habitus *Routine HEENT Exam Head: Present normocephalic and atraumatic ENT: Present mucous membranes moist *Routine Neck Exam Neck: Present supple, full ROM and normal carotid upstroke; Absent JVD, carotid bruit or lymphadenopathy *Routine Respiratory Exam Respiratory: Present CTA bilaterally, normal respiratory effort, able to speak in complete sentences and symmetric chest movement *Routine Cardiovascular Exam Cardiovascular: Present Normal S1, Normal S2 and irregularly irregular; Absent murmur or gallop *Routine Abdominal Exam Abdominal: Present soft and normoactive bowel sounds; Absent tenderness, distended or organomegaly *Routine Extremities Exam Extremities: Present full ROM, pulses intact and normal capillary refill; Absent cyanosis, clubbing or edema *Routine Skin Exam Skin: Present intact and warm; Absent erythema *Routine Neurological Exam Neurological: Present alert, oriented X3 and CN II-XII intact; Absent sensory deficit or motor deficit Routine Psychiatric Exam Psychiatric: Present normal affect Meds Home Medications and Allergies Home Medications ?Medication ?Instructions ?Recorded ?Confirmed ?Type tiotropium bromide 18 mcg capsule 1 cap inhalation BROOKE LY 08/05/24 02/24/25 History with inhalation device (Spiriva with HandiHaler) metoprolol succinate 100 mg 100 mg PO BID #180 tabs 02/24/25 Rx tablet,extended release 24 hr diltiazem HCl 240 mg 240 mg PO BID #60 caps 09/1502/24/25 Rx capsule,extended release 24 hr (Cardizem CD) lisinopril 10 mg tablet 10 mg PO DAILY #90 tabs /02/24/25 Rx apixaban 5 mg tablet (Eliquis) 5 mg PO BID #60 tabs 02/24/25 Rx linaclotide 290 mcg capsule 290 mcg PO DAILY #30 caps 12/07/24 02/24/25 Rx furosemide 40 mg tablet (Lasix) 40 mg PO DAILY #60 tab s 02/02/25 02/24/25 Rx spironolactone 25 mg tablet 25 mg PO DAILY #30 tabs 02/24/25 Rx tirzepatide (weight loss) 5 mg/0.5 5 mg (0.5 mL) SQ WE EKLY #2 mL 02/08/25 02/24/25 Rx mL subcutaneous pen injector (Zepbound) albuterol sulfate 90 mcg/actuation 2 puff inhalation Q IDP PRN 02/24/25 02/24/25 History aerosol inhaler shortness of breath or wheez ing oxycodone-acetaminophen 7.5 mg-325 1 tab PO Q8HP PRN M oderate Pain 02/24/25 02/24/25 History mg tablet (Percocet) (Scale Score 5-6) New Prescriptions to Start Prescriptions: Allergies Allergy/AdvReac Type Severity Reaction Status Date / Time codeine AdvReac Severe Stomach Verified 02/24/25 08:51 Pain sulfamethoxazole (From AdvReac Unknown Vomiting Verified 02/24/25 08:51 Bactrim) trimethoprim (From Bactrim) AdvReac Unknown Vomiting Verified 02/24/25 08:51 Assessment and Plan *Assessment and plan (1) A-fib: Status: Acute Qualifiers: Atrial fibrillation type: unspecified chronic Qualified Code(s): I48.20 - Chronic atrial fibrillation, unspecified Category: Medical Code(s): I48.91 - Unspecified atrial fibrillation (2) Acute on chronic heart failure with preserved ejection fraction (HFpEF): Status: Acute Category: Medical Code(s): I50.33 - Acute on chronic diastolic (congestive) heart failure (3) Dyspnea: Status: Acute Qualifiers: Dyspnea type: dyspnea on exertion Qualified Code(s): R06.09 - Other forms of dyspnea Category: Medical Code(s): R06.00 - Dyspnea, unspecified (4) COPD (chronic obstructive pulmonary disease): Status: Acute Qualifiers: COPD type: unspecified COPD Qualified Code(s): J44.9 - Chronic obstructive pulmonary disease, unspecified Category: Medical Code(s): J44.9 - Chronic obstructive pulmonary disease, unspecified (5) Tobacco use disorder: Status: Acute Category: Medical Code(s): F17.200 - Nicotine dependence, unspecified, uncomplicated (6) Coronary artery disease: Status: Chronic Qualifiers: Coronary Disease-Associated Artery/Lesion type: [place] artery [place] vs. transplanted heart: [place] heart Associated angina: with stable angina Qualified Code(s): I25.118 - Atherosclerotic heart disease of [place] coronary artery with other forms of angina pectoris Category: Medical Code(s): I25.10 - Atherosclerotic heart disease of [place] coronary artery without angina pectoris (7) Hypertension: Status: Chronic Qualifiers: Hypertension type: primary hypertension Qualified Code(s): I10 - Essential (primary) hypertension Category: Medical Code(s): I10 - Essential (primary) hypertension (8) Hypercholesteremia: Status: Acute Category: Medical Code(s): E78.00 - Pure hypercholesterolemia, unspecified Plan Plan: 1. The patient presented to the hospital with complaints of shortness of breath and edema. She is being diuresed with IV Lasix for acute on chronic HFpEF. She states her edema and shortness of breath have significantly improved and she is feeling much better. Will change her Lasix to 80 mg p.o. daily and increase her spironolactone to 50 mg p.o. daily for continued diuresis. 2. The patient ruled out for an ME. No plans for invasive left cardiac catheterization at this time. 3. The patient is rate controlled in atrial fibrillation. Continue metoprolol and diltiazem for rate control. 4. Continue Eliquis for anticoagulation secondary to atrial fibrillation. 5. Her blood pressure is well-controlled. 6. Her LDL goal is less than 55. Her LDL is 94. Start Lipitor 20 mg p.o. nightly. 7. No further recommendations at this time from a cardiac standpoint. The patient can be discharged home today from a cardiac standpoint with follow-up in cardiology clinic in 1 to 2 weeks on an outpatient basis. The patient will need to be discharged on the following cardiac medications: Eliquis 5 mg twice daily Diltiazem ER 240 mg twice daily Toprol XL 100 mg twice daily Spironolactone 50 mg daily Lasix 80 mg daily Atorvastatin 20 mg p.o. nightly Lisinopril 10 mg daily Thank you for the opportunity to help participate in the care of this patient. All recommendations and orders are per Dr. Bullock.
[2025-02-25] MEDS: ACETAMINOPHEN 325MG TAB 650 MG PO (12:06)
--- NOTE | 2025-02-26 09:25 | CARE MANAGER ---
Unable to reach patient via phone to discuss recent discharge, left dolores CARUSO.
== END 2025-02-25 12:15 | disposition home or self-care (01) ==
LOC: ER 14:17 → 2ND 14:31
PROVIDERS: Nurse Practitioner; Emergency Provider Emergency Medicine; PCP Family Medicine; Responsible Provider Internal Medicine Adolescent Medicine; Visit Provider Internal Medicine Adolescent Medicine
DX: I48.20 Chronic atrial fibrillation, unspecified (principal); I11.0 Hypertensive heart disease with heart failure; I50.33 Acute on chronic diastolic (congestive) heart failure; J44.9 Chronic obstructive pulmonary disease, unspecified; F17.200 Nicotine dependence, unspecified, uncomplicated; E66.01 Morbid (severe) obesity due to excess calories; Z68.42 Body mass index [BMI] 45.0-49.9, adult; G89.4 Chronic pain syndrome; I25.118 Atherosclerotic heart disease of native coronary artery with other forms of angina pectoris; E78.00 Pure hypercholesterolemia, unspecified; Z82.49 Family history of ischemic heart disease and other diseases of the circulatory system; Z90.49 Acquired absence of other specified parts of digestive tract; Z90.710 Acquired absence of both cervix and uterus; Z88.5 Allergy status to narcotic agent; Z88.2 Allergy status to sulfonamides; Z79.899 Other long term (current) drug therapy; Z79.01 Long term (current) use of anticoagulants; G47.33 Obstructive sleep apnea (adult) (pediatric); K58.9 Irritable bowel syndrome, unspecified
CPT/HCPCS: 0223U; 36415; 71275; 80048; 80053; 80061; 81001; 82550; 82803; 83036; 83605; 83690; 83735; 83880; 84443; 84484; 85025; 85610; 85651; 85730; 86140; 86803; 87040; 87086; 87389; 87636; 93005; 93306; 99285; G0378; J1100; J1938; J3475; Q9967

== ENCOUNTER 2025-03-01 08:13 | Outpatient (CLI) | payer MEDICARE, SELFPAY ==
--- OUTSIDE RECORDS SUMMARY | 2015-01-14 09:00 | XMS_ITS | Continuity of Care Document ---
Author Organization [facility] Address [address] [place] [address] Phone Care Team Providers Care Occupational Health Physiotherapist Name Role Phone Ti Rice DO Unavailable Unavailable Allergies, Adverse Reactions, Alerts Substance Reaction Status Criticality No Known Allergies Active No Inform ation Medications Medication Instructions Dosage Effective Dates (start - stop) Status Comments nicotine 21 mg/24 hr daily transdermal patch apply 1 patch by transdermal route every day and remove at bedtime 21 MG - Active gabapentin 100 mg capsule take 1 capsule by oral route 3 times every day 100 MG - Active Procedures Procedure Date OFFICE VISIT/[facility] LEVEL III Advance Directives Directive Yes / No Effective Date File Name No Information Encounters Encounter Description Practice Location Reason(s) For Visit Diagnoses Date Provider Providers Copied on Encounter OFFICE VISIT/NEW LEVEL III [facility], [address], [place], [place], [id number], [place] tel:[phone] [facility] Est Care (chief complaint) Breast pain (chief complaint) musculoske letal pain (chief complaint) SmokerObesity (BMI 30-39.9)Musculosk eletal painCostochondrit is 0-201 5 Krystal Jack. [address] [place], [place], [id number] , [place]. tel:[phone] Family History Family Member Type Diagnosis Age At Onset Mother Problem (finding) diabetes mellitus type 2 Mother Problem (finding) Cardiovascular disease Payers Payer name Insurance type Covered libertarian ID Authoriza tion(s) HSO 75 Discount SFS [id number] Social History Type Description Quantity Date Captured Comments Alcohol Use Details No Caffeine Use Details coffee 4 cups per day Tobacco Use Status Heavy cigarette smok er (20-39 cigs/day) Smoking Status Heavy tobacco smoker Smoking Tobacco Use Details Cigarette: No Details Available Cigarette: 1 Packs per day Sex Female Vital Signs Date / Time: Height Weight BMI Pulse Rate Blood Pressure Temperature Respiratory Rate Body Surface Area Head Circumference Head Circ. Percentile Wt./Rodger. Percentile BMI percentile Pulse Ox Inhaled Ox 1:55 PM 68.00 in 117.934 kg (260.00 lbs) 39.5 3 kg/m eter (2) 138/78 mm[Hg] 98.10 F Chief Complaint And Reason For Visit From encounter dated '01/14/2015 14:00'. Est Care (chief complaint). Description: pt is here to est care has not seen someone in years..ce Patient is currently taking care of who is a vegetable . Breast pain (chief complaint). Description: There is no radiation. Location is right breast: lower outer quadrant(s) and left breast: lower outer quadrant(s). The patient describes it as sharp. Associated symptoms include breast pain. Pertinent negatives include asymmetry, bloody discharge, clear discharge, dimpling, discharge, greenish discharge, milky discharge, nipple itching and nipple retraction. Additional information: Patient states breath hurts and has to wear a bra all the time. Patient states when breast hang she feels like something is throbbing. musculoskeletal pain (chief complaint). Description: Onset: 1 year ago. Severity level is severe. It occurs constantly and is worsening. Location: bilateral Back. The pain radiates to the thighs bilaterally. The pain is aching, dull and throbbing. Context: there is no injury. The pain is aggravatedby lifting, walking and standing. There are no relieving factors. Associated symptoms include decreased mobility, limping, numbness, spasms, tingling in the arms, tingling in the legs and weakness. Pertinent negatives include bruising and locking. Additional information: Pt takes care of her and hurts all over..ce Patient states aches all over and has throbbing into her legs. Patient states ibuprofen and aspirin do not work. Reason For Referral Reason For Referral No Information Plan Of Treatment Date Type Action Status Goal PAP. Due on due Goal COLONOSCOPY/DX. Due on due Goal Tdap. Due on due Goal Mammogram. Due on 5 due Goal Breast exam. Due on 015 due Goal BL OCCULT,FECES- PEROX ACT-MULT.SPEC. Due on due Goal Pap/HPV testing. Due on due Goal Fluzone Quad Syringe. Due on due Goal Depression screening. Due on due Future Order: Lab Order Comp. Me tabolic Panel (14) ([id number]), Scheduled for: Ordered Future Order: Lab Order Lipid Pa florentino ([id number]), Scheduled for: Ordered Future Order: Lab Order TSH ([id number]), Merline eduled for: Ordered History Of Present Illness Encounter Date Complaint History Of Prese nt Illness Breast pain There is no radi ation. Location is right breast: lower outer quadrant(s) and left breast: lower outer quadrant(s). The patient describes it as sharp. Associated symptoms include breast pain. Pertinent negatives include asymmetry, bloody discharge, clear discharge, dimpling, discharge, greenish discharge, milky discharge, nipple itching and nipple retraction. Additional information: Patient states breath hurts and has to wear a bra all the time. Patient states when breast hang she feels like something is throbbing. musculoskeletal pain Onset: 1 ye ar ago. Severity level is severe. It occurs constantly and is worsening. Location: bilateral Back. The pain radiates to the thighs bilaterally. The pain is aching, dull and throbbing. Context: there is no injury. The pain is aggravated by lifting, walking and standing. There are no relieving factors. Associated symptoms include decreased mobility, limping, numbness, spasms, tingling in the arms, tingling in the legs and weakness. Pertinent negatives include bruising and locking. Additional information: Pt takes care of her and hurts all over..ce Patient states aches all over and has throbbing into her legs. Patient states ibuprofen and aspirin do not work. musculoskeletal pain (comments) Patient has been taking ibuprofen every 6 hours for a year. Breast pain (comments) Patient s tates when squeezes them she sees nothing but stars. Patient states as long as breasts are in bra she is fine. Est Care pt is here to es t care has not seen someone in years..ce Patient is currently taking care of who is a vegetable . Functional Status Date Functional Assessmen t No Information Instructions Date Instruction Additional Infor mation Patient started on g abapentin 100mg TID. Patient advised on rest and stretches daily. Patient will follow up in 1 month. Related to Musculoskeletal pain Patient started on n icotine 21mg/24hr patch once daily. Related to Smoker See above. Related to Costo chondritis Patient will get lab s next week and will get called back in 3-5 days after blood draw. Related to Obesity (BMI 30-39.9) Assessments Type Assessment Date assessment Smoker assessment Obesity (BMI 30-39.9) 5 assessment Musculoskeletal pain assessment Costochondritis Mental Status Date Cognitive Assessment Orientation - [place] ed to time, place, person, situation. Patient Care Teams Name Effective Dates (start - stop) Status Members No Information
[2025-03-01 15:43] LABS: Alanine Aminotransferase 21 U/L (12-78); Albumin Level 3.8 g/dl (3.5-5.0); Albumin/Globulin Ratio 1.4 (1.1-1.8); Alkaline Phosphatase 120 U/L (38-126); Anion Gap 8.9 mEq/L (5-15); Aspartate Amino Transferase 20 U/L (14-36); Bilirubin,Total 0.6 mg/dl (0.2-1.3); Blood Urea Nitrogen 17 mg/dl (7-17); Calcium 9.0 mg/dl (8.4-10.2); Carbon Dioxide 29 mmol/L (22.0-30.0); Chloride 105 mmol/L (98-107); Creatinine,Serum 0.90 mg/dl (0.52-1.04); Estimated Glomerular Filt Rate 63 ml/min (>60); GFR (African American) 76 ML/MIN (>60); Globulin 2.7 g/dL (1.3-3.2); Glucose 106 mg/dl (74-100); Potassium 3.9 mmoL/L (3.5-5.1); Sodium 139 mmol/L (136-145); Total Protein,Serum 6.5 g/dl (6.3-8.2)
--- OUTSIDE RECORDS SUMMARY | 2025-03-03 08:16 | XMS_ITS | Clinical Summary ---
Author Organization [facility] Address [facility] [place] [address] Phone Care Team Providers Care Echo Technologist Name Role Phone Sabine Telles MD [facility] [phone] Conditions or Problems No information available. Medications No information available. Medications Administered No information available. Allergies, Adverse Reactions, Alerts No information available. Results No information available. Plan of Care No information available. Procedures No information available. Vital Signs No information available. Immunizations No information available. Advance Directives No information available.
--- OUTSIDE RECORDS SUMMARY | 2025-03-03 08:16 | XMS_ITS | Encounter Summary ---
Author Organization [place] [address] Care Team Providers Care Welding Machine Operator Submerged Arc Name Role Phone Darshana Crews APRN Primary Care Provider [phone] Paula Ram RN Unavailable Unavaila Ketty Gutiérrez BEAMER OPERATOR Unavailable Unavail able Parul Arora RN Unavailable UnaMarianne Pereira Unavailable Unavailable Zunilda Morrell RN Unavailable Unavailable Reason for Visit * Reason Onset Date Comments [facility] 02/05/2019 Encounter Details Date Type Department Care Team (Late st Contact Info) Description 02/05/2019 Patient Outreach [facility] [address] [place] [id number] Darshana Crews APRN [address] [place] [id number] [facility] Social History Tobacco Use Types Packs/Day Years Used Date Smoking Tobacco: Every Day Cigarettes 1 46 Started: 03/18/1979 Smokeless Tobacco: Never Alcohol Use [...] documented as of this encounter Care Teams Welding Machine Operator Submerged Arc Relationship Specialty Start Date End Date Darshana Crews [place] [address] [place] [address] PCP - General Nurse Practitioner-Family 02/13/18 Paula Ram, RN Inspector Machine Cut Glass Registered Nurse 02/23/19 03/24/19 Ketty Estes LCSW Business Services Representative 10/29/19 07/28/20 Parul Arora, RN Inspector Machine [employer] Registered Nurse 04/26/20 06/07/20 Marianne Jorge Respiratory Therapist Respiratory Therapist, Registered 07/28/24 08/02/24 Zunilda Morrell RN Inspector Machine Cut Glass 07/31/24 08/02/24 documented as of this encounter
--- OUTSIDE RECORDS SUMMARY | 2025-03-03 08:16 | XMS_ITS | Clinical Summary ---
Author Organization [facility] Address [address] [place] [address] Phone Care Team Providers Care Pathology Tech Name Role Phone Darshana Crews APRN Primary Care Provider [phone] Allergies Active Allergy Reactions Criticality Noted Date [...] Additional Information Patient not taking.Reported on 10/07/2024 [facility] DeviceIndications: COVID-19 virus infection Pulse [...] migh t be different from the original. [facility] - Davide Fang MD Controlled Substance [...] or Functional capacity documented (EVERY VISIT) Pharmacy: [facility] [id number] [place] [address] - [address] [facility] [phone] [facility] additional info (Transportation, WC, Compound, No Show, [...] drip. TTE pending. Monitor on telemetry continue NOTE TELLER Eliquis. Discussed with cardiology and appreciate [...] AP PELVIS, 07/22/2018 3:00 PM CLINICAL HISTORY: N18-Hsji, [id number]-CM T14.90XA-Injury, unspecified, initial kvlufjzwg-[id number]-CM COMPARISON: 10/22/2016. PROCEDURE COMMENTS: AP view of [...] drip. TTE pending. Monitor on telemetry continue NOTE TELLER Eliquis. Discussed with cardiology and appreciate [...] school Work hx: Currently employed at a [email or web address]. Assessment & Plan (10/08/2019 11:28 AM EDT): [...] 12/23/2017 Overview (05/14/2018): Failed UDS at [facility]. Will not be getting Controlled substances with [...] Plan (07/27/2024 2:34 PM EDT): Will hold NOTE TELLER oral Cardizem and lisinopril as we [...] (08/09/2020): Added automatically from request for surgery [id number] Abnormal MRI of abdomen 08/09/202006/16 Overview (08/09/2020): Added automatically from request for surgery [id number] Swelling of left lower extremity 01/14/2020 07/13/2020 [...] d coccyx with routine healing 11/10/2015 04/05/2017 Immunizations Immunization Administration Dates Next Due Influenza [...] TUNNEL RELEASE; Surgeon: Davide Hall MD; Location: [facility] MAIN OR; Service: Orthopedics Medical devices from this surgery are in the Medical Devices section. CARPAL TUNNEL RELEASE 02/11/2019 Surgeon: Davide Hall MD; Location: [facility] MAIN OR; Service: Orthopedics Medical devices from this surgery are in the Medical Devices section. EYE SURGERY 03/08/2020 CATARACT EXTRACTION EXTRACAPSULAR W/ INTRAOCULAR LENS IMPLANTATION 09/05/[address] Peyton Raphael ERCP 05/25/2021 N/A Endoscopic Retrograde Cholangiopancreatography with sphincterotomy and stent placement and balloon sweep without removal of debri/calculi; Surgeon: Stanley Kirkpatrick MD; Location: [facility] ENDOSCOPY; Service: Endoscopy Medical devices from this [...] drink = 0.6 oz pur e alcohol) [facility] Utilities Answer Date Recorded In the past [...] Date Recorded PHQ-2 Total Score 0 07/27/2024 [facility] of Occupat ional Health - Occupational Stress [...] things needed for daily living? No 04/26/[address] [facility] IP Transportation Answer D ate Recorded [...] 01/30/2005 RSV or 60+ (1 - Risk 50-74 years 1-dose series) 01/30/2010 Pneumococcal Vaccine 50+ (2 of 2 - PCV) 02/18/2020 02/17/2019 Zoster (2 of 2) 05/12/2020 03/17/2020 Breast Cancer Screening 05/12/2022 05/12/2020, 07/31 Annual Wellness Exam 07/05/2023 07/04/2022 Lipids 07/05/2023 07/04/2022, 06/16, 05/05/2021, Additional history exists COVID-19 Vaccine (2 - 2024- season) 2024 05/05/2021 Influenza Vaccine (#1) 2024 , 02/20/2019, 02/06/2017, Additional history exists Hemoglobin A1c 01/29/2025 07/29/2024, 08/16, 08/29/2022, Additional history exists Bone Density Screening 01/30/2025 Low Dose Lung Cancer Screening 07/27/2025 07/27/2024, [...] Bailey MA Medical Devices Implanted Type Area Internet Webmaster Device Identifier Shelf Expiration Date Model / Serial / Lot Stent Panc 1vry1uf Geenen 170/320cm Sprl Sh Tapr 0.018in Gw - [id number] Implanted:Qty: 1 on 05/25/2021 by Stanley Kirkpatrick MD at [facility] Stent COOK:ENDOSCOPY 07/23/2023 [id number] / / [id number] Peg Smooth Locking Radius 2.0mm X 19mm - [id number] Implanted:Qty: 2 on 02/11/2019 by Davide Hall MD at [facility] Left: Radius [employer] [id number] -TS / / Peg Smooth Locking Radius 2.0mm X 20mm - [id number] Implanted:Qty: 3 on 02/11/2019 by Davide Hall MD at [facility] Left: Radius [employer] SPLS- -TS / / Peg Locking High Compression 2.7mm X 20mm - [id number] Implanted:Qty: 1 on 02/11/2019 by Davide Hall MD at [facility] Left: Radius SLEEPMATE [id number] -TS / / Screw Cortical Locking 3.5mm X 13mm - [id number] Implanted:Qty: 2 on 02/11/2019 by Davide Hall MD at [facility] Left: Radius [employer] [id number] -TS / / Screw Cortical Non-Locking 3.5mm X 13mm - [id number] Implanted:Qty: 2 on 02/11/2019 by Davide Hall MD at [facility] Left: Radius [employer] PANL-93276 -TS / / Screw Cortical Non-Locking 3.5mm X 18mm - [id number] Implanted:Qty: 1 on 02/11/2019 by Davide Hall MD at [facility] Left: Radius [employer] PANL-76037 -TS / / Plate Robin Ti 120mm Geminus Bn Rds Lt Volr Dist Ns - [id number] Implanted:Qty: 1 on 02/11/2019 by Davide Hall MD at [facility] Left: Radius [employer] [id number] 0 / / Procedures Procedure Name Priority Date/Time Associated Diagnosis Comments BASIC METABOLIC PANEL Early AM 07/30/2024 6:50 [...] Recently Relevant to Health Maintenance Results * (ABNORMAL) BASIC METABOLIC PANEL (07/30/2024 6:50 AM EDT) Sodium 138 136 - 145 mmol/L 07/30/2024 7:39 AM EDT [facility] Potassium 4.6 3.5 - 5.0 mmol/L 07/30/2024 7:39 AM EDT [facility] Chloride 104 98 - 107 mmol/L 07/30/2024 7:39 AM EDT [facility] Total CO2 25 22 - 29 mmol/L 07/30/2024 7:39 AM EDT [facility] Anion Gap 9 7 - 16 mmol/L 07/30/2024 7:39 AM EDT [facility] Calcium 8.6(L) 8.8 - 10.4 mg/dL 07/30/2024 7:39 AM EDT [facility] Glucose Lvl 228(H) 70 - 99 mg/dL 07/30/2024 7:39 AM EDT [facility] BUN 45(H) 8 - 23 mg/dL 07/30/2024 7:39 AM EDT [facility] Creatinine 0.85 0.51 - 1.30 mg/dL 07/30/2024 7:39 AM EDT [facility] eGFR (CKD-EPIcr 2020) 76 >=60 mL/min/1.7 3 m2 07/30/2024 7:39 AM EDT [facility] Comment:Estimated GFR was ca lculated using the CKD-EPIcr (2020) equation refit without race. The equation is recommended by the National Kidney Foundation - [place] [employer] of Nephrology Task Force. Blood VENOUS BLOOD / Unknown Venipuncture / Unknown 07/30/2024 6:50 AM EDT 07/30/2024 7:16 AM EDT Zi Mar DO CHEMISTRY ORDERABLES Final Re sult Performing Organization Address City/[facility] Co de Phone Number [facility] [address] [place] [address] * (ABNORMAL) HEMOGLOBIN A1C (07/29/2024 6:51 AM EDT) Hgb A1C 6.7(H) 4.2 - 5.6 % 07/29/2024 7:11 PM EDT [facility] Est. Avg Glucose 146 mg/dL 07/29/2024 7:11 PM EDT [facility] Blood VENOUS BLOOD / Unknown Venipuncture / Unknown 07/29/2024 6:51 AM EDT 07/29/2024 7:14 AM EDT Narrative [facility] - 07/29/2024 7:11 PM EDT REFERENCE RANGE: [...] Organization Address City/[facility]/ZIP Co de Phone Number [facility] [address] [place] [address] , [place] [address] * CT CHEST WO CONTRAST (07/27/2024 3:50 PM EDT) Anatomical Region Laterality Modality Chest Computed Tomogra phy 07/27/2024 3:50 PM EDT Impressions 07/27/2024 5:20 PM EDT Mild patchy groundglass opacities and central pulmonary vascular prominence raises suspicion of mild CHF. Clearing of the previous consolidative opacities on the 2019 scan Emphysema and chronic bronchitis Moderate [place] coronary artery calcification Borderline mediastinal adenopathy likely [...] 2019 scan Emphysema and chronic bronchitis Moderate [place] coronary artery calcification Borderline mediastinal adenopathy likely reactive but not completelyspecific. - Note: Radiology results need to be interpreted within a comprehensiveclinical context. If you have questions about the radiology report, please contactthe office of the ordering clinician. Bryan Rodriguez MD [facility] ORDERABLES Final Result * (ABNORMAL) LIPID PANEL REFLEX (07/04/2022 8:30 AM EDT) Cholesterol 203(H) <200 mg/dL 07/04/2022 6:21 PM EDT [facility] [employer] [email or web address] Comment: < 200 Desirable 200 - 239 Borderline High >= 240 High Triglyceride 200(H) <150 mg/dL 07/04/2022 6:21 PM EDT [facility] [employer] [email or web address] Comment: < 150 Normal 150 - 199 Borderline High 200 - 499 High >= 500 Very High HDL 61 >=40 mg/dL 07/04/2022 6:21 PM EDT [facility] [employer] [email or web address] Comment: > 60 Optimal 40 - 60 Acceptable < 40 Low LDL Calculated 108(H) <100 mg/dL 07/04/2022 6:21 PM EDT [facility] [employer] Non-HDL-C Calculated 142(H) <=129 mg/dL 07/04/2022 6:21 PM EDT [facility] [facility] Comment: <130 Desirable 130-159 Above Desirable 160-189 Borderline High 190-219 High >= 220 Very High Fasting Specimen? No None 023 6:21 PM EDT [facility] Blood VENOUS BLOOD / Unknown Venipuncture / Unknown 07/04/2022 8:30 AM EDT 07/04/2022 8:30 AM EDT us Darshana Avelarulding DEEP TISSUE MASSAGE THERAPIST CHEMISTRY ORDERABLES Final Result [facility] [address] [facility] [address] [place] [address] [facility] [address] [place], [place] [id number] * MM MAMMO DIGITAL LEIGH SCREEN BILAT (05/12/2020 10:52 AM EST) Anatomical Region Laterality Modality Breast Bilateral Mammography 05/13/2020 9:41 AM EST Impressions 05/13/2020 9:41 AM EST Negative ([id number]) ~ RECOMMENDATION: Routine screening mammogram in 1 [...] the next mammogram, in accordance with the [place] and the Society of Breast Imaging recommendations. Narrative 05/13/2020 9:41 AM EST Procedure:MM MAMMO DIGITAL LEIGH SCREEN BILAT ~ Reason for exam: screening, asymptomatic. Z12.31-Encounter for screening mammogram for malignant neoplasm of [id number]-CM ~ MM MAMMO DIGITAL LEIGH SCREEN BILAT Bilateral CC and MLO view(s) were taken. There are scattered fibroglandular densities. Prior study comparison: Outside films from [facility] dated 05/18/2015. No mammographic evidence of malignancy. ~ Procedure Note Lorri Tovar MD - 05/13/2020 Procedure:MM MAMMO DIGITAL LEIGH SCREEN BILAT ~ Reason for exam: screening, asymptomatic. Z12.31-Encounter for screening mammogram for malignant neoplasm of yiqhqc-YLI-29-CM ~ MM MAMMO DIGITAL LEIGH SCREEN BILAT Bilateral CC and MLO view(s) were taken. There are scattered fibroglandular densities. Prior study comparison: Outside films from [facility] dated 05/18/2015. No mammographic evidence of malignancy. ~ IMPRESSION: Negative ([id number]) ~ RECOMMENDATION: Routine screening mammogram in 1 [...] the next mammogram, in accordance with the [place] and the Society of Breast Imaging recommendations. Darshana Crews APRN IMG MAMMOGRAPHY ORDERABLES Final Result * HEPATITIS C ANTIBODY - SCREENING (07/02/2017 3:03 PM EDT) Hep C Ab Negative Negative 07/03/2017 9:30 AM EDT [facility] Blood VENOUS BLOOD / Unknown Venipuncture / Unknown 07/02/2017 3:03 PM EDT 07/02/2017 3:03 PM EDT Michael Moon MD HEMATOLOGY ORDERABLES Final Re sult [facility] [address] [place] [address] from Last 3 Months or Most Recently Relevant to Health Maintenance Insurance [facility] [employer] [facility] Advance Directives For more information, please contact: [phone] * Full Code (Latest Code Status on File) Date Activated Date Inactivated Comments 07/26/2024 11:10 PM 07/30/2024 5:42 PM * Full Code Date Activated Date Inactivated Comments 04/21/2020 9:49 PM 04/25/2020 6:03 PM * Full Code Date Activated Date Inactivated Comments 02/17/2019 12:15 AM 02/22/2019 7:32 PM Care Teams Pathology Tech Relationship Specialty Start Date End Date Darshana Crews [place] [place] [address] PCP - General Nurse Practitioner-Family 02/13/18
--- OUTSIDE RECORDS SUMMARY | 2025-03-03 08:16 | XMS_ITS ---
Author Organization Unknown TREATMENT PLAN [facility] Start Date Provider Encounter for Check-up [id number] [facility]
--- OUTSIDE RECORDS SUMMARY | 2025-03-03 08:17 | XMS_ITS | Data Portability ---
Author Organization [facility] Address [address] [place] [address] Care Team Providers [employer] Name Role Phone BENITO JONES Referring Provider [phone] Assessment Encounter Date Assessment Date Assessment LastModified [...] her for a second intra-articular hip injection. [email or web address] Not available 01/06/2019 16:34:25 03/03/2019 03/03/2019 58-year-old [...] recall. [facility] [...] return in 1 month for medication management. [email or web address] Not available 03/03/2019 09:00:23 04/02/2019 04/02/2019 59-year-old [...] 0 08:56:54 drug screen, urine 2018 019 [email or web address] Not available 9 09:00:46 drug screen, urine 2018 019 [email or web address] Not available 9 16:36:09 Referral None recorded. Procedures intra-art icular injection , hip (PROC) 2019 020 [email or web address] Not available 0 08:01:36 intra-art icular injection , hip (PROC) 2018 019 [email or web address] Not available 9 12:49:04 intra-art icular injection , hip (PROC) 2018 019 [email or web address] Not available 9 15:54:00 Surgeries None recorded. Imaging None recorded. Medication Orders Percocet 5 mg-[address] [facility] [id number], [address] [place] [address], [address], 0 12:17:13 Percocet 5 mg-325 mg tablet [address] [facility] [id number], [address] [place] [address], [address], 0 09:00:41 Percocet 5 mg-325 mg tablet [address] [facility] [id number], [address] [place] [address], [address], 9 09:00:52 Percocet 5 mg-325 mg tablet 2018 019 INTERFACE [id number], [address] [place], [address], 9 16:36:57 Patient TargetsNo targets recorded. Patient Instructions Encounter Date Encounter Id Patient Instructions Last Modified By Organization Details Last Modified Time 01/06/2019 [id number] Much of this encounter is an electronic lithoplate maker/verdin slation of spoken language to printed text. [...] n, urine THC: negati ve Not Available [place] [address], [place], [address], 05/27/2019 11:38:36 05/27/19 20 05/27/2019 drug scree n, urine Buprenorphin e: negati ve Not Available [place] [address], [place], [address], 05/27/2019 11:38:36 05/27/1905/27/2019 drug scree n, urine TCA: negati ve Not Available [place] [address], [place], [address], 05/27/2019 11:38:36 05/27/1905/27/2019 drug scree n, urine Barbiturates : negati ve Not Available [place] [address], [place], [address], 05/27/2019 11:38:36 05/27/19 20 05/27/2019 drug scree n, urine Benzodiazepi mariia: negati ve Not Available [place] [address], [place], [address], 05/27/2019 11:38:36 05/27/19 20 05/27/2019 drug scree n, urine Methadone: negati ve Not Available [place] [address], [place], [address], 05/27/2019 11:38:36 05/27/19 20 05/27/2019 drug scree n, urine Amphetamines : negati ve Not Available [place] [address], [place], [address], 05/27/2019 11:38:36 05/27/19 20 05/27/2019 drug scree n, urine Morphine/Opi ates: negati ve Not Available [place] [address], [place], [address], 05/27/2019 11:38:36 05/27/19 20 05/27/2019 drug scree n, urine Oxycodone: positi ve Not Available [place] [address], [place], [address], 05/27/2019 11:38:36 05/27/19 20 05/27/2019 drug scree n, urine MDMA: negati ve Not Available [place] [address], [place], [address], 05/27/2019 11:38:36 05/27/1905/27/2019 drug scree n, urine Cocaine: negati ve Not Available [place] [address], [place], [address], 05/27/2019 11:38:36 05/27/19 20 05/27/2019 drug scree n, urine Methamphetam ine: negati ve Not Available [place] [address], [place], [address], 05/27/2019 11:38:36 03/03/20 19 03/03/2019 drug scree n, urine THC: negati ve Not Available [place] [address], [place], [address], 03/03/2019 08:18:10 03/03/20 19 03/03/2019 drug scree n, urine Buprenorphin e: negati ve Not Available [place] [address], [place], [address], 03/03/2019 08:18:10 03/03/20 19 03/03/2019 drug scree n, urine TCA: negati ve Not Available [place] [address], [place], [address], 03/03/2019 08:18:10 03/03/20 19 03/03/2019 drug scree n, urine Barbiturates : negati ve Not Available [place] [address], [place], [address], 03/03/2019 08:18:10 03/03/20 19 03/03/2019 drug scree n, urine Benzodiazepi mariia: negati ve Not Available [place] [address], [place], [address], 03/03/2019 08:18:10 03/03/20 19 03/03/2019 drug scree n, urine Methadone: negati ve Not Available [place] [address], [place], [address], 03/03/2019 08:18:10 03/03/20 19 03/03/2019 drug scree n, urine Amphetamines : negati ve Not Available [place] [address], [place], [address], 03/03/2019 08:18:10 03/03/20 19 03/03/2019 drug scree n, urine Morphine/Opi ates: negati ve Not Available [place] [address], [place], [address], 03/03/2019 08:18:10 03/03/20 19 03/03/2019 drug scree n, urine Oxycodone: positi ve Not Available [place] [address], [place], [address], 03/03/2019 08:18:10 03/03/20 19 03/03/2019 drug scree n, urine MDMA: negati ve Not Available [place] [address], [place], [address], 03/03/2019 08:18:10 03/03/20 19 03/03/2019 drug scree n, urine Cocaine: negati ve Not Available [place] [address], [place], [address], 03/03/2019 08:18:10 03/03/20 19 03/03/2019 drug scree n, urine Methamphetam ine: negati ve Not Available [place] [address], [place], [address], 03/03/2019 08:18:10 01/07/20 19 01/06/2019 drug scree n, urine THC: negati ve Not Available [place] [address], [place], [address], 01/06/2019 14:43:45 01/07/20 19 01/06/2019 drug scree n, urine Buprenorphin e: negati ve Not Available [place] [address], [place], [address], 01/06/2019 14:43:45 01/07/2001/06/2019 drug scree n, urine TCA: negati ve Not Available [place] [address], [place], [address], 01/06/2019 14:43:45 01/07/2001/06/2019 drug scree n, urine Barbiturates : negati ve Not Available [place] [address], [place], [address], 01/06/2019 14:43:45 01/07/2001/06/2019 drug scree n, urine Benzodiazepi mariia: negati ve Not Available [place] [address], [place], [address], 01/06/2019 14:43:45 01/07/2001/06/2019 drug scree n, urine Methadone: negati ve Not Available [place] [address], [place], [address], 01/06/2019 14:43:45 01/07/2001/06/2019 drug scree n, urine Amphetamines : negati ve Not Available [place] [address], [place], [address], 01/06/2019 14:43:45 01/07/2001/06/2019 drug scree n, urine Morphine/Opi ates: negati ve Not Available [place] [address], [place], [address], 01/06/2019 14:43:45 01/07/2001/06/2019 drug scree n, urine Oxycodone: positi ve Not Available [place] [address], [place], [address], 01/06/2019 14:43:45 01/07/20 19 01/06/2019 drug scree n, urine MDMA: negati ve Not Available [place] [address], [place], [address], 01/06/2019 14:43:45 01/07/20 19 01/06/2019 drug scree n, urine Cocaine: negati ve Not Available [place] [address], [place], [address], 01/06/2019 14:43:45 01/07/2001/06/2019 drug scree n, urine Methamphetam ine: negati ve Not Available [place] [address], [place], [address], 01/06/2019 14:43:45 12/11/19 19 12/10/2018 drug scree n, urine THC: negati ve Not Available [place] [address], [place], [address], 12/10/2018 14:08:48 12/11/19 19 12/10/2018 drug scree n, urine Buprenorphin e: negati ve Not Available [place] [address], [place], [address], 12/10/2018 14:08:48 12/11/19 19 12/10/2018 drug scree n, urine TCA: negati ve Not Available [place] [address], [place], [address], 12/10/2018 14:08:48 12/11/19 19 12/10/2018 drug scree n, urine Barbiturates : negati ve Not Available [place] [address], [place], [address], 12/10/2018 14:08:48 12/11/19 19 12/10/2018 drug scree n, urine Benzodiazepi mariia: negati ve Not Available [place] [address], [place], [address], 12/10/2018 14:08:48 12/11/19 19 12/10/2018 drug scree n, urine Methadone: negati ve Not Available [place] [address], [place], [address], 12/10/2018 14:08:48 12/11/19 19 12/10/2018 drug scree n, urine Amphetamines : negati ve Not Available [place] [address], [place], [address], 12/10/2018 14:08:48 12/11/19 19 12/10/2018 drug scree n, urine Morphine/Opi ates: negati ve Not Available [place] [address], [place], [address], 12/10/2018 14:08:48 12/11/19 19 12/10/2018 drug scree n, urine Oxycodone: negati ve Not Available [place] [address], [place], [address], 12/10/2018 14:08:48 12/11/19 19 12/10/2018 drug scree n, urine MDMA: negati ve Not Available [place] [address], [place], [address], 12/10/2018 14:08:48 12/11/19 19 12/10/2018 drug scree n, urine Cocaine: negati ve Not Available [place] [address], [place], [address], 12/10/2018 14:08:48 12/11/19 19 12/10/2018 drug scree n, urine Methamphetam ine: negati ve Not Available [place] [address], [place], [address], 12/10/2018 14:08:48 12/12/1912/11/2018 6-Mon oacet ylmor phine (6-MA M), QN, urine 6-acetylmorp jeanine Negati ve NG/mL 5 normal Negat giovani-E xpect ed Not Available [facility] [address], [address], 12/14/2018 21:23:23 12/12/19 19 12/11/2018 6-Mon oacet ylmor phine (6-MA M), QN, urine 7-aminoclona zepam Negati ve NG/mL 5 normal Negat giovani-E xpect ed Not Available [facility] [address], [address], 12/14/2018 21:23:23 12/12/19 19 12/11/2018 6-Mon oacet ylmor phine (6-MA M), QN, urine alpha-hydrox yalprazolam Negati ve NG/mL 5 normal Negat giovani-E xpect ed Not Available [address], [address], 12/14/2018 21:23:23 12/12/1912/11/2018 6-Mon oacet ylmor phine (6-MA M), QN, urine alprazolam Negati ve NG/mL 5 normal Negat giovani-E xpect ed Not Available [address], [address], 12/14/2018 21:23:23 12/12/1912/11/2018 6-Mon oacet ylmor phine (6-MA M), QN, urine amitriptylin e Negati ve NG/mL 10 normal Negat giovani-E xpect ed Not Available [facility] [address], [address], 12/14/2018 21:23:23 12/12/1912/11/2018 6-Mon oacet ylmor phine (6-MA M), QN, urine benzoylecgon ine Negati ve NG/mL 20 normal Negat giovani-E xpect ed Not Available [facility] [address], [address], 12/14/2018 21:23:23 12/12/19 19 12/11/2018 6-Mon oacet ylmor phine (6-MA M), QN, urine buprenorphin e Negati ve NG/mL 5 normal Negat giovani-E xpect ed Not Available [facility] [address], [address], 12/14/2018 21:23:23 12/12/1912/11/2018 6-Mon oacet ylmor phine (6-MA M), QN, urine carisoprodol Negati ve NG/mL 10 normal Negat giovani-E xpect ed Not Available [facility] [address], [address], 12/14/2018 21:23:23 12/12/1912/11/2018 6-Mon oacet ylmor phine (6-MA M), QN, urine clonazepam Negati ve NG/mL 5 normal Negat giovani-E xpect ed Not Available [facility] [address], [address], 12/14/2018 21:23:23 12/12/1912/11/2018 6-Mon oacet ylmor phine (6-MA M), QN, urine codeine Negati ve NG/mL 50 normal Negat giovani-E xpect ed Not Available [facility] [address] [place], [address], 12/14/2018 21:23:23 12/12/1912/11/2018 6-Mon oacet ylmor phine (6-MA M), QN, urine EDDP Negati ve NG/mL 100 normal Negat giovani-E xpect ed Not Available [address], [address], 12/14/2018 21:23:23 12/12/19 19 12/11/2018 6-Mon oacet ylmor phine (6-MA M), QN, urine fentanyl Negati ve NG/mL 1 normal Negat giovani-E xpect ed Not Available [address], [address], 12/14/2018 21:23:23 12/12/19 19 12/11/2018 6-Mon oacet ylmor phine (6-MA M), QN, urine gabapentin Negati ve NG/mL 1000 normal Negat giovani-E xpect ed Not Available [address], [address], 12/14/2018 21:23:23 12/12/1912/11/2018 6-Mon oacet ylmor phine (6-MA M), QN, urine hydrocodone Negati ve NG/mL 5 normal Negat giovani-E xpect ed Not Available [address], [address], 12/14/2018 21:23:23 12/12/1912/11/2018 6-Mon oacet ylmor phine (6-MA M), QN, urine hydromorphon e Negati ve NG/mL 5 normal Negat giovani-E xpect ed Not Available [facility] [address], [address], 12/14/2018 21:23:23 12/12/19 19 12/11/2018 6-Mon oacet ylmor phine (6-MA M), QN, urine ketamine Negati ve NG/mL 2 normal Negat giovani-E xpect ed Not Available [facility] [address], [address], 12/14/2018 21:23:23 12/12/19 19 12/11/2018 6-Mon oacet ylmor phine (6-MA M), QN, urine lorazepam Negati ve NG/mL 10 normal Negat giovani-E xpect ed Not Available [facility] [address], [address], 12/14/2018 21:23:23 12/12/19 19 12/11/2018 6-Mon oacet ylmor phine (6-MA M), QN, urine mda Negati ve NG/mL 10 normal Negat giovani-E xpect ed Not Available [facility] [address], [address], 12/14/2018 21:23:23 12/12/19 19 12/11/2018 6-Mon oacet ylmor phine (6-MA M), QN, urine mdea Negati ve NG/mL 5 normal Negat giovani-E xpect ed Not Available [facility] [address], [address], 12/14/2018 21:23:23 12/12/19 19 12/11/2018 6-Mon oacet ylmor phine (6-MA M), QN, urine MDMA Negati ve NG/mL 10 normal Negat giovani-E xpect ed Not Available [facility] [address], [address], 12/14/2018 21:23:23 12/12/19 19 12/11/2018 6-Mon oacet ylmor phine (6-MA M), QN, urine mdpv Negati ve NG/mL 5 normal Negat giovani-E xpect ed Not Available [facility] [address], [address], 12/14/2018 21:23:23 12/12/19 19 12/11/2018 6-Mon oacet ylmor phine (6-MA M), QN, urine meperidine Negati ve NG/mL 2 normal Negat giovani-E xpect ed Not Available [facility] [address], [address], 12/14/2018 21:23:23 12/12/19 19 12/11/2018 6-Mon oacet ylmor phine (6-MA M), QN, urine meprobamate Negati ve NG/mL 100 normal Negat giovani-E xpect ed Not Available [facility] [address], [address], 12/14/2018 21:23:23 12/12/19 19 12/11/2018 6-Mon oacet ylmor phine (6-MA M), QN, urine methadone Negati ve NG/mL 50 normal Negat giovani-E xpect ed Not Available [facility] [address], [address], 12/14/2018 21:23:23 12/12/19 19 12/11/2018 6-Mon oacet ylmor phine (6-MA M), QN, urine methylone Negati ve NG/mL 10 normal Negat giovani-E xpect ed Not Available [facility] [address], [address], 12/14/2018 21:23:23 12/12/19 19 12/11/2018 6-Mon oacet ylmor phine (6-MA M), QN, urine methylphenid ate Negati ve NG/mL 50 normal Negat giovani-E xpect ed Not Available [facility] [address], [address], 12/14/2018 21:23:23 12/12/19 19 12/11/2018 6-Mon oacet ylmor phine (6-MA M), QN, urine mitragynine Negati ve NG/mL 5 normal Negat giovani-E xpect ed Not Available [facility] [address], [address], 12/14/2018 21:23:23 12/12/19 19 12/11/2018 6-Mon oacet ylmor phine (6-MA M), QN, urine morphine Negati ve NG/mL 50 normal Negat giovani-E xpect ed Not Available [facility] [address], [address], 12/14/2018 21:23:23 12/12/19 19 12/11/2018 6-Mon oacet ylmor phine (6-MA M), QN, urine naloxone Negati ve NG/mL 10 normal Negat giovani-E xpect ed Not Available [facility] [address], [address], 12/14/2018 21:23:23 12/12/19 19 12/11/2018 6-Mon oacet ylmor phine (6-MA M), QN, urine N-desmethylt apentadol Negati ve NG/mL 25 normal Negat giovani-E xpect ed Not Available [facility] [address], [address], 12/14/2018 21:23:23 12/12/19 19 12/11/2018 6-Mon oacet ylmor phine (6-MA M), QN, urine norbuprenorp jeanine Negati ve NG/mL 5 normal Negat giovani-E xpect ed Not Available [facility] [address], [address], 12/14/2018 21:23:23 12/12/19 19 12/11/2018 6-Mon oacet ylmor phine (6-MA M), QN, urine nordiazepam Negati ve NG/mL 5 normal Negat giovani-E xpect ed Not Available [facility] [address], [address], 12/14/2018 21:23:23 12/12/19 19 12/11/2018 6-Mon oacet ylmor phine (6-MA M), QN, urine norfentanyl Negati ve NG/mL 2 normal Negat giovani-E xpect ed Not Available [facility] [address], [address], 12/14/2018 21:23:23 12/12/1912/11/2018 6-Mon oacet ylmor phine (6-MA M), QN, urine norhydrocodo ne Negati ve NG/mL 10 normal Negat giovani-E xpect ed Not Available [facility] [address], [address], 12/14/2018 21:23:23 12/12/19 19 12/11/2018 6-Mon oacet ylmor phine (6-MA M), QN, urine norketamine Negati ve NG/mL 2 normal Negat giovani-E xpect ed Not Available [facility] [address], [address], 12/14/2018 21:23:23 12/12/1912/11/2018 6-Mon oacet ylmor phine (6-MA M), QN, urine oxazepam Negati ve NG/mL 10 normal Negat giovani-E xpect ed Not Available [facility] [address], [address], 12/14/2018 21:23:23 12/12/19 19 12/11/2018 6-Mon oacet ylmor phine (6-MA M), QN, urine oxymorphone Negati ve NG/mL 10 abnormal Negat giovani-U nexpe cted Not Available [facility] [address], [address], 12/14/2018 21:23:23 12/12/1912/11/2018 6-Mon oacet ylmor phine (6-MA M), QN, urine phencyclidin e Negati ve NG/mL 5 normal Negat giovani-E xpect ed Not Available [facility] [address], [address], 12/14/2018 21:23:23 12/12/1912/11/2018 6-Mon oacet ylmor phine (6-MA M), QN, urine pregabalin Negati ve NG/mL 500 normal Negat giovani-E xpect ed Not Available [facility] [address], [address], 12/14/2018 21:23:23 12/12/1912/11/2018 6-Mon oacet ylmor phine (6-MA M), QN, urine propoxyphene Negati ve NG/mL 10 normal Negat giovani-E xpect ed Not Available [facility] [address], [address], 12/14/2018 21:23:23 12/12/1912/11/2018 6-Mon oacet ylmor phine (6-MA M), QN, urine tapentadol Negati ve NG/mL 2 normal Negat giovani-E xpect ed Not Available [facility] [address], [address], 12/14/2018 21:23:23 12/12/19 19 12/11/2018 6-Mon oacet ylmor phine (6-MA M), QN, urine temazepam Negati ve NG/mL 10 normal Negat giovani-E xpect ed Not Available [facility] [address], [address], 12/14/2018 21:23:23 12/12/19 19 12/11/2018 6-Mon oacet ylmor phine (6-MA M), QN, urine thca Negati ve NG/mL 25 normal Negat giovani-E xpect ed Not Available [address], [address], 12/14/2018 21:23:23 12/12/19 19 12/11/2018 6-Mon oacet ylmor phine (6-MA M), QN, urine tramadol Negati ve NG/mL 25 normal Negat giovani-E xpect ed Not Available [address], [address], 12/14/2018 21:23:23 12/12/1912/11/2018 6-Mon oacet ylmor phine (6-MA M), QN, urine zolpidem Negati ve NG/mL 1 normal Negat giovani-E xpect ed Not Available [address], [address], 12/14/2018 21:23:23 12/12/19 19 12/11/2018 6-Mon oacet ylmor phine (6-MA M), QN, urine noroxycodone Negati ve NG/mL 50 abnormal Negat giovani-U nexpe cted Not Available [facility] - [address], [address], 12/14/2018 21:23:23 12/12/19 19 12/11/2018 6-Mon oacet ylmor phine (6-MA M), QN, urine oxycodone Negati ve NG/mL 50 abnormal Negat giovani-U nexpe cted Not Available [facility] - [address], [address], 12/14/2018 21:23:23 12/12/1912/11/2018 6-Mon oacet ylmor phine (6-MA M), QN, urine creatinine 143.91 mg/L normal In Range Not Available [facility] - [address], [address], 12/14/2018 21:23:23 12/12/1912/11/2018 6-Mon oacet ylmor phine (6-MA M), QN, urine oxidant Out Of Range ug/mL abnormal Out Of Range Not Available [facility] - [address], [address], 12/14/2018 21:23:23 12/12/1912/11/2018 6-Mon oacet ylmor phine (6-MA M), QN, urine pH Out of Range none abnormal Out of Range Not Available [facility] - [address], [address], 12/14/2018 21:23:23 12/12/1912/11/2018 6-Mon oacet ylmor phine (6-MA M), QN, urine specific gravity 1.026 none normal In Range Not Available [facility] - [address], [address], 12/14/2018 21:23:23 12/12/19 19 12/11/2018 6-Mon oacet ylmor phine (6-MA M), QN, urine synthetic cannabinoids Negati ve NG/mL 20 normal Negat giovani-E xpect ed Not Available [facility] [address] [place], [address], 12/14/2018 21:23:23 12/12/19 19 12/11/2018 6-Mon oacet ylmor phine (6-MA M), QN, urine methamphetam ine Negati ve NG/mL 50 normal Negat giovani-E xpect ed Not Available [facility] [address], [address], 12/14/2018 21:23:23 12/12/19 19 12/11/2018 6-Mon oacet ylmor phine (6-MA M), QN, urine dextrorphan Negati ve NG/mL 5 normal Negat giovani-E xpect ed Not Available [facility] [address], [place], [address], 12/14/2018 21:23:23 12/12/19 19 12/11/2018 6-Mon oacet ylmor phine (6-MA M), QN, urine dextromethor ballard Negati ve NG/mL 5 normal Negat giovani-E xpect ed Not Available [facility] [id number] [place], [address], 12/14/2018 21:23:23 12/12/1912/11/2018 6-Mon oacet ylmor phine (6-MA M), QN, urine acetylfentan yl Negati ve NG/mL 2 normal Negat giovani-E xpect ed Not Available [facility] [address], [address], 12/14/2018 21:23:23 12/12/19 19 12/11/2018 6-Mon oacet ylmor phine (6-MA M), QN, urine acetylnorfen tanyl Negati ve NG/mL 5 normal Negat giovani-E xpect ed Not Available [facility] [address], [address], 12/14/2018 21:23:23 12/12/19 19 12/11/2018 6-Mon oacet ylmor phine (6-MA M), QN, urine acrylfentany l Negati ve NG/mL 2 normal Negat giovani-E xpect ed Not Available [facility] [address], [address], 12/14/2018 21:23:23 12/12/19 19 12/11/2018 6-Mon oacet ylmor phine (6-MA M), QN, urine butyrylfenta nyl Negati ve NG/mL 10 normal Negat giovani-E xpect ed Not Available [facility] [address], [address], 12/14/2018 21:23:23 12/12/19 19 12/11/2018 6-Mon oacet ylmor phine (6-MA M), QN, urine butyrylnorfe ntanyl Negati ve NG/mL 10 normal Negat giovani-E xpect ed Not Available [facility] [address], [address], 12/14/2018 21:23:23 12/12/1912/11/2018 6-Mon oacet ylmor phine (6-MA M), QN, urine carboxyzolpi dem Negati ve NG/mL 10 normal Negat giovani-E xpect ed Not Available [facility] [address], [address], 12/14/2018 21:23:23 12/12/19 19 12/11/2018 6-Mon oacet ylmor phine (6-MA M), QN, urine carfentanil Negati ve NG/mL 5 normal Negat giovani-E xpect ed Not Available [facility] [address], [address], 12/14/2018 21:23:23 12/12/19 19 12/11/2018 6-Mon oacet ylmor phine (6-MA M), QN, urine [id number]-1-[id number] fentanyl Negati ve NG/mL 10 normal Negat giovani-E xpect ed Not Available [facility] [address], [address], 12/14/2018 21:23:23 12/12/19 19 12/11/2018 6-Mon oacet ylmor phine (6-MA M), QN, urine [id number]-6-[id number] norfentanyl Negati ve NG/mL 10 normal Negat giovani-E xpect ed Not Available [address], [address], 12/14/2018 21:23:23 12/12/19 19 12/11/2018 6-Mon oacet ylmor phine (6-MA M), QN, urine diazepam Negati ve NG/mL 5 normal Negat giovani-E xpect ed Not Available [address], [address], 12/14/2018 21:23:23 12/12/1912/11/2018 6-Mon oacet ylmor phine (6-MA M), QN, urine furanylfenta nyl Negati ve NG/mL 2 normal Negat giovani-E xpect ed Not Available [facility] [address], [address], 12/14/2018 21:23:23 12/12/19 19 12/11/2018 6-Mon oacet ylmor phine (6-MA M), QN, urine N-desmethylc italopram Negati ve NG/mL 10 normal Negat giovani-E xpect ed Not Available [facility] [address], [address], 12/14/2018 21:23:23 12/12/19 19 12/11/2018 6-Mon oacet ylmor phine (6-MA M), QN, urine N-desmethyl- [id number] Negati ve NG/mL 5 normal Negat giovani-E xpect ed Not Available [facility] [address], [address], 12/14/2018 21:23:23 12/12/19 19 12/11/2018 6-Mon oacet ylmor phine (6-MA M), QN, urine norcarfentan il Negati ve NG/mL 5 normal Negat giovani-E xpect ed Not Available [facility] [address], [address], 12/14/2018 21:23:23 12/12/1912/11/2018 6-Mon oacet ylmor phine (6-MA M), QN, urine O-desmethylt ramadol Negati ve NG/mL 100 normal Negat giovani-E xpect ed Not Available [facility] [address], [address], 12/14/2018 21:23:23 12/12/1912/11/2018 6-Mon oacet ylmor phine (6-MA M), QN, urine [id number] Negati ve NG/mL 5 normal Negat giovani-E xpect ed Not Available [facility] [address], [address], 12/14/2018 21:23:23 04/02/19 20 04/02/2019 drug scree n, urine THC: negati ve Not Available [place] [address], [place], [address], 04/02/2019 08:36:26 04/02/19 20 04/02/2019 drug scree n, urine Buprenorphin e: negati ve Not Available [place] [address], [place], [address], 04/02/2019 08:36:26 04/02/19 20 04/02/2019 drug scree n, urine TCA: negati ve Not Available [place] [address], [place], [address], 04/02/2019 08:36:26 04/02/19 20 04/02/2019 drug scree n, urine Barbiturates : negati ve Not Available [place] [address], [place], [address], 04/02/2019 08:36:26 04/02/19 20 04/02/2019 drug scree n, urine Benzodiazepi mariia: negati ve Not Available [place] [address], [place], [address], 04/02/2019 08:36:26 04/02/19 20 04/02/2019 drug scree n, urine Methadone: negati ve Not Available [place] [address], [place], [address], 04/02/2019 08:36:26 04/02/19 20 04/02/2019 drug scree n, urine Amphetamines : negati ve Not Available [place] [address], [place], [address], 04/02/2019 08:36:26 04/02/19 20 04/02/2019 drug scree n, urine Morphine/Opi ates: negati ve Not Available [place] [address], [place], [address], 04/02/2019 08:36:26 04/02/19 20 04/02/2019 drug scree n, urine Oxycodone: positi ve Not Available [place] [address], [place], [address], 04/02/2019 08:36:26 04/02/19 20 04/02/2019 drug scree n, urine MDMA: negati ve Not Available [place] [address], [place], [address], 04/02/2019 08:36:26 04/02/19 20 04/02/2019 drug scree n, urine Cocaine: negati ve Not Available [place] [address], [place], [address], 04/02/2019 08:36:26 04/02/19 20 04/02/2019 drug scree n, urine Methamphetam ine: negati ve Not Available [place] [address], [place], [address], 04/02/2019 08:36:26 12/02/19 19 07/22/2018 XR, hip [...] Recorded Time Pain of right hip joint 1521082527793 02 [facility] 2018 [facility] 9 14:16:54 Long-term drug therapy Active 2018 Jorden Hill MD [address] [place], [address] , [facility] 9 17:12:26 Lumbar spondylosi s 002426348 Active 2018 Jorden Hill MD [address] [place], [address] , [facility] 9 17:12:35 Overweight 429091256 Active 2023 Arianne Barrera [facility] 4 07:55:59 Problem Notes None recorded. Procedures Surgical History Date Name Laterality Status Provider Name and Address Organization Details Recorded Time 9 Orthopedic Surgery completed Terrie Encarnacion [facility] 03/03/2019 08:51:30 9 Hip Joint Injection Fluoro completed Linda Aguilar [facility] 12/31/2018 10:33:11 Shoulder Surgery completed Terrie Encarnacion [facility] 03/03/2019 08:41:09 Imaging Results None recorded. Procedure Notes None recorded. Medical Equipment None Reported. Allergies Allergen ID Allergen Name Allergen Category Reaction Reaction Severity Criticality Documentation Date Start Date Code Code System Note Provider Name and Address Organization Details Recorded Time 753847 tramadol medicatio n rash Not available Not available 12/10/2018 38368 RxNorm Jina bourgeois [facility] 9 14:14:05 708163 codeine medicatio n itching rash Not available Not available Not available 12/10/2018 2670 RxNorm Jina bourgeois [facility] 9 14:14:05 639541 ibuprofen medicatio n other Not available Not available 12/10/2018 5640 RxNorm Jina bourgeois [facility] 9 14:14:05 805543 Non-stero idal anti-infl ammatory agent (substanc e) medicatio n other Not available Not available 12/10/2018 96962 5008 SNOMED Jina Alfredo bourgeois DONAVON - [facility] 9 14:14:05 Medications Name Sig Start Date [...] Not Available No t Available Flucelvax Quad 0313-2364 (PF) 60 mcg (15 mcg x 4)/0.5 mL IM syringe 12/10 completed Not Available Not Available Not Available Vitals Date Recorded Body height Body mass index (BMI) Body weight Pain severity - 0-10 verbal numeric rating [Score] - Reported Heart rate Oxygen saturation Systolic And Diastolic Provider Name and Address Organization Details Last Updated DateTime 0 172.72 cm 42.3 kg/m2 974561. 68 g 8 75 /min 94 % 150/90 mm[Hg] Miracle Marcum [facility] 0 08:41:10 Date Recorded Body height Body mass index (BMI) Body weight Pain severity - 0-10 verbal numeric rating [Score] - Reported Heart rate Oxygen saturation Systolic And Diastolic Provider Name and Address Organization Details Last Updated DateTime 0 172.72 cm 42.3 kg/m2 211457. 68 g 9 64 /min 98 % 140/82 mm[Hg] Miracle Marcum [facility] 0 11:45:49 Date Recorded Body height Body mass index (BMI) Body weight Heart rate Oxygen saturation Pain severity - 0-10 verbal numeric rating [Score] - Reported Systolic And Diastolic Provider Name and Address Organization Details Last Updated DateTime 9 172.72 cm 35 kg/m2 404168. 25 g 92 /min 98 % 8 138/78 mm[Hg] Jina Fuentes [facility] 9 15:04:48 Date Recorded Body height Body mass index (BMI) Body weight Pain severity - 0-10 verbal numeric rating [Score] - Reported Oxygen saturation Heart rate Systolic And Diastolic Provider Name and Address Organization Details Last Updated DateTime 9 172.72 cm 42.3 kg/m2 958310. 68 g 8 97 % 90 /min 134/76 mm[Hg] Terrie Encarnacion [facility] 9 08:39:54 Social History Question Answer Notes LastModified by Organizat ion Details LastModified Time Tobacco Smoking Status Current Every Day Smoker Jina Dolancott [facility]k [facility] 12/10/2018 14:14:16 What Is Your Level [...] Of Your Most Recent Tobacco Screening? 05/27/2019 [email or web address] Information not available 05/27/2019 At What Age Did You Start Smoking Tobacco? 14 Information not available 12/10/2018 How Much Tobacco Do You Smoke? 0.5 PPD Information not available 12/10/2018 General Stress Level Medium Information not available 12/10/2018 On What Date Was Tobacco Cessation Counseling Provided? 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 not available 12/10/2018 Do you have [...] Disease N Gout N Seizure Disorder N Atrial Fibrillation N Thyroid Disease N Head Trauma/Injury N Hernia N Depression N COPD N Anxiety Disorder N Acid Reflux (GERD) N Cancer N Skin Disorder N Stroke N High Cholesterol N Liver Disease N Rheumatoid Arthritis N Fibromyalgia N Headaches N Autoimmune Disease N Kidney Disease N Osteoarthritis Y Neurosurgery N DVT N Peptic Ulcer Disease N Anemia N Heart Attack (MA) N Diabetes N Cardiomyopathy N Bleeding Disorder [...] ICD10 Code Diagnosis IMO Codes Diagnosis Note [id number] Jorden Hill MD [place] [address] [place] [address] 12/10/2018 14:04:05 12/10/2018 14:30:04 Long-term drug therapy 078240099 Z79.899 Up to date Informed Consent and Opioid Agreement have been signed and incorporat ed into the chart. Patient has been provided written educationa l materials regarding potential adverse effects of nursing home opioid therapy MEDICAL INDICATION S: Pain has [...] THERAPY. Pain of ri ght hip joint 0567086959 44157 M25.551 Lumbar spondylosis 40901 0009 M47.816 Medication monitoring 39 1562957 Z79.899 The urine sample is being sent [...] establish baseline medication and metabolite quantities . [id number] MD Rossy [place] [address] [place] [address] 12/31/2018 08:12:02 12/31/2018 08:41:16 Pain of right hip joint 9833786595 09031 M25.551 [id number] MD Maria Elena [place] [address] [place] [address] 01/06/2019 14:38:24 01/06/2019 15:13:08 Long-term drug therapy 857833658 Z79.899 Up to date Informed Consent and Opioid Agreement have been signed and incorporat ed into the chart. Patient has been provided written educationa l materials regarding potential adverse effects of nursing home opioid therapy MEDICAL INDICATION S: Pain has [...] active treatment for medication misuse or diversion. CAROLEE/OA RS has been reviewed and documented to assure compliance with dosing scheduling , pain agreement MY OVERALL IMPRESSION IS THAT THIS PATIENT IS BENEFITING FROM OPIOID THERAPY. Pain of ri ght hip joint 8701574316 07915 M25.551 [id number] Jorden Hill MD [place] [address] [place] [address] 03/03/2019 08:12:59 03/03/2019 08:52:28 Long-term drug therapy 882782474 Z79.899 Up to date Informed Consent and Opioid Agreement have been signed and incorporat ed into the chart. Patient has been provided written educationa l materials regarding potential adverse effects of nursing home opioid therapy MEDICAL INDICATION S: Pain has [...] IS BENEFITING FROM OPIOID THERAPY. Lumbar spondylosis 95292 0009 M47.816 Pain of ri ght hip joint 9579579827 29656 M25.551 [id number] MD Maria Elena [place] [address] [place] [address] 04/02/2019 08:33:26 04/02/2019 09:03:08 Long-term drug therapy 888866180 Z79.899 Pain of ri ght hip joint 2594504436 80275 M25.551 History and exam are consistent with pain from osteoarthr itis of the right hip. Symptoms have not responded to >3 months conservati ve therapy. Last injection in Dec offering >80% relief for about one month. Will submit for therapeuti c right hip injection. [id number] MD Maria Elena [place] [address] [place] [address] 05/27/2019 10:47:16 05/27/2019 12:03:07 Long-term drug therapy 360467169 Z79.899 The preliminar y [place] urine drug screen is appropriat e for the class of medication (s) that the patient is being prescribed and based on their risk stratifica tion I will not send this sample for further quantitati ve LCMS testing. Pain of ri ght hip joint 2944465896 37433 M25.551 Health Concerns Section Related Observation LastModified by Organization Detai ls LastModified Time None Recorded Concern Status LastModified by Organization Details LastModified Time None Recorded Advance Directives Directive None Recorded Payers Insurance Date Sequence Insurance Name Policy Number Policy Gamez Covered Member ID Gamez Member ID Guarantor Name 04/17/2023 1 [place] [facility] MEDICA[facility] (HMO) [id number] Kaylee L Hartness [id number] Kaylee Hartness 04/17/2023 1 [facility] Kaylee Hartness [id number] Kaylee Hartness 04/19/2023 1 PASSPORT BY [employer] (MEDICAID REPLACEMENT - HMO) Kaylee L Hartness [id number] Kaylee Hartness 04/17/2023 1 [facility] Kaylee Hartness [id number] Kaylee Hartness Notes Date Note Type Note Provider Name and Address Organization Details Recorded Time 12/31/2018 text/html Injection: Right hip Injection Jorden Hill MD [address] [place] [address], [phone], [facility] 12/31/2018 10:36:15 01/06/2019 text/html Follow-up (meds & [...] independently.,able to bathe/groom without assistance.,able to complete aids counselor.,walking without assistance.,working., andexercising.. For physical therapy, patient [...] For working, patient reportsno. Jorden Hill MD [address] [place] [address], [address], [facility] 01/06/2019 16:36:45 03/03/2019 text/html Follow-up (meds & [...] independently.,able to bathe/groom without assistance.,able to complete aids counselor.,walking without assistance.,working., andexercising.. For physical therapy, patient [...] For working, patient reportsno. Jorden Hill MD [address] [place] [address], [address], [facility] 03/03/2019 09:02:14 04/02/2019 text/html Follow-up (meds & [...] independently.,able to bathe/groom without assistance.,able to complete aids counselor.,walking without assistance.,working., andexercising.. For physical therapy, patient [...] For working, patient reportsno. DONAVON Otto - [facility] 04/02/2019 22:13:41 05/27/2019 text/html Follow-up (meds & [...] independently.,able to bathe/groom without assistance.,able to complete aids counselor.,walking without assistance.,working., andexercising.. For physical therapy, patient [...] For working, patient reportsno. DONAVON Otto - [facility] 05/27/2019 18:08:19 OBGyn Episode No OBEpisode recorded.
== END 2025-03-01 23:59 | disposition home or self-care (01) ==
LOC: LAB.DROPOF 03-03 08:14
PROVIDERS: PCP Family Medicine; Visit Provider Family Medicine
DX: R60.0 Localized edema (principal)
CPT/HCPCS: 80053